=== PATIENT | female | born 1970 | race Caucasian/White ===

== ENCOUNTER → 2016-10-16 | Outpatient (CLI) | payer BC ==
[~2016-10-16] MED LIST: ALPR-385 PO; CYTM25 PO; DESV50TA PO; DICY20TA10 PO; DIPH-437 PO; DIPH25CA65 PO; IBUP-1050 PO; KFL500 PO; LAMO200T38 PO; LITH1TAB10 PO; OLAN1TAB15 PO; OLAN1TAB64 PO; POTA10CA28 PO; SPHSL5 PO; TEMA15CA4 PO; XNX5 PO
--- NOTE | 2016-10-17 12:32 | MAMMOGRAPHY REPORT ---
THIS REPORT HAS BEEN AMENDED. BILATERAL DIGITAL SCREENING MAMMOGRAM TOMOSYNTHESIS WITH CAD: 10/16/2016 CLINICAL HISTORY: Routine screening. Patient has no complaints. TECHNIQUE: Breast tomosynthesis in addition to standard 2D mammography was performed. Current study was also evaluated with a Computer Aided Detection (CAD) system. COMPARISON: No prior exams were available for comparison. BREAST COMPOSITION: The tissue of both breasts is almost entirely fatty. FINDINGS: No suspicious mass, architectural distortion or cluster of microcalcifications is seen. IMPRESSION: ACR BI-RADS CATEGORY 1: NEGATIVE There is no mammographic evidence of malignancy. Prior outside mammograms are currently being reque sted and if obtained they will be reviewed, compared to the current exam to assess for any more subt le changes, and an addendum will be made to this report. Otherwise, a 1 year screening mammogram is recommended. The patient will receive written notification of the results. Approximately 10% of breast cancers are not detected with mammography. A negative mammographic repor t should not delay biopsy if a clinically suggestive mass is present. Shae Andrews M.D. ay/:10/17/2016 07:34:38 [employer]: Denis Stoddard RT(R)(M), [facility] letter sent: Normal 09/10 BI-RADS Code: ACR BI-RADS Category 1: Negative AMENDMENT: 12/12/2016 Shae Andrews M.D. A prior outside mammogram from [facility] dated 10/09/2012 became available for review. Th ere has been no significant interval change comparing to that outside mammogram. No new suspicious mass, developing asymmetry, architectural distortion or suspicious calcifications are identified. R ecommend follow-up in 1 year for next annual screening mammogram. Amended BI-RADS: ACR BI-RADS Category 1: Negative letter sent: Normal 2
== END | disposition home or self-care (01) ==
LOC: C.MAMM 14:25
PROVIDERS: ATTEND Family Medicine
DX: Z12.31 Encounter for screening mammogram for malignant neoplasm of breast (principal)

== ENCOUNTER 2016-11-06 07:32 | Emergency (ER) | payer BC ==
[~2016-11-06] VITALS: Ht 170.2 cm; Wt 109.0 kg
[~2016-11-06 07:32] MED LIST changes: -ALPR-385 PO; -CYTM25 PO; -DICY20TA10 PO; -DIPH-437 PO; -KFL500 PO; -LITH1TAB10 PO; -OLAN1TAB15 PO; -POTA10CA28 PO; -SPHSL5 PO; -XNX5 PO
[2016-11-06 07:48] VITALS: TEMP 37; Ht 170.2 cm; Wt 109.0 kg
--- NOTE | 2016-11-06 07:51 | EMERGENCY ROOM VISIT NOTE ---
History Report prepared by Donald: Jacqueline Elizabeth Under the Supervision of: Dr. Merissa Eddy M.D. First contact with patient: 07:38 Stated Complaint: ANXIETY History of Present Illness The patient is a 46 year old female who presents to the Emergency Room via EMS for a mental health evaluation. The patient has a history of bipolar and per patient's has been acting manic for the past several days. The patient admits that she is feeling manic. She has not been sleeping and has excessive energy and a one-track mind. Her states that she has had similar episodes of manic and anxiety in the past but her symptoms over the past few days have been worse than previous episodes. The patient states that she wants to see her daughter who lives in [place]. Yesterday, she seemed very paranoid to her . This morning, the patient got up after a minimal amount of sleep and was verbalizing that she was afraid that she would go to [facility] and that she would . Her states that she attends prayer groups and goes to buddhism and he feels that this may be a trigger to the thought about going to [place]. At buddhism the other day, she felt very anxious as if everyone was talking about her. The patient follows with Dr. Malik of psychiatry and most recently saw her last month. She spoke with Dr. Malik over the phone 2 days ago regarding her worsening symptoms and had her Saphris and Restoril doses increased. Denies suicidal ideation. She denies alcohol or drug use. She has not taken any extra of her medications today. She does have a history of one suicide attempt. Denies visual hallucinations, chest pain or shortness of breath. She is not a smoker. She does not have any medical problems other than recent abnormal EKGs for which she is following with cardiology. Source of History: patient, spouse/significant other Onset: this morning Position: other (psych) Quality: other (anxiety, manic) Timing: other (persistent) Associated Symptoms: No SOB, No chest pain Note: Other symptoms: paranoia Review of Systems See HPI for pertinent positives & negatives. A total of 10 systems reviewed and were otherwise negative. Past Medical & Surgical Medical Problems: (1) Anxiety and depression Surgical Problems: (1) History of cholecystectomy Family History Diabetes mellitus FH: heart disease Hypertension Seizures Social History Smoking Status: Never Smoker Alcohol Use: none Marital Status: Housing Status: lives with significant other Occupation Status: unemployed Current/Historical Medications Scheduled Acetaminophen/Diphenhydramine (Tylenol Pm), 2 TAB PO HS Asenapine Maleate (Saphris), 1 TAB PO UD Desvenlafaxine Succinate Er (Pristiq), 50 MG PO DAILY Dicyclomine Hcl (Dicyclomine Hcl), 20 MG PO DAILY Diphenhydramine Hcl (Benadryl Allergy), 1 CAP PO HS Lamotrigine (Lamictal), 200 MG PO BID Liothyronine Sodium (Liothyronine Sodium), 25 MCG PO UD Temazepam (Restoril), 30 MG PO HS Scheduled PRN Alprazolam (Xanax), 1 TAB PO BID PRN for Anxiety Ibuprofen (Advil), 200-600 MG PO Q4H PRN for Pain or Fever Allergies Coded Allergies: Lorazepam (Unverified Allergy, Severe, TOOK FOR PP DEPRESSION-ENDED UP IN ICU, 11/06/16) Bupropion (Unverified Allergy, Unknown, ANAPHYLAXIS, 11/06/16) SHE HAD A SEIZURE Physical Exam Vital Signs Date Time Temp Pulse Resp B/P Pulse Ox O2 Delivery O2 Flow Rate FiO2 11/06/16 12:57 86 18 133/81 94 Room Air 11/06/16 09:52 116 154/98 97 11/06/16 07:48 37.0 124 28 160/88 97 Room Air Physical Exam Vital signs reviewed. General: Well-appearing 46 year old female, in no significant distress, obese. HEENT: No scleral icterus, PERRLA, neck supple. Atraumatic. Cardiovascular: Regular rate and rhythm, no extra sounds. Pulmonary: Clear to auscultation bilaterally, normal work of breathing. Abdomen: Soft, nontender, nondistended, positive bowel sounds. Musculoskeletal: Atraumatic, no peripheral edema. Neurologic: Patient awake alert and oriented x 3, full strength in all 4 extremities. Cranial nerves 2 through 12 grossly intact. Skin: Warm, dry, no rash Psych: Anxious, negative suicidal ideation, negative homicidal ideation. Medical Decision & Procedures Laboratory Results 11/06/16 08:30 Red Blood Count 4.17, Mean Corpuscular Volume 92.1, Mean Corpuscular Hemoglobin 31.2, Mean Corpuscular Hemoglobin Concent 33.9, Mean Platelet Volume 11.2, Neutrophils (%) (Auto) 81.3, Lymphocytes (%) (Auto) 11.3, Monocytes (%) (Auto) 6.6, Eosinophils (%) (Auto) 0.2, Basophils (%) (Auto) 0.2, Neutrophils # (Auto) 10.15, Lymphocytes # (Auto) 1.41, Monocytes # (Auto) 0.82, Eosinophils # (Auto) 0.03, Basophils # (Auto) 0.03 11/06/16 08:30 Test 11/06/16 08:30 11/06/16 08:37 White Blood Count 12.49 K/uL (4.8-10.8) Red Blood Count 4.17 M/uL (4.2-5.4) Hemoglobin 13.0 g/dL (12.0-16.0) Hematocrit 38.4 % (37-47) Mean Corpuscular Volume 92.1 fL (80-100) Mean Corpuscular Hemoglobin 31.2 pg (25-34) Mean Corpuscular Hemoglobin Concent 33.9 g/dl (32-36) Platelet Count 295 K/uL (130-400) Mean Platelet Volume 11.2 fL (7.4-10.4) Neutrophils (%) (Auto) 81.3 % Lymphocytes (%) (Auto) 11.3 % Monocytes (%) (Auto) 6.6 % Eosinophils (%) (Auto) 0.2 % Basophils (%) (Auto) 0.2 % Neutrophils # (Auto) 10.15 K/uL (1.4-6.5) Lymphocytes # (Auto) 1.41 K/uL (1.2-3.4) Monocytes # (Auto) 0.82 K/uL (0.11-0.59) Eosinophils # (Auto) 0.03 K/uL (0-0.5) Basophils # (Auto) 0.03 K/uL (0-0.2) RDW Standard Deviation 47.4 fL (36.4-46.3) RDW Coefficient of Variation 14.1 % (11.5-14.5) Immature Granulocyte % (Auto) 0.4 % Immature Granulocyte # (Auto) 0.05 K/uL (0.00-0.02) Anion Gap 14.0 mmol/L (3-11) Est Creatinine Clear Calc Drug Dose 124.6 ml/min Estimated GFR () 117.6 Estimated GFR (Non- 101.4 BUN/Creatinine Ratio 13.4 (10-20) Calcium Level 9.2 mg/dl (8.5-10.1) Total Bilirubin 0.3 mg/dl (0.2-1) Aspartate Amino Transf (AST/SGOT) 12 U/L (15-37) Alanine Aminotransferase (ALT/SGPT) 22 U/L (12-78) Alkaline Phosphatase 121 U/L (45-117) Total Protein 7.8 gm/dl (6.4-8.2) Albumin 3.7 gm/dl (3.4-5.0) Globulin 4.1 gm/dl (2.5-4.0) Albumin/Globulin Ratio 0.9 (0.9-2) Thyroid Stimulating Hormone (TSH) 0.926 uIu/ml (0.300-4.500) Salicylates Level < 1.7 mg/dl (2.8-20) Acetaminophen Level < 2 ug/ml (10-30) Ethyl Alcohol mg/dL < 3.0 mg/dl (0-3) Urine Color YELLOW Urine Appearance CLOUDY (CLEAR) Urine pH 5.0 (4.5-7.5) Urine Specific [place] 1.021 (1.000-1.030) Urine Protein NEG (NEG) Urine Glucose (UA) NEG (NEG) Urine Ketones TRACE (NEG) Urine Occult Blood TRACE (NEG) Urine Nitrite POS (NEG) Urine Bilirubin NEG (NEG) Urine Urobilinogen NEG (NEG) Urine Leukocyte Esterase SMALL (NEG) Urine WBC (Auto) 10-30 /hpf (0-5) Urine RBC (Auto) 0-4 /hpf (0-4) Urine Hyaline Casts (Auto) 5-10 /lpf (0-5) Urine Epithelial Cells (Auto) >30 /lpf (0-5) Urine Bacteria (Auto) 4+ (NEG) Urine Opiates Screen NEG (NEG) Urine Methadone, Qualitative NEG (NEG) Urine Barbiturates NEG (NEG) Urine Phencyclidine (PCP) Level NEG (NEG) Ur Amphetamine/Methamphetamine NEG (NEG) MDMA (Ecstasy) Screen NEG (NEG) Urine Benzodiazepines Screen POS (NEG) Urine Cocaine Metabolite NEG (NEG) Urine Marijuana (THC) NEG (NEG) Laboratory results per my review. Medications Administered Medications (Trade) Dose Ordered Sig/Uriah Route Start Time Stop Time Status Last Admin Dose Admin Alprazolam (Xanax Tab) 1 mg NOW STAT PO 11/06/16 09:28 11/06/16 09:29 DC 11/06/16 09:41 0.75 MG ECG Indication: other (hx abnormal EKG) Rate (beats per minute): 111 Rhythm: sinus tachycardia Findings: other (nonspecific ST and T wave abnormalities, QTc 437) Comparison ECG Date: 07/31/16 Change: Nonspecific ST changes replaced T wave inversions. ED Course 926: Past medical records reviewed. The patient was evaluated in room B9. A complete history and physical examination was performed. 927: Ordered Xanax Tab 1 mg PO. 1313: Upon reevaluation, the patient appeared to have improvement of her symptoms. I discussed findings with the patient and her . They verbalized agreement of the treatment plan. The patient was discharged home. Medical Decision Differential diagnosis: Etiologies such as mood disorder, infection, hypoglycemia, electrolyte abnormalities, cardiac sources, intracerebral event, toxicologic, neurologic, as well as others were entertained. This patient was evaluated and appeared to be in some discomfort. Patient does seem to be significantly anxious. She states she has an allergy to lorazepam about 20 years ago although cannot remember what the reaction was. She was given Xanax 1 mg with good result and no reaction. Patient was medically cleared and evaluated by [facility]. She is felt to be stable for discharge. Outpatient follow-up with [facility] has been arranged for tomorrow. Patient was discharged in care of her . Patient will return to the ER immediately for worsening of symptoms or any medical concerns. Impression Primary Impression: Mood disorder Scribe Attestation The scribe's documentation has been prepared under my direction and personally reviewed by me in its entirety. I confirm that the note above accurately reflects all work, treatment, procedures, and medical decision making performed by me. Departure Information Dispostion Home / Self-Care Prescriptions Alprazolam (XANAX) 1 Mg Tab 1 TAB PO BID Y for Anxiety for 30 Days, #14 TAB Prov: Merissa Eddy M.D. 11/06/16 Referrals Fernanda Chino PA-C (PCP) Rhiannon Malik MD Forms HOME CARE DOCUMENTATION FORM, IMPORTANT VISIT INFORMATION Patient Instructions My [facility] Additional Instructions Diagnosis: Mood disorder Xanax 1 mg twice daily as needed for anxiety. Continue other medications as prescribed. Follow up with your psychiatrist tomorrow as directed. Return to emergency for worsening of symptoms or any medical concerns.
[2016-11-06] MEDS ORDERED: DIPH-437 PO (08:33)
[2016-11-06] MEDS ORDERED: DICY20TA10 PO (08:42)
[2016-11-06] MEDS ORDERED: SPHSL5 PO (08:44)
[2016-11-06] MEDS ORDERED: CYTM25 PO (08:46)
[2016-11-06 09:01] LABS: URINE APPEARANCE CLOUDY (CLEAR); URINE BILIRUBIN NEG (NEG); URINE COLOR YELLOW; URINE EPITHELIAL CELL AUTO >30 /lpf (0-5); URINE NITRITE POS (NEG); URINE SPECIFIC GRAVITY 1.021 (1.000-1.030); UROBILINOGEN NEG (NEG); ZZUR CULT IF INDIC CLEAN CATCH YES
[2016-11-06 09:04] LABS: MANUAL MICROSCOPIC REQUIRED? NO; REVIEW REQ? NO
[2016-11-06 09:05] LABS: BASO % 0.2 %; BASO ABS # 0.03 K/uL (0-0.2); COMPLETE YES; EOS % 0.2 %; HEMATOCRIT 38.4 % (37-47); IG% 0.4 %; LYMPH % 11.3 %; LYMPH ABS # 1.41 K/uL (1.2-3.4); MEAN CELL VOLUME 92.1 fL (80-100); MEAN CORPUSCULAR HEMOGLOBIN 31.2 pg (25-34); MEAN CORPUSCULAR HGB CONC 33.9 g/dl (32-36); MEAN PLATELET VOLUME 11.2 fL (7.4-10.4); MONO % 6.6 %; NEUT % 81.3 %; PLATELET COUNT 295 K/uL (130-400); RED BLOOD COUNT 4.17 M/uL (4.2-5.4); WHITE BLOOD COUNT 12.49 K/uL (4.8-10.8)
[2016-11-06 09:26] LABS: BUN/CREATININE RATIO 13.4 (10-20); CALCIUM 9.2 mg/dl (8.5-10.1); CREATININE 0.71 mg/dl (0.60-1.20); POTASSIUM 3.1 mmol/L (3.5-5.1)
[2016-11-06] MEDS ORDERED: ALPRAZOLAM 0.5 MG TAB PO STA (09:28)
[2016-11-06 09:37] LABS: ALB/GLOB RATIO 0.9 (0.9-2); THYROID STIMULATING HORMONE 0.926 uIu/ml (0.300-4.500)
[2016-11-06 09:38] LABS: BENZODIAZEPINE, URINE POS (NEG); COCAINE,URINE NEG (NEG); PHENCYCLIDINE, URINE NEG (NEG)
[2016-11-06 09:42] LABS: ACETAMINOPHEN < 2 ug/ml (10-30)
[2016-11-06] MEDS ORDERED: LAMO200T38 PO (10:06)
[2016-11-06 12:57] VITALS: BP 133/81; PULSE 86; O2SAT 94
[2016-11-06] MEDS ORDERED: ALPR-385 PO (12:59)
--- NOTE | 2016-11-08 14:22 | Pharmacy Progress Note ---
ED Pharmacist Culture FollowUp Date of Service: Nov 08, 2016. Called patient regarding urine culture. Prescription for Bactrim DS 1 tab po BID x3 days called to [facility] at the patient's request. Case discussed with Dr. Eddy, who is the prescribing provider.
--- NOTE | 2016-11-08 15:59 | Pharmacy Progress Note ---
ED Pharmacist Culture FollowUp Date of Service: Nov 08, 2016. Received call from Leisa ([facility] pharmacist) noting that Becky had a listed allergy to Bactrim. When I had previously spoken with Becky I confirmed her listed allergies and asked whether she had taken Bactrim before. Becky said she had. I called Becky back to re-confirm allergies - Becky noted that our previous conversation had caused her to remember that she did not tolerate Bactrim when she had taken it previously. I asked if she had taken cephalosporins before (Keflex/cephalexin etc), and Becky said she has not had problems with any antibiotics except Bactrim. Spoke w Leisa ([facility] pharmacist). Instructed to cancel prescription for Bactrim. Provided verbal prescription for Keflex 500 mg po BID x5 days. Case discussed with Dr. Eddy, who is the prescribing provider.
[2016-11-09 15:37] LABS: HYDROXYETHYLFLURAZEPAM CONF NEGATIVE NG/ML (CUTOFF=50); HYDROXYMIDAZOLAM NEGATIVE NG/ML (CUTOFF=50); HYDROXYTRIAZOLAM CONF NEGATIVE NG/ML (CUTOFF=50); SYNTHETIC CANNABINOIDS QL URIN NEGATIVE (Negative); TEMAZEPAM CONF >2000 NG/ML (CUTOFF=50)
== END 2016-11-06 13:06 | disposition home or self-care (01) ==
LOC: EDBD 07:32 → C.EDA 07:36
DX: F39 Unspecified mood [affective] disorder (principal); F41.9 Anxiety disorder, unspecified; Z79.899 Other long term (current) drug therapy

== ENCOUNTER 2016-11-11 14:21 | Inpatient (IN) | payer BC, OTHER ==
[~2016-11-11] VITALS: Ht 170.2 cm; Wt 100.6 kg
[~2016-11-11 14:21] MED LIST changes: +ALPR-385 PO; +CYTM25 PO; +DICY20TA10 PO; +DIPH-437 PO; -OLAN1TAB64 PO; +SPHSL5 PO
[2016-11-11] MEDS ORDERED: SPHSL5 PO (14:35)
[2016-11-11] MEDS ORDERED: LITH1TAB10 PO ×2 (14:38)
--- NOTE | 2016-11-11 15:02 | EMERGENCY ROOM VISIT NOTE ---
History Report prepared by Donald: Sangeeta Mondragon Under the Supervision of: Dr. Sourav Perez M.D. First contact with patient: 14:41 Chief Complaint: MENTAL HEALTH EVALUATION Stated Complaint: BI-POLAR W/SEVERE SWING History of Present Illness The patient is a 46 year old female who presents to the Emergency Room with complaints of persistent, worsening auditory hallucinations that began two weeks ago. Per the patient's , the patient was brought to the emergency department on November 06 for her hallucinations. He states that since then the patient's hallucinations have been worsening. The patient's states that the patient had an appointment with her doctor on November 07. He states that the patient was recently started on Coburn and states that she is being weaned off of Pristiq. The patient states that she has been evaluated in the past for her psychiatric problems, and states that she would like to stay today for further treatment. She states that she has been under psychiatric care for the past 25 years, noting a diagnosis of bipolar. The patient denies any other medical problems. The patient notes decreased sleep, but denies any decrease in fluid intake or decrease in appetite. She states that she has had previous suicidal ideation, but denies any current suicidal ideation. The patient notes that she recently tried changing religions and became obsessed with it. Per the patient's , he believes that this did help to trigger her symptoms. Source of History: patient, spouse/significant other () Onset: two weeks ago Position: other (global) Quality: other (auditory hallucinations) Timing: other (persistent) Note: Associated Symptoms: decrease in sleep, medication change, change in buddhist Review of Systems See HPI for pertinent positives & negatives. A total of 10 systems reviewed and were otherwise negative. Past Medical & Surgical Medical Problems: (1) Anxiety and depression (2) Bipolar 1 disorder Surgical Problems: (1) History of cholecystectomy Family History Diabetes mellitus FH: heart disease Hypertension Seizures Social History Smoking Status: Never Smoker Alcohol Use: none Marital Status: Housing Status: lives with significant other Occupation Status: unemployed Current/Historical Medications Scheduled Acetaminophen/Diphenhydramine (Tylenol Pm), 2 TAB PO HS Asenapine Maleate (Saphris), 5 MG PO QAM Asenapine Maleate (Saphris), 15 MG PO HS Desvenlafaxine Succinate Er (Pristiq), 50 MG PO Q2D Dicyclomine Hcl (Dicyclomine Hcl), 20 MG PO DAILY Lamotrigine (Lamictal), 400 MG PO QAM Liothyronine Sodium (Liothyronine Sodium), 12.5 MCG PO UD [place]urn Carbonate Ext Rel (Lithobid Ext Rel), 300 MG PO QAM [place]urn Carbonate Ext Rel (Lithobid Ext Rel), 600 MG PO HS Temazepam (Restoril), 15 MG PO HS Scheduled PRN Ibuprofen (Advil), 200-600 MG PO Q4H PRN for Pain or Fever Allergies Coded Allergies: Lorazepam (Unverified Allergy, Severe, TOOK FOR PP DEPRESSION-ENDED UP IN ICU, 11/11/16) Bupropion (Unverified Allergy, Unknown, ANAPHYLAXIS, 11/11/16) SHE HAD A SEIZURE Lurasidone (Unverified Allergy, Unknown, HALLUCINATIONS, 11/11/16) Sulfamethoxazole w/Trimethoprim (Verified Allergy, Unknown, UNKNOWN, ) Physical Exam Vital Signs Date Time Temp Pulse Resp B/P Pulse Ox O2 Delivery O2 Flow Rate FiO2 11/11/16 16:00 76 20 153/91 97 Room Air 11/11/16 14:24 36.6 81 18 134/83 96 Room Air Physical Exam GENERAL: Patient is in no acute distress. HEENT: No acute trauma, normocephalic atraumatic, mucous membranes moist, no nasal congestion, no scleral icterus. NECK: No stridor, no adenopathy, no meningismus, trachea is midline. LUNGS: Clear to auscultation bilaterally, no wheeze, no rhonchi, breath sounds equal. HEART: Without murmurs gallops or rubs, regular rate and rhythm. ABDOMEN: Soft, nontender, bowel sounds positive, no hernias, no peritonitis. EXTREMITIES: No cyanosis or edema, full range of motion of all the joints without pain or difficulty, no signs for acute trauma. NEUROLOGIC: Oriented x 3, no acute motor or sensory deficits, no focal weakness. SKIN: No rash, no jaundice, no diaphoresis. PSYCH: Cooperative, voluntary, admits to hearing voices, denies being suicidal. Medical Decision & Procedures Laboratory Results 11/11/16 15:30 11/11/16 15:30 Test 11/11/16 15:30 11/11/16 16:53 Red Blood Count 4.75 M/uL (4.2-5.4) Mean Corpuscular Volume 92.0 fL (80-100) Mean Corpuscular Hemoglobin 30.9 pg (25-34) Mean Corpuscular Hemoglobin Concent 33.6 g/dl (32-36) RDW Standard Deviation 46.6 fL (36.4-46.3) RDW Coefficient of Variation 13.8 % (11.5-14.5) Mean Platelet Volume 10.8 fL (7.4-10.4) Anion Gap 11.0 mmol/L (3-11) Est Creatinine Clear Calc Drug Dose 99.8 ml/min Estimated GFR () 90.7 Estimated GFR (Non- 78.2 BUN/Creatinine Ratio 11.0 (10-20) Calcium Level 9.5 mg/dl (8.5-10.1) Total Bilirubin 0.3 mg/dl (0.2-1) Aspartate Amino Transf (AST/SGOT) 14 U/L (15-37) Alanine Aminotransferase (ALT/SGPT) 31 U/L (12-78) Alkaline Phosphatase 133 U/L (45-117) Total Protein 8.7 gm/dl (6.4-8.2) Albumin 4.1 gm/dl (3.4-5.0) Globulin 4.6 gm/dl (2.5-4.0) Albumin/Globulin Ratio 0.9 (0.9-2) Thyroid Stimulating Hormone (TSH) 0.981 uIu/ml (0.300-4.500) Human Chorionic Gonadotropin, Qual NEG (NEG) Coburn Level 0.3 mMOL/L (0.6-1.2) Ethyl Alcohol mg/dL < 3.0 mg/dl (0-3) Urine Color YELLOW Urine Appearance CLEAR (CLEAR) Urine pH 6.0 (4.5-7.5) Urine Specific [place] 1.017 (1.000-1.030) Urine Protein NEG (NEG) Urine Glucose (UA) NEG (NEG) Urine Ketones NEG (NEG) Urine Occult Blood 1+ (NEG) Urine Nitrite NEG (NEG) Urine Bilirubin NEG (NEG) Urine Urobilinogen NEG (NEG) Urine Leukocyte Esterase NEG (NEG) Urine WBC (Auto) 1-5 /hpf (0-5) Urine RBC (Auto) 10-30 /hpf (0-4) Urine Hyaline Casts (Auto) 1-5 /lpf (0-5) Urine Epithelial Cells (Auto) >30 /lpf (0-5) Urine Bacteria (Auto) NEG (NEG) Urine Opiates Screen NEG (NEG) Urine Methadone, Qualitative NEG (NEG) Urine Barbiturates NEG (NEG) Urine Phencyclidine (PCP) Level NEG (NEG) Ur Amphetamine/Methamphetamine NEG (NEG) MDMA (Ecstasy) Screen NEG (NEG) Urine Benzodiazepines Screen NEG (NEG) Urine Cocaine Metabolite NEG (NEG) Urine Marijuana (THC) NEG (NEG) Laboratory results reviewed by me. ECG Indication: toxicologic Rate (beats per minute): 79 Rhythm: normal sinus Findings: no acute ischemic change, no ectopy ED Course 1443: The patient was evaluated in room A6. A complete history and physical exam was performed. 1730: The patient is medically clear to be evaluated further by psych. 1805: Per the psych behavioral health case manager, the patient has been accepted to [facility] for further care and treatment. The patient is in agreement with the plan. Medical Decision The patient is a 46 year old female who presents to the ED with complaints of auditory hallucinations. Differential diagnoses considered include medication noncompliance, drug or alcohol abuse, manic episode, psychiatric break. There is no leukocytosis or concerning anemia. No significant electrolyte abnormality, kidney failure or hepatitis. The patient appears to be in a euthyroid state. Urinalysis does not show infection. testing is negative. Urine tox is negative. Alcohol level is undetectable. Coburn level is not toxic. EKG shows a normal sinus rhythm, no ischemia. The patient presents with worsening of her situation. She was here recently in the ER with similar complaints and was discharged to follow with her psychiatrist. Her medications were changed but things are not getting any better. She is hearing voices and is quite overwhelmed. She is paranoid. She would like to stay in the hospital for further care. The patient was felt medically clear for psychiatric evaluation. She was seen by our psychiatric services at this hospital. The patient will be brought into the psychiatric unit at [facility] as a voluntary patient. Impression Primary Impression: Hallucinations Additional Impressions: Paranoia Psychosis Scribe Attestation The scribe's documentation has been prepared under my direction and personally reviewed by me in its entirety. I confirm that the note above accurately reflects all work, treatment, procedures, and medical decision making performed by me. Departure Information Dispostion Mental Health Acute Care Referrals No Doctor, Assigned (PCP) Problem Qualifiers
[2016-11-11 16:10] LABS: HEMATOCRIT 43.7 % (37-47); MEAN CORPUSCULAR HEMOGLOBIN 30.9 pg (25-34); MEAN CORPUSCULAR HGB CONC 33.6 g/dl (32-36); MEAN PLATELET VOLUME 10.8 fL (7.4-10.4); PLATELET COUNT 320 K/uL (130-400); RED BLOOD COUNT 4.75 M/uL (4.2-5.4); WHITE BLOOD COUNT 10.12 K/uL (4.8-10.8)
[2016-11-11 16:34] LABS: PREG INTERNAL NEGATIVE QC NEG CLEAR BACKGROUND; PREG INTERNAL POSITIVE QC POS CONTROL LINE
[2016-11-11 16:35] LABS: CALCIUM 9.5 mg/dl (8.5-10.1); CREATININE 0.88 mg/dl (0.60-1.20); POTASSIUM 3.5 mmol/L (3.5-5.1)
[2016-11-11 16:45] LABS: ALB/GLOB RATIO 0.9 (0.9-2); THYROID STIMULATING HORMONE 0.981 uIu/ml (0.300-4.500)
[2016-11-11 17:07] LABS: MANUAL MICROSCOPIC REQUIRED? NO; REVIEW REQ? NO; URINE APPEARANCE CLEAR (CLEAR); URINE BILIRUBIN NEG (NEG); URINE COLOR YELLOW; URINE EPITHELIAL CELL AUTO >30 /lpf (0-5); URINE NITRITE NEG (NEG); URINE SPECIFIC GRAVITY 1.017 (1.000-1.030); UROBILINOGEN NEG (NEG); ZZUR CULT IF INDIC CLEAN CATCH NO
[2016-11-11 17:28] LABS: BENZODIAZEPINE, URINE NEG (NEG); COCAINE,URINE NEG (NEG); PHENCYCLIDINE, URINE NEG (NEG)
[2016-11-11] MEDS ORDERED: SODIUM CHLORIDE 0.65% NA SOLN 45 ML (OCEAN) PRN (18:15)
[2016-11-11] MEDS ORDERED: ALUMINUM/MAGNESIUM SUSP 30 ML UDC PO PRN (18:15)
[2016-11-11] MEDS ORDERED: MAGNESIUM HYDROXIDE SUSP 30 ML UDC PO PRN (18:15)
[2016-11-11] MEDS ORDERED: ACETAMINOPHEN 325 MG TAB PO PRN (18:15)
[2016-11-11 20:37] VITALS: BP 134/70; PULSE 88; TEMP 36.7; BMI 37.2
[2016-11-11] MEDS ORDERED: NURSING VERBAL MED ORDER ONE (21:30)
[2016-11-11] MEDS: TEMAZEPAM 15 MG CAP PO SCH (22:09)
[2016-11-11] MEDS: LITHIUM CARBONATE 450 MG TABCR PO SCH (22:09)
[2016-11-12 06:48] VITALS: BP_SYST 136; BP_SYST 148; BP_DIAS 87; BP_DIAS 91; PULSE 82; TEMP 36.5
[2016-11-12] MEDS: DICYCLOMINE HCL 20 MG TAB PO SCH (08:40)
[2016-11-12] MEDS: LIOTHYRONINE SODIUM 25 MCG TAB PO SCH (08:41)
[2016-11-12] MEDS: LITHIUM CARBONATE SR 300 MG TAB (LITHOBID) PO SCH (08:41)
[2016-11-12] MEDS ORDERED: ASENAPINE MALEATE 5 MG SL SCH ×2 (09:00→22:00)
[2016-11-12] MEDS ORDERED: PRISTIQ 25 MG PO ONE (09:00)
[2016-11-12] MEDS: CLONAZEPAM 0.5 MG TAB PO PRN (09:40)
[2016-11-12] MEDS ORDERED: KFL500 PO (10:49)
[2016-11-12] MEDS ORDERED: CEPHALEXIN MONOHYDRATE 500 MG CAP PO ONE (10:49)
--- NOTE | 2016-11-12 11:56 | Psychiatric History & Physical ---
History Identifying Data Becky Levy is a 46-year-old female who currently lives in [place] with her , has a history of bipolar type I, rule out schizoaffective disorder, and was admitted on a 201 voluntary commitment after she presented from home with worsening psychosis. Chief Complaint "I was hearing voices, I always feel when I'm sick I cause everything". History of Present Illness This is the patient's first hospitalization on our behavioral health unit. She has a long history of mental illness, states she was first diagnosed with mood disorder 20 years ago after the of her second child when she was hospitalized for several months with depression. At some point her diagnosis was changed to bipolar disorder, but she's had frequent episodes of psychosis, and per outpatient records there is a also a concern for schizoaffective disorder bipolar type. She has been seeing Dr. Malik at [facility], but has canceled multiple appointments with both her psychiatrist and therapist. She called the clinic on 11/04/2016, stating she was not sleeping and was manic and paranoid, and her Saphris was increased to 10 mg every morning and 15 mg daily at bedtime, and temazepam to 30 mg daily at bedtime. She was then seen in the emergency room 2 days later for manic symptoms, but was discharged home. She then called the clinic again and was seen 11/07/2016 for an urgent appointment, and reported the week prior she'd returned from a visit with her daughter, slept excessively all week, and then over the weekend was unable to sleep and felt paranoid that others were talking about her. She endorsed racing thoughts, high anxiety, thinking other people are talking about her, and hyper religiosity. She was given instructions to taper off of Pristiq, and to start lithium. She called the clinic the following day, stating that she continued to be paranoid, and was given instructions on tapering up on the lithium. She then presented to the emergency room 3 days later with her , reporting worsening auditory hallucinations for the past 2 weeks, paranoia, and hyper religiosity. She endorsed feeling overwhelmed and wanted to be admitted. Today, the patient is seen with Tom Edmond, MS3. She is a somewhat limited historian due to psychosis, anxiety, and disorganization. She states that she's had worsening symptoms for the past 2 months, describing unstable mood, with frequent switches between freida and depression. Over the past week, she's developed auditory hallucinations which she describes as a male voice "degrading me." She also endorses paranoia, thinking that others are talking badly about her and don't like her, or are out to get her. Due to this she has been unable to leave the house or even go to the store. At one point she would did go out with her , but hid in the car she was fearful. Her sleep has decreased since the voices started, she's been isolating more, and has been more irritable. Her daughter told her she needed to go to the hospital after she told her about an incident that occurred 2 days ago where the patient was in the basement and saw her 's beer, which he keeps their, and had urges to "throw it against the wall." She states that her is an alcoholic, and this has caused frequent fights between them. She also describes stress due to difficulties finding a confucianist she wants to attend, but has difficulty describing this, saying "it's not for me, I think I scared myself being so close to the Lord, but that's not which are supposed to do." She describes her mood as "fluctuating." During her manic periods, she describes high mood, decreased need for sleep about 3 hours a night, excessive cleaning, saying she "tries to make everything perfect." She has racing thoughts and becomes "obsessed" with gnosticist and which confucianist she wants to attend. During a low periods, mood is sad, she cries frequently, feels guilty for being ill, does not do the food shopping or take care of herself. Energy levels are erratic, interest is decreased, and irritability is increased. She worries a lot about "I don't know, I have nothing to worry about, I don't have any problems." Despite this, she endorses worry about everything in her life, including which confucianist she should attend, her children, and her grandchildren. She denies symptoms consistent with panic, OCD, PTSD, and eating disorder. She admits "I don't take care of myself," makes poor food choices and drinks excessive amounts of soda, and does not follow up with outpatient appointments or recommendations, stating that her psychiatrist had referred her to cardiology due to an abnormal EKG, but she has canceled and rescheduled the stress test, and has not attended her scheduled psychiatric or therapy appointments. She reports problems with short-term memory, which are long-standing per records. She states that when she is ill "I just live in the past," saying she becomes obsessed with her ex- and "blames him." She endorses steady weight gain. She has had suicidal thoughts in the past, last was a couple of months ago. She denies homicidal thoughts or thoughts of harming others. Past Psychiatric History Current OP Treatment: psychiatrist (Dr. Malik ), therapist (Patria Espinal) Prior OP Treatment: psychiatrist (in [facility] prior to moving here) Prior Psych Hospitalizations: other (multiple hospitalizations in [facility] in the past, last in 2012.) (1) Bipolar 1 disorder Patient reports she was first diagnosed with mental illness when she was hospitalized with depression 20 years ago after the of her second child. She is been diagnosed with bipolar disorder type I, but has had frequent episodes of psychosis, so there is also a rule out for schizoaffective disorder bipolar type. She was hospitalized for 3 months per her report, and has had multiple hospitalizations since, the last in 2012 at [facility]. She was seen in their emergency room in February 2015 for manic symptoms , but was discharged. She has been seen in our emergency room for manic symptoms, most recently on 11/06/2016, but was discharged home. She initiated care with Dr. Malik at [facility] in December 2015, and was also referred for therapy to Patria Espinal, whom she saw only once in August, canceling appointments after that. She has a history of 1 suicide attempt approximately 15 years ago, at which point she had climbed up on a bridge with intent to jump , but eventually climbed back down. She denies a history of self-injurious behavior or violence towards others. Her owns guns, which are kept in the home, but she says they are locked and she does not even know where they are. Previous medication trials (per past records): Olanzapine-the patient was on this when she started treatment with Dr. Malik, but was taken off of it due to ongoing symptoms and weight gain Quetiapine-patient doesn't recall effect Aripiprazole-patient had a brief trial of samples, but was not covered by insurance so was stopped Topamax-prescribed briefly for weight gain Lurasidone-was discharged from 2011 hospitalization on 80 mg daily, but stated she had hallucinations while on the medication Doxepin-25 mg in 2012 Pristiq-was helpful at 50 mg in the past, but in the fall 2014 became manic on 100 mg while on Lamictal for mood stabilization. Recently tapered off this medication by Dr. Malik due to unstable mood. Risperidone-on 2 mg twice a day in January 2012 hospitalization, and 8 mg during 2012 hospitalization. Depakote Celexa Venlafaxine XR Bupropion-the patient says her daughter recalls that she had several seizures on this medication, she thinks she was on other medications at this time as well. Past Medical/Surgical History Problem List: (1) Obesity (2) History of cholecystectomy PCP is [facility] in [place], but is hoping to switch to someone else. Commodity Industry Analyst is Dr. Krishnamurthy, and she has a stress test scheduled later this month. Allergies Allergies: Coded Allergies: Lorazepam (Unverified Allergy, Severe, TOOK FOR PP DEPRESSION-ENDED UP IN ICU, 11/11/16) Bupropion (Unverified Allergy, Unknown, ANAPHYLAXIS, 11/11/16) SHE HAD A SEIZURE Lurasidone (Unverified Allergy, Unknown, HALLUCINATIONS, 11/11/16) Sulfamethoxazole w/Trimethoprim (Verified Allergy, Unknown, UNKNOWN, ) Home Medications Scheduled Acetaminophen/Diphenhydramine (Tylenol Pm), 2 TAB PO HS Asenapine Maleate (Saphris), 5 MG PO QAM Asenapine Maleate (Saphris), 15 MG PO HS Cephalexin Monohydrate (Cephalexin), 500 MG PO BID Desvenlafaxine Succinate Er (Pristiq), 25 MG PO Q2D Dicyclomine Hcl (Dicyclomine Hcl), 20 MG PO DAILY Lamotrigine (Lamictal), 400 MG PO QAM Liothyronine Sodium (Liothyronine Sodium), 12.5 MCG PO UD Verdon Carbonate Ext Rel (Lithobid Ext Rel), 300 MG PO QAM Verdon Carbonate Ext Rel (Lithobid Ext Rel), 600 MG PO HS Temazepam (Restoril), 15 MG PO HS Scheduled PRN Ibuprofen (Advil), 200-600 MG PO Q4H PRN for Pain or Fever Family History Diabetes mellitus FH: heart disease Hypertension Seizures Mother had mental retardation and possibly bipolar disorder. Grandparents were alcoholics, but her grandmother quit drinking when the patient was young. Grandmother has anxiety and panic. No family history of suicide. Alcohol Use Alcohol Use In Past 12 Months: No Patient reports a remote history of alcohol abuse, admitting to drinking a 6 pack a day on the weekends over 15 years ago after her first marriage ended. She denies that she has drank alcohol at all since she started taking medications. Substance History Substance Use Past 12 Months: Hx of Inhalent Use: No Hx of Organic Substance Use: No Hx of Illegal/Street Drug Use: No Hx of Over the Counter Med Use: No Hx of Prescription Med Use: No The patient denies ever abusing recreational drugs, tobacco, or prescription medications. She does drink excessive amounts of soda, in the past up to 2 L of Pepsi daily, and most recently a 1 L daily. Personal History Education: other (completed a two-year community college accounting degree) Relationship History: (second marriage, first ended in divorce) Children: 2 daughters Spiritual Affiliation: Temple, has tried various denominations Legal History: none Abuse History: none Additional Comments: Patient states she was raised by her grandparents, because her mother had mental retardation. She previously lived in [facility] in the [facility], where her daughters and granddaughter still live. Her was transferred to [facility], so moved to this area, and the patient stayed in [place] for a while to be close to her children, but moved to [place] about 2 years ago. Her [id number] lives in [place]. 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 She has 2 daughters, her 29-year-old daughter was born when the patient was 16, and the patient has no relationship with her daughter's father. Her 20-year-old daughter was a product of her first marriage. She has 3 granddaughters. He is currently unemployed, and has tried to get disability, but was denied. Review of Systems 10 systems were reviewed; positive for chronic diarrhea and URI symptoms. Others are negative except as stated above. Examination Physical Examination Physical exam performed in the emergency room was reviewed and accepted for the purposes of this admission. Vital Signs Vital Signs Past 12 Hours Date Time Temp Pulse Resp B/P Pulse Ox O2 Delivery O2 Flow Rate FiO2 11/12/16 06:48 36.5 82 18 136/87 148/91 Laboratory Results Last 24 Hours Test 11/11/16 15:30 11/11/16 16:53 White Blood Count 10.12 K/uL Red Blood Count 4.75 M/uL Hemoglobin 14.7 g/dL Hematocrit 43.7 % Mean Corpuscular Volume 92.0 fL Mean Corpuscular Hemoglobin 30.9 pg Mean Corpuscular Hemoglobin Concent 33.6 g/dl RDW Standard Deviation 46.6 fL RDW Coefficient of Variation 13.8 % Platelet Count 320 K/uL Mean Platelet Volume 10.8 fL Sodium Level 141 mmol/L Potassium Level 3.5 mmol/L Chloride Level 104 mmol/L Carbon Dioxide Level 26 mmol/L Anion Gap 11.0 mmol/L Blood Urea Nitrogen 10 mg/dl Creatinine 0.88 mg/dl Est Creatinine Clear Calc Drug Dose 99.8 ml/min Estimated GFR () 90.7 Estimated GFR (Non- 78.2 BUN/Creatinine Ratio 11.0 Random Glucose 74 mg/dl Calcium Level 9.5 mg/dl Total Bilirubin 0.3 mg/dl Aspartate Amino Transf (AST/SGOT) 14 U/L Alanine Aminotransferase (ALT/SGPT) 31 U/L Alkaline Phosphatase 133 U/L Total Protein 8.7 gm/dl Albumin 4.1 gm/dl Globulin 4.6 gm/dl Albumin/Globulin Ratio 0.9 Thyroid Stimulating Hormone (TSH) 0.981 uIu/ml Human Chorionic Gonadotropin, Qual NEG Verdon Level 0.3 mMOL/L Ethyl Alcohol mg/dL < 3.0 mg/dl Urine Color YELLOW Urine Appearance CLEAR Urine pH 6.0 Urine Specific [place] 1.017 Urine Protein NEG Urine Glucose (UA) NEG Urine Ketones NEG Urine Occult Blood 1+ Urine Nitrite NEG Urine Bilirubin NEG Urine Urobilinogen NEG Urine Leukocyte Esterase NEG Urine WBC (Auto) 1-5 /hpf Urine RBC (Auto) 10-30 /hpf Urine Hyaline Casts (Auto) 1-5 /lpf Urine Epithelial Cells (Auto) >30 /lpf Urine Bacteria (Auto) NEG Urine Opiates Screen NEG Urine Methadone, Qualitative NEG Urine Barbiturates NEG Urine Phencyclidine (PCP) Level NEG Ur Amphetamine/Methamphetamine NEG MDMA (Ecstasy) Screen NEG Urine Benzodiazepines Screen NEG Urine Cocaine Metabolite NEG Urine Marijuana (THC) NEG Mental Examination During interview pt is: alert and oriented, cooperative Appearance: appropriately dressed, appropriately groomed, other (obese) Eye contact is: good Motor behavior is: steady gait & station, no abnormal motor movements Speech: normal in rate, rhythm & volume (halting at times) Affect: anxious, constricted Mood is: depressed, anxious Thought process: other (mildly disorganized, often answering with unrelated information, and a rambling quality) Thought content: paranoid, delusions (of persecution) Suicidal thought are: denied Homicidal thoughts are: denied Hallucinations: auditory (hears a male voice saying derogatory things about her ) Cognition: attention grossly intact, language grossly intact Intelligence estimated to be: average Insight: fair Judgement: fair Impression / Recommendations Impression 46-year-old white female from [place] has a history of bipolar disorder versus schizoaffective disorder bipolar type and presented to the emergency room with worsening psychosis, requesting voluntary admission. We've continued the medication adjustments started last week by her outpatient psychiatrist, including tapering her off of Pristiq, and increasing lithium. She will benefit from intensive therapy, working on coping skills, and a family meeting with her . She would also benefit from increased outpatient supports, to include regular therapy and possibly case management services. Inpatient treatment is the least restrictive and most appropriate venue due to the risk of harm if discharged. Inventory Assets Strengths: "I'm a good mom, grandma, and ," "love to give to people." Risk Factors Assessment : Yes /single/: No Higher / Fall in social status: No Access to guns: Yes Health problems: Yes Mental Health Diagnoses: Yes Substance use disorders: No Previous attempt: Yes Previous attempt;highly lethal: Yes Family history of suicide: No Previous psychiatric stay: Yes Hopelessness: No Smoker: No Protective Factors Assessment Episcopalian beliefs: Yes : Yes Responsible for young children: No Employed: No Stable relationships: Yes Supportive family: Yes Good rapport with provider: Yes Recommendations (1) Bipolar 1 disorder -Every 15 minute checks for safety -Encourage participation in unit groups and programming -Work on healthy coping skills and her discharge safety plan, to include securing of medications in the home, and ensuring that guns are locked and she will not have access. -Family meeting with . -Coordinate care with outpatient providers, Dr. reece Bob and Patria Espinal at [facility]. -Continue home doses of lamotrigine, temazepam, Saphris, and Cytomel. -Continue taper off of Pristiq, and continued titration up on lithium, which was increased to 300 mg in the morning and 900 mg at bedtime last night. She will need a trough level after 5 days (11/16/2016). -Offer hydroxyzine as needed for sleep and anxiety, and have also ordered clonazepam 0.5 mg as needed for anxiety, as she reports alprazolam was helpful in the ER, and says she is allergic to lorazepam. -Check fasting labs for monitoring on an atypical, as last labs in her records were done in December 2015. At that time, glucose was elevated at 109, and lipids were normal. (2) Obesity Offer dietary consultation. Encouraged continued work on decreasing soda intake , and educated on healthy food choices and the importance of exercise. (3) UTI (urinary tract infection) Denies UTI symptoms. Complete course of cephalexin. CPT Code Initial Hospital Care: 37805
[2016-11-12] MEDS ORDERED: NON-FORMULARY MEDICATION SCH (12:15)
[2016-11-12] MEDS ORDERED: ASENAPINE MALEATE 5 MG SL ONE (13:00)
--- NOTE | 2016-11-12 13:47 | Medical Student: BHU Only ---
Psychiatric Evaluation Date of Service: Nov 12, 2016. IDENTIFYING DATA: Becky Levy is a 46-year-old female who currently lives in [place], [place] with her . Becky Levy was admitted to the [facility] on a 201 voluntary commitment for worsening psychosis. Becky Levy was brought to the hospital by her Information provided by the patient is considered to be reliable. Information was collected from the patient, her [facility] ER intake from Dr. Perez on 11/11/16, and her psychiatric evaluation from Dr. Malik on 12/25/15. CHIEF COMPLAINT: "I'm hearing voices" HISTORY OF PRESENT ILLNESS: Becky Levy is a 46-year-old remarried white female with a longstanding history of mental health concerns who presents with hearing voices for two weeks, fluctuating mood for several months, decreased sleep for several weeks, and longstanding paranoia that people are talking about her. She reports that she was first treated for mood disorder 20 years ago when she suffered from post- depression following the of her second daughter. She reports that she was hospitalized at that time for 3 months. She has undergone both inpatient and outpatient psychiatric treatment at [facility]. She began seeing Dr. Rhiannon Malik on 12/22/15 when she and her moved from [facility]. Dr. Malik has been following her for bipolar disorder with psychotic features, and was ruling out generalized anxiety disorder and schizoaffective disorder, bipolar type. On 11/04/16, she called Dr. Malik's office describing lack of sleep, freida, and paranoia. At that time, medication changes were made including Saphris increased to 10mg qAM and 15 mg qHS and temazepam 30 mg qHS. On 11/06/16, she went to the [facility] ER visit for symptoms of freida and was discharged home. On 11/07/16, she scheduled an urgent appointment with Dr. Malik for excessive sleep and paranoia. Medications changes at that time included to taper off Prestiq and taper up on lithium. At this admission, Becky presented to the [facility] ER with her with reports of racing thoughts, worries about everything, paranoia, anxiety, hyper- religiosity. She reports worsening auditory hallucinations for the past 1 week. She hears male voices that tell her derogatory things about herself, for example, that she is worthless. She most recently heard the voices 2 day ago, , while standing in her basement. The voices were telling her that is was okay to be angry and to throw her husbands beer across the room. After she told her daughter about this episode, her daughter told her to go to the ER. She also reports frequent changes in mood with fluctuating between freida and depression. During her manic episodes, which she reports last approximately 3 days duration, she describes racing thoughts, irritability, excessive activity including cleaning "to perfection," decreased sleep and increased speech. During her episodes of depression, she reports sadness, frequent crying, anhedonia, guilt, low self-esteem, decreased energy, increased isolation, hypersomnia for several days in a row, and inability to care care of herself or perform her activities of daily living. She reports nearly constant worrying about people talking about her, for example in the grocery store or at [employer], so she has stopped doing those activities. She states that "When I'm sick, I cause all of this" and she stops caring for herself and stops attending psychiatry appointments. In the past few weeks, she reports increased irritability and self isolation. She reports anxiety but denies any history of panic attacks. She also reports difficulty with short term memory, explaining that she "lives in the past" and often blames her mental health issues on her ex-. She reports weight gain and which she attributes to increased food intake and increased soda consumption ( 2L bottle/day). She denies current or a history of binging, purging, or restricted intake. She denies suicidal ideations or homicidal ideations at this time, but has a history of 1 suicide attempt. She denies current or a history of self-injurious behavior by cutting or burning. She denies any violence towards others. Her owns guns, which are kept in the home, but she says they are locked and she does not know where they are kept. She denies any rituals or habits that she does over and over. Other stressors in her life include frequent fights with about his alcohol consumption. She believes he is an alcoholic and he agreed to start AA, but has not followed through with that promise. She also has difficulty with choosing a baptism. She has been attending a new [facility], and the philosophy of god has been scaring her. She worries that she has "become too close to God, and you're not supposed to do that." She also worries about her 2 daughters, ages 29 and 20, and her three granddaughters, one of whom has a heart condition requiring several surgeries. Risk of violence to self within the last 6 months: Yes, during a recent episode of unstable mood, Dr. Malik asked her , Agueda, to handle her medications for her. Risk of violence to others within the last 6 months: No Reported Home Medications: Medications Dose Route/Sig Max Daily Dose Days Date Category Lithobid Ext Rel ([place] Carbonate) 300 Mg Tabcr 600 Mg PO HS 11/11/16 Reported Lithobid Ext Rel ([place] Carbonate) 300 Mg Tabcr 300 Mg PO QAM 11/11/16 Reported Saphris (Asenapine Maleate) 5 Mg Subl 15 Mg PO HS 11/11/16 Reported Lamictal (Lamotrigine) 200 Mg Tab 400 Mg PO QAM 11/06/16 Reported Liothyronine Sodium 25 Mcg Tab 12.5 Mcg PO UD 11/06/16 Reported Saphris (Asenapine Maleate) 5 Mg Subl 5 Mg PO QAM 11/06/16 Reported Dicyclomine Hcl 20 Mg Tab 20 Mg PO DAILY 11/06/16 Reported Tylenol Pm (Acetaminophen/Diphenhydramine HCl) 500 Mg/25 Mg Tab 2 Tab PO HS 11/06/16 Reported Advil (Ibuprofen) 200 Mg Tab 200-600 Mg PO Q4H PRN 12/06/15 Reported Restoril (Temazepam) 15 Mg Cap 15 Mg PO HS 12/06/15 Reported Pristiq (Desvenlafaxine Succinate) 50 Mg Tab 25 Mg PO Q2D 12/06/15 Reported PAST PSYCHIATRIC HISTORY: Current outpatient mental health treatment: * Dr. Rhiannon Malik, Psychiatrist - last appointment was last week, she reports that they did not discuss the voices at that time * Pat[facility] Espinal- [facility], had initial appointment and has since missed or canceled several appointments for self-esteem issues Prior outpatient mental health treatment: * Outpatient psychiatrist in [facility], last seen in 2012 Prior psychiatric hospitalizations: * 11/06/16- [facility] ER visit for symptoms of freida * 12/06/15- [facility] ER visit for symptoms of freida * 02/16/15 - [facility] ER visit for symptoms of freida * 05/03/13 - 05/06/15 - [facility], * 01/14/12 - 01/29/12- [facility], Prior medication trials: * Topiramate (Topamax) - weight gain * Olanzapine (Zyprexa) - weight gain * Seroquel (Quetiapine) * Aripiprazole (Ambilify) * Doxepin (Synaquan) 25mg - discontinued in 2012, * Desvenlafaxine (Pristiq)- 50 mg was helpful in the past, but recently became manic at [address] mg and discontinued by Dr. Malik * Lamictal- mood stabilization * Lurasidone (Latuda) 80 mg, discontinued for hallucinations * Risperidone (Risperdol) * Valproic aid (Depakote) * Wellbutrin (Bupropion)- 3 seizures * Citalopram (Celexa) * Venlafaxine (Effexor) Prior suicide attempts: * One prior attempt - climbed a bridge, she climbed down as was taken to the hospital by police. Access to weapons: Guns in the house, has the mendez PAST MEDICAL HISTORY: Current primary care practitioner: None. Would like to establish care with [facility]. Last seen with [facility] in [facility] medical history: * obesity * heart disease- history of an irregular EKG. Currently seening Dr. Becerril, Cardiology, for f/u on irregular EKGs. Stress test ordered for 11/27/16. 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 Regular menstrual cycles history of head injury: none reported history of seizure: seizures x3, reported to be medication induced history of iv drug use: none reported ALLERGIES: Coded Allergies: Lorazepam (Unverified Allergy, Severe, TOOK FOR PP DEPRESSION-ENDED UP IN ICU, 11/11/16) Bupropion (Unverified Allergy, Unknown, ANAPHYLAXIS, 11/11/16) SHE HAD A SEIZURE Lurasidone (Unverified Allergy, Unknown, HALLUCINATIONS, 11/11/16) Sulfamethoxazole w/Trimethoprim (Verified Allergy, Unknown, UNKNOWN, ) FAMILY HISTORY: Mental Health: * Mother- mental retardation, bipolar * Grandmother- anxiety Substance Abuse: grandmother and grandfather were alcoholics. Her grandmother stopped drinking when she was a young child to help raise her. Suicide: denies a family history Medical history: * Mother with obesity, and of [place] at age 50 SUBSTANCE USE HISTORY: Tobacco use hx: none Caffeine use hx: currently drinks one 2-liter of Pepsi per day, She has a history of alcohol abuse in 200 after her left her, but she denies any recent alcohol consumption She denies any history of recreational or prescription drug abuse. PERSONAL HISTORY: Born: [place], [place]. Her mother had mental retardation, consequently she was raised by her grandparents. Her mother at age 50 from [place]. Her grandmother in 2012. Early development: She reports that she was a good student with no academic concerns. Siblings: She grew up in the household with her older sister who still lives in [facility]. They have a good relationship. Education: She has an associates degree in accounting, graduated in 1990 from [employer]. 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 She reports becoming agitated and paranoid at work, so she quit. She is currently unemployed. She was denied SSDI for mental health disease in 2012. Relationship History: Currently in her second marriage. Her first marriage was with a man she met at 20years old, they had a good relationship until their separation in 2010 and divorce in 2002. She started seeing her current , Agueda, in 2010, they started living together in 2014. Children: She has two daughters, ages 29 and 20. Her first daughter was born in 1986, currently lives in [facility] with three grand-daughters. One of the granddaughters has needed several heart surgeries. Becky does not have a relationship with her eldest daughter's father. Her second daughter was born in 1995 and is in college in [place]. She was a product of her first marriage, and she claims that she worked with her ex- to be a part of her daughters big life events. Spiritual Affiliation: Bahai. She started attending a [employer] baptism and bible study, but is concerned that this baptism may not be appropriate for her. Legal History: None Physical abuse history: None Emotional/psychological abuse history: None Sexual abuse history: None ROS: CONSTITUTIONAL: Denies headaches HEENT: Denies changes in vision, hearing, or dysphagia. SKIN: Denies rashes or lesions. CARDIOVASCULAR: Denies chest pain or palpitations RESPIRATORY: positive for upper respiratory symptoms of cough and congestion. GASTROINTESTINAL: positive for chronic diarrhea, negative for nausea, vomiting , or constipation GENITOURINARY: Denies urinary frequency or urgency NEUROLOGICAL: Denies numbness or tingling in extremities MUSCULOSKELETAL: Denies muscle pain or joint stiffness HEMATOLOGIC: Denies unexplained bleeding or bruising LYMPHATICS: Denies pedal edema PSYCHIATRIC: positive for auditory hallucinations and paranoia MEDICATIONS ADMINISTERED (24hs): Medications (Trade) Dose Ordered Sig/Uriah Route Start Time Stop Time Status Last Admin Dose Admin Dicyclomine HCl (Bentyl Tab) 20 mg DAILY PO 11/12/16 09:00 12/12/16 08:59 11/12/16 08:40 20 MG Lamotrigine (Lamictal Tab) 400 mg QAM PO 11/12/16 09:00 12/12/16 08:59 11/12/16 08:41 400 MG [place] Carbonate (Lithobid Tab) 300 mg QAM PO 11/12/16 09:00 12/12/16 08:59 11/12/16 08:41 300 MG Temazepam (Restoril Cap) 15 mg HS PO 11/11/16 21:00 12/11/16 20:59 11/11/16 22:09 15 MG [place] Carbonate (Eskalith Cr Tab) 900 mg HS PO 11/11/16 21:00 12/11/16 20:59 11/11/16 22:09 900 MG Liothyronine Sodium (Cytomel Tab) 12.5 mcg DAILY PO 11/12/16 09:00 12/12/16 08:59 11/12/16 08:41 12.5 MCG Asenapine (Saphris SL) 5 mg QAM SL 11/12/16 09:00 12/12/16 08:59 11/12/16 08:40 5 MG Non-Formulary Medication (Non-Formulary Patient'S Own Med) 1 ea TODAY@0900 ONCE PO 11/12/16 09:00 11/12/16 09:01 DC 11/12/16 08:41 1 [facility]: 11/11/16 15:30 11/11/16 15:30 Test 11/11/16 15:30 11/11/16 16:53 Red Blood Count 4.75 M/uL (4.2-5.4) Mean Corpuscular Volume 92.0 fL (80-100) Mean Corpuscular Hemoglobin 30.9 pg (25-34) Mean Corpuscular Hemoglobin Concent 33.6 g/dl (32-36) RDW Standard Deviation 46.6 fL (36.4-46.3) RDW Coefficient of Variation 13.8 % (11.5-14.5) Mean Platelet Volume 10.8 fL (7.4-10.4) Anion Gap 11.0 mmol/L (3-11) Est Creatinine Clear Calc Drug Dose 99.8 ml/min Estimated GFR () 90.7 Estimated GFR (Non- 78.2 BUN/Creatinine Ratio 11.0 (10-20) Calcium Level 9.5 mg/dl (8.5-10.1) Total Bilirubin 0.3 mg/dl (0.2-1) Aspartate Amino Transf (AST/SGOT) 14 U/L (15-37) Alanine Aminotransferase (ALT/SGPT) 31 U/L (12-78) Alkaline Phosphatase 133 U/L (45-117) Total Protein 8.7 gm/dl (6.4-8.2) Albumin 4.1 gm/dl (3.4-5.0) Globulin 4.6 gm/dl (2.5-4.0) Albumin/Globulin Ratio 0.9 (0.9-2) Thyroid Stimulating Hormone (TSH) 0.981 uIu/ml (0.300-4.500) Human Chorionic Gonadotropin, Qual NEG (NEG) [place] Level 0.3 mMOL/L (0.6-1.2) Ethyl Alcohol mg/dL < 3.0 mg/dl (0-3) Urine Color YELLOW Urine Appearance CLEAR (CLEAR) Urine pH 6.0 (4.5-7.5) Urine Specific [place] 1.017 (1.000-1.030) Urine Protein NEG (NEG) Urine Glucose (UA) NEG (NEG) Urine Ketones NEG (NEG) Urine Occult Blood 1+ (NEG) Urine Nitrite NEG (NEG) Urine Bilirubin NEG (NEG) Urine Urobilinogen NEG (NEG) Urine Leukocyte Esterase NEG (NEG) Urine WBC (Auto) 1-5 /hpf (0-5) Urine RBC (Auto) 10-30 /hpf (0-4) Urine Hyaline Casts (Auto) 1-5 /lpf (0-5) Urine Epithelial Cells (Auto) >30 /lpf (0-5) Urine Bacteria (Auto) NEG (NEG) Urine Opiates Screen NEG (NEG) Urine Methadone, Qualitative NEG (NEG) Urine Barbiturates NEG (NEG) Urine Phencyclidine (PCP) Level NEG (NEG) Ur Amphetamine/Methamphetamine NEG (NEG) MDMA (Ecstasy) Screen NEG (NEG) Urine Benzodiazepines Screen NEG (NEG) Urine Cocaine Metabolite NEG (NEG) Urine Marijuana (THC) NEG (NEG) PHYSICAL EXAM: Physical exam performed in the emergency room by Dr. Perez was reviewed and accepted for the purposes of this admission. MENTAL STATUS EXAM: Appearance: Awake, alert, and oriented x3. Appropriately groomed, casually dressed, obese white female who appears her stated age. The patient is generally cooperative with the interview, although somewhat anxious throughout Eye contact: good Motor behavior: steady gait and station. No psychomotor retardation, no akathisia, no automatisms, no catatonia, or dystonias, no tremors. Speech: Normal volume, rate, and tone. Occasional halts during conversation. Affect: Anxious, somewhat constricted, appropriate to content Mood: "good because I talked to my this morning" Thought process: Mildly disorganized with a rambling quality. No tangentiality, loosening of associations, flight of ideas, neologisms, or word salad. Thought content: delusions of persecution, no SI, no HI Perception: auditory hallucinations of male voices saying derogatory things about her. denies visual hallucinations. Cognition: The patient is oriented to person, place, and time. Attention and language are grossly intact. Intelligence: average Insight: impaired Judgment: impaired INVENTORY OF ASSETS: * strengths: "I am a good mom, I am a good grandma, and I am a good " and "I love to give to people" and "I am good with my medicines" * resources: Patient has a supportive family, daughters who check in regularly. She lives with a supportive . * needs: Contract to regularly attend medical and mental health appointments. RISK ASSESSMENT: * Risk factors : , Access to guns, Health Problems, Mental Health Diagnoses, Previous attempts (highly lethal), Previous psychiatric hospitalization, * Protective factors: Shinto beliefs, , involved with grandchildren, Stable relationships, Supportive family, Good rapport with provider, DIAGNOSTIC IMPRESSION: Becky Levy is a 46-year-old white female from [place] with a history of bipolar disorder with psychosis who was voluntarily admitted to the [facility] with worsening psychosis, fluctuating episodes of freida and depression, and worsening delusions, persecutory type. Differential diagnosis should include bipolar disorder versus schizoaffective disorder, bipolar type. Given that Becky is not able to describe her symptoms clearly in terms of duration, it is difficult to determine whether she meets the criteria for schizoaffective disorder. Specifically, it is hard to delineate whether or not her delusions of persecution and auditory hallucinations occur in the absence of a major depressive episode. Major depressive disorder with psychotic features is a less likely diagnosis because it would not explain the fluctuating manic episodes. Her symptoms do not align with initiating any new medications or substances, which makes substance/medication induced mood disorders a less likely diagnosis. Bipolar 1 disorder is mostly likely diagnosis at this time given that she meets criteria for fluctuating manic episodes and major depressive episodes. The patients mother had a bipolar diagnosis, and first degree relatives of patients with bipolar disorder are 10 times more likely to develop bipolar disorder. Furthermore, the patient appears anxious in our conversation today. It is difficult to differentiate if she is anxious at baseline or is anxious because of her current delusions of persecution. Further monitoring and assessment will be needed to differentiate the etiology of her anxiety. PLAN: 1. Bipolar 1 Disorder, severe, with psychotic features, with anxious distress, with mixed features -Taper off Desvenlafaxine (Pristiq) as recommended by outpatient provider, Dr. Malik -Increase lithium to 300mg qAM and 900 mg qHS. Measure trough level after 5 days. -Continue home lamotrigine (lamictal) 400 mg po qAM -Continue home temazepam (restoril) 15 mg po qHS -Continue home Asenapine (saphris) 15mg po qHS, 5 mg po qAM -Continue home Liothyronine (cytomel) 12.5 mcg po daily -Start hydroxyzine PRN for sleep -Safety checks q 15 min -Encourage participation in group and individual therapy sessions -Continue working on coping skills -Develop discharge safety plan with attention on medications at home and keeping guns locked away without access 2. Rule out generalized anxiety disorder -Obtain baseline EARNESTINE score -Start clonazepam 0.5 mg PRN for anxiety -Continue to monitor for anxiety level and whether or not her anxiety stems from her delusions 3. Urinary tract infection -Denies any dysuria, frequency, or urgency today -She had 2 days remaining to compete a course of cephalexin 4. Obesity -Patients BMI is 37.1 kg/m2 -Consider dietary consult to educate the patient as to steps she can take to reduce further weight gain -Educate patients knowledge around appropriate food choices and soda consumption 5. Aftercare Planning: -Arrange follow up with Dr. Malik, [facility] -Arrange and encourage regular outpatient therapy ([facility]) and case management services -Arrange family meeting with , Agueda 6. Medication Monitoring: -Monitor lithium trough level after 5 days, which will be 11/16/16 -Last lithium trough was 0.3 on 11/11/16 -Check fasting labs for monitoring on an atypical antipsychotic -Last check 12/23, glucose was elevated at 109, lipids were within normal limits
[2016-11-12] MEDS: TEMAZEPAM 15 MG CAP PO SCH (21:35)
[2016-11-12] MEDS: GUAIFENESIN 600 MG TABCR PO SCH (21:35)
[2016-11-12] MEDS: LITHIUM CARBONATE 450 MG TABCR PO SCH (21:35)
[2016-11-12] MEDS: CEPHALEXIN MONOHYDRATE 500 MG CAP PO SCH (21:36)
[2016-11-13 07:11] VITALS: BP_SYST 135; BP_SYST 136; BP_DIAS 71; BP_DIAS 86; PULSE 88; PULSE 91; TEMP 36.5; Ht 170.2 cm; Wt 100.6 kg
[2016-11-13 08:34] LABS: CHOLESTEROL/HDL RATIO 3.2
[2016-11-13] MEDS: DICYCLOMINE HCL 20 MG TAB PO SCH (08:47)
[2016-11-13] MEDS: CEPHALEXIN MONOHYDRATE 500 MG CAP PO SCH ×2 (08:48→21:33)
[2016-11-13] MEDS: LIOTHYRONINE SODIUM 25 MCG TAB PO SCH (08:48)
[2016-11-13] MEDS: GUAIFENESIN 600 MG TABCR PO SCH ×2 (08:48→21:06)
[2016-11-13] MEDS: LITHIUM CARBONATE SR 300 MG TAB (LITHOBID) PO SCH (08:48)
[2016-11-13] MEDS ORDERED: ASENAPINE MALEATE 5 MG SL SCH (09:00)
[2016-11-13] MEDS ORDERED: SAPHRIS 10 MG SL SCH (09:00)
--- NOTE | 2016-11-13 11:05 | Psychiatric Progress Notes ---
Progress Note Date of Service Nov 13, 2016. Interval History 46 yo woman, outpatient of Dr. Wells, admitted with severe anxiety, depression and auditory hallucinations. Chief Complaint "OK". Subjective Patient was seen & assessed interval progress reviewed with Treatment Team. The patient says that she is feeling better, but remains highly anxious. She says that she feels "sad" and has "no reason" to be sad as she has so much that is good in her life. She talked about her 's drinking, saying that she has no time with him because he works and when home is either drinking or sleeping. She talked with him about this again several days before admission and he said that he would work on it so that it isn't a problem between them. She's not sure if he understands how she really feels about it. On one hand, she says that he works hard and should be allowed to relax but on the other, she sees that alcohol is a priority for him, and she is not. Nursing reports that visited last night, and said that he would take an FMLA when she is discharged in order to be with her. She denies aud or vis hallucinations today, although continues with paranoia, finding it hard to be around other people because she worries they are thinking negative things about her. Review of Systems Constitutional: No chills, No fatigue, No fever, No problem reported, No sweats , No weakness, No weight loss ENT: No dental problems, No hearing loss, No nasal symptoms, No problem reported, No sore throat, No tinnitus, No trouble swallowing, No unusual epistaxis Respiratory: No cough, No dyspnea at rest, No dyspnea on exertion, No hemoptysis, No problem reported, No shortness of breath, No sputum, No wheezing Cardiovascular: No PND, No chest pain, No claudication, No edema, No orthopnea , No palpitations, No problem reported Abdomen: No GI bleeding, No constipation, No diarrhea, No nausea, No pain, No problem reported, No vomiting Musculoskeletal: No calf pain, No joint pain, No muscle pain, No problem reported, No swelling Neurologic: No balance problems, No memory loss, No numbness/tingling, No paralysis, No problem reported, No vertigo, No weakness Psychiatric: + anxiety, + depression symptoms Integumentary: No bleeding, No color change, No itch, No new/changing skin lesions, No problem reported, No rash Sleep Information Total Hours of Sleep: 7.50 Meal Information Percent of Breakfast Consumed: 100 Percent of Lunch Consumed: 0 Percent of Dinner Consumed: 80 Mental Status Exam During interview pt is: alert and oriented, cooperative Appearance: appropriately dressed, appropriately groomed, other (obese) Eye contact is: good (at times staring) Motor behavior is: steady gait & station, no abnormal motor movements Speech: normal in rate, rhythm & volume (halting at times) Affect: flat Mood is: depressed, anxious Thought process: goal directed Thought content: paranoid, delusions (of persecution) Suicidal thought are: denied Homicidal thoughts are: denied Hallucinations: denies auditory, denies visual Cognition: attention grossly intact, language grossly intact Intelligence estimated to be: average Insight: fair Judgement: impaired Impression Is adjusting to the unit, although still struggling in groups with paranoia. 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 Pristiq is now done, and lithium increased yesterday, with level in 5 days. Saphris is at max dose at 25 mg daily and we could consider a trial of a different agent, but will continue with current meds to another day or more to see if condition improves. Plan (1) Bipolar 1 disorder -Every 15 minute checks for safety -Encourage participation in unit groups and programming -Work on healthy coping skills and her discharge safety plan, to include securing of medications in the home, and ensuring that guns are locked and she will not have access. -Family meeting with . -Coordinate care with outpatient providers, Dr. reece Bob and Patria Espinal at [facility]. -Continue home doses of lamotrigine, temazepam, Saphris, and Cytomel. -Continue taper off of Pristiq, and continued titration up on lithium, which was increased to 300 mg in the morning and 900 mg at bedtime last night. She will need a trough level after 5 days (11/16/2016). -Offer hydroxyzine as needed for sleep and anxiety, and have also ordered clonazepam 0.5 mg as needed for anxiety, as she reports alprazolam was helpful in the ER, and says she is allergic to lorazepam. -Check fasting labs for monitoring on an atypical, as last labs in her records were done in December 2015. At that time, glucose was elevated at 109, and lipids were normal. 11/13 - FLP and FBS WNL today - Reality orientation - Continue current meds - Family meeting with scheduled for tomorrow. (2) Obesity Offer dietary consultation. Encouraged continued work on decreasing soda intake , and educated on healthy food choices and the importance of exercise. (3) UTI (urinary tract infection) Denies UTI symptoms. Complete course of cephalexin. Discharge / Aftercare Planning Primary Care Physician: Name: [facility] Psychiatrist: Name: Dr. Malik at [facility] Therapist: Name: Patria at [facility] Visit Code E&M Code: 63043 Inventory Assets Strengths: "I'm a good mom, grandma, and ," "love to give to people. Risk Factors Assessment : Yes /single/: No Higher / Fall in social status: No Health problems: Yes Mental Health Diagnoses: Yes Substance use disorders: No Previous attempt: Yes Previous attempt;highly lethal: Yes Family history of suicide: No Previous psychiatric stay: Yes Hopelessness: No Smoker: No Protective Factors Assessment Restoration beliefs: Yes : Yes Responsible for young children: No Employed: No Stable relationships: Yes Supportive family: Yes Good rapport with provider: Yes Data Vital Signs Last 24 Hrs: Date Time Temp Pulse Resp B/P Pulse Ox O2 Delivery O2 Flow Rate FiO2 11/13/16 07:11 36.5 88 18 135/71 91 136/86 Meds Administered Last 24 Hrs: Meds Administered (Past 24Hrs) Medications (Trade) Dose Ordered Sig/Uriah Route Start Time Stop Time Status Last Admin Dose Admin Dicyclomine HCl (Bentyl Tab) 20 mg DAILY PO 11/12/16 09:00 12/12/16 08:59 11/13/16 08:47 20 MG Lamotrigine (Lamictal Tab) 400 mg QAM PO 11/12/16 09:00 12/12/16 08:59 11/13/16 08:[address] [place] Carbonate (Lithobid Tab) 300 mg QAM PO 11/12/16 09:00 12/12/16 08:59 11/13/16 08:48 300 MG Temazepam (Restoril Cap) 15 mg HS PO 11/11/16 21:00 12/11/16 20:59 11/12/16 21:[address] [place] [address] Carbonate (Eskalith Cr Tab) 900 mg HS PO 11/11/16 21:00 12/11/16 20:59 11/12/16 21:35 900 MG Liothyronine Sodium (Cytomel Tab) 12.5 mcg DAILY PO 11/12/16 09:00 12/12/16 08:59 11/13/16 08:48 12.5 MCG Asenapine (Saphris SL) 5 mg QAM SL 11/12/16 09:00 11/12/16 12:16 DC 11/12/16 08:40 5 MG Asenapine (Saphris SL) 15 mg HS SL 11/12/16 22:00 11/12/16 22:02 DC 11/12/16 21:36 15 MG Non-Formulary Medication (Non-Formulary Patient'S Own Med) 1 ea TODAY@0900 ONCE PO 11/12/16 09:00 11/12/16 09:01 DC 11/12/16 08:41 1 EA Clonazepam (Klonopin Tab) 0.5 mg Q6 PRN PO 11/12/16 09:00 12/12/16 08:59 11/12/16 09:40 0.5 MG Cephalexin Monohydrate (Keflex Cap) 500 mg BID PO 11/12/16 22:00 11/14/16 21:59 11/13/16 08:48 500 MG Cephalexin Monohydrate (Keflex Cap) 500 mg 1049 ONCE PO 11/12/16 10:49 11/12/16 10:55 DC 11/12/16 12:19 500 MG Asenapine (Saphris SL) 5 mg TODAY@1300 ONCE SL 11/12/16 13:00 11/12/16 13:01 DC 11/12/16 13:03 5 MG Guaifenesin (Mucinex Contr Rel Tab) 600 mg Q12 PO 11/12/16 21:00 12/12/16 20:59 11/13/16 08:48 600 MG Non-Formulary Medication (Non-Formulary Patient'S Own Med) 1 ea QAM SL 11/13/16 09:00 12/13/16 08:59 11/13/16 08:50 1 EA Lab Results Last 24 Hrs: Last 24 Hours Test 11/13/16 07:20 Fasting Glucose 91 mg/dl Triglycerides Level 97 mg/dl Cholesterol Level 123 mg/dl HDL Cholesterol 39 mg/dl LDL Cholesterol, Calculated 65 mg/dl VLDL Cholesterol, Calculated 19 mg/dl Cholesterol/HDL Ratio 3.2
[2016-11-13] MEDS: BISMUTH SUBSALICYLATE PER ML OMNICELL CHARGE PO PRN (19:55)
[2016-11-13] MEDS: TEMAZEPAM 15 MG CAP PO SCH (21:34)
[2016-11-13] MEDS: LITHIUM CARBONATE 450 MG TABCR PO SCH (21:34)
[2016-11-13] MEDS: SAPHRIS 10 MG PO SCH (21:38)
[2016-11-14] MEDS: BISMUTH SUBSALICYLATE PER ML OMNICELL CHARGE PO PRN ×4 (04:05→16:53)
[2016-11-14 06:48] VITALS: BP_SYST 135; BP_DIAS 79; BP_DIAS 84; PULSE 89; PULSE 98; TEMP 36.8
[2016-11-14] MEDS: DICYCLOMINE HCL 20 MG TAB PO SCH (08:25)
[2016-11-14] MEDS: LIOTHYRONINE SODIUM 25 MCG TAB PO SCH (08:26)
[2016-11-14] MEDS: GUAIFENESIN 600 MG TABCR PO SCH ×2 (08:27→20:46)
[2016-11-14] MEDS: CEPHALEXIN MONOHYDRATE 500 MG CAP PO SCH (08:27)
[2016-11-14] MEDS: LITHIUM CARBONATE SR 300 MG TAB (LITHOBID) PO SCH (08:27)
[2016-11-14] MEDS: CLONAZEPAM 0.5 MG TAB PO PRN (08:40)
[2016-11-14] MEDS: SAPHRIS 10 MG SL SCH (08:40)
--- NOTE | 2016-11-14 09:53 | Psychiatric Progress Notes ---
Progress Note Date of Service Nov 14, 2016. Interval History 46 yo woman, outpatient of Dr. Wells, admitted with severe anxiety, depression and auditory hallucinations. Chief Complaint "I need to see my PA about my IBS". Subjective Patient was seen & assessed interval progress reviewed with Treatment Team. Staff report she is going to groups and participating, and had a meeting with her yesterday. He was supportive and is taking FMLA to be more available for her. Today she says she had "a pretty good day yesterday, but this morning I feel spaced out," saying she was confused about "what was reality ," saying she was feeling uncomfortable around others. She says when this happens she acts "really rude, which isn't me, made this hand gesture when they asked me if I wanted my meds, that's not me." She is confused about what she wants, saying "I keep thinking I am going home, but I'm not sure if that's true. " She says her plan moving forward, including "my made a commitment not to make me compete with the beer car, he's just going to drink on holidays and special occasions and things." She wants to work on "keeping all my appointments , and maybe volunteering." She is not sure what she'll do differently to improve her compliance with appointments, saying "I was just being lazy." She denies hearing voices in the past day. She also reports improved SI, saying she has "too much to live for." Sleep remains disrupted, about 5 hours last night. She reports frequent BMs, 3 times a day, which she attributes to IBS. She takes Bentyl and Imodium at home. Sleep Information Total Hours of Sleep: 4.00 Meal Information Percent of Breakfast Consumed: 100 Percent of Lunch Consumed: 100 Percent of Dinner Consumed: 100 Mental Status Exam During interview pt is: alert and oriented, cooperative Appearance: appropriately dressed, appropriately groomed, other (obese) Eye contact is: good (at times staring) Motor behavior is: steady gait & station, no abnormal motor movements Speech: normal in rate, rhythm & volume Affect: blunted Mood is: other Thought process: goal directed Thought content: paranoid, cognitive distortions Suicidal thought are: denied Homicidal thoughts are: denied Hallucinations: denies auditory, denies visual Cognition: attention grossly intact, language grossly intact Intelligence estimated to be: average Insight: fair Judgement: impaired Impression Is adjusting to the unit, although still struggling with paranoia and confusion at times, dissociating. Overall improving with good night's sleep, and good meeting with . Pristiq is now tapered off, and lithium increased on admission, with level in 5 days. Saphris is at max dose at 25 mg daily and we could consider a trial of a different agent, but will continue with current meds to another day or more to see if condition improves. Plan (1) Bipolar 1 disorder -Every 15 minute checks for safety -Encourage participation in unit groups and programming -Work on healthy coping skills and her discharge safety plan, to include securing of medications in the home, and ensuring that guns are locked and she will not have access. -Family meeting with . -Coordinate care with outpatient providers, Dr. reece Bob and Patria Espinal at [facility]. -Continue home doses of lamotrigine, temazepam, Saphris, and Cytomel. -Continue taper off of Pristiq, and continued titration up on lithium, which was increased to 300 mg in the morning and 900 mg at bedtime last night. She will need a trough level after 5 days (11/16/2016). -Offer hydroxyzine as needed for sleep and anxiety, and have also ordered clonazepam 0.5 mg as needed for anxiety, as she reports alprazolam was helpful in the ER, and says she is allergic to lorazepam. -Check fasting labs for monitoring on an atypical, as last labs in her records were done in December 2015. At that time, glucose was elevated at 109, and lipids were normal. 11/13 - FLP and FBS WNL today - Reality orientation - Continue current meds - Family meeting with . 11/14 - Continue with reality orientation and groups, as periodic derealization/ dissociation - Continue lithium, Saphris, lamotrigine, temazepam and Cytomel (2) UTI (urinary tract infection) Denies UTI symptoms. Complete course of cephalexin. (3) Diarrhea -Patient thinks she has IBS, needs to f/u with PCP. -Order Imodium prn (4) Obesity Offer dietary consultation. Encouraged continued work on decreasing soda intake , and educated on healthy food choices and the importance of exercise. Discharge / Aftercare Planning Primary Care Physician: Name: [facility] Psychiatrist: Name: Dr. Malik at [facility] Therapist: Name: Patria at [facility] Visit Code E&M Code: 21328 Inventory Assets Strengths: "I'm a good mom, grandma, and ," "love to give to people. Risk Factors Assessment : Yes /single/: No Higher / Fall in social status: No Health problems: Yes Mental Health Diagnoses: Yes Substance use disorders: No Previous attempt: Yes Previous attempt;highly lethal: Yes Family history of suicide: No Previous psychiatric stay: Yes Hopelessness: No Smoker: No Protective Factors Assessment Episcopal beliefs: Yes : Yes Responsible for young children: No Employed: No Stable relationships: Yes Supportive family: Yes Good rapport with provider: Yes Data Vital Signs Last 24 Hrs: Date Time Temp Pulse Resp B/P Pulse Ox O2 Delivery O2 Flow Rate FiO2 11/14/16 06:48 36.8 89 18 135/79 98 135/84 Meds Administered Last 24 Hrs: Meds Administered (Past 24Hrs) Medications (Trade) Dose Ordered Sig/Uriah Route Start Time Stop Time Status Last Admin Dose Admin Asenapine (Saphris SL) 15 mg HS SL 11/12/16 22:00 11/12/16 22:02 DC 11/12/16 21:36 15 MG Cephalexin Monohydrate (Keflex Cap) 500 mg BID PO 11/12/16 22:00 11/14/16 21:59 11/14/16 08:27 500 MG Cephalexin Monohydrate (Keflex Cap) 500 mg 1049 ONCE PO 11/12/16 10:49 11/12/16 10:55 DC 11/12/16 12:19 500 MG Asenapine (Saphris SL) 5 mg TODAY@1300 ONCE SL 11/12/16 13:00 11/12/16 13:01 DC 11/12/16 13:03 5 MG Guaifenesin (Mucinex Contr Rel Tab) 600 mg Q12 PO 11/12/16 21:00 12/12/16 20:59 11/14/16 08:27 600 MG Non-Formulary Medication (Non-Formulary Patient'S Own Med) 1 ea QAM SL 11/13/16 09:00 11/13/16 12:03 DC 11/13/16 08:50 1 EA Non-Formulary Medication (Non-Formulary Patient'S Own Med) 1.5 ea HS PO 11/13/16 22:00 12/13/16 21:59 11/13/16 21:38 1.5 EA Non-Formulary Medication (Non-Formulary Patient'S Own Med) 1 ea QAM SL 11/14/16 09:00 12/14/16 08:59 11/14/16 08:40 1 EA
[2016-11-14] MEDS: hydrOXYzine HCL 25 MG TAB PO PRN ×2 (13:24→21:58)
[2016-11-14] MEDS: LOPERAMIDE HCL 2 MG CAP PO PRN ×2 (14:32→21:24)
[2016-11-14] MEDS: LITHIUM CARBONATE 450 MG TABCR PO SCH (20:41)
[2016-11-14] MEDS: SAPHRIS 10 MG PO SCH (20:42)
[2016-11-14] MEDS: TEMAZEPAM 15 MG CAP PO SCH (20:46)
--- NOTE | 2016-11-14 20:46 | Psych Management Progress Note ---
Psychiatry Miscellaneous Date of Service: Nov 14, 2016. case reviewed as [employer] consultant contacted re: increase in thought blocking, harder time interacting with family but able to be present in group. patient with diarrhea several times today, ?increase lithium. Staff unsure how many BMs and fluid intake today. Will hold lithium this hs and order lytes/BUN/Cr in am. Primary team to determine if related to baseline GI issues or indication for stool culture/cdif. They stated that daughter contacted unit and told staff Zyprexa was only agent previously effective. Directed to give hs meds (except lithium) early and recontact me if unable to sleep. Saphris has drug drug interaction warnings for QTc issues and combined sedation with typicals as well as risks of latter with Zyprexa so trying not to layer with benzo if unnecessary.
[2016-11-14 20:52] VITALS: BP 125/84; PULSE 81
[2016-11-15] MEDS: CLONAZEPAM 0.5 MG TAB PO PRN ×2 (00:27→08:07)
[2016-11-15 06:55] VITALS: BP_SYST 133; BP_SYST 137; BP_DIAS 82; BP_DIAS 85; PULSE 94; PULSE 99; TEMP 36.9
[2016-11-15 07:26] LABS: BUN/CREATININE RATIO 11.5 (10-20); CREATININE 0.87 mg/dl (0.60-1.20); POTASSIUM 3.7 mmol/L (3.5-5.1)
[2016-11-15] MEDS: DICYCLOMINE HCL 20 MG TAB PO SCH (08:05)
[2016-11-15] MEDS: LIOTHYRONINE SODIUM 25 MCG TAB PO SCH (08:06)
[2016-11-15] MEDS: GUAIFENESIN 600 MG TABCR PO SCH ×2 (08:07→20:43)
[2016-11-15] MEDS: SAPHRIS 10 MG SL SCH (08:09)
[2016-11-15] MEDS ORDERED: HALOPERIDOL 5 MG TAB PO ONE ×2 (09:27→17:15)
--- NOTE | 2016-11-15 09:43 | Psychiatric Progress Notes ---
Progress Note Date of Service Nov 15, 2016. Interval History 46 yo woman, outpatient of Dr. Wells, admitted with severe anxiety, depression and auditory hallucinations. Chief Complaint "I take something little and make it big to the point I'm paranoid". Subjective Patient was seen & assessed interval progress reviewed with [Treatment Team] [ Benzene Washer Operator] Review of Systems Constitutional: No chills, No fatigue, No fever, No problem reported, No sweats , No weakness, No weight loss ENT: No dental problems, No hearing loss, No nasal symptoms, No problem reported, No sore throat, No tinnitus, No trouble swallowing, No unusual epistaxis Cardiovascular: No PND, No chest pain, No claudication, No edema, No orthopnea , No palpitations, No problem reported Abdomen: No GI bleeding, No constipation, No diarrhea, No nausea, No pain, No problem reported, No vomiting Musculoskeletal: No calf pain, No joint pain, No muscle pain, No problem reported, No swelling Neurologic: No balance problems, No memory loss, No numbness/tingling, No paralysis, No problem reported, No vertigo, No weakness Psychiatric: + anxiety, + depression symptoms, + problem reported (paranoid) Integumentary: No bleeding, No color change, No itch, No new/changing skin lesions, No problem reported, No rash Sleep Information Total Hours of Sleep: 3.00 Meal Information Percent of Breakfast Consumed: 95 Percent of Lunch Consumed: 100 Percent of Dinner Consumed: 100 Mental Status Exam During interview pt is: alert and oriented, cooperative Appearance: appropriately dressed, appropriately groomed, other (obese) Eye contact is: good (at times staring) Motor behavior is: steady gait & station, other (bradykinetic with little arm swing) Speech: normal in rate, rhythm & volume Affect: blunted, anxious Mood is: depressed, anxious Thought process: goal directed, perseveration, other (contradictory) Thought content: paranoid, cognitive distortions Suicidal thought are: denied Homicidal thoughts are: denied Hallucinations: denies auditory, denies visual Cognition: attention grossly intact, language grossly intact Intelligence estimated to be: average Insight: impaired Judgement: impaired Impression The patient is acutely worse today, paranoid about everything, with many thought distortions. She is afraid to eat in front of others, fears water/ drowning and goes on at length about thinking that she doesn't need meds. She contradicts herself multiple times, saying she is fearful then saying she is not. She thinks she should just be able to take control and stop being anxious leading to paranoia without the use of meds. "I'm not explaining myself". Multiple attempts were made to end the interview, but she would sit back down and start again trying to explain her thoughts, with little success. This AM as providers were arriving on the unit she stopped each of us with an urgent need to talk, even knocking on the treatment room door to ask to be seen. We discuss treatment options, and she rejects each saying she doesn't need more medication. Nursing reports that her visited and asked staff to call her daughter to Becky could talk with her. When daughter was on the line, Becky couldn't communicate with her. Daughter told staff that she has never seen her mother this bad. Becky denies SI/HI, denies aud/vis halucinations. Continued Inpatient Care The patient requires inpatient care due to the severity of her condition and inability to manipulate information in a reality based manner. Plan (1) Bipolar 1 disorder -Every 15 minute checks for safety -Encourage participation in unit groups and programming -Work on healthy coping skills and her discharge safety plan, to include securing of medications in the home, and ensuring that guns are locked and she will not have access. -Family meeting with . -Coordinate care with outpatient providers, Dr. reece Bob and Patria Espinal at [facility]. -Continue home doses of lamotrigine, temazepam, Saphris, and Cytomel. -Continue taper off of Pristiq, and continued titration up on lithium, which was increased to 300 mg in the morning and 900 mg at bedtime last night. She will need a trough level after 5 days (11/16/2016). -Offer hydroxyzine as needed for sleep and anxiety, and have also ordered clonazepam 0.5 mg as needed for anxiety, as she reports alprazolam was helpful in the ER, and says she is allergic to lorazepam. -Check fasting labs for monitoring on an atypical, as last labs in her records were done in December 2015. At that time, glucose was elevated at 109, and lipids were normal. 11/13 - FLP and FBS WNL today - Reality orientation - Continue current meds - Family meeting with . 11/14 - Continue with reality orientation and groups, as periodic derealization/ dissociation - Continue lithium, Saphris, lamotrigine, temazepam and Cytomel 11/15 - Did not receive lithium last night so will DC level. Continue current lithium dosing - Will add Haldol 5 mg. BID with dose now. patient may refuse, but in looking at past med trials, she has never been tried on a typical. - Reality orientation (2) UTI (urinary tract infection) Denies UTI symptoms. Complete course of cephalexin. (3) Diarrhea -Patient thinks she has IBS, needs to f/u with PCP. -Order Imodium prn 11/15 - Will restart lithium as patient had diarrhea prior to start of lithium, associated with IBS (4) Obesity Offer dietary consultation. Encouraged continued work on decreasing soda intake , and educated on healthy food choices and the importance of exercise. Discharge / Aftercare Planning Primary Care Physician: Name: [facility] Psychiatrist: Name: Dr. Malik at [facility] Date of Appointment: Nov 19, 2016 Time of Appointment: 9:40 Therapist: Name: Patria weiss [facility] Date of Appointment: Nov 19, 2016 Time of Appointment: 11am Visit Code E&M Code: 97920 Inventory Assets Strengths: "I'm a good mom, grandma, and ," "love to give to people. Risk Factors Assessment : Yes /single/: No Higher / Fall in social status: No Health problems: Yes Mental Health Diagnoses: Yes Substance use disorders: No Previous attempt: Yes Previous attempt;highly lethal: Yes Family history of suicide: No Previous psychiatric stay: Yes Hopelessness: No Smoker: No Protective Factors Assessment Sikh beliefs: Yes : Yes Responsible for young children: No Employed: No Stable relationships: Yes Supportive family: Yes Good rapport with provider: Yes Data Vital Signs Last 24 Hrs: Date Time Temp Pulse Resp B/P Pulse Ox O2 Delivery O2 Flow Rate FiO2 11/15/16 06:55 36.9 94 18 133/85 99 137/82 11/14/16 20:52 81 18 125/84 Meds Administered Last 24 Hrs: Meds Administered (Past 24Hrs) Medications (Trade) Dose Ordered Sig/Uriah Route Start Time Stop Time Status Last Admin Dose Admin Non-Formulary Medication (Non-Formulary Patient'S Own Med) 1.5 ea HS PO 11/13/16 22:00 12/13/16 21:59 11/14/16 20:42 1.5 EA Non-Formulary Medication (Non-Formulary Patient'S Own Med) 1 ea QAM SL 11/14/16 09:00 12/14/16 08:59 11/15/16 08:09 1 EA Loperamide HCl (Imodium Cap) 2 mg Q4 PRN PO 11/14/16 10:00 12/14/16 09:59 11/14/16 21:24 2 MG Lab Results Last 24 Hrs: Last 24 Hours Test 11/15/16 06:40 Sodium Level 140 mmol/L Potassium Level 3.7 mmol/L Chloride Level 105 mmol/L Carbon Dioxide Level 24 mmol/L Anion Gap 11.0 mmol/L Blood Urea Nitrogen 10 mg/dl Creatinine 0.87 mg/dl Est Creatinine Clear Calc Drug Dose 101.0 ml/min Estimated GFR () 91.9 Estimated GFR (Non- 79.3 BUN/Creatinine Ratio 11.5
[2016-11-15] MEDS: LITHIUM CARBONATE SR 300 MG TAB (LITHOBID) PO SCH (10:21)
[2016-11-15] MEDS: ALBUTEROL HFA 8 GM INHALER INH PRN (13:44)
[2016-11-15] MEDS: CLONAZEPAM 1 MG TAB PO PRN (14:21)
--- NOTE | 2016-11-15 14:28 | Medical Student: BHU Only ---
Psychiatric Progress Note Date of Service: Nov 15, 2016. IDENTIFYING DATA: Becky Levy is a 46-year-old female who currently lives in [place], [place] with her . Becky Levy was admitted to the [facility] on a 201 voluntary commitment for worsening psychosis. Becky Levy was brought to the hospital by her Information provided by the patient is considered to be reliable. Information was collected from the patient, her [facility] ER intake from Dr. Perez on 11/11/16, and her psychiatric evaluation from Dr. Malik on 12/25/15. CHIEF COMPLAINT: "I'm anxious and I have racing thoughts" SUBJECTIVE: Becky Levy is a 46-year-old remarried white female with a longstanding history of mental health concerns who was admitted to the [facility] with auditory hallucinations, fluctuating mood for several months, decreased sleep for several weeks, and longstanding paranoia that people are talking about her. She was discussed today at treatment team with nursing and social work. Sleep was poor and noted to be for 3 hours by staff. She consumed 95% breakfast, 100% lunch, and 100% dinner yesterday. Per nursing, Becky's daughter spoke to the nursing team last night after she spoke to Becky on the phone. According to the daughter, she had never seen her mother this bad. Today, I spoke with Becky on several occasions in the morning and afternoon as she frequently approached me to talk. Becky reports feeling more anxious she says "I keep running to the nurses all day." She reports racing thoughts and she stops herself saying "I'm going too fast." She asks to walk around. She makes contradictory statements. For example, she states that she is concerned that she is "taking too many medications", then shortly later says that all she needs to do is "take the correct medicines like Dr. Olvera gives me on my sheet when I leave." She said all she needs to do is eat to feel better, then states that she is eating too much. She was encouraged to try journaling, relaxation techniques, breathing exercises without much improvement. She says she feels ready to leave today and wants to leave with her , [facility]ueda, [facility] ROS: CONSTITUTIONAL: Denies headaches, fevers, chills, HEENT: Denies changes in vision, hearing, or dysphagia. SKIN: Denies rashes or lesions. CARDIOVASCULAR: Denies chest pain or palpitations RESPIRATORY: positive for upper respiratory symptoms of cough and congestion. GASTROINTESTINAL: positive for chronic diarrhea, negative for nausea, vomiting , or constipation GENITOURINARY: Denies urinary frequency or urgency NEUROLOGICAL: Denies numbness or tingling in extremities MUSCULOSKELETAL: Denies muscle pain or joint stiffness HEMATOLOGIC: Denies unexplained bleeding or bruising LYMPHATICS: Denies pedal edema PSYCHIATRIC: positive for anxiety, depression symptoms, and paranoia MSE: Appearance: Awake, alert, and oriented x3. Appropriately groomed, casually dressed, obese white female who appears her stated age. The patient is generally cooperative with the interview, although very anxious. Her face is red. She asks to walk in the hallways rather than sit for the conversation. Eye contact: good, has moments when she stops speaking and stares Motor behavior: steady gait and station. No psychomotor retardation, no akathisia, no automatisms, no catatonia, or dystonias, no tremors. Speech: Normal volume, rate, and tone. Occasional halts during conversation. Affect: Anxious, blunted, Mood: "anxious" Thought process: Mildly disorganized with a rambling quality. Perseverates on going home tomorrow and on her medications. She often contradicts herself. Thought content: delusions of persecution, cognitive distortions. No SI. No HI. Perception: denies visual and auditory hallucinations. Cognition: The patient is oriented to person, place, and time. Attention and language are grossly intact. Intelligence: average Insight: impaired Judgment: impaired VITAL SIGNS: Date Time Temp Pulse Resp B/P Pulse Ox O2 Delivery O2 Flow Rate FiO2 11/15/16 06:55 36.9 94 18 133/85 99 137/82 11/14/16 20:52 81 18 125/84 MEDICATIONS ADMINISTERED :(Past 24Hrs) Medications (Trade) Dose Ordered Sig/Uriah Route Start Time Stop Time Status Last Admin Dose Admin Non-Formulary Medication (Non-Formulary Patient'S Own Med) 1.5 ea HS PO 11/13/16 22:00 12/13/16 21:59 11/14/16 20:42 1.5 EA Non-Formulary Medication (Non-Formulary Patient'S Own Med) 1 ea QAM SL 11/14/16 09:00 12/14/16 08:59 11/15/16 08:09 1 EA Albuterol (Ventolin Hfa Inhaler) 2 puffs Q4H PRN INH 11/13/16 14:30 12/13/16 14:29 11/15/16 13:44 2 PUFFS Loperamide HCl (Imodium Cap) 2 mg Q4 PRN PO 11/14/16 10:00 12/14/16 09:59 11/14/16 21:24 2 MG Haloperidol (Haldol Tab) 5 mg 0927 ONCE PO 11/15/16 09:27 11/15/16 09:51 DC 11/15/16 10:20 5 MG LABORATORIES (last 24hours) Test 11/15/16 06:40 Sodium Level 140 mmol/L Potassium Level 3.7 mmol/L Chloride Level 105 mmol/L Carbon Dioxide Level 24 mmol/L Anion Gap 11.0 mmol/L Blood Urea Nitrogen 10 mg/dl Creatinine 0.87 mg/dl Est Creatinine Clear Calc Drug Dose 101.0 ml/min Estimated GFR () 91.9 Estimated GFR (Non- 79.3 BUN/Creatinine Ratio 11.5 DIAGNOSTIC IMPRESSION: Becky Levy is a 46-year-old remarried white female with a longstanding history of mental health concerns who [facility] with [facility] hallucinations, fluctuating mood, and paranoia and she appears acutely worse today. She is anxious and paranoid about everything and has many thought distortions. She is contradicting herself and is poorly managing her anxiety. She is concerned about taking too many medications, and then says that she needs to follow Dr. Olvera's medications to feel better. She does not have SI/ HI or visual / auditory hallucinations today. PLAN: 1. Bipolar 1 Disorder, severe, with psychotic features, with anxious distress, with mixed features -Stopped Desvenlafaxine (Pristiq) as recommended by outpatient provider, Dr. Malik -Restart lithium to 300mg qAM and 900 mg qHS. It was held last night due to concern of diarrhea. -Measure trough level after 5 days. -Continue home lamotrigine (lamictal) 400 mg po qAM -Continue home temazepam (restoril) 15 mg po qHS -Continue home Asenapine (saphris) 15mg po qHS, 5 mg po qAM -Continue home Liothyronine (cytomel) 12.5 mcg po daily -Continue hydroxyzine PRN for sleep -Safety checks q 15 min -Encourage participation in group and individual therapy sessions -Continue working on coping skills -Develop discharge safety plan with attention on medications at home and keeping guns locked away without access 2. Rule out generalized anxiety disorder -Start clonazepam 0.5 mg PRN for anxiety -Continue to monitor for anxiety level and whether or not her anxiety stems from her delusions 3. Urinary tract infection -Completed a course of cephalexin -Denies urinary frequency, urgency, or dysuria 4. Chronic diarrhea -Patient thinks she has IBS -Schedule f/u with PCP or GI doctor -Start Imodium PRN -It is unlikely that diarrhea is due to Oliver because this was a chronic issue of several months duration prior to starting Oliver 5. Obesity -Patients BMI is 37.1 kg/m2 -Consider dietary consult to educate the patient as to steps she can take to reduce further weight gain -Educate patients knowledge around appropriate food choices and soda consumption 6. Aftercare Planning: -Psychiatrist: Name: Dr. Malik at [facility] Date of Appointment: Nov 19, 2016 Time of Appointment: 9:40 -Therapist: Name: Patria at [facility] Date of Appointment: Nov 19, 2016 Time of Appointment: 11am -Completed family meeting with , Agueda and social work 6. Medication Monitoring: -Monitor lithium trough level after 5 days -Last lithium trough was 0.3 on 11/11/16 -Check fasting labs for monitoring on an atypical antipsychotic
[2016-11-15] MEDS ORDERED: BENZTROPINE MESYLATE 0.5 MG TAB PO PRN (17:15)
[2016-11-15] MEDS ORDERED: NURSING VERBAL MED ORDER ONE (19:15)
[2016-11-15] MEDS: TEMAZEPAM 15 MG CAP PO SCH (20:43)
[2016-11-15] MEDS: LITHIUM CARBONATE 450 MG TABCR PO SCH (20:43)
[2016-11-15] MEDS: SAPHRIS 10 MG PO SCH (20:43)
[2016-11-15] MEDS: hydrOXYzine HCL 25 MG TAB PO PRN (20:44)
[2016-11-15] MEDS ORDERED: HALOPERIDOL 5 MG TAB PO SCH (22:00)
[2016-11-16] MEDS: CLONAZEPAM 1 MG TAB PO PRN ×3 (00:46→13:23)
[2016-11-16] MEDS ORDERED: TEMAZEPAM 15 MG CAP PO STA (02:28)
[2016-11-16] MEDS ORDERED: NURSING VERBAL MED ORDER ONE (02:30)
[2016-11-16 06:03] VITALS: BP_SYST 139; BP_SYST 144; BP_DIAS 94; PULSE 101; PULSE 112; TEMP 36.7
[2016-11-16] MEDS: GUAIFENESIN 600 MG TABCR PO SCH ×2 (07:28→19:58)
[2016-11-16] MEDS: DICYCLOMINE HCL 20 MG TAB PO SCH (07:28)
[2016-11-16] MEDS: LIOTHYRONINE SODIUM 25 MCG TAB PO SCH (07:28)
[2016-11-16] MEDS: PROBIOTIC GUMMIES PO SCH (07:29)
[2016-11-16] MEDS: SAPHRIS 10 MG SL SCH (09:25)
[2016-11-16] MEDS: LITHIUM CARBONATE SR 300 MG TAB (LITHOBID) PO SCH (09:25)
[2016-11-16] MEDS ORDERED: TEMAZEPAM 7.5 MG CAP PO PRN (09:30)
--- NOTE | 2016-11-16 09:32 | Psychiatric Progress Notes ---
Progress Note Date of Service Nov 16, 2016. Interval History 46 yo woman, outpatient of Dr. Wells, admitted with severe anxiety, depression and auditory hallucinations. Chief Complaint "I don't know what to do, I'm sorry". Subjective Patient was seen & assessed interval progress reviewed with Treatment Team. Difficult night, sleep poor despite multiple prns. Ruminating about leaving and showing evidence of thought blocking. expressed concerns about psychomotor retardation with is actually thought disorganization. He and daughter continue to feel that Zyprexa was most effective atypical so far. Patient is hesitant to restart given hx of sedation and weight gain but was high dose. All agree that Saphris isn't effective and ongoing sleep issues related to mixed freida complicating recovery. and patient participated in treatment team, patient was somewhat paranoid/not understanding treatment plan document. She expressed understanding of treatment plan but declined to sign. Discussed that very disorganized and not able to care for self at home at this time so would pursue 302 if she would sign another 72 hour notice and refuse to rescind. Review of Systems patient is unable to complete due to psychosis Sleep Information Total Hours of Sleep: 3.00 Meal Information Percent of Breakfast Consumed: 95 Percent of Lunch Consumed: 95 Percent of Dinner Consumed: 80 Mental Status Exam During interview pt is: alert and oriented, guarded Appearance: appropriately dressed, appropriately groomed Eye contact is: poor Motor behavior is: steady gait & station, other (bradykinetic with little arm swing) Speech: normal in rate, rhythm & volume Affect: blunted, anxious Mood is: depressed, anxious Thought process: blocking, perseveration Thought content: paranoid, cognitive distortions Suicidal thought are: denied Homicidal thoughts are: denied Hallucinations: denies auditory, denies visual Cognition: attention grossly intact, language grossly intact Intelligence estimated to be: average Insight: impaired Judgement: impaired Impression 11/15/16--The patient is acutely worse today, paranoid about everything, with many thought distortions. She is afraid to eat in front of others, fears water/ drowning and goes on at length about thinking that she doesn't need meds. She contradicts herself multiple times, saying she is fearful then saying she is not. She thinks she should just be able to take control and stop being anxious leading to paranoia without the use of meds. "I'm not explaining myself". Multiple attempts were made to end the interview, but she would sit back down and start again trying to explain her thoughts, with little success. This AM as providers were arriving on the unit she stopped each of us with an urgent need to talk, even knocking on the treatment room door to ask to be seen. We discuss treatment options, and she rejects each saying she doesn't need more medication. Nursing reports that her visited and asked staff to call her daughter to Becky could talk with her. When daughter was on the line, Becky couldn't communicate with her. Daughter told staff that she has never seen her mother this bad. Becky denies SI/HI, denies aud/vis halucinations. Continued Inpatient Care The patient requires inpatient care due to the severity of her condition and inability to manipulate information in a reality based manner. Plan (1) Bipolar 1 disorder -Every 15 minute checks for safety -Encourage participation in unit groups and programming -Work on healthy coping skills and her discharge safety plan, to include securing of medications in the home, and ensuring that guns are locked and she will not have access. -Family meeting with . -Coordinate care with outpatient providers, Dr. reece Bob and Patria Espinal at [facility]. -Continue home doses of lamotrigine, temazepam, Saphris, and Cytomel. -Continue taper off of Pristiq, and continued titration up on lithium, which was increased to 300 mg in the morning and 900 mg at bedtime last night. She will need a trough level after 5 days (11/16/2016). -Offer hydroxyzine as needed for sleep and anxiety, and have also ordered clonazepam 0.5 mg as needed for anxiety, as she reports alprazolam was helpful in the ER, and says she is allergic to lorazepam. -Check fasting labs for monitoring on an atypical, as last labs in her records were done in December 2015. At that time, glucose was elevated at 109, and lipids were normal. 11/13 - FLP and FBS WNL today - Reality orientation - Continue current meds - Family meeting with . 11/14 - Continue with reality orientation and groups, as periodic derealization/ dissociation - Continue lithium, Saphris, lamotrigine, temazepam and Cytomel 11/15 - Did not receive lithium last night so will DC level. Continue current lithium dosing - Will add Haldol 5 mg. BID with dose now. patient may refuse, but in looking at past med trials, she has never been tried on a typical. - Reality orientation 11/16 --mild lengthening of QTc after 3 doses of Haldol 5 mg yesterday. Initially refused am medications but ultimately accepted with plan to taper Saphris in favor of a retrial of Zyprexa. Reviewed that Haldol will be used as a bridge and hopefully coadmin with lamictal and lithium will allow lower dosing of Zyprexa than previously. Patient and well aware of metabolic risks. (2) UTI (urinary tract infection) Denies UTI symptoms. Complete course of cephalexin. (3) Diarrhea -Patient thinks she has IBS, needs to f/u with PCP. -Order Imodium prn 11/15 - Will restart lithium as patient had diarrhea prior to start of lithium, associated with IBS (4) Obesity Offer dietary consultation. Encouraged continued work on decreasing soda intake , and educated on healthy food choices and the importance of exercise. Discharge / Aftercare Planning Primary Care Physician: Name: [facility] Psychiatrist: Name: Dr. Malik at [facility] Date of Appointment: Nov 19, 2016 Time of Appointment: 9:40 Therapist: Name: Patria weiss [facility] Date of Appointment: Nov 19, 2016 Time of Appointment: 11am Visit Code E&M Code: 99847 Inventory Assets Strengths: "I'm a good mom, grandma, and ," "love to give to people. Risk Factors Assessment : Yes /single/: No Higher / Fall in social status: No Health problems: Yes Mental Health Diagnoses: Yes Substance use disorders: No Previous attempt: Yes Previous attempt;highly lethal: Yes Family history of suicide: No Previous psychiatric stay: Yes Hopelessness: No Smoker: No Protective Factors Assessment Druze beliefs: Yes : Yes Responsible for young children: No Employed: No Stable relationships: Yes Supportive family: Yes Good rapport with provider: Yes Data Vital Signs Last 24 Hrs: Date Time Temp Pulse Resp B/P Pulse Ox O2 Delivery O2 Flow Rate FiO2 11/16/16 06:03 36.7 101 16 144/94 112 139/94 Meds Administered Last 24 Hrs: Meds Administered (Past 24Hrs) Medications (Trade) Dose Ordered Sig/Uriah Route Start Time Stop Time Status Last Admin Dose Admin Loperamide HCl (Imodium Cap) 2 mg Q4 PRN PO 11/14/16 10:00 12/14/16 09:59 11/14/16 21:24 2 MG Haloperidol (Haldol Tab) 5 mg BID PO 11/15/16 22:00 12/15/16 21:59 11/15/16 20:43 5 MG Haloperidol (Haldol Tab) 5 mg 0927 ONCE PO 11/15/16 09:27 11/15/16 09:51 DC 11/15/16 10:20 5 MG Clonazepam (Klonopin Tab) 1 mg BID PRN PO 11/15/16 09:30 12/15/16 09:29 11/16/16 07:27 1 MG Haloperidol (Haldol Tab) 5 mg NOW ONCE PO 11/15/16 17:15 11/15/16 17:16 DC 11/15/16 17:20 5 MG Non-Formulary Medication (Non-Formulary Patient'S Own Med) 2 ea QAM PO 11/16/16 09:00 12/16/16 08:59 11/16/16 07:29 2 EA Temazepam (Restoril Cap) 15 mg ONE STAT PO 11/16/16 02:28 11/16/16 02:29 DC 11/16/16 02:42 15 MG
[2016-11-16] MEDS: HALOPERIDOL 5 MG TAB PO SCH (17:27)
[2016-11-16] MEDS: LITHIUM CARBONATE 450 MG TABCR PO SCH (19:58)
[2016-11-16] MEDS: TEMAZEPAM 15 MG CAP PO SCH (20:00)
[2016-11-16] MEDS ORDERED: OLANZAPINE ZYDIS 5 MG ORALLY DIS. TAB PO SCH (22:00)
[2016-11-17] MEDS: CLONAZEPAM 1 MG TAB PO PRN ×3 (04:19→13:46)
[2016-11-17 06:57] VITALS: BP_SYST 128; BP_SYST 139; BP_DIAS 84; BP_DIAS 85; PULSE 100; PULSE 110; TEMP 36.7
[2016-11-17] MEDS: LIOTHYRONINE SODIUM 25 MCG TAB PO SCH (09:00)
[2016-11-17] MEDS: PROBIOTIC GUMMIES PO SCH (09:00)
[2016-11-17] MEDS: DICYCLOMINE HCL 20 MG TAB PO SCH (09:00)
[2016-11-17] MEDS: LITHIUM CARBONATE SR 300 MG TAB (LITHOBID) PO SCH (09:00)
[2016-11-17] MEDS: HALOPERIDOL 5 MG TAB PO SCH (09:00)
[2016-11-17] MEDS: GUAIFENESIN 600 MG TABCR PO SCH ×2 (09:00→20:03)
[2016-11-17] MEDS ORDERED: NON-FORMULARY MEDICATION PO SCH (09:00)
[2016-11-17] MEDS ORDERED: OLANZAPINE 2.5 MG TAB PO ONE (12:36)
--- NOTE | 2016-11-17 12:47 | Psychiatric Progress Notes ---
Progress Note Date of Service Nov 17, 2016. Interval History 46 yo woman, outpatient of Dr. Wells, admitted with severe anxiety, depression and auditory hallucinations. Chief Complaint "I think if I would've talked to Dr. Malik she would've just increased the Saphris". Subjective Patient was seen & assessed interval progress reviewed with Treatment Team. Per staff, patient remains quite psychotic with thought blocking. She appears paranoid. Refusing medications at times. They voiced concern that she appears worse and more anxious since starting the Haldol on . Nursing staff note Ativan is a medication allergy historically and Lamictal was started for seizure activity possibly associated with Wellbutrin in the past. Patient is highly anxious and is observed seeking assistance at the nursing station repeatedly throughout the morning. She becomes easily overwhelmed and disorganized and perseverative in discussing her treatment history and medications. She believes she is ready to go home. She denies continued hallucinations. She denies suicidal ideation this morning. She expresses extreme frustration about her medications and seems to quickly change her mind about what she believes she should be taking. Describes mind as "ahead of me, which makes it hard for me to communicate." Review of Systems Constitutional: No fever Psychiatric: + anxiety, + insomnia Sleep Information Total Hours of Sleep: 3.00 Meal Information Percent of Breakfast Consumed: 100 Percent of Lunch Consumed: 100 Percent of Dinner Consumed: 50 Mental Status Exam During interview pt is: alert and oriented, guarded Appearance: appropriately dressed, appropriately groomed Eye contact is: other (staring) Motor behavior is: steady gait & station, other (bradykinetic with little arm swing) Speech: other (halting) Affect: blunted, anxious Mood is: anxious Thought process: blocking, perseveration Thought content: paranoid, cognitive distortions Suicidal thought are: denied Homicidal thoughts are: denied Hallucinations: denies auditory, denies visual Cognition: attention grossly intact, language grossly intact Intelligence estimated to be: average Insight: impaired Judgement: impaired Impression Remains paranoid, psychotic, and disorganized Continued Inpatient Care The patient requires inpatient care due to the severity of her condition and inability to manipulate information in a reality based manner. Plan (1) Bipolar 1 disorder -Every 15 minute checks for safety -Encourage participation in unit groups and programming -Work on healthy coping skills and her discharge safety plan, to include securing of medications in the home, and ensuring that guns are locked and she will not have access. -Family meeting with . -Coordinate care with outpatient providers, Dr. reece Bob and Patria Espinal at [facility]. -Continue home doses of lamotrigine, temazepam, Saphris, and Cytomel. -Continue taper off of Pristiq, and continued titration up on lithium, which was increased to 300 mg in the morning and 900 mg at bedtime last night. She will need a trough level after 5 days (11/16/2016). -Offer hydroxyzine as needed for sleep and anxiety, and have also ordered clonazepam 0.5 mg as needed for anxiety, as she reports alprazolam was helpful in the ER, and says she is allergic to lorazepam. -Check fasting labs for monitoring on an atypical, as last labs in her records were done in December 2015. At that time, glucose was elevated at 109, and lipids were normal. 11/13 - FLP and FBS WNL today - Reality orientation - Continue current meds - Family meeting with . 11/14 - Continue with reality orientation and groups, as periodic derealization/ dissociation - Continue lithium, Saphris, lamotrigine, temazepam and Cytomel 11/15 - Did not receive lithium last night so will DC level. Continue current lithium dosing - Will add Haldol 5 mg. BID with dose now. patient may refuse, but in looking at past med trials, she has never been tried on a typical. - Reality orientation 11/16 --mild lengthening of QTc after 3 doses of Haldol 5 mg yesterday. Initially refused am medications but ultimately accepted with plan to taper Saphris in favor of a retrial of Zyprexa. Reviewed that Haldol will be used as a bridge and hopefully coadmin with lamictal and lithium will allow lower dosing of Zyprexa than previously. Patient and well aware of metabolic risks. 11/17 - will d/c haldol as no improvement and h/o poor tx effect on this agent per family - will increase Zyprexa to 2.5mg qam w/ now dose and 10mg qhs - liberalize klonopin prn utilization - she is now off the saphris (2) UTI (urinary tract infection) Denies UTI symptoms. Complete course of cephalexin. (3) Diarrhea -Patient thinks she has IBS, needs to f/u with PCP. -Order Imodium prn 11/15 - Will restart lithium as patient had diarrhea prior to start of lithium, associated with IBS (4) Obesity Offer dietary consultation. Encouraged continued work on decreasing soda intake , and educated on healthy food choices and the importance of exercise. Discharge / Aftercare Planning Primary Care Physician: Name: [facility] Psychiatrist: Name: Dr. Malik at [facility] Date of Appointment: Nov 22, 2016 Time of Appointment: 8:20am Therapist: Name: Patria at [facility] Date of Appointment: Nov 26, 2016 Time of Appointment: 1:30pm Visit Code E&M Code: 41219 Inventory Assets Strengths: "I'm a good mom, grandma, and ," "love to give to people. Risk Factors Assessment : Yes /single/: No Higher / Fall in social status: No Health problems: Yes Mental Health Diagnoses: Yes Substance use disorders: No Previous attempt: Yes Previous attempt;highly lethal: Yes Family history of suicide: No Previous psychiatric stay: Yes Hopelessness: No Smoker: No Protective Factors Assessment Yazdanism beliefs: Yes : Yes Responsible for young children: No Employed: No Stable relationships: Yes Supportive family: Yes Good rapport with provider: Yes Data Vital Signs Last 24 Hrs: Date Time Temp Pulse Resp B/P Pulse Ox O2 Delivery O2 Flow Rate FiO2 11/17/16 06:57 36.7 100 19 128/85 110 139/84 Meds Administered Last 24 Hrs: Meds Administered (Past 24Hrs) Medications (Trade) Dose Ordered Sig/Uriah Route Start Time Stop Time Status Last Admin Dose Admin Haloperidol (Haldol Tab) 5 mg BID PO 11/15/16 22:00 11/16/16 09:31 DC 11/15/16 20:43 5 MG Haloperidol (Haldol Tab) 5 mg NOW ONCE PO 11/15/16 17:15 11/15/16 17:16 DC 11/15/16 17:20 5 MG Non-Formulary Medication (Non-Formulary Patient'S Own Med) 2 ea QAM PO 11/16/16 09:00 12/16/16 08:59 11/17/16 09:00 2 EA Temazepam (Restoril Cap) 15 mg ONE STAT PO 11/16/16 02:28 11/16/16 02:29 DC 11/16/16 02:42 15 MG Clonazepam (Klonopin Tab) 1 mg Q8 PRN PO 11/16/16 14:00 12/16/16 13:59 11/16/16 13:23 1 MG Haloperidol (Haldol Tab) 5 mg BID17 PO 11/16/16 17:00 12/16/16 16:59 11/17/16 09:00 5 MG Temazepam (Restoril Cap) 7.5 mg 0000 PRN PO 11/16/16 09:30 12/16/16 09:29 11/17/16 03:45 7.5 MG Olanzapine (Zyprexa Zydis Od Tab) 5 mg HS PO 11/16/16 22:00 12/16/16 21:59 11/16/16 19:58 5 MG
[2016-11-17] MEDS ORDERED: NURSING VERBAL MED ORDER ONE ×2 (16:30→22:00)
[2016-11-17] MEDS ORDERED: CLONAZEPAM 1 MG TAB PO STA (16:39)
[2016-11-17] MEDS: LOPERAMIDE HCL 2 MG CAP PO PRN (18:26)
[2016-11-17] MEDS: TEMAZEPAM 15 MG CAP PO SCH (20:03)
[2016-11-17] MEDS: LITHIUM CARBONATE 450 MG TABCR PO SCH (20:04)
[2016-11-17] MEDS ORDERED: CLONAZEPAM 1 MG TAB PO ONE (22:00)
[2016-11-17] MEDS ORDERED: OLANZAPINE ZYDIS 5 MG ORALLY DIS. TAB PO SCH (22:00)
[2016-11-18] MEDS: LOPERAMIDE HCL 2 MG CAP PO PRN (01:20)
[2016-11-18] MEDS: CLONAZEPAM 1 MG TAB PO PRN ×2 (04:50→19:24)
[2016-11-18 07:14] VITALS: BP_SYST 120; BP_SYST 127; BP_DIAS 79; BP_DIAS 85; PULSE 118; PULSE 121; TEMP 36.6
[2016-11-18] MEDS: LITHIUM CARBONATE SR 300 MG TAB (LITHOBID) PO SCH ×2 (09:00→11:38)
[2016-11-18] MEDS: LIOTHYRONINE SODIUM 25 MCG TAB PO SCH ×2 (09:00→11:38)
[2016-11-18] MEDS: DICYCLOMINE HCL 20 MG TAB PO SCH ×2 (09:00→11:38)
[2016-11-18] MEDS ORDERED: OLANZAPINE 2.5 MG TAB PO SCH (09:00)
[2016-11-18] MEDS: PROBIOTIC GUMMIES PO SCH (09:14)
[2016-11-18] MEDS: GUAIFENESIN 600 MG TABCR PO SCH ×2 (09:14→20:48)
[2016-11-18] MEDS ORDERED: NURSING VERBAL MED ORDER ONE ×2 (11:15→21:30)
[2016-11-18] MEDS ORDERED: OLANZAPINE ZYDIS 10 MG ORALLY DIS. TAB PO ONE (11:30)
--- NOTE | 2016-11-18 13:43 | Psychiatric Progress Notes ---
Progress Note Date of Service Nov 18, 2016. Interval History 46 yo woman, outpatient of Dr. Wells, admitted with severe anxiety, depression and auditory hallucinations. Chief Complaint Patient unable to provide complaints or concerns. Subjective Patient was seen & assessed interval progress reviewed with Treatment Team. Per staff, patient has had a difficult 24 hours. Sleep is excruciatingly minimal. Remains restless. Was checking exterior door and placed on elopement precautions. She has received 3 Klonopin prn's overnight with only very modest to no effect. Appearing thought blocked, confused, refusing medications more frequently, persistently intrusive into the nursing station, perseverating on medications and believed she was to be discharged today. She is able to provide very little on interview this morning and largely stares at me appearing anxious. She answers a few basic yes and no questions and states that she does understand what I am saying to her. confirms that she did require very high-dose olanzapine treatment, perhaps 50 mg daily in the past. Review of Systems Patient is unable to participate in review of systems today secondary to her psychosis Sleep Information Total Hours of Sleep: 1.50 Meal Information Percent of Breakfast Consumed: 100 Percent of Lunch Consumed: 100 Percent of Dinner Consumed: 50 Mental Status Exam During interview pt is: uncooperative, guarded Appearance: appropriately dressed, appropriately groomed Eye contact is: other (staring) Motor behavior is: steady gait & station, other (she is restless) Speech: other ( minimal) Affect: flat Mood is: other (unable or unwilling to characterize mood today) Thought process: blocking Thought content: obsessions Hallucinations: other (not overtly responding to internal stimuli however this cannot be ruled out) Cognition: other (attention is presently significantly impaired) Intelligence estimated to be: average Insight: severely impaired Judgement: severely impaired Impression Remains paranoid, psychotic, and disorganized Continued Inpatient Care The patient requires inpatient care due to the severity of her condition and inability to manipulate information in a reality based manner. Plan (1) Bipolar 1 disorder -Every 15 minute checks for safety -Encourage participation in unit groups and programming -Work on healthy coping skills and her discharge safety plan, to include securing of medications in the home, and ensuring that guns are locked and she will not have access. -Family meeting with . -Coordinate care with outpatient providers, Dr. reece Bob and Patria Espinal at [facility]. -Continue home doses of lamotrigine, temazepam, Saphris, and Cytomel. -Continue taper off of Pristiq, and continued titration up on lithium, which was increased to 300 mg in the morning and 900 mg at bedtime last night. She will need a trough level after 5 days (11/16/2016). -Offer hydroxyzine as needed for sleep and anxiety, and have also ordered clonazepam 0.5 mg as needed for anxiety, as she reports alprazolam was helpful in the ER, and says she is allergic to lorazepam. -Check fasting labs for monitoring on an atypical, as last labs in her records were done in December 2015. At that time, glucose was elevated at 109, and lipids were normal. 11/13 - FLP and FBS WNL today - Reality orientation - Continue current meds - Family meeting with . 11/14 - Continue with reality orientation and groups, as periodic derealization/ dissociation - Continue lithium, Saphris, lamotrigine, temazepam and Cytomel 11/15 - Did not receive lithium last night so will DC level. Continue current lithium dosing - Will add Haldol 5 mg. BID with dose now. patient may refuse, but in looking at past med trials, she has never been tried on a typical. - Reality orientation 11/16 --mild lengthening of QTc after 3 doses of Haldol 5 mg yesterday. Initially refused am medications but ultimately accepted with plan to taper Saphris in favor of a retrial of Zyprexa. Reviewed that Haldol will be used as a bridge and hopefully coadmin with lamictal and lithium will allow lower dosing of Zyprexa than previously. Patient and well aware of metabolic risks. 11/17 - will d/c haldol as no improvement and h/o poor tx effect on this agent per family - will increase Zyprexa to 2.5mg qam w/ now dose and 10mg qhs - liberalize klonopin prn utilization - she is now off the saphris 11/18 - Continues to decline and appearing more psychotic and disorganized again today. She refused her scheduled 2.5 mg Zyprexa but ultimately was agreeable to take a 10 mg now dose. She will receive another 10 mg at bedtime tonight and will schedule for 10 mg twice a day starting tomorrow. Appears she has required very high dose antipsychotic treatment in the past. - As her psychosis worsens, her insight and judgment are increasingly impaired. At the present time she appears to lack the insight and inability to rationally manipulate information such that an involuntary commitment should be considered. Additionally, with her declining insight, she is becoming more resistant to medication compliance. In my clinical opinion, should she refuse oral medications, she should be treated over her objection for worsening psychosis. - She is appearing more tachycardic. Fluid intake ok. Vital signs otherwise okay. QTc was borderline on recent EKG. Considered ordering another EKG today but I did not feel that she would tolerate it today. - if psychosis does not improve with antipsychotic titration, consider EEG given h/o seizure disorder. this might also help r/o possibility of something like lithium induced encephalopathy. (2) UTI (urinary tract infection) Denies UTI symptoms. Complete course of cephalexin. (3) Diarrhea -Patient thinks she has IBS, needs to f/u with PCP. -Order Imodium prn 11/15 - Will restart lithium as patient had diarrhea prior to start of lithium, associated with IBS (4) Obesity Offer dietary consultation. Encouraged continued work on decreasing soda intake , and educated on healthy food choices and the importance of exercise. Discharge / Aftercare Planning Primary Care Physician: Name: [facility] Psychiatrist: Name: Dr. King weiss [facility] Date of Appointment: Nov 22, 2016 Time of Appointment: 8:20am Therapist: Name: Patria weiss [facility] Date of Appointment: Nov 26, 2016 Time of Appointment: 1:30pm Visit Code E&M Code: 09137 Inventory Assets Strengths: "I'm a good mom, grandma, and ," "love to give to people. Risk Factors Assessment : Yes /single/: No Higher / Fall in social status: No Health problems: Yes Mental Health Diagnoses: Yes Substance use disorders: No Previous attempt: Yes Previous attempt;highly lethal: Yes Family history of suicide: No Previous psychiatric stay: Yes Hopelessness: No Smoker: No Protective Factors Assessment Adventist beliefs: Yes : Yes Responsible for young children: No Employed: No Stable relationships: Yes Supportive family: Yes Good rapport with provider: Yes Data Vital Signs Last 24 Hrs: Date Time Temp Pulse Resp B/P Pulse Ox O2 Delivery O2 Flow Rate FiO2 11/18/16 07:14 36.6 118 20 120/79 121 127/85 Meds Administered Last 24 Hrs: Meds Administered (Past 24Hrs) Medications (Trade) Dose Ordered Sig/Uriah Route Start Time Stop Time Status Last Admin Dose Admin Clonazepam (Klonopin Tab) 1 mg Q8 PRN PO 11/16/16 14:00 12/16/16 13:59 11/18/16 04:50 1 MG Haloperidol (Haldol Tab) 5 mg BID17 PO 11/16/16 17:00 11/17/16 12:39 DC 11/17/16 09:00 5 MG Olanzapine (Zyprexa Zydis Od Tab) 5 mg HS PO 11/16/16 22:00 11/17/16 12:39 DC 11/16/16 19:58 5 MG Olanzapine (Zyprexa Zydis Od Tab) 10 mg HS PO 11/17/16 22:00 12/17/16 21:59 11/17/16 20:03 10 MG Olanzapine (Zyprexa Tab) 2.5 mg 1236 ONCE PO 11/17/16 12:36 11/17/16 12:43 DC 11/17/16 12:36 2.5 MG Clonazepam (Klonopin Tab) 1 mg NOW STAT PO 11/17/16 16:39 11/17/16 16:40 DC 11/17/16 17:25 1 MG Clonazepam (Klonopin Tab) 1 mg ONE ONCE PO 11/17/16 22:00 11/17/16 22:01 DC 11/17/16 22:19 1 MG Olanzapine (Zyprexa Zydis Od Tab) 10 mg 1130 ONCE PO 11/18/16 11:30 11/18/16 11:32 DC 11/18/16 11:45 10 MG
[2016-11-18] MEDS ORDERED: TEMAZEPAM 15 MG CAP PO SCH ×2 (20:00→22:00)
[2016-11-18] MEDS: LITHIUM CARBONATE 450 MG TABCR PO SCH (20:49)
[2016-11-18] MEDS: OLANZAPINE ZYDIS 5 MG ORALLY DIS. TAB PO SCH (20:50)
[2016-11-18] MEDS: hydrOXYzine HCL 25 MG TAB PO PRN (20:50)
[2016-11-18] MEDS ORDERED: BENZONATATE 100MG CAP PO STA (21:28)
[2016-11-19 03:48] VITALS: BP 125/82; PULSE 115; TEMP 36.5
[2016-11-19] MEDS: CLONAZEPAM 1 MG TAB PO PRN ×2 (04:10→20:47)
[2016-11-19 06:56] VITALS: BP_SYST 112; BP_SYST 132; BP_DIAS 79; BP_DIAS 81; PULSE 102; PULSE 97; TEMP 36.5
[2016-11-19] MEDS: LIOTHYRONINE SODIUM 25 MCG TAB PO SCH (07:22)
[2016-11-19] MEDS: DICYCLOMINE HCL 20 MG TAB PO SCH (07:22)
[2016-11-19] MEDS: GUAIFENESIN 600 MG TABCR PO SCH ×2 (07:23→20:47)
[2016-11-19] MEDS: PROBIOTIC GUMMIES PO SCH (07:24)
[2016-11-19] MEDS: OLANZAPINE ZYDIS 5 MG ORALLY DIS. TAB PO SCH (07:26)
[2016-11-19] MEDS: LITHIUM CARBONATE SR 300 MG TAB (LITHOBID) PO SCH (09:00)
[2016-11-19 10:28] LABS: POTASSIUM 3.7 mmol/L (3.5-5.1)
[2016-11-19] MEDS: hydrOXYzine HCL 25 MG TAB PO PRN (11:03)
--- NOTE | 2016-11-19 11:28 | Psychiatric Progress Notes ---
Progress Note Date of Service Nov 19, 2016. Interval History 46 yo woman, outpatient of Dr. Wells, admitted with severe anxiety, depression and auditory hallucinations. Chief Complaint "I'm anxious.". Subjective Patient was seen & assessed interval progress reviewed with Treatment Team. The patient remains anxious and distressed. She spends most of the interview staring, being unable to express herself. She denies feeling restless but moves her legs up and down repeatedly, saying that she's trying to relax. She denies aud/vis hallucinations, but appears thought blocked. Cannot answer questions appropriately, is disconnected from the current conversation, frequently answering questions that were asked long ago. She remains worried about the need to go home, about taking too many medications. She continues to report diarrhea, but no worse than baseline with her IBS. Mild tremor rt>lt to outstretched hands. She is oriented to person, place, month and year, but thought it was the not the and took a long time to discern that it was Saturday. Sleep remains impaired getting only 3 hours last night, having been awake, ruminating about taking a shower. nursing reports that patient reports hearing voices talking about medications. Also received feedback from patient' s sister that she hasn't been this bad since initial break in 1996. Review of Systems Constitutional: + problem reported (insomnia) ENT: + unusual epistaxis (this AM) Respiratory: + cough ( at night when she lays down) Cardiovascular: No PND, No chest pain, No claudication, No edema, No orthopnea , No palpitations, No problem reported Abdomen: No GI bleeding, No constipation, No diarrhea, No nausea, No pain, No problem reported, No vomiting Musculoskeletal: No calf pain, No joint pain, No muscle pain, No problem reported, No swelling Neurologic: No balance problems, No memory loss, No numbness/tingling, No paralysis, No problem reported, No vertigo, No weakness Psychiatric: + anxiety, + depression symptoms, + insomnia Integumentary: No bleeding, No color change, No itch, No new/changing skin lesions, No problem reported, No rash Sleep Information Total Hours of Sleep: 3.00 Meal Information Percent of Breakfast Consumed: 100 Percent of Lunch Consumed: 100 Percent of Dinner Consumed: 50 Mental Status Exam During interview pt is: guarded Appearance: appropriately dressed, appropriately groomed, other (cheeks reddened) Eye contact is: other (staring) Motor behavior is: steady gait & station, other (she is restless, bradykinetic when ambulating) Speech: other ( minimal, disconnected from conversation) Affect: flat, anxious Mood is: depressed, anxious Thought process: blocking Thought content: obsessions Suicidal thought are: denied Homicidal thoughts are: denied Hallucinations: denies auditory, denies visual, other (not overtly responding to internal stimuli however this cannot be ruled out) Cognition: other (attention is presently significantly impaired) Intelligence estimated to be: average Insight: severely impaired Judgement: severely impaired Impression Remains paranoid, psychotic, and disorganized again today. [place] level 1.1. In view of observations that cognition has been in decline since admission and increase in lithium, will reduce to 900 mg. HS only with level in 5 day. Will adjust Zyprexa to all 20 mg. at HS and order 2.5 mg. BID prn. Will also stop HS temazepam in the event this is contributing to a layer of delirium. Continued Inpatient Care The patient requires inpatient care due to the severity of her condition and inability to manipulate information in a reality based manner. Plan (1) Bipolar 1 disorder -Every 15 minute checks for safety -Encourage participation in unit groups and programming -Work on healthy coping skills and her discharge safety plan, to include securing of medications in the home, and ensuring that guns are locked and she will not have access. -Family meeting with . -Coordinate care with outpatient providers, Dr. reece Bob and Patria Espinal at [facility]. -Continue home doses of lamotrigine, temazepam, Saphris, and Cytomel. -Continue taper off of Pristiq, and continued titration up on lithium, which was increased to 300 mg in the morning and 900 mg at bedtime last night. She will need a trough level after 5 days (11/16/2016). -Offer hydroxyzine as needed for sleep and anxiety, and have also ordered clonazepam 0.5 mg as needed for anxiety, as she reports alprazolam was helpful in the ER, and says she is allergic to lorazepam. -Check fasting labs for monitoring on an atypical, as last labs in her records were done in December 2015. At that time, glucose was elevated at 109, and lipids were normal. 11/13 - FLP and FBS WNL today - Reality orientation - Continue current meds - Family meeting with . 11/14 - Continue with reality orientation and groups, as periodic derealization/ dissociation - Continue lithium, Saphris, lamotrigine, temazepam and Cytomel 11/15 - Did not receive lithium last night so will DC level. Continue current lithium dosing - Will add Haldol 5 mg. BID with dose now. patient may refuse, but in looking at past med trials, she has never been tried on a typical. - Reality orientation 11/16 --mild lengthening of QTc after 3 doses of Haldol 5 mg yesterday. Initially refused am medications but ultimately accepted with plan to taper Saphris in favor of a retrial of Zyprexa. Reviewed that Haldol will be used as a bridge and hopefully coadmin with lamictal and lithium will allow lower dosing of Zyprexa than previously. Patient and well aware of metabolic risks. 11/17 - will d/c haldol as no improvement and h/o poor tx effect on this agent per family - will increase Zyprexa to 2.5mg qam w/ now dose and 10mg qhs - liberalize klonopin prn utilization - she is now off the saphris 11/18 - Continues to decline and appearing more psychotic and disorganized again today. She refused her scheduled 2.5 mg Zyprexa but ultimately was agreeable to take a 10 mg now dose. She will receive another 10 mg at bedtime tonight and will schedule for 10 mg twice a day starting tomorrow. Appears she has required very high dose antipsychotic treatment in the past. - As her psychosis worsens, her insight and judgment are increasingly impaired. At the present time she appears to lack the insight and inability to rationally manipulate information such that an involuntary commitment should be considered. Additionally, with her declining insight, she is becoming more resistant to medication compliance. In my clinical opinion, should she refuse oral medications, she should be treated over her objection for worsening psychosis. - She is appearing more tachycardic. Fluid intake ok. Vital signs otherwise okay. QTc was borderline on recent EKG. Considered ordering another EKG today but I did not feel that she would tolerate it today. - if psychosis does not improve with antipsychotic titration, consider EEG given h/o seizure disorder. this might also help r/o possibility of something like lithium induced encephalopathy. 11/19 -Adjust Zyprexa to 20 mg. all HS and add 2.5 mg. BID prn psychosis - Reduce lithium to 900 mg. HS only with level in 5 days. - DC temazepam (2) UTI (urinary tract infection) Denies UTI symptoms. Complete course of cephalexin. (3) Diarrhea -Patient thinks she has IBS, needs to f/u with PCP. -Order Imodium prn 11/15 - Will restart lithium as patient had diarrhea prior to start of lithium, associated with IBS (4) Obesity Offer dietary consultation. Encouraged continued work on decreasing soda intake , and educated on healthy food choices and the importance of exercise. Discharge / Aftercare Planning Primary Care Physician: Name: [facility] Psychiatrist: Name: Dr. Malik at [facility] Date of Appointment: Nov 22, 2016 Time of Appointment: 8:20am Therapist: Name: Patria weiss [facility] Date of Appointment: Nov 26, 2016 Time of Appointment: 1:30pm Visit Code E&M Code: 70447 Inventory Assets Strengths: "I'm a good mom, grandma, and ," "love to give to people. Risk Factors Assessment : Yes /single/: No Higher / Fall in social status: No Health problems: Yes Mental Health Diagnoses: Yes Substance use disorders: No Previous attempt: Yes Previous attempt;highly lethal: Yes Family history of suicide: No Previous psychiatric stay: Yes Hopelessness: No Smoker: No Protective Factors Assessment Moravian beliefs: Yes : Yes Responsible for young children: No Employed: No Stable relationships: Yes Supportive family: Yes Good rapport with provider: Yes Data Vital Signs Last 24 Hrs: Date Time Temp Pulse Resp B/P Pulse Ox O2 Delivery O2 Flow Rate FiO2 11/19/16 06:56 36.5 97 18 132/81 102 112/79 11/19/16 03:48 36.5 115 20 125/82 Meds Administered Last 24 Hrs: Meds Administered (Past 24Hrs) Medications (Trade) Dose Ordered Sig/Uriah Route Start Time Stop Time Status Last Admin Dose Admin Olanzapine (Zyprexa Zydis Od Tab) 10 mg HS PO 11/17/16 22:00 11/18/16 13:46 DC 11/17/16 20:03 10 MG Olanzapine (Zyprexa Tab) 2.5 mg 1236 ONCE PO 11/17/16 12:36 11/17/16 12:43 DC 11/17/16 12:36 2.5 MG Clonazepam (Klonopin Tab) 1 mg NOW STAT PO 11/17/16 16:39 11/17/16 16:40 DC 11/17/16 17:25 1 MG Clonazepam (Klonopin Tab) 1 mg ONE ONCE PO 11/17/16 22:00 11/17/16 22:01 DC 11/17/16 22:19 1 MG Olanzapine (Zyprexa Zydis Od Tab) 10 mg 1130 ONCE PO 11/18/16 11:30 11/18/16 11:32 DC 11/18/16 11:45 10 MG Olanzapine (Zyprexa Zydis Od Tab) 10 mg BID PO 11/18/16 22:00 12/18/16 21:59 11/19/16 07:26 10 MG Temazepam (Restoril Cap) 30 mg QPM@2000 PO 11/18/16 20:00 12/18/16 19:59 11/18/16 20:48 30 MG Benzonatate (Tessalon Perles Cap) 100 mg NOW STAT PO 11/18/16 21:28 11/18/16 21:29 DC 11/18/16 21:40 100 MG Lab Results Last 24 Hrs: Last 24 Hours Test 11/19/16 09:15 Sodium Level 139 mmol/L Potassium Level 3.7 mmol/L Chloride Level 103 mmol/L Carbon Dioxide Level 31 mmol/L Anion Gap 5.0 mmol/L [place] Level 1.1 mMOL/L
[2016-11-19] MEDS: OLANZAPINE ZYDIS 5 MG ORALLY DIS. TAB PO PRN ×2 (16:31→22:44)
[2016-11-19] MEDS: LITHIUM CARBONATE 450 MG TABCR PO SCH (20:47)
[2016-11-19] MEDS ORDERED: OLANZAPINE ZYDIS 10 MG ORALLY DIS. TAB PO SCH (22:00)
[2016-11-19] MEDS ORDERED: NURSING VERBAL MED ORDER ONE (23:00)
[2016-11-19] MEDS ORDERED: ALPRAZOLAM 0.5 MG TAB PO SCH (23:15)
[2016-11-20] MEDS: ALBUTEROL HFA 8 GM INHALER INH PRN ×2 (05:23→14:36)
[2016-11-20] MEDS: BENZONATATE 100MG CAP PO PRN ×2 (05:35→14:59)
[2016-11-20 06:58] VITALS: BP_SYST 121; BP_SYST 125; BP_DIAS 76; BP_DIAS 79; PULSE 111; PULSE 97
[2016-11-20] MEDS: LIOTHYRONINE SODIUM 25 MCG TAB PO SCH (08:11)
[2016-11-20] MEDS: DICYCLOMINE HCL 20 MG TAB PO SCH (08:11)
[2016-11-20] MEDS: GUAIFENESIN 600 MG TABCR PO SCH ×2 (08:12→19:58)
[2016-11-20] MEDS: PROBIOTIC GUMMIES PO SCH (08:13)
[2016-11-20] MEDS: OLANZAPINE ZYDIS 5 MG ORALLY DIS. TAB PO PRN (08:17)
--- NOTE | 2016-11-20 09:17 | Psychiatric Progress Notes ---
Progress Note Date of Service Nov 20, 2016. Interval History 46 yo woman, outpatient of Dr. Wells, admitted with severe anxiety, depression and auditory hallucinations. Chief Complaint "Anxious.". Subjective Patient was seen & assessed interval progress reviewed with Treatment Team. Becky remains "anxious" and unable to clearly explain what she is thinking. Today she stares, but is really unable to answer questions appropriately. At one point she say "I need a referral", to a doctor, but cannot further explain. During several periods of silence, she says "I trust you.", but without context. When talking about her sleep she says "I won't let myself sleep." as if she is intentionally staying awake, but cannot say more. She says no when asked about SI/HI, but does not answer questions about aud/vis hallucinations. Nursing reports that she has taken multiple showers last evening and night, and is unable to stay in groups for more than a few seconds, to the point that it is disruptive to group as she comes in and out. When asked about the speed of her thoughts, she first says that they are "slow", and then immediately afterward says that her thoughts are "racing". Review of Systems Constitutional: + fatigue, + problem reported (pacing) ENT: No dental problems, No hearing loss, No nasal symptoms, No problem reported, No sore throat, No tinnitus, No trouble swallowing, No unusual epistaxis Respiratory: + cough Cardiovascular: No PND, No chest pain, No claudication, No edema, No orthopnea , No palpitations, No problem reported Abdomen: No GI bleeding, No constipation, No diarrhea, No nausea, No pain, No problem reported, No vomiting Musculoskeletal: No calf pain, No joint pain, No muscle pain, No problem reported, No swelling Neurologic: No balance problems, No memory loss, No numbness/tingling, No paralysis, No problem reported, No vertigo, No weakness Psychiatric: + anxiety, + problem reported (thought blocking) Integumentary: No bleeding, No color change, No itch, No new/changing skin lesions, No problem reported, No rash Sleep Information Total Hours of Sleep: 2.50 Meal Information Percent of Breakfast Consumed: 100 Percent of Lunch Consumed: 0 Percent of Dinner Consumed: 50 Mental Status Exam During interview pt is: guarded Appearance: appropriately dressed, appropriately groomed, other (cheeks reddened) Eye contact is: other (staring) Motor behavior is: steady gait & station, other (she is restless, bradykinetic when ambulating) Speech: other ( minimal, disconnected from conversation) Affect: flat, anxious Mood is: depressed, anxious Thought process: blocking Thought content: obsessions Suicidal thought are: denied Homicidal thoughts are: denied Hallucinations: denies auditory, denies visual, other (not overtly responding to internal stimuli however this cannot be ruled out) Cognition: other (attention is presently significantly impaired) Intelligence estimated to be: average Insight: severely impaired Judgement: severely impaired Impression Remains paranoid, psychotic, and disorganized again today. Poor sleep again last night, perhaps driven by psychotic thoughts ("I won't let myself sleep."). Meds adjusted so that she will get all of her zyprexa at HS starting tonight, lithium decreased. Will order artane prn today in the event she is experiencing akathisia contributing to her anxiety. She continues to request discharge, but is far too disabled from her mental illness to be able to succeed outside of a structured environment. Continued Inpatient Care The patient requires inpatient care due to the severity of her condition and inability to manipulate information in a reality based manner. Plan (1) Bipolar 1 disorder -Every 15 minute checks for safety -Encourage participation in unit groups and programming -Work on healthy coping skills and her discharge safety plan, to include securing of medications in the home, and ensuring that guns are locked and she will not have access. -Family meeting with . -Coordinate care with outpatient providers, Dr. reece Bob and Patria Espinal at [facility]. -Continue home doses of lamotrigine, temazepam, Saphris, and Cytomel. -Continue taper off of Pristiq, and continued titration up on lithium, which was increased to 300 mg in the morning and 900 mg at bedtime last night. She will need a trough level after 5 days (11/16/2016). -Offer hydroxyzine as needed for sleep and anxiety, and have also ordered clonazepam 0.5 mg as needed for anxiety, as she reports alprazolam was helpful in the ER, and says she is allergic to lorazepam. -Check fasting labs for monitoring on an atypical, as last labs in her records were done in December 2015. At that time, glucose was elevated at 109, and lipids were normal. 11/13 - FLP and FBS WNL today - Reality orientation - Continue current meds - Family meeting with . 11/14 - Continue with reality orientation and groups, as periodic derealization/ dissociation - Continue lithium, Saphris, lamotrigine, temazepam and Cytomel 11/15 - Did not receive lithium last night so will DC level. Continue current lithium dosing - Will add Haldol 5 mg. BID with dose now. patient may refuse, but in looking at past med trials, she has never been tried on a typical. - Reality orientation 11/16 --mild lengthening of QTc after 3 doses of Haldol 5 mg yesterday. Initially refused am medications but ultimately accepted with plan to taper Saphris in favor of a retrial of Zyprexa. Reviewed that Haldol will be used as a bridge and hopefully coadmin with lamictal and lithium will allow lower dosing of Zyprexa than previously. Patient and well aware of metabolic risks. 11/17 - will d/c haldol as no improvement and h/o poor tx effect on this agent per family - will increase Zyprexa to 2.5mg qam w/ now dose and 10mg qhs - liberalize klonopin prn utilization - she is now off the saphris 11/18 - Continues to decline and appearing more psychotic and disorganized again today. She refused her scheduled 2.5 mg Zyprexa but ultimately was agreeable to take a 10 mg now dose. She will receive another 10 mg at bedtime tonight and will schedule for 10 mg twice a day starting tomorrow. Appears she has required very high dose antipsychotic treatment in the past. - As her psychosis worsens, her insight and judgment are increasingly impaired. At the present time she appears to lack the insight and inability to rationally manipulate information such that an involuntary commitment should be considered. Additionally, with her declining insight, she is becoming more resistant to medication compliance. In my clinical opinion, should she refuse oral medications, she should be treated over her objection for worsening psychosis. - She is appearing more tachycardic. Fluid intake ok. Vital signs otherwise okay. QTc was borderline on recent EKG. Considered ordering another EKG today but I did not feel that she would tolerate it today. - if psychosis does not improve with antipsychotic titration, consider EEG given h/o seizure disorder. this might also help r/o possibility of something like lithium induced encephalopathy. 11/19 -Adjust Zyprexa to 20 mg. all HS and add 2.5 mg. BID prn psychosis - Reduce lithium to 900 mg. HS only with level in 5 days. - DC temazepam 11/20 - Continue current meds (2) UTI (urinary tract infection) Denies UTI symptoms. Complete course of cephalexin. (3) Diarrhea -Patient thinks she has IBS, needs to f/u with PCP. -Order Imodium prn 11/15 - Will restart lithium as patient had diarrhea prior to start of lithium, associated with IBS (4) Obesity Offer dietary consultation. Encouraged continued work on decreasing soda intake , and educated on healthy food choices and the importance of exercise. Discharge / Aftercare Planning Primary Care Physician: Name: [facility] Psychiatrist: Name: Dr. Malik at [facility] Date of Appointment: Nov 22, 2016 Time of Appointment: 8:20am Therapist: Name: Patria weiss [facility] Date of Appointment: Nov 26, 2016 Time of Appointment: 1:30pm Visit Code E&M Code: 78266 Inventory Assets Strengths: "I'm a good mom, grandma, and ," "love to give to people. Risk Factors Assessment : Yes /single/: No Higher / Fall in social status: No Health problems: Yes Mental Health Diagnoses: Yes Substance use disorders: No Previous attempt: Yes Previous attempt;highly lethal: Yes Family history of suicide: No Previous psychiatric stay: Yes Hopelessness: No Smoker: No Protective Factors Assessment Anglican beliefs: Yes : Yes Responsible for young children: No Employed: No Stable relationships: Yes Supportive family: Yes Good rapport with provider: Yes Data Vital Signs Last 24 Hrs: Date Time Temp Pulse Resp B/P Pulse Ox O2 Delivery O2 Flow Rate FiO2 11/20/16 06:58 97 18 121/79 111 125/76 Meds Administered Last 24 Hrs: Meds Administered (Past 24Hrs) Medications (Trade) Dose Ordered Sig/Uriah Route Start Time Stop Time Status Last Admin Dose Admin Olanzapine (Zyprexa Zydis Od Tab) 10 mg 1130 ONCE PO 11/18/16 11:30 11/18/16 11:32 DC 11/18/16 11:45 10 MG Olanzapine (Zyprexa Zydis Od Tab) 10 mg BID PO 11/18/16 22:00 11/19/16 11:10 DC 11/19/16 07:26 10 MG Temazepam (Restoril Cap) 30 mg QPM@2000 PO 11/18/16 20:00 11/19/16 11:10 DC 11/18/16 20:48 30 MG Benzonatate (Tessalon Perles Cap) 100 mg NOW STAT PO 11/18/16 21:28 11/18/16 21:29 DC 11/18/16 21:40 100 MG Benzonatate (Tessalon Perles Cap) 100 mg TID PRN PO 11/18/16 21:30 12/18/16 21:29 11/20/16 05:35 100 MG Olanzapine (Zyprexa Zydis Od Tab) 10 mg 2200 PO 11/19/16 22:00 11/19/16 22:01 DC 11/19/16 19:24 10 MG Olanzapine (Zyprexa Zydis Od Tab) 2.5 mg BID PRN PO 11/19/16 11:30 12/19/16 11:29 11/20/16 08:17 2.5 MG Alprazolam (Xanax Tab) 1 mg TODAY@2315 PO 11/19/16 23:15 11/19/16 23:59 DC 11/19/16 23:20 1 MG Lab Results Last 24 Hrs: Last 24 Hours Test 11/19/16 09:15 11/20/16 09:00 Sodium Level 139 mmol/L Potassium Level 3.7 mmol/L Chloride Level 103 mmol/L Carbon Dioxide Level 31 mmol/L Anion Gap 5.0 mmol/L [place] Level 1.1 mMOL/L
[2016-11-20] MEDS ORDERED: TRIHEXYPHENIDYL HCL 2 MG TAB PO PRN (09:45)
[2016-11-20] MEDS ORDERED: NURSING VERBAL MED ORDER ONE ×2 (19:00→20:15)
[2016-11-20] MEDS ORDERED: ALPRAZOLAM 0.5 MG TAB PO ONE (19:30)
[2016-11-20] MEDS: TRIHEXYPHENIDYL HCL 5 MG TAB PO SCH (19:57)
[2016-11-20] MEDS: OLANZAPINE ZYDIS 10 MG ORALLY DIS. TAB PO SCH (19:58)
[2016-11-20] MEDS: LITHIUM CARBONATE 450 MG TABCR PO SCH (19:58)
--- NOTE | 2016-11-20 20:05 | Psychiatric Progress Notes ---
Psychiatric Progress Note Date of Service Nov 20, 2016. Notes case reviewed with Dr. Moulton (environmental specialist provider) due to complexity. Difficulty during visiting hours--ongoing confusion and restlessness with repeatedly needing to be redirected from door. Remains on 201, given prn Xanax 2 mg. RN states patient is minimally improved, having to be verbally redirected for attempts to enter nursing station but not aggressive and security hasn't needed to be called. Family reported expressed concerns about worsening psychosis/ cognitive functioning following lithium trial. Dose of Zyprexa increased this hs and remains lower than previously effective dose. Directed to give hs meds early, Dr. Moulton updated.
[2016-11-21] MEDS: ALBUTEROL HFA 8 GM INHALER INH PRN ×3 (04:02→19:50)
[2016-11-21] MEDS ORDERED: ALPRAZOLAM 0.5 MG TAB PO SCH (04:30)
[2016-11-21] MEDS ORDERED: NURSING VERBAL MED ORDER ONE (04:30)
[2016-11-21 06:48] VITALS: BP 115/76; PULSE 109
--- NOTE | 2016-11-21 08:41 | Psychiatric Progress Notes ---
Progress Note Date of Service Nov 21, 2016. Interval History 46 yo woman, outpatient of Dr. Wells, admitted with severe anxiety, depression and auditory hallucinations. Diagnosis is bipolar disorder type I vs schizoaffective disorder, bipolar type. Chief Complaint "Anxious". Subjective Patient was seen & assessed interval progress reviewed with Treatment Team. Staff report she had a difficult evening, was very confused, needing frequent redirection from staff. She had prn olanzapine which did not appear effective, and Artane was started which appeared helpful. She got alprazolam 2mg last evening and this morning which was not largely effective. Clonazepam has not been helpful, and family says she can't have lorazepam. She is not able to tolerate or participate in groups, will come in and out frequently, and is disruptive and unable to follow directions. She is not eating very much and staff have to encourage her to eat. She is irritable and inappropriate with staff, writing notes on the white boards around the unit, and trying to push her way into people's offices on the unit. She did sleep better last night, 5 hours, more than the past 7 nights. Her requested a meeting and this physician, social sciences research scientist, and nurse practitioner met with him today. Discussed her treatment plan and medication changes that have been made, including review of past med trials and responses. He said her daughter wants the lithium stopped as it doesn't seem to have helped. He shared that one of her past hospitalizations was prolonged for a couple months, and she required feeding tubes. Discussed lithium, he thinks she may have been on it in the past, but doesn't know details. She has been on it just under 2 weeks. Her daughter Fe had requested to be involved and was called and placed on speakerphone. She reports that Zyprexa and Lamictal have been helpful in the past, and is concerned that lithium is "causing some symptoms" (sexually inappropriate, thought blocking, swearing). Discussed plan to try tapering off lithium, and consideration for ECT if medications are ineffective. The patient then joined, after being outside knocking on the door for an extended period. Attempted to continue the meeting, but the patient picked up the phone and started talking to her daughter. She says she is "okay," then later says "anxious." She talks in complete sentences, but at times repeats what others are saying. She was encouraged to eat, as she has not been eating and staff have had to encourage her to even take a few bites. Also discussed her poor sleep and encouraged her to work on these two things. She says "obsession, I always talk about food." When encouraged that food is needed to heal, she says "I should call Sari, tell her that." Sleep Information Total Hours of Sleep: 5.00 Meal Information Percent of Breakfast Consumed: 5 Percent of Lunch Consumed: 5 Percent of Dinner Consumed: 10 Mental Status Exam During interview pt is: other (restless, intrusive) Appearance: appropriately dressed, appropriately groomed Eye contact is: other (staring) Motor behavior is: steady gait & station, other (restless, bradykinetic when ambulating) Speech: other ( minimal, disconnected from conversation) Affect: anxious, constricted Mood is: anxious Thought process: blocking, incoherent (at times makes nonsensical statements), other (echolalia; is able to talk in complete sentences) Thought content: obsessions Suicidal thought are: denied Homicidal thoughts are: denied Hallucinations: denies auditory, denies visual, other (not overtly responding to internal stimuli however this cannot be ruled out) Cognition: other (attention is presently significantly impaired) Intelligence estimated to be: average Insight: severely impaired Judgement: severely impaired Impression Remains paranoid, psychotic, and disorganized. Sleep has been poor for the past week, perhaps driven by psychotic thoughts ("I won't let myself sleep."). Meds adjusted to consolidate Zyprexa to bedtime, and tapering off lithium. Started Artane in the event she is experiencing akathisia contributing to her anxiety, and she has received multiple doses of alprazolam. She is too disabled from her mental illness to be able to care for herself outside of a structured environment. Continued Inpatient Care The patient requires inpatient care due to the severity of her condition and inability to manipulate information in a reality based manner. Plan (1) Bipolar 1 disorder -Every 15 minute checks for safety -Encourage participation in unit groups and programming -Work on healthy coping skills and her discharge safety plan, to include securing of medications in the home, and ensuring that guns are locked and she will not have access. -Family meeting with . -Coordinate care with outpatient providers, Dr. reece Bob and Patria Espinal at [facility]. -Continue home doses of lamotrigine, temazepam, Saphris, and Cytomel. -Continue taper off of Pristiq, and continued titration up on lithium, which was increased to 300 mg in the morning and 900 mg at bedtime last night. She will need a trough level after 5 days (11/16/2016). -Offer hydroxyzine as needed for sleep and anxiety, and have also ordered clonazepam 0.5 mg as needed for anxiety, as she reports alprazolam was helpful in the ER, and says she is allergic to lorazepam. -Check fasting labs for monitoring on an atypical, as last labs in her records were done in December 2015. At that time, glucose was elevated at 109, and lipids were normal. 11/13 - FLP and FBS WNL today - Reality orientation - Continue current meds - Family meeting with . 11/14 - Continue with reality orientation and groups, as periodic derealization/ dissociation - Continue lithium, Saphris, lamotrigine, temazepam and Cytomel 11/15 - Did not receive lithium last night so will DC level. Continue current lithium dosing - Will add Haldol 5 mg. BID with dose now. patient may refuse, but in looking at past med trials, she has never been tried on a typical. - Reality orientation 11/16 --mild lengthening of QTc after 3 doses of Haldol 5 mg yesterday. Initially refused am medications but ultimately accepted with plan to taper Saphris in favor of a retrial of Zyprexa. Reviewed that Haldol will be used as a bridge and hopefully coadmin with lamictal and lithium will allow lower dosing of Zyprexa than previously. Patient and well aware of metabolic risks. 11/17 - will d/c haldol as no improvement and h/o poor tx effect on this agent per family - will increase Zyprexa to 2.5mg qam w/ now dose and 10mg qhs - liberalize klonopin prn utilization - she is now off the saphris 11/18 - Continues to decline and appearing more psychotic and disorganized again today. She refused her scheduled 2.5 mg Zyprexa but ultimately was agreeable to take a 10 mg now dose. She will receive another 10 mg at bedtime tonight and will schedule for 10 mg twice a day starting tomorrow. Appears she has required very high dose antipsychotic treatment in the past. - As her psychosis worsens, her insight and judgment are increasingly impaired. At the present time she appears to lack the insight and inability to rationally manipulate information such that an involuntary commitment should be considered. Additionally, with her declining insight, she is becoming more resistant to medication compliance. In my clinical opinion, should she refuse oral medications, she should be treated over her objection for worsening psychosis. - She is appearing more tachycardic. Fluid intake ok. Vital signs otherwise okay. QTc was borderline on recent EKG. Considered ordering another EKG today but I did not feel that she would tolerate it today. - if psychosis does not improve with antipsychotic titration, consider EEG given h/o seizure disorder. this might also help r/o possibility of something like lithium induced encephalopathy. 11/19 -Adjust Zyprexa to 20 mg. all HS and add 2.5 mg. BID prn psychosis - Reduce lithium to 900 mg. HS only with level in 5 days. - DC temazepam 11/20 - Continue current meds 11/21 - Meeting held with patient and family. Will taper off lithium at family's request, and due to poor response after almost 2 weeks on it. - Continue olanzapine 20mg qhs and 2/5mg prn. Continue Artane 5mg bid. - Reviewed case with [facility] Dr. Solis, who was also involved last evening re: staff's concerns about patient's symptoms and behavior. Reviewed med adjustments as above, and will add stelazine 1mg prn for psychosis, as olanzapine prns not always effective. (2) UTI (urinary tract infection) Denies UTI symptoms. Completed course of cephalexin. (3) Diarrhea -Patient thinks she has IBS, needs to f/u with PCP. -Order Imodium prn 11/15 - Will restart lithium as patient had diarrhea prior to start of lithium, associated with IBS (4) Obesity Offer dietary consultation. Encouraged continued work on decreasing soda intake , and educated on healthy food choices and the importance of exercise. Discharge / Aftercare Planning Primary Care Physician: Name: [facility] Psychiatrist: Name: Dr. Malik at [facility] Date of Appointment: Nov 22, 2016 Time of Appointment: 8:20am Therapist: Name: Patria Fraire Date of Appointment: Nov 26, 2016 Time of Appointment: 1:30pm Visit Code E&M Code: 19265 Inventory Assets Strengths: "I'm a good mom, grandma, and ," "love to give to people. Risk Factors Assessment : Yes /single/: No Higher / Fall in social status: No Health problems: Yes Mental Health Diagnoses: Yes Substance use disorders: No Previous attempt: Yes Previous attempt;highly lethal: Yes Family history of suicide: No Previous psychiatric stay: Yes Hopelessness: No Smoker: No Protective Factors Assessment Worship beliefs: Yes : Yes Responsible for young children: No Employed: No Stable relationships: Yes Supportive family: Yes Good rapport with provider: Yes Data Vital Signs Last 24 Hrs: Date Time Temp Pulse Resp B/P Pulse Ox O2 Delivery O2 Flow Rate FiO2 11/21/16 06:48 109 18 115/76 Meds Administered Last 24 Hrs: Meds Administered (Past 24Hrs) Medications (Trade) Dose Ordered Sig/Uriah Route Start Time Stop Time Status Last Admin Dose Admin Olanzapine (Zyprexa Zydis Od Tab) 20 mg HS PO 11/20/16 22:00 12/20/16 21:59 11/20/16 19:58 20 MG Olanzapine (Zyprexa Zydis Od Tab) 10 mg 2200 PO 11/19/16 22:00 11/19/16 22:01 DC 11/19/16 19:24 10 MG Olanzapine (Zyprexa Zydis Od Tab) 2.5 mg BID PRN PO 11/19/16 11:30 12/19/16 11:29 11/20/16 08:17 2.5 MG Alprazolam (Xanax Tab) 1 mg TODAY@2315 PO 11/19/16 23:15 11/19/16 23:59 DC 11/19/16 23:20 1 MG Trihexyphenidyl HCl (Artane Tab) 2 mg BID PRN PO 11/20/16 09:45 11/20/16 13:12 DC 11/20/16 10:12 2 MG Trihexyphenidyl HCl (Trihexyphenidyl HCl TAB) 5 mg BID PO 11/20/16 22:00 12/20/16 21:59 11/20/16 19:57 5 MG Alprazolam (Xanax Tab) 2 mg 1930 ONCE PO 11/20/16 19:30 11/20/16 19:31 DC 11/20/16 19:09 2 MG Alprazolam (Xanax Tab) 2 mg TODAY@0430 PO 11/21/16 04:30 11/21/16 05:30 DC 11/21/16 04:32 2 MG Lab Results Last 24 Hrs: Last 24 Hours Test 11/20/16 09:54 Rosalia Level 1.0 mMOL/L
[2016-11-21] MEDS: TRIHEXYPHENIDYL HCL 5 MG TAB PO SCH ×2 (09:00→20:38)
[2016-11-21] MEDS: GUAIFENESIN 600 MG TABCR PO SCH ×2 (09:00→20:47)
[2016-11-21] MEDS: LIOTHYRONINE SODIUM 25 MCG TAB PO SCH (09:00)
[2016-11-21] MEDS: PROBIOTIC GUMMIES PO SCH (09:00)
[2016-11-21] MEDS: DICYCLOMINE HCL 20 MG TAB PO SCH (09:00)
[2016-11-21] MEDS: OLANZAPINE ZYDIS 5 MG ORALLY DIS. TAB PO PRN (09:57)
[2016-11-21] MEDS: CLONAZEPAM 1 MG TAB PO PRN (10:01)
[2016-11-21 15:20] VITALS: PULSE 114; TEMP 36.9
[2016-11-21 15:21] VITALS: O2SAT 97
--- NOTE | 2016-11-21 15:49 | Medical Consult ---
Consultation Date of Consultation: Nov 21, 2016. Attending Physician: Bernadette Benson MD Reason for Consultation: SOB/URI sxs History of Present Illness This is a 46 y/o female with PMHx of mental health problems, obesity and other problems as outlined below who was [facility]11 [facility] for [facility] hallucinations. Pt is a very poor historian due to acute mental health problems. She reports that 1 week ago she developed a dry cough and SOB. Her SOB is present even at rest. Pt is holding her chest at times but denies any chest pain. Full ROS difficult to obtain due to mental status however pt denies fever/chills, diaphoresis, chest pain, wheezing, LE edema, calf pain, lightheadedness/dizziness. Past Medical/Surgical History Medical Problems: (1) Hallucinations Status: Acute (2) Mood disorder Status: Acute (3) Paranoia Status: Acute (4) Psychosis Status: Acute Family History Diabetes mellitus FH: heart disease Hypertension Seizures Social History Smoking Status: Never Smoker Marital Status: Housing Status: lives with significant other Occupation Status: unemployed Allergies Coded Allergies: Lorazepam (Verified Allergy, Severe, TOOK FOR PP DEPRESSION-ENDED UP IN ICU, 11/16/16) Sulfamethoxazole w/Trimethoprim (Verified Allergy, Unknown, UNKNOWN, ) Bupropion (Verified Adverse Reaction, Unknown, SEIZURE, 11/16/16) SHE HAD A SEIZURE Lurasidone (Verified Adverse Reaction, Unknown, HALLUCINATIONS, 11/16/16) Home Medications Active Reported Cephalexin (Cephalexin Monohydrate) 500 Mg Cap 500 Mg PO BID Lithobid Ext Rel (Colwell Carbonate) 300 Mg Tabcr 600 Mg PO HS Lithobid Ext Rel (Colwell Carbonate) 300 Mg Tabcr 300 Mg PO QAM Saphris (Asenapine Maleate) 5 Mg Subl 15 Mg PO HS Lamictal (Lamotrigine) 200 Mg Tab 400 Mg PO QAM Liothyronine Sodium 25 Mcg Tab 12.5 Mcg PO UD Saphris (Asenapine Maleate) 5 Mg Subl 10 Mg PO QAM Dicyclomine Hcl 20 Mg Tab 20 Mg PO DAILY Tylenol Pm (Acetaminophen/Diphenhydramine HCl) 500 Mg/25 Mg Tab 2 Tab PO HS Advil (Ibuprofen) 200 Mg Tab 200-600 Mg PO Q4H PRN Restoril (Temazepam) 15 Mg Cap 15 Mg PO HS Pristiq (Desvenlafaxine Succinate) 50 Mg Tab 25 Mg PO Q2D Current Inpatient Medications Current Inpatient Medications Medications (Trade) Dose Ordered Sig/Uriah Route Start Time Stop Time Status Last Admin Dose Admin Acetaminophen (Tylenol Tab) 650 mg Q4H PRN PO 11/11/16 18:15 12/11/16 18:14 Bismuth Subsalicylate (Kaopectate Liqd) 15 ml PRN PRN PO 11/11/16 18:15 12/11/16 18:14 11/14/16 16:53 15 ML Al Hydroxide/Mg Hydroxide (Maalox Susp) 30 ml Q4H PRN PO 11/11/16 18:15 12/11/16 18:14 Magnesium Hydroxide (Milk Of Magnesia Susp) 30 ml DAILY PRN PO 11/11/16 18:15 12/11/16 18:14 Sodium Chloride ([place] Nasal [place]) PRN PRN NA 11/11/16 18:15 12/11/16 18:14 Hydroxyzine HCl (Vistaril Tab) 50 mg HSZ PRN PO 11/11/16 18:15 12/11/16 18:14 11/18/16 20:50 50 MG Hydroxyzine HCl (Vistaril Tab) 25 mg Q4H PRN PO 11/11/16 18:15 12/11/16 18:14 11/19/16 11:03 25 MG Dicyclomine HCl (Bentyl Tab) 20 mg DAILY PO 11/12/16 09:00 12/12/16 08:59 11/21/16 09:00 20 MG Lamotrigine (Lamictal Tab) 400 mg QAM PO 11/12/16 09:00 12/12/16 08:59 11/21/16 09:00 400 MG Liothyronine Sodium (Cytomel Tab) 12.5 mcg DAILY PO 11/12/16 09:00 12/12/16 08:59 11/21/16 09:00 12.5 MCG Guaifenesin (Mucinex Contr Rel Tab) 600 mg Q12 PO 11/12/16 21:00 12/12/16 20:59 11/21/16 09:00 600 MG Albuterol (Ventolin Hfa Inhaler) 2 puffs Q4H PRN INH 11/13/16 14:30 4/6/17 14:29 11/21/16 09:31 2 PUFFS Loperamide HCl (Imodium Cap) 2 mg Q4 PRN PO 11/14/16 10:00 12/14/16 09:59 11/18/16 01:20 2 MG Benztropine Mesylate (Cogentin Tab) 0.5 mg Q6 PRN PO 11/15/16 17:15 12/15/16 17:14 Non-Formulary Medication (Non-Formulary Patient'S Own Med) 2 ea QAM PO 11/16/16 09:00 12/16/16 08:59 11/21/16 09:00 2 EA Clonazepam (Klonopin Tab) 1 mg Q8 PRN PO 11/16/16 14:00 12/16/16 13:59 11/21/16 10:01 1 MG Benzonatate (Tessalon Perles Cap) 100 mg TID PRN PO 11/18/16 21:30 12/18/16 21:29 11/20/16 14:59 100 MG Olanzapine (Zyprexa Zydis Od Tab) 20 mg HS PO 11/20/16 22:00 12/20/16 21:59 11/20/16 19:58 20 MG Olanzapine (Zyprexa Zydis Od Tab) 2.5 mg BID PRN PO 11/19/16 11:30 12/19/16 11:29 11/21/16 09:57 2.5 MG Trihexyphenidyl HCl (Trihexyphenidyl HCl TAB) 5 mg BID PO 11/20/16 22:00 12/20/16 21:59 11/21/16 09:00 5 MG Colwell Carbonate (Lithobid Tab) 600 mg Taper HS PO 11/21/16 22:00 11/23/16 21:59 Review of Systems Constitutional: No fever ENT: No hearing loss, No nasal symptoms, No sore throat Respiratory: + cough (dry), + dyspnea at rest, + dyspnea on exertion, + shortness of breath Cardiovascular: No chest pain, No claudication, No edema Musculoskeletal: No calf pain, No swelling Physical Exam Date Time Temp Pulse Resp B/P Pulse Ox O2 Delivery O2 Flow Rate FiO2 11/21/16 06:48 109 18 115/76 General Appearance: WD/WN, no apparent distress, + obese, + pertinent finding ( Pt is wandering halls on my arrival; answers some questions ) Head: normocephalic, atraumatic Eyes: normal inspection ENT: hearing grossly normal, pharynx normal Neck: supple Respiratory/Chest: chest non-tender, lungs clear, normal breath sounds, no respiratory distress, + pertinent finding (no crackles or wheezing noted) Cardiovascular: + tachycardia Abdomen/GI: normal bowel sounds, non tender, soft Back: normal inspection Extremities/Musculoskelatal: normal inspection, no calf tenderness, + swelling (trace bilat) Neurologic/Psych: alert, + pertinent finding (pt is disoriented to time and place; unable to answer most questions) Skin: normal color, warm/dry Assessment & Plan SOB/TACHYCARDIA; R/O PE pt c/o SOB and dry cough for 1 week may be viral URI but with SOB/tachycardia and pt being poor historian we will r/ o PE and ACS -pt is afebrile and tachycardic; saturating well on room air -obtain CBC/prp, ddimer, trop and coags -check EKG -if ddimer elevated, will obtain CT chest to r/o PE -if ddimer negative, will check CXR -monitor RECENT UTI -urine cx 11/06 grew Klebsiella -completed course of Keflex -UA 11/11 negative ACUTE PSYCHOSIS -defer to behavioral health team DVT PROPHYLAXIS -ambulation DISPO -Per behavioral health team. Pt seen in collaboration with Dr. Aggarwal. Please see her addendum for further details. Thanks! -Of note: patient will be followed by Dr. Ramirez starting tomorrow AM. I have seen, examined and discussed this patient with Sophie Mart and I agree with the above note. Medicine was consulted for upper respiratory symptoms and SOB. Patient is a poor historian due to underlying mental issues. History was obtained primarily from nursing staff. They note that patient has been drinking a lot of water since Saturday. They note two nose bleeds in the past couple of days. Patient appears to be SOB, but is actively ambulating the hallways. She does have a dry cough and has been receiving Albuterol inhaler PRN, Mucinex PRN (this was stopped) and Tessalon PRN. Vitals notable for tachycardia within the past 4 days. PE: General- awake; alert Eyes- EOMI; poor eye contact; no scleral icterus ENT- unable to visualize OP Neck- no stridor; trachea midline Lungs- appears tachypneic; no wheezes/crackles; slightly diminished breath sounds at the bases Heart- tachycardic; regular rhythm; no m/r/g Abdomen- soft; NTND; nBS Back- no gross abnormalities Extremities- 1+ edema RLE and trace edema LLE Neuro- unable to examine given underlying mental status Skin- no appreciable rash or bruising Labs notable for mild leukocytosis, but otherwise unremarkable. CXR negative. EKG with sinus tachycardia and otherwise unchanged from previous EKGs. SOB: Patient may likely have a viral URI. Labs notable only for mile leukocytosis. D-dimer negative, so lower suspicion for VTE. CXR negative for pneumonia. Oxygen saturation on room air normal. No indication for antibiotics at this time. Troponin, BNP and EKG unremarkable for cardiac etiology of symptoms. Thank you for this consultation. We will follow the patient with you during their hospital stay. You can reach a [facility]/04 via pager @ [phone].
[2016-11-21 16:03] LABS: BASO % 0.6 %; BASO ABS # 0.08 K/uL (0-0.2); COMPLETE YES; EOS % 2.2 %; HEMATOCRIT 35.4 % (37-47); IG% 0.2 %; LYMPH % 17.1 %; LYMPH ABS # 2.31 K/uL (1.2-3.4); MEAN CELL VOLUME 88.5 fL (80-100); MEAN CORPUSCULAR HEMOGLOBIN 30.3 pg (25-34); MEAN CORPUSCULAR HGB CONC 34.2 g/dl (32-36); MEAN PLATELET VOLUME 10.6 fL (7.4-10.4); MONO % 7.4 %; NEUT % 72.5 %; PLATELET COUNT 272 K/uL (130-400); WHITE BLOOD COUNT 13.48 K/uL (4.8-10.8)
[2016-11-21 16:15] LABS: INR 1.1 (0.9-1.1); PROTHROMBIN TIME (PATIENT) 11.4 SECONDS (9.0-12.0)
[2016-11-21 16:24] LABS: BLOOD UREA NITROGEN 6 mg/dl (7-18); BUN/CREATININE RATIO 8.3 (10-20); CALCIUM 8.5 mg/dl (8.5-10.1); CARBON DIOXIDE 26 mmol/L (21-32); CHLORIDE 104 mmol/L (98-107); CREATININE 0.71 mg/dl (0.60-1.20); GLUCOSE 103 mg/dl (70-99); POTASSIUM 3.2 mmol/L (3.5-5.1); SODIUM 139 mmol/L (136-145)
[2016-11-21] MEDS: TRIFLUOPERAZINE HCL 1 MG TAB PO PRN ×2 (16:38→23:22)
--- NOTE | 2016-11-21 16:56 | DIAGNOSTIC IMAGING REPORT ---
CHEST 2 VIEWS ROUTINE CLINICAL HISTORY: Shortness of breath COMPARISON STUDY: Chest radiograph February 28, 2015 and FINDINGS: Lung volumes are normal. There is no pneumothorax or pleural effusion. The patient is rotated. There are cholecystectomy clips. Cardiac size is normal. Mediastinal contours are normal. There is no evidence of pulmonary edema. IMPRESSION: No acute cardiopulmonary findings. Electronically signed by: Miles Rajput M.D. 11/21/2016 4:54 PM Dictated Date/Time: 11/21/2016 4:54 PM
[2016-11-21] MEDS: POTASSIUM CHLORIDE 20 MEQ TABCR PO ONE ×2 (17:15→17:18)
[2016-11-21 17:41] VITALS: O2SAT 97
[2016-11-21] MEDS: OLANZAPINE ZYDIS 10 MG ORALLY DIS. TAB PO SCH (20:39)
[2016-11-21 20:51] VITALS: O2SAT 96
[2016-11-21] MEDS ORDERED: LITHIUM CARBONATE SR 300 MG TAB (LITHOBID) PO SCH ×2 (22:00)
[2016-11-21 22:29] VITALS: BP 126/83; PULSE 112; TEMP 37
[2016-11-21] MEDS: BENZONATATE 100MG CAP PO PRN (23:22)
[2016-11-22] VITALS (8 sets, daily range): BP systolic 115–138; BP diastolic 69–85; PULSE 106–123; TEMP 36.2–37.7; O2SAT 93–97
[2016-11-22] MEDS ORDERED: NURSING VERBAL MED ORDER ONE ×3 (02:00→23:15)
[2016-11-22] MEDS ORDERED: ALPRAZOLAM 0.5 MG TAB PO SCH (02:15)
[2016-11-22] MEDS ORDERED: ALPRAZOLAM 0.5 MG TAB PO PRN (02:15)
[2016-11-22] MEDS ORDERED: ZOLPIDEM TARTRATE 10 MG TAB PO SCH (04:15)
[2016-11-22] MEDS: PROBIOTIC GUMMIES PO SCH (09:00)
[2016-11-22] MEDS: GUAIFENESIN 600 MG TABCR PO SCH ×2 (09:00→21:00)
[2016-11-22] MEDS: TRIHEXYPHENIDYL HCL 5 MG TAB PO SCH (09:00)
[2016-11-22] MEDS: LIOTHYRONINE SODIUM 25 MCG TAB PO SCH (09:00)
[2016-11-22] MEDS: DICYCLOMINE HCL 20 MG TAB PO SCH (09:00)
[2016-11-22 09:06] LABS: MEAN CELL VOLUME 89.2 fL (80-100); MEAN CORPUSCULAR HEMOGLOBIN 29.6 pg (25-34); MEAN CORPUSCULAR HGB CONC 33.2 g/dl (32-36); MEAN PLATELET VOLUME 10.7 fL (7.4-10.4); PLATELET COUNT 285 K/uL (130-400); RED BLOOD COUNT 4.26 M/uL (4.2-5.4); WHITE BLOOD COUNT 12.44 K/uL (4.8-10.8)
[2016-11-22 09:35] LABS: BUN/CREATININE RATIO 9.5 (10-20); CALCIUM 8.6 mg/dl (8.5-10.1); CREATININE 0.74 mg/dl (0.60-1.20); POTASSIUM 3.2 mmol/L (3.5-5.1)
[2016-11-22] MEDS ORDERED: TRIFLUOPERAZINE HCL 1 MG TAB PO ONE ×2 (10:17→14:00)
--- NOTE | 2016-11-22 10:56 | Psychiatric Progress Notes ---
Progress Note Date of Service Nov 22, 2016. Interval History 46 yo woman, outpatient of Dr. Wells, admitted with severe anxiety, depression and auditory hallucinations. Diagnosis is bipolar disorder type I vs schizoaffective disorder, bipolar type. Chief Complaint None stated Subjective Patient was seen & assessed interval progress reviewed with Treatment Team. The patient is extremely disorganized today and unable to participate in conversation appropriately. She is wandering, hard to redirect and requiring 1: 1 assistance. She is observed to be disrobing, incontinent. She has shallow respirations, with occasional cough. She is unable to swallow pills today, spitting them out, and at one point vomitted this AM. Medicine has been consulted, CXR neg, CBC still with elevated WBC's but no left shift, CMP notable only for low K 3.2 (patient unable/unwilling to take supplement yet), glucose 102. Her appetite is poor eating little, but still drinking large volumes of fluids. Is bradykinetic, little arm swing. Neg romberg, pupils equal in size, difficult to assess reactivity due to poor patient cooperation. No weakness noted, moving all four extremities equally. Review of Systems Constitutional: + problem reported (disorganized) ENT: No dental problems, No hearing loss, No nasal symptoms, No problem reported, No sore throat, No tinnitus, No trouble swallowing, No unusual epistaxis Respiratory: + cough Cardiovascular: + problem reported (tachcardia) Abdomen: + problem reported (incontinence at times, bowel and bladder) Musculoskeletal: No calf pain, No joint pain, No muscle pain, No problem reported, No swelling Neurologic: No balance problems, No memory loss, No numbness/tingling, No paralysis, No problem reported, No vertigo, No weakness Psychiatric: + problem reported (unable to participate in conversation, unable to follow simple commands) Integumentary: + problem reported (cheeks reddened) Sleep Information Total Hours of Sleep: 1.50 Meal Information Percent of Breakfast Consumed: 0 Percent of Lunch Consumed: 10 Percent of Dinner Consumed: 5 Mental Status Exam During interview pt is: uncooperative, other (disorganized, unable to follow simple commands) Appearance: disheveled (smells of urine) Eye contact is: other (staring) Motor behavior is: other (restless, bradykinetic when ambulating) Speech: other ( disconnected, minimal) Affect: flat, anxious, constricted Mood is: anxious Thought process: blocking, incoherent, other (echolalia; is unable to talk in complete sentences) Thought content: obsessions Suicidal thought are: denied (unable to assess) Homicidal thoughts are: denied (unable to assess) Hallucinations: auditory (difficult to assess, not clearly responding to internal stimuli, but with bizarre behaviors), other (not overtly responding to internal stimuli however this cannot be ruled out) Cognition: other (attention is presently significantly impaired) Intelligence estimated to be: average Insight: severely impaired Judgement: severely impaired Impression Remains paranoid, psychotic, and disorganized. Her condition in many ways is deteriorating daily, now unable to communicate clearly, and with bizarre behaviors. Not able/willing to take meds today. We have consulted medicine and appreciate their assistance. CXR neg, leukocytosis improving, and no left shift. QTc improved. No evidence of NMS as afebrile, no stiffness. She is disorganized and there is concern for delirium, in which case we should avoid deliriogenic meds such as BZD's and anticholinergic meds, but in the same breath , we are informed by her family that her first break resulted in a 3 month hospitalization and she required a feeding tube, and so this could also be a severe exacerbation of her bipolar disorder. EEG would be helpful in diagnosing delirium, but she is not able to be still enough for this today. CT of the head could be considered, but no focal neurological symptoms identified. Zyprexa is now at 20 mg. and 2.5 to 5 mg. prn. No consistent response to BZD. Stelazine added at 1 mg. BID last evening with short lasting effect. At this point will order: -1:1 for safety given disorganization and inappropriate behaviors - Will DC artane and bentyl in the event its worsening a delirium. - Will start scheduled stelazine 1 mg. BID and continue 1 mg. BID prn - Will prioritize the use of prn stelazine over the use of prn BZD in the evebnt this is delirium - If patient able to be still, will order EEG to assist us in rule out delirium - Bussey is being tapered off, with last dose tomorrow since she has shown only deterioration since starting 1513 Patient continues to be poorly redirectable, requiring much staff redirection. Is diaphoretic, feels warm with elevated axillary temp. Patient remains inappropriate, disrobing, unable to communicate in meaningful ways. Dr. Ramirez saw the patient with me due to concerns that she was medically compromised and we will order labs including CMP, CK and cardiac markers. Low suspicious for NMS as lacks rigidity, but will continue to evaluate. Patient is here voluntarily, but we have had to enforce strict safety measures with her to maintain her safety, and this includes giving her physical redirection when her disorganized behaviors put her at risk. 1800 Have reviewed labs (CK >800) with Dr. Ramirez. He suspects that her URI and poor po intake contributed to her condition. Renal function WNL. Will push fluids this evening, monitor VS q 2 h while awake, and repeat CK in the AM. Patient now calmer, able to talk in complete sentences, admitting that she has felt unwell, nauseated, unable to get pills down. Willing to push po fluids. has been informed and is here to visit. Continued Inpatient Care The patient requires inpatient care due to the severity of her condition and inability to manipulate information in a reality based manner. Plan (1) Bipolar 1 disorder -Every 15 minute checks for safety -Encourage participation in unit groups and programming -Work on healthy coping skills and her discharge safety plan, to include securing of medications in the home, and ensuring that guns are locked and she will not have access. -Family meeting with . -Coordinate care with outpatient providers, Dr. reece Bob and Patria Espinal at [facility]. -Continue home doses of lamotrigine, temazepam, Saphris, and Cytomel. -Continue taper off of Pristiq, and continued titration up on lithium, which was increased to 300 mg in the morning and 900 mg at bedtime last night. She will need a trough level after 5 days (11/16/2016). -Offer hydroxyzine as needed for sleep and anxiety, and have also ordered clonazepam 0.5 mg as needed for anxiety, as she reports alprazolam was helpful in the ER, and says she is allergic to lorazepam. -Check fasting labs for monitoring on an atypical, as last labs in her records were done in December 2015. At that time, glucose was elevated at 109, and lipids were normal. 11/13 - FLP and FBS WNL today - Reality orientation - Continue current meds - Family meeting with . 11/14 - Continue with reality orientation and groups, as periodic derealization/ dissociation - Continue lithium, Saphris, lamotrigine, temazepam and Cytomel 11/15 - Did not receive lithium last night so will DC level. Continue current lithium dosing - Will add Haldol 5 mg. BID with dose now. patient may refuse, but in looking at past med trials, she has never been tried on a typical. - Reality orientation 11/16 --mild lengthening of QTc after 3 doses of Haldol 5 mg yesterday. Initially refused am medications but ultimately accepted with plan to taper Saphris in favor of a retrial of Zyprexa. Reviewed that Haldol will be used as a bridge and hopefully coadmin with lamictal and lithium will allow lower dosing of Zyprexa than previously. Patient and well aware of metabolic risks. 11/17 - will d/c haldol as no improvement and h/o poor tx effect on this agent per family - will increase Zyprexa to 2.5mg qam w/ now dose and 10mg qhs - liberalize klonopin prn utilization - she is now off the saphris 11/18 - Continues to decline and appearing more psychotic and disorganized again today. She refused her scheduled 2.5 mg Zyprexa but ultimately was agreeable to take a 10 mg now dose. She will receive another 10 mg at bedtime tonight and will schedule for 10 mg twice a day starting tomorrow. Appears she has required very high dose antipsychotic treatment in the past. - As her psychosis worsens, her insight and judgment are increasingly impaired. At the present time she appears to lack the insight and inability to rationally manipulate information such that an involuntary commitment should be considered. Additionally, with her declining insight, she is becoming more resistant to medication compliance. In my clinical opinion, should she refuse oral medications, she should be treated over her objection for worsening psychosis. - She is appearing more tachycardic. Fluid intake ok. Vital signs otherwise okay. QTc was borderline on recent EKG. Considered ordering another EKG today but I did not feel that she would tolerate it today. - if psychosis does not improve with antipsychotic titration, consider EEG given h/o seizure disorder. this might also help r/o possibility of something like lithium induced encephalopathy. 11/19 -Adjust Zyprexa to 20 mg. all HS and add 2.5 mg. BID prn psychosis - Reduce lithium to 900 mg. HS only with level in 5 days. - DC temazepam 11/20 - Continue current meds 11/21 - Meeting held with patient and family. Will taper off lithium at family's request, and due to poor response after almost 2 weeks on it. - Continue olanzapine 20mg qhs and 2/5mg prn. Continue Artane 5mg bid. - Reviewed case with Checkering Machine Adjuster Dr. Solis, who was also involved last evening re: staff's concerns about patient's symptoms and behavior. Reviewed med adjustments as above, and will add stelazine 1mg prn for psychosis, as olanzapine prns not always effective. 11/22 -1:1 for safety given disorganization and inappropriate behaviors - Will DC artane and bentyl in the event its worsening a delirium. - Will start scheduled stelazine 1 mg. BID and continue 1 mg. BID prn - Will prioritize the use of prn BZD's tonight in view of elevated CK - If patient able to be still, will order EEG to assist us in rule out delirium - Bussey DC'd - Case has been reviewed with both Dr. Benson and Dr. Solis (2) Obesity Offer dietary consultation. Encouraged continued work on decreasing soda intake , and educated on healthy food choices and the importance of exercise. Discharge / Aftercare Planning Primary Care Physician: Name: [facility] Psychiatrist: Name: Dr. King weiss [facility] Date of Appointment: Dec 13, 2016 Time of Appointment: 3:20 Therapist: Name: Patria weiss [facility] Date of Appointment: Nov 26, 2016 Time of Appointment: 1:30pm Visit Code E&M Code: 57355 Inventory Assets Strengths: "I'm a good mom, grandma, and ," "love to give to people. Risk Factors Assessment : Yes /single/: No Higher / Fall in social status: No Health problems: Yes Mental Health Diagnoses: Yes Substance use disorders: No Previous attempt: Yes Previous attempt;highly lethal: Yes Family history of suicide: No Previous psychiatric stay: Yes Hopelessness: No Smoker: No Protective Factors Assessment Taoism beliefs: Yes : Yes Responsible for young children: No Employed: No Stable relationships: Yes Supportive family: Yes Good rapport with provider: Yes Data Vital Signs Last 24 Hrs: Date Time Temp Pulse Resp B/P Pulse Ox O2 Delivery O2 Flow Rate FiO2 11/22/16 04:12 96 Room Air 11/21/16 22:29 37.0 112 22 126/83 11/21/16 20:51 96 Room Air 11/21/16 17:41 97 Room Air 11/21/16 15:21 97 Room Air 11/21/16 15:20 36.9 114 24 Meds Administered Last 24 Hrs: Meds Administered (Past 24Hrs) Medications (Trade) Dose Ordered Sig/Uriah Route Start Time Stop Time Status Last Admin Dose Admin Olanzapine (Zyprexa Zydis Od Tab) 20 mg HS PO 11/20/16 22:00 12/20/16 21:59 11/21/16 20:39 20 MG Trihexyphenidyl HCl (Trihexyphenidyl HCl TAB) 5 mg BID PO 11/20/16 22:00 12/20/16 21:59 11/21/16 20:38 5 MG Alprazolam (Xanax Tab) 2 mg 1930 ONCE PO 11/20/16 19:30 11/20/16 19:31 DC 11/20/16 19:09 2 MG Alprazolam (Xanax Tab) 2 mg TODAY@0430 PO 11/21/16 04:30 11/21/16 05:30 DC 11/21/16 04:32 2 MG Bussey Carbonate (Lithobid Tab) 600 mg Taper HS PO 11/21/16 22:00 11/23/16 21:59 11/21/16 20:39 600 MG Trifluoperazine HCl (Stelazine Tab) 1 mg Q6 PRN PO 11/21/16 15:00 12/21/16 14:59 11/21/16 23:22 1 MG Alprazolam (Xanax Tab) 1 mg TODAY@0215 PO 11/22/16 02:15 11/22/16 02:20 DC 11/22/16 02:13 1 MG Alprazolam (Xanax Tab) 1 mg UD PRN PO 11/22/16 02:15 11/22/16 03:00 DC 11/22/16 02:49 1 MG Zolpidem Tartrate (Ambien Tab) 10 mg TODAY@0415 PO 11/22/16 04:15 11/22/16 05:15 DC 11/22/16 04:13 10 MG Lab Results Last 24 Hrs: Last 24 Hours Test 11/21/16 15:50 11/22/16 08:51 White Blood Count 13.48 K/uL 12.44 K/uL Red Blood Count 4.00 M/uL 4.26 M/uL Hemoglobin 12.1 g/dL 12.6 g/dL Hematocrit 35.4 % 38.0 % Mean Corpuscular Volume 88.5 fL 89.2 fL Mean Corpuscular Hemoglobin 30.3 pg 29.6 pg Mean Corpuscular Hemoglobin Concent 34.2 g/dl 33.2 g/dl Platelet Count 272 K/uL 285 K/uL Mean Platelet Volume 10.6 fL 10.7 fL Neutrophils (%) (Auto) 72.5 % Lymphocytes (%) (Auto) 17.1 % Monocytes (%) (Auto) 7.4 % Eosinophils (%) (Auto) 2.2 % Basophils (%) (Auto) 0.6 % Neutrophils # (Auto) 9.76 K/uL Lymphocytes # (Auto) 2.31 K/uL Monocytes # (Auto) 1.00 K/uL Eosinophils # (Auto) 0.30 K/uL Basophils # (Auto) 0.08 K/uL RDW Standard Deviation 44.4 fL 45.6 fL RDW Coefficient of Variation 13.7 % 13.9 % Immature Granulocyte % (Auto) 0.2 % Immature Granulocyte # (Auto) 0.03 K/uL Prothrombin Time 11.4 SECONDS Prothromb Time International Ratio 1.1 Activated Partial Thromboplast Time 26.8 SECONDS Partial Thromboplastin Ratio 1.0 D-Dimer 440 ug/L FEU Sodium Level 139 mmol/L 139 mmol/L Potassium Level 3.2 mmol/L 3.2 mmol/L Chloride Level 104 mmol/L 104 mmol/L Carbon Dioxide Level 26 mmol/L 28 mmol/L Anion Gap 9.0 mmol/L 7.0 mmol/L Blood Urea Nitrogen 6 mg/dl 7 mg/dl Creatinine 0.71 mg/dl 0.74 mg/dl Est Creatinine Clear Calc Drug Dose 123.7 ml/min 118.7 ml/min Estimated GFR () 117.6 111.8 Estimated GFR (Non- 101.4 96.5 BUN/Creatinine Ratio 8.3 9.5 Random Glucose 103 mg/dl 102 mg/dl Calcium Level 8.5 mg/dl 8.6 mg/dl Troponin I < 0.015 ng/ml Pro-B-Type Natriuretic Peptide 40 pg/ml
[2016-11-22] MEDS: TRIFLUOPERAZINE HCL 1 MG TAB PO PRN (12:14)
[2016-11-22] MEDS ORDERED: HALOPERIDOL LACTATE 5 MG/ML 1 ML VIAL IM STA (14:15)
[2016-11-22 15:59] LABS: ALT/SGPT 42 U/L (12-78); AST/SGOT 44 U/L (15-37); BLOOD UREA NITROGEN 8 mg/dl (7-18); BUN/CREATININE RATIO 9.3 (10-20); CALCIUM 8.9 mg/dl (8.5-10.1); CARBON DIOXIDE 26 mmol/L (21-32); CHLORIDE 105 mmol/L (98-107); CREATININE 0.83 mg/dl (0.60-1.20); GLUCOSE 108 mg/dl (70-99); POTASSIUM 3.2 mmol/L (3.5-5.1); SODIUM 141 mmol/L (136-145)
[2016-11-22] MEDS ORDERED: POTASSIUM CHLORIDE 10 MEQ TABCR PO ONE (16:15)
[2016-11-22 16:26] LABS: ALB/GLOB RATIO 1.1 (0.9-2); ALKALINE PHOSPHATASE 92 U/L (45-117); CKMB/CK RATIO 1.7 (0-3.0)
--- NOTE | 2016-11-22 16:55 | Progress Note ---
Subjective Date of Service: Nov 22, 2016. Subjective Pt evaluation today including: conversation w/ patient, physical exam, lab review, review of studies, review of inpatient medication list Saw/examined the patient in MHU with Deandra Bryan Patient is wandering around with no ability to converse, she is requiring to be observed at all times; disorganization of statements No rigidity of muscles, smooth motion, no cogwheeling Unable to perform proper exam; patient with some diaphoresis This mental status is an acute change +low grade fevers and white count elevation Problem List Medical Problems: (1) Hallucinations Status: Acute (2) Mood disorder Status: Acute (3) Paranoia Status: Acute (4) Psychosis Status: Acute Medications Current Inpatient Medications Medications (Trade) Dose Ordered Sig/Uriah Route Start Time Stop Time Status Last Admin Dose Admin Acetaminophen (Tylenol Tab) 650 mg Q4H PRN PO 11/11/16 18:15 12/11/16 18:14 Bismuth Subsalicylate (Kaopectate Liqd) 15 ml PRN PRN PO 11/11/16 18:15 12/11/16 18:14 11/14/16 16:53 15 ML Al Hydroxide/Mg Hydroxide (Maalox Susp) 30 ml Q4H PRN PO 11/11/16 18:15 12/11/16 18:14 Magnesium Hydroxide (Milk Of Magnesia Susp) 30 ml DAILY PRN PO 11/11/16 18:15 12/11/16 18:14 Sodium Chloride ([place]son Nasal [place]) PRN PRN NA 11/11/16 18:15 12/11/16 18:14 Hydroxyzine HCl (Vistaril Tab) 50 mg HSZ PRN PO 11/11/16 18:15 12/11/16 18:14 11/18/16 20:50 50 MG Hydroxyzine HCl (Vistaril Tab) 25 mg Q4H PRN PO 11/11/16 18:15 12/11/16 18:14 11/19/16 11:03 25 MG Lamotrigine (Lamictal Tab) 400 mg QAM PO 11/12/16 09:00 12/12/16 08:59 11/21/16 09:00 400 MG Liothyronine Sodium (Cytomel Tab) 12.5 mcg DAILY PO 11/12/16 09:00 12/12/16 08:59 11/21/16 09:00 12.5 MCG Guaifenesin (Mucinex Contr Rel Tab) 600 mg Q12 PO 11/12/16 21:00 12/12/16 20:59 11/21/16 09:00 600 MG Albuterol (Ventolin Hfa Inhaler) 2 puffs Q4H PRN INH 11/13/16 14:30 12/13/16 14:29 11/21/16 19:50 2 PUFFS Loperamide HCl (Imodium Cap) 2 mg Q4 PRN PO 11/14/16 10:00 12/14/16 09:59 11/18/16 01:20 2 MG Benztropine Mesylate (Cogentin Tab) 0.5 mg Q6 PRN PO 11/15/16 17:15 12/15/16 17:14 Non-Formulary Medication (Non-Formulary Patient'S Own Med) 2 ea QAM PO 11/16/16 09:00 12/16/16 08:59 11/22/16 09:00 2 EA Clonazepam (Klonopin Tab) 1 mg Q8 PRN PO 11/16/16 14:00 12/16/16 13:59 11/21/16 10:01 1 MG Benzonatate (Tessalon Perles Cap) 100 mg TID PRN PO 11/18/16 21:30 12/18/16 21:29 11/21/16 23:22 100 MG Olanzapine (Zyprexa Zydis Od Tab) 20 mg HS PO 11/20/16 22:00 12/20/16 21:59 11/21/16 20:39 20 MG [place] Off Carbonate (Lithobid Tab) 600 mg Taper HS PO 11/21/16 22:00 11/23/16 21:59 11/21/16 20:39 600 MG Trifluoperazine HCl (Stelazine Tab) 1 mg Q6 PRN PO 11/21/16 15:00 12/21/16 14:59 11/22/16 12:14 1 MG Trifluoperazine HCl (Stelazine Tab) 1 mg BID PO 11/22/16 22:00 12/22/16 21:59 Potassium Chloride (Klor-Con M10) 40 meq NOW STAT PO 11/22/16 16:02 11/22/16 16:03 UNV Objective Vital Signs Date Time Temp Pulse Resp B/P Pulse Ox O2 Delivery O2 Flow Rate FiO2 11/22/16 15:08 37.7 121 24 137/71 11/22/16 13:39 93 Room Air 11/22/16 04:12 96 Room Air 11/21/16 22:29 37.0 112 22 126/83 11/21/16 20:51 96 Room Air 11/21/16 17:41 97 Room Air Physical Exam General Appearance: + moderate distress, + pertinent finding (obese woman, slightly diaphoretic, no full inspiration on breathing; unable to communicate due to mental status) Respiratory/Chest: + pertinent finding (not fully inspiring) Neurologic/Psychiatric: + disoriented, + pertinent finding (no motor dysfunction noted from observing, there is no muscle rigidity) Laboratory Results Last 24 Hours Test 11/22/16 08:51 11/22/16 15:05 11/22/16 15:30 White Blood Count 12.44 K/uL Red Blood Count 4.26 M/uL Hemoglobin 12.6 g/dL Hematocrit 38.0 % Mean Corpuscular Volume 89.2 fL Mean Corpuscular Hemoglobin 29.6 pg Mean Corpuscular Hemoglobin Concent 33.2 g/dl RDW Standard Deviation 45.6 fL RDW Coefficient of Variation 13.9 % Platelet Count 285 K/uL Mean Platelet Volume 10.7 fL Sodium Level 139 mmol/L 141 mmol/L Potassium Level 3.2 mmol/L 3.2 mmol/L Chloride Level 104 mmol/L 105 mmol/L Carbon Dioxide Level 28 mmol/L 26 mmol/L Anion Gap 7.0 mmol/L 10.0 mmol/L Blood Urea Nitrogen 7 mg/dl 8 mg/dl Creatinine 0.74 mg/dl 0.83 mg/dl Est Creatinine Clear Calc Drug Dose 118.7 ml/min 105.8 ml/min Estimated GFR () 111.8 97.3 Estimated GFR (Non- 96.5 84.0 BUN/Creatinine Ratio 9.5 9.3 Random Glucose 102 mg/dl 108 mg/dl Calcium Level 8.6 mg/dl 8.9 mg/dl Creatine Kinase MB Ratio Aspartate Amino Transf (AST/SGOT) 44 U/L Alanine Aminotransferase (ALT/SGPT) 42 U/L Albumin 4.2 gm/dl Assessment and Plan This is a 46 year old female with multiple mental health/behavior issues in the past; developing white count and low grade fever Likely Viral URI low grade temp as per nursing at [facility] no significant increase in temp WBC improving likely related to a viral type upper respiratory tract infection CXR done - no acute findings UA pending will recheck CMP and cardiac enzymes; check CPK level EKG with improving QTc - no ST-T wave changes There is a question of neuroleptic malignant syndrome - CPK elevated, with some diaphoresis, but overall low suspicion for NMS Monitor vitals and labs and will re-evaluate in the morning Shortness of Breath and Tachycardia D-dimer is negative, suspicion for PE is low tachycardia likely related to anxiety/freida, psych related issues she is pacing, which is likely the cause of diaphoresis CXR is negative monitor vitals and labs Recent UTI check UA Acute Psychosis defer to psychiatry
--- NOTE | 2016-11-22 19:38 | Psych Management Progress Note ---
Psychiatry Miscellaneous Date of Service: Nov 22, 2016. patient reviewed with [employer] TECHNICIAN and nurse liaison earlier this pm. patient exhibited delirium this am. Reviewed as collaborating MD and as clinical medical transcriptionist given complexity and refractoy symptoms. Seen by Dr. Ramirez earlier today as medical consultation and felt not to be in acute need of IVF or transfer to medicine and truthfully I feel she would be difficult to maintain off of an inpatient locked unit. Patient known to me from multiple overnight calls from unit for insomnia and restlessness due to psychosis. Recommend d/c [place] (no further taper) due to delirium and nausea with poor PO fluid intake. Encourage fluids and monitor temp. Will repeat CPK and Bun/Cr this pm prior to administration of hs antipsychotics. Consider beta cherrie if remains tachy.
[2016-11-22] MEDS ORDERED: TRIFLUOPERAZINE HCL 1 MG TAB PO SCH (22:00)
[2016-11-22] MEDS: OLANZAPINE ZYDIS 10 MG ORALLY DIS. TAB PO SCH (22:09)
[2016-11-22] MEDS: CLONAZEPAM 1 MG TAB PO PRN (22:09)
[2016-11-22 22:56] LABS: BUN/CREATININE RATIO 9.6 (10-20); CREATININE 0.96 mg/dl (0.60-1.20)
[2016-11-22] MEDS ORDERED: ZOLPIDEM TARTRATE 10 MG TAB PO PRN (23:45)
[2016-11-23] VITALS (9 sets, daily range): BP systolic 125–129; BP diastolic 89–96; PULSE 102–126; TEMP 36.3–37.6; O2SAT 91–97
[2016-11-23] MEDS ORDERED: NURSING VERBAL MED ORDER ONE ×2 (00:30→06:00)
[2016-11-23] MEDS ORDERED: ZOLPIDEM TARTRATE 5 MG TAB PO SCH (00:45)
[2016-11-23] MEDS: TRIFLUOPERAZINE HCL 1 MG TAB PO PRN (05:08)
[2016-11-23] MEDS ORDERED: ALPRAZOLAM 0.5 MG TAB PO SCH (06:00)
--- NOTE | 2016-11-23 07:20 | Psychiatric Progress Notes ---
Progress Note Date of Service Nov 23, 2016. Interval History 46 yo woman, outpatient of Dr. Wells, admitted with severe anxiety, depression and auditory hallucinations. Diagnosis is bipolar disorder type I vs schizoaffective disorder, bipolar type. Chief Complaint patient cannot verbalize, ongoing thought blocking and insomnia Subjective Patient was seen & assessed interval progress reviewed with nursing. As community affairs manager I was involved in her care overnight as remained restless, increase in CPK but no temp >38 and CBC was improved with normal renal functions. Received Ambien 15 mg total overnight again as somewhat helpful night before. Remained restless this am. No physical restraint or seclusion but redirected almost constantly by staff, at one point was trying to kick at wall and hit head. She is moving all extremities without rigidity but is unsteady due to delirium and attempts at PO sedation. Review of Systems patient is unable to complete Sleep Information Total Hours of Sleep: 1.75 Meal Information Percent of Breakfast Consumed: 0 Percent of Lunch Consumed: 10 Percent of Dinner Consumed: 50 Mental Status Exam During interview pt is: uncooperative, other (disorganized, unable to follow simple commands) Appearance: disheveled Eye contact is: other (staring) Motor behavior is: other (restless, bradykinetic when ambulating) Speech: other ( disconnected, minimal) Affect: flat, anxious, constricted Mood is: anxious Thought process: blocking, incoherent Thought content: other (unable to assess) Suicidal thought are: denied (unable to assess) Homicidal thoughts are: denied (unable to assess) Hallucinations: other (not overtly responding to internal stimuli however this cannot be ruled out) Cognition: other (attention is presently significantly impaired) Insight: severely impaired Judgement: severely impaired Impression Remains paranoid, psychotic, and disorganized. Her condition in many ways is deteriorating daily, now unable to communicate clearly, and with bizarre behaviors. Spitting out meds but ultimately complied with staff assistance. CXR neg, leukocytosis improving, and no left shift. QTc improved. No evidence of NMS as afebrile, no stiffness. She is disorganized and there is concern for delirium, in which case we should avoid deliriogenic meds such as BZD's and anticholinergic meds, but in the same breath, we are informed by her family that her first break resulted in a 3 month hospitalization and she required a feeding tube. No consistent response to BZD. Stelazine added at 1 mg. BID 11/21 with short lasting effect. At this point will order: -1:1 for safety given disorganization and inappropriate behaviors Continued Inpatient Care The patient requires inpatient care due to the severity of her condition and inability to manipulate information in a reality based manner. Plan (1) Bipolar 1 disorder -Every 15 minute checks for safety -Encourage participation in unit groups and programming -Work on healthy coping skills and her discharge safety plan, to include securing of medications in the home, and ensuring that guns are locked and she will not have access. -Family meeting with . -Coordinate care with outpatient providers, Dr. reece Bob and Patria Espinal at [facility]. -Continue home doses of lamotrigine, temazepam, Saphris, and Cytomel. -Continue taper off of Pristiq, and continued titration up on lithium, which was increased to 300 mg in the morning and 900 mg at bedtime last night. She will need a trough level after 5 days (11/16/2016). -Offer hydroxyzine as needed for sleep and anxiety, and have also ordered clonazepam 0.5 mg as needed for anxiety, as she reports alprazolam was helpful in the ER, and says she is allergic to lorazepam. -Check fasting labs for monitoring on an atypical, as last labs in her records were done in December 2015. At that time, glucose was elevated at 109, and lipids were normal. 11/13 - FLP and FBS WNL today - Reality orientation - Continue current meds - Family meeting with . 11/14 - Continue with reality orientation and groups, as periodic derealization/ dissociation - Continue lithium, Saphris, lamotrigine, temazepam and Cytomel 11/15 - Did not receive lithium last night so will DC level. Continue current lithium dosing - Will add Haldol 5 mg. BID with dose now. patient may refuse, but in looking at past med trials, she has never been tried on a typical. - Reality orientation 11/16 --mild lengthening of QTc after 3 doses of Haldol 5 mg yesterday. Initially refused am medications but ultimately accepted with plan to taper Saphris in favor of a retrial of Zyprexa. Reviewed that Haldol will be used as a bridge and hopefully coadmin with lamictal and lithium will allow lower dosing of Zyprexa than previously. Patient and well aware of metabolic risks. 11/17 - will d/c haldol as no improvement and h/o poor tx effect on this agent per family - will increase Zyprexa to 2.5mg qam w/ now dose and 10mg qhs - liberalize klonopin prn utilization - she is now off the saphris 11/18 - Continues to decline and appearing more psychotic and disorganized again today. She refused her scheduled 2.5 mg Zyprexa but ultimately was agreeable to take a 10 mg now dose. She will receive another 10 mg at bedtime tonight and will schedule for 10 mg twice a day starting tomorrow. Appears she has required very high dose antipsychotic treatment in the past. - As her psychosis worsens, her insight and judgment are increasingly impaired. At the present time she appears to lack the insight and inability to rationally manipulate information such that an involuntary commitment should be considered. Additionally, with her declining insight, she is becoming more resistant to medication compliance. In my clinical opinion, should she refuse oral medications, she should be treated over her objection for worsening psychosis. - She is appearing more tachycardic. Fluid intake ok. Vital signs otherwise okay. QTc was borderline on recent EKG. Considered ordering another EKG today but I did not feel that she would tolerate it today. - if psychosis does not improve with antipsychotic titration, consider EEG given h/o seizure disorder. this might also help r/o possibility of something like lithium induced encephalopathy. 11/19 -Adjust Zyprexa to 20 mg. all HS and add 2.5 mg. BID prn psychosis - Reduce lithium to 900 mg. HS only with level in 5 days. - DC temazepam 11/20 - Continue current meds 11/21 - Meeting held with patient and family. Will taper off lithium at family's request, and due to poor response after almost 2 weeks on it. - Continue olanzapine 20mg qhs and 2/5mg prn. Continue Artane 5mg bid. - Reviewed case with Shank Rander Dr. Solis, who was also involved last evening re: staff's concerns about patient's symptoms and behavior. Reviewed med adjustments as above, and will add stelazine 1mg prn for psychosis, as olanzapine prns not always effective. 11/22 -1:1 for safety given disorganization and inappropriate behaviors - Will DC artane and bentyl in the event its worsening a delirium. - Will start scheduled stelazine 1 mg. BID and continue 1 mg. BID prn - Will prioritize the use of prn BZD's tonight in view of elevated CK - If patient able to be still, will order EEG to assist us in rule out delirium - [place] DC'd - Case has been reviewed with both Dr. Benson and Dr. Solis 11/23 --continue 1-1, confirming necessary am labs with [facility] before blood draw. Extensive discussion with and daughter Fe about her current condition and medical necessity for blood draw, will convert to 302 if necessary to restrain for labs, family support this if needed. Will advocate for IV sedation at this point, will consult with critical care team to determine if candidate for Ketamine. Schizoaffective more likely diagnosis at this point. Clearly periods of catatonia with agitated catatonia +/- delirium. CPK may indicate risk for early NMS, family is aware of risk given her escalating need for antipsychotics. Daughter did confirm that prior reaction to Ativan was anaphylaxis and ICU stay so Ativan IM or drip is not an option. Will discuss needs with Dr. Ramirez. (2) Obesity Offer dietary consultation. Encouraged continued work on decreasing soda intake , and educated on healthy food choices and the importance of exercise. Discharge / Aftercare Planning Primary Care Physician: Name: [facility] Psychiatrist: Name: Dr. Malik at [facility] Date of Appointment: Dec 13, 2016 Time of Appointment: 3:20 Therapist: [facility]: [facility] Date of Appointment: Nov 26, 2016 Time of Appointment: 1:30pm Visit Code E&M Code: 30620 Inventory Assets Strengths: "I'm a good mom, grandma, and ," "love to give to people. Per patient on admission. Risk Factors Assessment : Yes /single/: No Higher / Fall in social status: No Health problems: Yes Mental Health Diagnoses: Yes Substance use disorders: No Previous attempt: Yes Previous attempt;highly lethal: Yes Family history of suicide: No Previous psychiatric stay: Yes Hopelessness: No Smoker: No Protective Factors Assessment Sabianist beliefs: Yes : Yes Responsible for young children: No Employed: No Stable relationships: Yes Supportive family: Yes Good rapport with provider: Yes Data Vital Signs Last 24 Hrs: Date Time Temp Pulse Resp B/P Pulse Ox O2 Delivery O2 Flow Rate FiO2 11/23/16 05:07 36.3 11/23/16 00:32 95 Room Air 11/22/16 23:14 37.4 123 24 115/69 11/22/16 19:21 36.2 114 20 131/85 11/22/16 17:25 36.8 106 128/83 11/22/16 17:24 97 Room Air 11/22/16 15:08 37.7 121 24 137/71 11/22/16 13:39 93 Room Air Meds Administered Last 24 Hrs: Meds Administered (Past 24Hrs) Medications (Trade) Dose Ordered Sig/Uriah Route Start Time Stop Time Status Last Admin Dose Admin [place] Carbonate (Lithobid Tab) 600 mg Taper HS PO 11/21/16 22:00 11/22/16 17:26 DC 11/21/16 20:39 600 MG Trifluoperazine HCl (Stelazine Tab) 1 mg Q6 PRN PO 11/21/16 15:00 12/21/16 14:59 11/23/16 05:08 1 MG Alprazolam (Xanax Tab) 1 mg TODAY@0215 PO 11/22/16 02:15 11/22/16 02:20 DC 11/22/16 02:13 1 MG Alprazolam (Xanax Tab) 1 mg UD PRN PO 11/22/16 02:15 11/22/16 03:00 DC 11/22/16 02:49 1 MG Zolpidem Tartrate (Ambien Tab) 10 mg TODAY@0415 PO 11/22/16 04:15 11/22/16 05:15 DC 11/22/16 04:13 10 MG Trifluoperazine HCl (Stelazine Tab) 1 mg BID PO 11/22/16 22:00 12/22/16 21:59 11/22/16 22:09 1 MG Trifluoperazine HCl (Stelazine Tab) 1 mg 1017 ONCE PO 11/22/16 10:17 11/22/16 10:24 DC 11/22/16 10:40 1 MG Trifluoperazine HCl (Stelazine Tab) 1 mg ONE ONCE PO 11/22/16 14:00 11/22/16 14:01 DC 11/22/16 13:59 1 MG Zolpidem Tartrate (Ambien Tab) 10 mg HSZ PRN PO 11/22/16 23:45 11/23/16 02:00 DC 11/22/16 23:40 10 MG Zolpidem Tartrate (Ambien Tab) 5 mg TODAY@0045 PO 11/23/16 00:45 11/23/16 01:45 DC 11/23/16 00:36 5 MG Alprazolam (Xanax Tab) 1 mg TODAY@0600 PO 11/23/16 06:00 11/23/16 07:00 11/23/16 06:29 1 MG Lab Results Last 24 Hrs: Last 24 Hours Test 11/22/16 08:51 11/22/16 15:30 11/22/16 22:05 11/23/16 07:00 White Blood Count 12.44 K/uL Red Blood Count 4.26 M/uL Hemoglobin 12.6 g/dL Hematocrit 38.0 % Mean Corpuscular Volume 89.2 fL Mean Corpuscular Hemoglobin 29.6 pg Mean Corpuscular Hemoglobin Concent 33.2 g/dl RDW Standard Deviation 45.6 fL RDW Coefficient of Variation 13.9 % Platelet Count 285 K/uL Mean Platelet Volume 10.7 fL Sodium Level 139 mmol/L 141 mmol/L Potassium Level 3.2 mmol/L 3.2 mmol/L Chloride Level 104 mmol/L 105 mmol/L Carbon Dioxide Level 28 mmol/L 26 mmol/L Anion Gap 7.0 mmol/L 10.0 mmol/L Blood Urea Nitrogen 7 mg/dl 8 mg/dl 9 mg/dl Creatinine 0.74 mg/dl 0.83 mg/dl 0.96 mg/dl Est Creatinine Clear Calc Drug Dose 118.7 ml/min 105.8 ml/min 91.5 ml/min Estimated GFR () 111.8 97.3 81.6 Estimated GFR (Non- 96.5 84.0 70.4 BUN/Creatinine Ratio 9.5 9.3 9.6 Random Glucose 102 mg/dl 108 mg/dl Calcium Level 8.6 mg/dl 8.9 mg/dl Total Bilirubin 0.6 mg/dl Aspartate Amino Transf (AST/SGOT) 44 U/L Alanine Aminotransferase (ALT/SGPT) 42 U/L Alkaline Phosphatase 92 U/L Total Creatine Kinase 892 U/L 1110 U/L Creatine Kinase MB 14.9 ng/ml Creatine Kinase MB Ratio 1.7 Troponin I < 0.015 ng/ml Total Protein 8.1 gm/dl Albumin 4.2 gm/dl Globulin 3.9 gm/dl Albumin/Globulin Ratio 1.1
[2016-11-23] MEDS: GUAIFENESIN 600 MG TABCR PO SCH ×5 (09:00→20:44)
--- NOTE | 2016-11-23 09:43 | Psychiatric Progress Notes ---
Psychiatric Progress Note Date of Service Nov 23, 2016. Notes reevaluated patient as a bit more lucid by 9 am. Patient stating she will accept labs. Case reviewed with Drs. Ramirez and Dr. Traore, liner assembler storage consultant. Will review labs, will attempt increase in benzos with standing order Xanax as appears more effective than Klonopin. QTc has normalized on last EKG, Dr. Traore would support thorazine for sedating properties and feels she is not yet a candidate for IV sedation given associated risks/ intubation/etc. Reviewed possible rx for tachy which appears related to psych condition/agitation at this point, discussed beta cherrie vs clonidine. Clonidine may have some sedating effect and can be administered via patch. will hold Stelazine for now in favor of ongoing Zyprexa titration this hs. If patient is not cooperative with medically necessary blood draw will initiate 302 process.
[2016-11-23] MEDS: PROBIOTIC GUMMIES PO SCH (09:50)
[2016-11-23] MEDS: ALBUTEROL HFA 8 GM INHALER INH PRN (10:07)
[2016-11-23 10:09] LABS: HEMATOCRIT 37.5 % (37-47); MEAN CELL VOLUME 91.7 fL (80-100); MEAN CORPUSCULAR HEMOGLOBIN 31.1 pg (25-34); MEAN CORPUSCULAR HGB CONC 33.9 g/dl (32-36); MEAN PLATELET VOLUME 11.5 fL (7.4-10.4); PLATELET COUNT 271 K/uL (130-400); RED BLOOD COUNT 4.09 M/uL (4.2-5.4); WHITE BLOOD COUNT 15.67 K/uL (4.8-10.8)
[2016-11-23] MEDS: CLONIDINE HCL 0.1 MG/24 HR TRANSDERM SYS TD SCH (10:10)
[2016-11-23] MEDS: ALPRAZOLAM 0.5 MG TAB PO SCH ×4 (10:15→20:36)
[2016-11-23] MEDS: LIOTHYRONINE SODIUM 25 MCG TAB PO SCH (10:16)
[2016-11-23 10:43] LABS: ALKALINE PHOSPHATASE 91 U/L (45-117); ALT/SGPT 40 U/L (12-78); AMYLASE 33 U/L (25-115); AST/SGOT 46 U/L (15-37); BLOOD UREA NITROGEN 9 mg/dl (7-18); BUN/CREATININE RATIO 12.5 (10-20); CALCIUM 8.9 mg/dl (8.5-10.1); CARBON DIOXIDE 23 mmol/L (21-32); CHLORIDE 104 mmol/L (98-107); CREATININE 0.72 mg/dl (0.60-1.20); GLUCOSE 93 mg/dl (70-99); MAGNESIUM 2.4 mg/dl (1.8-2.4); POTASSIUM 2.8 mmol/L (3.5-5.1); SODIUM 140 mmol/L (136-145)
[2016-11-23] MEDS: POTASSIUM CHLORIDE 10 MEQ TABCR PO SCH ×2 (13:15→20:37)
[2016-11-23] MEDS ORDERED: POTASSIUM CHLORIDE 20 MEQ/15 ML UDC PO ONE (15:45)
[2016-11-23] MEDS: CHECK CLONIDINE PATCH PLACEMENT SCH (16:09)
--- NOTE | 2016-11-23 16:59 | Progress Note ---
Subjective Date of Service: Nov 23, 2016. Subjective Pt evaluation today including: conversation w/ patient, physical exam, lab review, review of studies, review of inpatient medication list Saw/examined the patient in the mental health unit she is doing a little bit better today she is answering questions has not slept in 2 weeks, seems slightly diaphoretic denies any chest pain or shortness of breath Problem List Medical Problems: (1) Hallucinations Status: Acute (2) Mood disorder Status: Acute (3) Paranoia Status: Acute (4) Psychosis Status: Acute Medications Current Inpatient Medications Medications (Trade) Dose Ordered Sig/Uriah Route Start Time Stop Time Status Last Admin Dose Admin Acetaminophen (Tylenol Tab) 650 mg Q4H PRN PO 11/11/16 18:15 12/11/16 18:14 Bismuth Subsalicylate (Kaopectate Liqd) 15 ml PRN PRN PO 11/11/16 18:15 12/11/16 18:14 11/14/16 16:53 15 ML Al Hydroxide/Mg Hydroxide (Maalox Susp) 30 ml Q4H PRN PO 11/11/16 18:15 12/11/16 18:14 Magnesium Hydroxide (Milk Of Magnesia Susp) 30 ml DAILY PRN PO 11/11/16 18:15 12/11/16 18:14 Sodium Chloride ([place] Nasal [place]) PRN PRN NA 11/11/16 18:15 12/11/16 18:14 Lamotrigine (Lamictal Tab) 400 mg QAM PO 11/12/16 09:00 12/12/16 08:59 11/23/16 10:17 400 MG Liothyronine Sodium (Cytomel Tab) 12.5 mcg DAILY PO 11/12/16 09:00 12/12/16 08:59 11/23/16 10:16 12.5 MCG Guaifenesin (Mucinex Contr Rel Tab) 600 mg Q12 PO 11/12/16 21:00 12/12/16 20:59 11/21/16 09:00 600 MG Albuterol (Ventolin Hfa Inhaler) 2 puffs Q4H PRN INH 11/13/16 14:30 12/13/16 14:29 11/23/16 10:07 2 PUFFS Loperamide HCl (Imodium Cap) 2 mg Q4 PRN PO 11/14/16 10:00 12/14/16 09:59 11/18/16 01:20 2 MG Benztropine Mesylate (Cogentin Tab) 0.5 mg Q6 PRN PO 11/15/16 17:15 12/15/16 17:14 Non-Formulary Medication (Non-Formulary Patient'S Own Med) 2 ea QAM PO 11/16/16 09:00 12/16/16 08:59 11/22/16 09:00 2 EA Benzonatate (Tessalon Perles Cap) 100 mg TID PRN PO 11/18/16 21:30 12/18/16 21:29 11/21/16 23:22 100 MG Olanzapine (Zyprexa Zydis Od Tab) 30 mg HS PO 11/23/16 22:00 12/23/16 21:59 Alprazolam (Xanax Tab) 1 mg QID PO 11/23/16 09:30 12/23/16 09:29 11/23/16 12:00 1 MG Miscellaneous Information (Check Clonidine Patch Placement) 1 ea QS N/A 11/23/16 16:00 12/23/16 15:59 11/23/16 16:09 1 EA Clonidine HCl (Rfemfllw-Ijo-4 0.1mg/24hr Patch) 1 patch Fr@0900 TD 11/23/16 10:00 12/23/16 09:59 11/23/16 10:10 1 PATCH Miscellaneous (Remove Clonidine Patch) 1 ea Q7D@0859 N/A 11/30/16 08:59 12/30/16 08:58 Potassium Chloride (Klor-Con M10) 20 meq BID PO 11/23/16 13:15 12/23/16 13:14 Objective Vital Signs Date Time Temp Pulse Resp B/P Pulse Ox O2 Delivery O2 Flow Rate FiO2 11/23/16 16:09 97 Room Air 11/23/16 13:41 97 Room Air 11/23/16 13:35 36.9 102 20 129/89 11/23/16 11:28 36.6 107 22 126/96 11/23/16 08:56 91 Room Air 11/23/16 08:55 37.6 126 20 125/91 11/23/16 05:07 36.3 11/23/16 00:32 95 Room Air 11/22/16 23:14 37.4 123 24 115/69 11/22/16 19:21 36.2 114 20 131/85 11/22/16 17:25 36.8 106 128/83 11/22/16 17:24 97 Room Air Physical Exam General Appearance: no apparent distress, + obese Respiratory/Chest: chest non-tender, lungs clear, normal breath sounds, no respiratory distress, no accessory muscle use Cardiovascular: regular rate, rhythm, no edema, no murmur Neurologic/Psychiatric: alert, + pertinent finding (disorganized, but does answer questions) Laboratory Results Last 24 Hours Test 11/22/16 22:05 11/23/16 09:35 Blood Urea Nitrogen 9 mg/dl 9 mg/dl Creatinine 0.96 mg/dl 0.72 mg/dl Est Creatinine Clear Calc Drug Dose 91.5 ml/min 122.0 ml/min Estimated GFR () 81.6 115.6 Estimated GFR (Non- 70.4 99.7 BUN/Creatinine Ratio 9.6 12.5 Total Creatine Kinase 1110 U/L 1088 U/L White Blood Count 15.67 K/uL Red Blood Count 4.09 M/uL Hemoglobin 12.7 g/dL Hematocrit 37.5 % Mean Corpuscular Volume 91.7 fL Mean Corpuscular Hemoglobin 31.1 pg Mean Corpuscular Hemoglobin Concent 33.9 g/dl RDW Standard Deviation 46.9 fL RDW Coefficient of Variation 14.1 % Platelet Count 271 K/uL Mean Platelet Volume 11.5 fL Sodium Level 140 mmol/L Potassium Level 2.8 mmol/L Chloride Level 104 mmol/L Carbon Dioxide Level 23 mmol/L Anion Gap 13.0 mmol/L Random Glucose 93 mg/dl Calcium Level 8.9 mg/dl Magnesium Level 2.4 mg/dl Total Bilirubin 0.8 mg/dl Direct Bilirubin mg/dl Aspartate Amino Transf (AST/SGOT) 46 U/L Alanine Aminotransferase (ALT/SGPT) 40 U/L Alkaline Phosphatase 91 U/L Total Protein 7.8 gm/dl Albumin 3.8 gm/dl Amylase Level 33 U/L Lipase 101 U/L Chemistry Specimen Hemolysis Assessment and Plan This is a 46 year old female with multiple mental health/behavior issues in the past; developing white count and low grade fever Likely Viral URI 11/23 WBC still increasing will replace potassium recheck CBC in AM; make sure no spiking of fevers I believe the leukocytosis is more stress related for now, hold off an antibiotics 11/22 low grade temp as per nursing at [facility] no significant increase in temp WBC improving likely related to a viral type upper respiratory tract infection CXR done - no acute findings UA pending will recheck CMP and cardiac enzymes; check CPK level EKG with improving QTc - no ST-T wave changes There is a question of neuroleptic malignant syndrome - CPK elevated, with some diaphoresis, but overall low suspicion for NMS Monitor vitals and labs and will re-evaluate in the morning Shortness of Breath and Tachycardia D-dimer is negative, suspicion for PE is low tachycardia likely related to anxiety/freida, psych related issues she is pacing, which is likely the cause of diaphoresis CXR is negative monitor vitals and labs Recent UTI check UA Acute Psychosis started on clonidine patch
[2016-11-23] MEDS: OLANZAPINE ZYDIS 10 MG ORALLY DIS. TAB PO SCH (20:36)
[2016-11-23] MEDS ORDERED: POTASSIUM CHLORIDE 10 MEQ TABCR PO SCH (22:00)
[2016-11-23] MEDS ORDERED: POTASSIUM CHLORIDE PWD 20 MEQ PACK PO SCH (22:00)
[2016-11-24] VITALS (9 sets, daily range): BP systolic 109–134; BP diastolic 76–87; PULSE 101–120; TEMP 36.3; O2SAT 95–99
[2016-11-24] MEDS: CHECK CLONIDINE PATCH PLACEMENT SCH ×4 (01:45→23:50)
[2016-11-24 07:56] LABS: HEMATOCRIT 36.7 % (37-47); MEAN CELL VOLUME 89.7 fL (80-100); MEAN CORPUSCULAR HEMOGLOBIN 29.8 pg (25-34); MEAN CORPUSCULAR HGB CONC 33.2 g/dl (32-36); PLATELET COUNT 263 K/uL (130-400); RED BLOOD COUNT 4.09 M/uL (4.2-5.4); WHITE BLOOD COUNT 11.24 K/uL (4.8-10.8)
[2016-11-24 08:36] LABS: BUN/CREATININE RATIO 8.2 (10-20); CALCIUM 8.9 mg/dl (8.5-10.1); CREATININE 0.61 mg/dl (0.60-1.20); MAGNESIUM 2.4 mg/dl (1.8-2.4); POTASSIUM 3.3 mmol/L (3.5-5.1)
[2016-11-24] MEDS: PROBIOTIC GUMMIES PO SCH (09:00)
[2016-11-24] MEDS: GUAIFENESIN 600 MG TABCR PO SCH ×2 (09:00→21:00)
[2016-11-24] MEDS: POTASSIUM CHLORIDE 10 MEQ TABCR PO SCH ×2 (09:00→21:26)
[2016-11-24] MEDS: LIOTHYRONINE SODIUM 25 MCG TAB PO SCH (10:33)
[2016-11-24] MEDS: ALPRAZOLAM 0.5 MG TAB PO SCH ×4 (10:37→21:27)
[2016-11-24] MEDS ORDERED: NURSING VERBAL MED ORDER ONE ×2 (11:00→18:45)
[2016-11-24] MEDS: POTASSIUM CHLORIDE 20 MEQ/15 ML UDC PO SCH ×2 (12:40→21:41)
--- NOTE | 2016-11-24 15:50 | Psychiatric Progress Notes ---
Progress Note Date of Service Nov 24, 2016. Interval History 46 yo woman, outpatient of Dr. Wells, admitted with severe anxiety, depression and auditory hallucinations. Diagnosis is bipolar disorder type I vs schizoaffective disorder, bipolar type. Chief Complaint "Patient unable to verbalize due to thought blocking". Subjective Patient was seen & assessed interval progress reviewed with Treatment Team. Patient seen together with her , daughter and sister present. Patient continues to be very agitated and restless. Needs much encouragement to take food or liquids. Was able to take in oral solution of potassium. Family report that patient had a similar episode about 20 years ago and that patient required NG tube feeding during that time. Somewhat less agitated overall. Review of Systems Patient not able to verbalize concerns due to thought blocking. She has had loose stools for the past 24 hours. Loud snoring and awakens from sleep with a loud coughing fit. Sleep Information Total Hours of Sleep: 5.50 Meal Information Percent of Breakfast Consumed: 0 Percent of Lunch Consumed: 25 Percent of Dinner Consumed: 5 Mental Status Exam During interview pt is: uncooperative, other (disorganized, unable to follow simple commands) Appearance: disheveled Eye contact is: other (staring) Motor behavior is: other (restless, bradykinetic when ambulating) Speech: other ( disconnected, minimal) Affect: flat, anxious, constricted Mood is: anxious Thought process: blocking, incoherent Thought content: other (unable to assess) Suicidal thought are: denied (unable to assess) Homicidal thoughts are: denied (unable to assess) Hallucinations: other (not overtly responding to internal stimuli however this cannot be ruled out) Cognition: other (attention is presently significantly impaired) Insight: severely impaired Judgement: severely impaired Impression Remains paranoid, psychotic, and disorganized. Her condition in many ways is deteriorating daily, now unable to communicate clearly, and with bizarre behaviors. Spitting out meds but ultimately complied with staff assistance. CXR neg, leukocytosis improving, and no left shift. QTc improved. No evidence of NMS as afebrile, no stiffness. She is disorganized and there is concern for delirium, in which case we should avoid deliriogenic meds such as BZD's and anticholinergic meds, but in the same breath, we are informed by her family that her first break resulted in a 3 month hospitalization and she required a feeding tube. No consistent response to BZD. Stelazine added at 1 mg. BID 11/21 with short lasting effect. At this point will order: -1:1 for safety given disorganization and inappropriate behaviors Continued Inpatient Care The patient requires inpatient care due to the severity of her condition and inability to manipulate information in a reality based manner. Plan (1) Bipolar 1 disorder -Every 15 minute checks for safety -Encourage participation in unit groups and programming -Work on healthy coping skills and her discharge safety plan, to include securing of medications in the home, and ensuring that guns are locked and she will not have access. -Family meeting with . -Coordinate care with outpatient providers, Dr. reece Bob and Patria Espinal at [facility]. -Continue home doses of lamotrigine, temazepam, Saphris, and Cytomel. -Continue taper off of Pristiq, and continued titration up on lithium, which was increased to 300 mg in the morning and 900 mg at bedtime last night. She will need a trough level after 5 days (11/16/2016). -Offer hydroxyzine as needed for sleep and anxiety, and have also ordered clonazepam 0.5 mg as needed for anxiety, as she reports alprazolam was helpful in the ER, and says she is allergic to lorazepam. -Check fasting labs for monitoring on an atypical, as last labs in her records were done in December 2015. At that time, glucose was elevated at 109, and lipids were normal. 11/13 - FLP and FBS WNL today - Reality orientation - Continue current meds - Family meeting with . 11/14 - Continue with reality orientation and groups, as periodic derealization/ dissociation - Continue lithium, Saphris, lamotrigine, temazepam and Cytomel 11/15 - Did not receive lithium last night so will DC level. Continue current lithium dosing - Will add Haldol 5 mg. BID with dose now. patient may refuse, but in looking at past med trials, she has never been tried on a typical. - Reality orientation 11/16 --mild lengthening of QTc after 3 doses of Haldol 5 mg yesterday. Initially refused am medications but ultimately accepted with plan to taper Saphris in favor of a retrial of Zyprexa. Reviewed that Haldol will be used as a bridge and hopefully coadmin with lamictal and lithium will allow lower dosing of Zyprexa than previously. Patient and well aware of metabolic risks. 11/17 - will d/c haldol as no improvement and h/o poor tx effect on this agent per family - will increase Zyprexa to 2.5mg qam w/ now dose and 10mg qhs - liberalize klonopin prn utilization - she is now off the saphris 11/18 - Continues to decline and appearing more psychotic and disorganized again today. She refused her scheduled 2.5 mg Zyprexa but ultimately was agreeable to take a 10 mg now dose. She will receive another 10 mg at bedtime tonight and will schedule for 10 mg twice a day starting tomorrow. Appears she has required very high dose antipsychotic treatment in the past. - As her psychosis worsens, her insight and judgment are increasingly impaired. At the present time she appears to lack the insight and inability to rationally manipulate information such that an involuntary commitment should be considered. Additionally, with her declining insight, she is becoming more resistant to medication compliance. In my clinical opinion, should she refuse oral medications, she should be treated over her objection for worsening psychosis. - She is appearing more tachycardic. Fluid intake ok. Vital signs otherwise okay. QTc was borderline on recent EKG. Considered ordering another EKG today but I did not feel that she would tolerate it today. - if psychosis does not improve with antipsychotic titration, consider EEG given h/o seizure disorder. this might also help r/o possibility of something like lithium induced encephalopathy. 11/19 -Adjust Zyprexa to 20 mg. all HS and add 2.5 mg. BID prn psychosis - Reduce lithium to 900 mg. HS only with level in 5 days. - DC temazepam 11/20 - Continue current meds 11/21 - Meeting held with patient and family. Will taper off lithium at family's request, and due to poor response after almost 2 weeks on it. - Continue olanzapine 20mg qhs and 2/5mg prn. Continue Artane 5mg bid. - Reviewed case with Computer Information Systems Instructor Dr. Solis, who was also involved last evening re: staff's concerns about patient's symptoms and behavior. Reviewed med adjustments as above, and will add stelazine 1mg prn for psychosis, as olanzapine prns not always effective. 11/22 -1:1 for safety given disorganization and inappropriate behaviors - Will DC artane and bentyl in the event its worsening a delirium. - Will start scheduled stelazine 1 mg. BID and continue 1 mg. BID prn - Will prioritize the use of prn BZD's tonight in view of elevated CK - If patient able to be still, will order EEG to assist us in rule out delirium - [place] DC'd - Case has been reviewed with both Dr. Benson and Dr. Solis 11/23 --continue 1-1, confirming necessary am labs with [facility] before blood draw. Extensive discussion with and daughter Fe about her current condition and medical necessity for blood draw, will convert to 302 if necessary to restrain for labs, family support this if needed. Will advocate for IV sedation at this point, will consult with critical care team to determine if candidate for Ketamine. Schizoaffective more likely diagnosis at this point. Clearly periods of catatonia with agitated catatonia +/- delirium. CPK may indicate risk for early NMS, family is aware of risk given her escalating need for antipsychotics. Daughter did confirm that prior reaction to Ativan was anaphylaxis and ICU stay so Ativan IM or drip is not an option. Will discuss needs with Dr. Ramirez. 11/24 - Continue on 1:1. Agitation continues. Slight improvement in CPK level and Potassium level. Clonidine appears to have helped decreased tachycardia. (2) Obesity Offer dietary consultation. Encouraged continued work on decreasing soda intake , and educated on healthy food choices and the importance of exercise. Discharge / Aftercare Planning Primary Care Physician: Name: [facility] Psychiatrist: Name: Dr. Malik at [facility] Date of Appointment: Dec 13, 2016 Time of Appointment: 3:20 Therapist: Name: Patria weiss [facility] Date of Appointment: Nov 26, 2016 Time of Appointment: 1:30pm Visit Code E&M Code: 14974 Inventory Assets Strengths: "I'm a good mom, grandma, and ," "love to give to people. Per patient on admission. Risk Factors Assessment : Yes /single/: No Higher / Fall in social status: No Health problems: Yes Mental Health Diagnoses: Yes Substance use disorders: No Previous attempt: Yes Previous attempt;highly lethal: Yes Family history of suicide: No Previous psychiatric stay: Yes Hopelessness: No Smoker: No Protective Factors Assessment Tenriism beliefs: Yes : Yes Responsible for young children: No Employed: No Stable relationships: Yes Supportive family: Yes Good rapport with provider: Yes Data Vital Signs Last 24 Hrs: Date Time Temp Pulse Resp B/P Pulse Ox O2 Delivery O2 Flow Rate FiO2 11/24/16 12:20 108 20 117/87 11/24/16 12:19 97 Room Air 11/24/16 11:57 97 Room Air 11/24/16 07:00 11/24/16 04:25 97 Room Air 11/24/16 01:55 97 Room Air 11/23/16 20:55 97 Room Air 11/23/16 16:09 97 Room Air Meds Administered Last 24 Hrs: Meds Administered (Past 24Hrs) Medications (Trade) Dose Ordered Sig/Uriah Route Start Time Stop Time Status Last Admin Dose Admin Trifluoperazine HCl (Stelazine Tab) 1 mg BID PO 11/22/16 22:00 11/23/16 09:18 DC 11/22/16 22:09 1 MG Zolpidem Tartrate (Ambien Tab) 10 mg HSZ PRN PO 11/22/16 23:45 11/23/16 02:00 DC 11/22/16 23:40 10 MG Zolpidem Tartrate (Ambien Tab) 5 mg TODAY@0045 PO 11/23/16 00:45 11/23/16 01:45 DC 11/23/16 00:36 5 MG Alprazolam (Xanax Tab) 1 mg TODAY@0600 PO 11/23/16 06:00 11/23/16 07:00 DC 11/23/16 06:29 1 MG Olanzapine (Zyprexa Zydis Od Tab) 30 mg HS PO 11/23/16 22:00 12/23/16 21:59 11/23/16 20:36 30 MG Alprazolam (Xanax Tab) 1 mg QID PO 11/23/16 09:30 12/23/16 09:29 11/24/16 12:40 1 MG Miscellaneous Information (Check Clonidine Patch Placement) 1 ea QS N/A 11/23/16 16:00 4/16/17 15:59 11/24/16 08:00 1 EA Clonidine HCl (Tqgqlkpa-Rzg-5 0.1mg/24hr Patch) 1 patch Fr@0900 TD 11/23/16 10:00 12/23/16 09:59 11/23/16 10:10 1 PATCH Potassium Chloride (Viry Ciel Elix) 40 meq 1545 ONCE PO 11/23/16 15:45 11/23/16 15:46 DC 11/23/16 15:49 40 MEQ Potassium Chloride (Viry Ciel Elix) 20 meq BID PO 11/24/16 11:30 12/24/16 11:29 11/24/16 12:40 20 MEQ Lab Results Last 24 Hrs: Last 24 Hours Test 11/24/16 07:45 White Blood Count 11.24 K/uL Red Blood Count 4.09 M/uL Hemoglobin 12.2 g/dL Hematocrit 36.7 % Mean Corpuscular Volume 89.7 fL Mean Corpuscular Hemoglobin 29.8 pg Mean Corpuscular Hemoglobin Concent 33.2 g/dl RDW Standard Deviation 46.2 fL RDW Coefficient of Variation 14.1 % Platelet Count 263 K/uL Mean Platelet Volume 11.0 fL Sodium Level 142 mmol/L Potassium Level 3.3 mmol/L Chloride Level 106 mmol/L Carbon Dioxide Level 26 mmol/L Anion Gap 10.0 mmol/L Blood Urea Nitrogen 5 mg/dl Creatinine 0.61 mg/dl Est Creatinine Clear Calc Drug Dose 144.0 ml/min Estimated GFR () 125.1 Estimated GFR (Non- 108.0 BUN/Creatinine Ratio 8.2 Random Glucose 97 mg/dl Calcium Level 8.9 mg/dl Magnesium Level 2.4 mg/dl Total Creatine Kinase 617 U/L Pro-B-Type Natriuretic Peptide 37 pg/ml
--- NOTE | 2016-11-24 18:17 | Progress Note ---
Subjective Date of Service: Nov 24, 2016. Subjective Pt evaluation today including: conversation w/ family, physical exam, lab review, review of studies, conversation w/ business risk consultant, review of inpatient medication list Saw/examined the patient in the mental health unit she is more agitated and almost in a manic state today She is agitated and does not want to take her medications Constantly moving around and difficult to manage I spoke with the patient's daughter and she states that she would like the patient to be moved to the medical floor to be on IV sedatives as she has not slept much in the past 11 days - overnight had 5.5 hours of sleep, which was the most since being admitted here. Problem List Medical Problems: (1) Hallucinations Status: Acute (2) Mood disorder Status: Acute (3) Paranoia Status: Acute (4) Psychosis Status: Acute Medications Current Inpatient Medications Medications (Trade) Dose Ordered Sig/Uriah Route Start Time Stop Time Status Last Admin Dose Admin Acetaminophen (Tylenol Tab) 650 mg Q4H PRN PO 11/11/16 18:15 12/11/16 18:14 Bismuth Subsalicylate (Kaopectate Liqd) 15 ml PRN PRN PO 11/11/16 18:15 12/11/16 18:14 11/14/16 16:53 15 ML Al Hydroxide/Mg Hydroxide (Maalox Susp) 30 ml Q4H PRN PO 11/11/16 18:15 12/11/16 18:14 Magnesium Hydroxide (Milk Of Magnesia Susp) 30 ml DAILY PRN PO 11/11/16 18:15 12/11/16 18:14 Sodium Chloride ([place] Nasal [place]) PRN PRN NA 11/11/16 18:15 12/11/16 18:14 Lamotrigine (Lamictal Tab) 400 mg QAM PO 11/12/16 09:00 12/12/16 08:59 11/24/16 10:35 400 MG Liothyronine Sodium (Cytomel Tab) 12.5 mcg DAILY PO 11/12/16 09:00 12/12/16 08:59 11/24/16 10:33 12.5 MCG Guaifenesin (Mucinex Contr Rel Tab) 600 mg Q12 PO 11/12/16 21:00 12/12/16 20:59 11/21/16 09:00 600 MG Albuterol (Ventolin Hfa Inhaler) 2 puffs Q4H PRN INH 11/13/16 14:30 12/13/16 14:29 11/23/16 10:07 2 PUFFS Loperamide HCl (Imodium Cap) 2 mg Q4 PRN PO 11/14/16 10:00 12/14/16 09:59 11/18/16 01:20 2 MG Benztropine Mesylate (Cogentin Tab) 0.5 mg Q6 PRN PO 11/15/16 17:15 12/15/16 17:14 Non-Formulary Medication (Non-Formulary Patient'S Own Med) 2 ea QAM PO 11/16/16 09:00 12/16/16 08:59 11/22/16 09:00 2 EA Benzonatate (Tessalon Perles Cap) 100 mg TID PRN PO 11/18/16 21:30 12/18/16 21:29 11/21/16 23:22 100 MG Olanzapine (Zyprexa Zydis Od Tab) 30 mg HS PO 11/23/16 22:00 12/23/16 21:59 11/23/16 20:36 30 MG Alprazolam (Xanax Tab) 1 mg QID PO 11/23/16 09:30 12/23/16 09:29 11/24/16 16:19 1 MG Miscellaneous Information (Check Clonidine Patch Placement) 1 ea QS N/A 11/23/16 16:00 12/23/16 15:59 11/24/16 16:17 1 EA Clonidine HCl (Omoprhhh-Ofa-2 0.1mg/24hr Patch) 1 patch Fr@0900 TD 11/23/16 10:00 12/23/16 09:59 11/23/16 10:10 1 PATCH Miscellaneous (Remove Clonidine Patch) 1 ea Q7D@0859 N/A 11/30/16 08:59 12/30/16 08:58 Potassium Chloride (Klor-Con M10) 20 meq BID PO 11/23/16 13:15 12/23/16 13:14 Potassium Chloride (Viry Ciel Elix) 20 meq BID PO 11/24/16 11:30 12/24/16 11:29 11/24/16 12:40 20 MEQ Objective Vital Signs Date Time Temp Pulse Resp B/P Pulse Ox O2 Delivery O2 Flow Rate FiO2 11/24/16 16:02 36.3 101 18 134/76 11/24/16 16:01 99 Room Air 11/24/16 12:20 108 20 117/87 11/24/16 12:19 97 Room Air 11/24/16 11:57 97 Room Air 11/24/16 07:00 11/24/16 04:25 97 Room Air 11/24/16 01:55 97 Room Air 11/23/16 20:55 97 Room Air Physical Exam General Appearance: + moderate distress, + obese Neurologic/Psychiatric: + abnormal gait, + depressed affect, + disoriented, + pertinent finding (combination of manic; episodes of catatonic) Laboratory Results Last 24 Hours Test 11/24/16 07:45 White Blood Count 11.24 K/uL Red Blood Count 4.09 M/uL Hemoglobin 12.2 g/dL Hematocrit 36.7 % Mean Corpuscular Volume 89.7 fL Mean Corpuscular Hemoglobin 29.8 pg Mean Corpuscular Hemoglobin Concent 33.2 g/dl RDW Standard Deviation 46.2 fL RDW Coefficient of Variation 14.1 % Platelet Count 263 K/uL Mean Platelet Volume 11.0 fL Sodium Level 142 mmol/L Potassium Level 3.3 mmol/L Chloride Level 106 mmol/L Carbon Dioxide Level 26 mmol/L Anion Gap 10.0 mmol/L Blood Urea Nitrogen 5 mg/dl Creatinine 0.61 mg/dl Est Creatinine Clear Calc Drug Dose 144.0 ml/min Estimated GFR () 125.1 Estimated GFR (Non- 108.0 BUN/Creatinine Ratio 8.2 Random Glucose 97 mg/dl Calcium Level 8.9 mg/dl Magnesium Level 2.4 mg/dl Total Creatine Kinase 617 U/L Pro-B-Type Natriuretic Peptide 37 pg/ml Assessment and Plan This is a 46 year old female with multiple mental health/behavior issues in the past; developing white count and low grade fever Likely Viral URI 11/24 WBC improving again, this is most likely a viral URI no antibiotics necessary 11/23 WBC still increasing will replace potassium recheck CBC in AM; make sure no spiking of fevers I believe the leukocytosis is more stress related for now, hold off an antibiotics 11/22 low grade temp as per nursing at [facility] no significant increase in temp WBC improving likely related to a viral type upper respiratory tract infection CXR done - no acute findings UA pending will recheck CMP and cardiac enzymes; check CPK level EKG with improving QTc - no ST-T wave changes There is a question of neuroleptic malignant syndrome - CPK elevated, with some diaphoresis, but overall low suspicion for NMS Monitor vitals and labs and will re-evaluate in the morning Hypokalemia potassium improved to 3.3 likely secondary to diarrhea and IBS continue Lomotil if patient can tolerate it liquid potassium to replace this Shortness of Breath and Tachycardia D-dimer is negative, suspicion for PE is low tachycardia likely related to anxiety/freida, psych related issues she is pacing, which is likely the cause of diaphoresis CXR is negative monitor vitals and labs Recent UTI check UA Acute Psychosis started on clonidine patch
[2016-11-24] MEDS ORDERED: ALPRAZOLAM 0.5 MG TAB PO ONE (19:15)
[2016-11-24] MEDS: BENZONATATE 100MG CAP PO PRN (21:28)
[2016-11-24] MEDS: OLANZAPINE ZYDIS 10 MG ORALLY DIS. TAB PO SCH (21:29)
[2016-11-25] VITALS (7 sets, daily range): BP systolic 106–116; BP diastolic 72–82; PULSE 89–96; TEMP 36.4; O2SAT 97–100
[2016-11-25] MEDS: CHECK CLONIDINE PATCH PLACEMENT SCH ×2 (07:33→16:00)
[2016-11-25] MEDS: GUAIFENESIN 600 MG TABCR PO SCH ×2 (09:00→21:00)
[2016-11-25] MEDS: POTASSIUM CHLORIDE 20 MEQ/15 ML UDC PO SCH ×3 (09:00→21:20)
[2016-11-25] MEDS: LIOTHYRONINE SODIUM 25 MCG TAB PO SCH (09:22)
[2016-11-25] MEDS: ALPRAZOLAM 0.5 MG TAB PO SCH ×4 (09:22→21:08)
[2016-11-25] MEDS: PROBIOTIC GUMMIES PO SCH (09:26)
[2016-11-25 10:03] LABS: HEMATOCRIT 37.4 % (37-47); MEAN CELL VOLUME 90.6 fL (80-100); MEAN CORPUSCULAR HEMOGLOBIN 30.3 pg (25-34); MEAN CORPUSCULAR HGB CONC 33.4 g/dl (32-36); MEAN PLATELET VOLUME 10.7 fL (7.4-10.4); PLATELET COUNT 302 K/uL (130-400); RED BLOOD COUNT 4.13 M/uL (4.2-5.4); WHITE BLOOD COUNT 9.89 K/uL (4.8-10.8)
[2016-11-25 10:27] LABS: BUN/CREATININE RATIO 5.9 (10-20); CALCIUM 8.8 mg/dl (8.5-10.1); CREATININE 0.76 mg/dl (0.60-1.20); MAGNESIUM 2.6 mg/dl (1.8-2.4); POTASSIUM 3.2 mmol/L (3.5-5.1)
--- NOTE | 2016-11-25 13:06 | Psychiatric Progress Notes ---
Progress Note Date of Service Nov 25, 2016. Interval History 46 yo woman, outpatient of Dr. Wells, admitted with severe anxiety, depression and auditory hallucinations. Diagnosis is bipolar disorder type I vs schizoaffective disorder, bipolar type. Chief Complaint "I'm thirsty". Subjective Patient was seen & assessed interval progress reviewed with Treatment Team. Patient remains agitated. She reports feeling thirsty but has been resistant to taking PO food or liquids other than in sparing amounts. She remains agitated. Staff reports that her level of agitation goes up and down. She appeared to calm for a few hours after receiving Xanax dose but was agitated throughout the night during a long stretch of not receiving Xanax. She had received a one time additional dose of Xanax in the evening after becoming agitated and quickly calmed from this. Review of Systems Constitutional: + chills ENT: + trouble swallowing Respiratory: + cough Abdomen: + diarrhea Neurologic: + balance problems, + memory loss Psychiatric: + anxiety Sleep Information Total Hours of Sleep: 8.25 Meal Information Percent of Breakfast Consumed: 0 Percent of Lunch Consumed: 25 Percent of Dinner Consumed: 10 Mental Status Exam During interview pt is: uncooperative, other (disorganized, unable to follow simple commands) Appearance: disheveled Eye contact is: other (staring) Motor behavior is: psychomotor agitation, other (restless, bradykinetic when ambulating) Speech: other ( disconnected, minimal) Affect: flat, anxious, constricted Mood is: anxious Thought process: blocking, incoherent Thought content: other (unable to assess) Suicidal thought are: denied (unable to assess) Homicidal thoughts are: denied (unable to assess) Hallucinations: other (not overtly responding to internal stimuli however this cannot be ruled out) Cognition: other (attention is presently significantly impaired) Insight: severely impaired Judgement: severely impaired Impression Remains paranoid, psychotic, and disorganized. Her condition in many ways is deteriorating daily, now unable to communicate clearly, and with bizarre behaviors. Spitting out meds but ultimately complied with staff assistance. CXR neg, leukocytosis improving, and no left shift. QTc improved. No evidence of NMS as afebrile, no stiffness. She is disorganized and there is concern for delirium, in which case we should avoid deliriogenic meds such as BZD's and anticholinergic meds, but in the same breath, we are informed by her family that her first break resulted in a 3 month hospitalization and she required a feeding tube. No consistent response to BZD. Stelazine added at 1 mg. BID 11/21 with short lasting effect. At this point will order: -1:1 for safety given disorganization and inappropriate behaviors Continued Inpatient Care The patient requires inpatient care due to the severity of her condition and inability to manipulate information in a reality based manner. Plan (1) Bipolar 1 disorder -Every 15 minute checks for safety -Encourage participation in unit groups and programming -Work on healthy coping skills and her discharge safety plan, to include securing of medications in the home, and ensuring that guns are locked and she will not have access. -Family meeting with . -Coordinate care with outpatient providers, Dr. reece Bob and Patria Espinal at [facility]. -Continue home doses of lamotrigine, temazepam, Saphris, and Cytomel. -Continue taper off of Pristiq, and continued titration up on lithium, which was increased to 300 mg in the morning and 900 mg at bedtime last night. She will need a trough level after 5 days (11/16/2016). -Offer hydroxyzine as needed for sleep and anxiety, and have also ordered clonazepam 0.5 mg as needed for anxiety, as she reports alprazolam was helpful in the ER, and says she is allergic to lorazepam. -Check fasting labs for monitoring on an atypical, as last labs in her records were done in December 2015. At that time, glucose was elevated at 109, and lipids were normal. 11/13 - FLP and FBS WNL today - Reality orientation - Continue current meds - Family meeting with . 11/14 - Continue with reality orientation and groups, as periodic derealization/ dissociation - Continue lithium, Saphris, lamotrigine, temazepam and Cytomel 11/15 - Did not receive lithium last night so will DC level. Continue current lithium dosing - Will add Haldol 5 mg. BID with dose now. patient may refuse, but in looking at past med trials, she has never been tried on a typical. - Reality orientation 11/16 --mild lengthening of QTc after 3 doses of Haldol 5 mg yesterday. Initially refused am medications but ultimately accepted with plan to taper Saphris in favor of a retrial of Zyprexa. Reviewed that Haldol will be used as a bridge and hopefully coadmin with lamictal and lithium will allow lower dosing of Zyprexa than previously. Patient and well aware of metabolic risks. 11/17 - will d/c haldol as no improvement and h/o poor tx effect on this agent per family - will increase Zyprexa to 2.5mg qam w/ now dose and 10mg qhs - liberalize klonopin prn utilization - she is now off the saphris 11/18 - Continues to decline and appearing more psychotic and disorganized again today. She refused her scheduled 2.5 mg Zyprexa but ultimately was agreeable to take a 10 mg now dose. She will receive another 10 mg at bedtime tonight and will schedule for 10 mg twice a day starting tomorrow. Appears she has required very high dose antipsychotic treatment in the past. - As her psychosis worsens, her insight and judgment are increasingly impaired. At the present time she appears to lack the insight and inability to rationally manipulate information such that an involuntary commitment should be considered. Additionally, with her declining insight, she is becoming more resistant to medication compliance. In my clinical opinion, should she refuse oral medications, she should be treated over her objection for worsening psychosis. - She is appearing more tachycardic. Fluid intake ok. Vital signs otherwise okay. QTc was borderline on recent EKG. Considered ordering another EKG today but I did not feel that she would tolerate it today. - if psychosis does not improve with antipsychotic titration, consider EEG given h/o seizure disorder. this might also help r/o possibility of something like lithium induced encephalopathy. 11/19 -Adjust Zyprexa to 20 mg. all HS and add 2.5 mg. BID prn psychosis - Reduce lithium to 900 mg. HS only with level in 5 days. - DC temazepam 11/20 - Continue current meds 11/21 - Meeting held with patient and family. Will taper off lithium at family's request, and due to poor response after almost 2 weeks on it. - Continue olanzapine 20mg qhs and 2/5mg prn. Continue Artane 5mg bid. - Reviewed case with [employer] Dr. Solis, who was also involved last evening re: staff's concerns about patient's symptoms and behavior. Reviewed med adjustments as above, and will add stelazine 1mg prn for psychosis, as olanzapine prns not always effective. 11/22 -1:1 for safety given disorganization and inappropriate behaviors - Will DC abbie and elizabethyl in the event its worsening a delirium. - Will start scheduled stelazine 1 mg. BID and continue 1 mg. BID prn - Will prioritize the use of prn BZD's tonight in view of elevated CK - If patient able to be still, will order EEG to assist us in rule out delirium - [place] DC'd - Case has been reviewed with both Dr. Benson and Dr. Solis 11/23 --continue 1-1, confirming necessary am labs with [place] [facility] before blood draw. Extensive discussion with and daughter Fe about her current condition and medical necessity for blood draw, will convert to 302 if necessary to restrain for labs, family support this if needed. Will advocate for IV sedation at this point, will consult with critical care team to determine if candidate for Ketamine. Schizoaffective more likely diagnosis at this point. Clearly periods of catatonia with agitated catatonia +/- delirium. CPK may indicate risk for early NMS, family is aware of risk given her escalating need for antipsychotics. Daughter did confirm that prior reaction to Ativan was anaphylaxis and ICU stay so Ativan IM or drip is not an option. Will discuss needs with Dr. Ramirez. 11/24 - Continue on 1:1. Agitation continues. Slight improvement in CPK level and Potassium level. Clonidine appears to have helped decreased tachycardia. 11/25 -Agitation briefly improves following dosing of Xanax. Will add PRN dose of Xanax to allow for more frequent dosing for breakthrough agitation. -staff will continue to encourage fluid and electrolyte intake (2) Obesity Offer dietary consultation. Encouraged continued work on decreasing soda intake , and educated on healthy food choices and the importance of exercise. Discharge / Aftercare Planning Primary Care Physician: Name: [facility] Psychiatrist: Name: Dr. Malik at [facility] Date of Appointment: Dec 13, 2016 Time of Appointment: 3:20 Therapist: Name: Patria weiss [facility] Date of Appointment: Nov 26, 2016 Time of Appointment: 1:30pm Visit Code E&M Code: 54772 Inventory Assets Strengths: "I'm a good mom, grandma, and ," "love to give to people. Per patient on admission. Risk Factors Assessment : Yes /single/: No Higher / Fall in social status: No Health problems: Yes Mental Health Diagnoses: Yes Substance use disorders: No Previous attempt: Yes Previous attempt;highly lethal: Yes Family history of suicide: No Previous psychiatric stay: Yes Hopelessness: No Smoker: No Protective Factors Assessment [employer] beliefs: Yes : Yes Responsible for young children: No Employed: No Stable relationships: Yes Supportive family: Yes Good rapport with provider: Yes Data Vital Signs Last 24 Hrs: Date Time Temp Pulse Resp B/P Pulse Ox O2 Delivery O2 Flow Rate FiO2 11/25/16 12:27 99 Room Air 11/25/16 12:09 36.4 92 20 106/72 11/25/16 06:51 11/25/16 05:46 99 11/25/16 00:01 97 Room Air 11/24/16 20:00 95 Room Air 11/24/16 19:07 109 18 109/76 120 11/24/16 16:02 36.3 101 18 134/76 11/24/16 16:01 99 Room Air Meds Administered Last 24 Hrs: Meds Administered (Past 24Hrs) Medications (Trade) Dose Ordered Sig/Uriah Route Start Time Stop Time Status Last Admin Dose Admin Olanzapine (Zyprexa Zydis Od Tab) 30 mg HS PO 11/23/16 22:00 12/23/16 21:59 11/24/16 21:29 30 MG Miscellaneous Information (Check Clonidine Patch Placement) 1 ea QS N/A 11/23/16 16:00 12/23/16 15:59 11/25/16 07:33 1 EA Potassium Chloride (Viry Ciel Elix) 40 meq 1545 ONCE PO 11/23/16 15:45 11/23/16 15:46 DC 11/23/16 15:49 40 MEQ Potassium Chloride (Viry Ciel Elix) 20 meq BID PO 11/24/16 11:30 12/24/16 11:29 11/25/16 11:24 20 MEQ Alprazolam (Xanax Tab) 1 mg NOW ONCE PO 11/24/16 19:15 11/24/16 19:16 DC 11/24/16 19:01 1 MG Lab Results Last 24 Hrs: Last 24 Hours Test 11/25/16 09:50 White Blood Count 9.89 K/uL Red Blood Count 4.13 M/uL Hemoglobin 12.5 g/dL Hematocrit 37.4 % Mean Corpuscular Volume 90.6 fL Mean Corpuscular Hemoglobin 30.3 pg Mean Corpuscular Hemoglobin Concent 33.4 g/dl RDW Standard Deviation 46.2 fL RDW Coefficient of Variation 14.0 % Platelet Count 302 K/uL Mean Platelet Volume 10.7 fL Sodium Level 144 mmol/L Potassium Level 3.2 mmol/L Chloride Level 105 mmol/L Carbon Dioxide Level 29 mmol/L Anion Gap 10.0 mmol/L Blood Urea Nitrogen 4 mg/dl Creatinine 0.76 mg/dl Est Creatinine Clear Calc Drug Dose 115.6 ml/min Estimated GFR () 108.3 Estimated GFR (Non- 93.4 BUN/Creatinine Ratio 5.9 Random Glucose 124 mg/dl Calcium Level 8.8 mg/dl Magnesium Level 2.6 mg/dl
[2016-11-25] MEDS: ALPRAZOLAM 0.5 MG TAB PO PRN ×2 (14:46→19:03)
--- NOTE | 2016-11-25 17:46 | Progress Note ---
Subjective Date of Service: Nov 25, 2016. Subjective Pt evaluation today including: conversation w/ patient, conversation w/ family , physical exam, lab review, review of studies, conversation w/ ux consultant, review of inpatient medication list Saw/examined the patient in room 329 She is in her room; waking up from being asleep No pain anywhere, she is answering some questions, denies shortness of breath +cough, but not much production; it is dry Problem List Medical Problems: (1) Hallucinations Status: Acute (2) Mood disorder Status: Acute (3) Paranoia Status: Acute (4) Psychosis Status: Acute Review of Systems Respiratory: + cough, No shortness of breath Cardiac: No chest pain Unable to obtain complete ROS due to patient's mental status Medications Current Inpatient Medications Medications (Trade) Dose Ordered Sig/Uriah Route Start Time Stop Time Status Last Admin Dose Admin Acetaminophen (Tylenol Tab) 650 mg Q4H PRN PO 11/11/16 18:15 12/11/16 18:14 Bismuth Subsalicylate (Kaopectate Liqd) 15 ml PRN PRN PO 11/11/16 18:15 12/11/16 18:14 11/14/16 16:53 15 ML Al Hydroxide/Mg Hydroxide (Maalox Susp) 30 ml Q4H PRN PO 11/11/16 18:15 12/11/16 18:14 Magnesium Hydroxide (Milk Of Magnesia Susp) 30 ml DAILY PRN PO 11/11/16 18:15 12/11/16 18:14 Sodium Chloride (Gosper Nasal [place]) PRN PRN NA 11/11/16 18:15 12/11/16 18:14 Lamotrigine (Lamictal Tab) 400 mg QAM PO 11/12/16 09:00 12/12/16 08:59 11/25/16 09:22 400 MG Liothyronine Sodium (Cytomel Tab) 12.5 mcg DAILY PO 11/12/16 09:00 12/12/16 08:59 11/25/16 09:22 12.5 MCG Guaifenesin (Mucinex Contr Rel Tab) 600 mg Q12 PO 11/12/16 21:00 12/12/16 20:59 11/21/16 09:00 600 MG Albuterol (Ventolin Hfa Inhaler) 2 puffs Q4H PRN INH 11/13/16 14:30 12/13/16 14:29 11/23/16 10:07 2 PUFFS Loperamide HCl (Imodium Cap) 2 mg Q4 PRN PO 11/14/16 10:00 12/14/16 09:59 11/18/16 01:20 2 MG Benztropine Mesylate (Cogentin Tab) 0.5 mg Q6 PRN PO 11/15/16 17:15 12/15/16 17:14 Non-Formulary Medication (Non-Formulary Patient'S Own Med) 2 ea QAM PO 11/16/16 09:00 12/16/16 08:59 11/25/16 09:26 2 EA Benzonatate (Tessalon Perles Cap) 100 mg TID PRN PO 11/18/16 21:30 12/18/16 21:29 11/24/16 21:28 100 MG Olanzapine (Zyprexa Zydis Od Tab) 30 mg HS PO 11/23/16 22:00 12/23/16 21:59 11/24/16 21:29 30 MG Alprazolam (Xanax Tab) 1 mg QID PO 11/23/16 09:30 12/23/16 09:29 11/25/16 16:40 1 MG Miscellaneous Information (Check Clonidine Patch Placement) 1 ea QS N/A 11/23/16 16:00 12/23/16 15:59 11/25/16 16:00 1 EA Clonidine HCl (Qxyvirdy-Nvc-1 0.1mg/24hr Patch) 1 patch Fr@0900 TD 11/23/16 10:00 12/23/16 09:59 11/23/16 10:10 1 PATCH Miscellaneous (Remove Clonidine Patch) 1 ea Q7D@0859 N/A 11/30/16 08:59 12/30/16 08:58 Potassium Chloride (Viry Ciel Elix) 20 meq BID PO 11/24/16 11:30 12/24/16 11:29 11/25/16 11:24 20 MEQ Alprazolam (Xanax Tab) 1 mg Q4 PRN PO 11/25/16 10:00 12/25/16 09:59 11/25/16 14:46 1 MG Objective Vital Signs Date Time Temp Pulse Resp B/P Pulse Ox O2 Delivery O2 Flow Rate FiO2 11/25/16 17:10 100 Room Air 11/25/16 17:10 36.4 89 16 116/82 11/25/16 12:27 99 Room Air 11/25/16 12:09 36.4 92 20 106/72 11/25/16 06:51 11/25/16 05:46 99 11/25/16 00:01 97 Room Air 11/24/16 20:00 95 Room Air 11/24/16 19:07 109 18 109/76 120 Physical Exam General Appearance: + pertinent finding (she is laying in bed, answers some questions, eager to get up, seems to be doing better today) Respiratory/Chest: no respiratory distress, no accessory muscle use Neurologic/Psychiatric: + depressed affect, + disoriented Laboratory Results Last 24 Hours Test 11/25/16 09:50 White Blood Count 9.89 K/uL Red Blood Count 4.13 M/uL Hemoglobin 12.5 g/dL Hematocrit 37.4 % Mean Corpuscular Volume 90.6 fL Mean Corpuscular Hemoglobin 30.3 pg Mean Corpuscular Hemoglobin Concent 33.4 g/dl RDW Standard Deviation 46.2 fL RDW Coefficient of Variation 14.0 % Platelet Count 302 K/uL Mean Platelet Volume 10.7 fL Sodium Level 144 mmol/L Potassium Level 3.2 mmol/L Chloride Level 105 mmol/L Carbon Dioxide Level 29 mmol/L Anion Gap 10.0 mmol/L Blood Urea Nitrogen 4 mg/dl Creatinine 0.76 mg/dl Est Creatinine Clear Calc Drug Dose 115.6 ml/min Estimated GFR () 108.3 Estimated GFR (Non- 93.4 BUN/Creatinine Ratio 5.9 Random Glucose 124 mg/dl Calcium Level 8.8 mg/dl Magnesium Level 2.6 mg/dl Assessment and Plan This is a 46 year old female with multiple mental health/behavior issues in the past; developing white count and low grade fever Likely Viral URI 11/25 WBC normalized skip labs in AM, check in a few days CPK level is also trending down currently receiving Xanax and is on a clonidine patch - there is some clinical improvement 11/24 WBC improving again, this is most likely a viral URI no antibiotics necessary 11/23 WBC still increasing will replace potassium recheck CBC in AM; make sure no spiking of fevers I believe the leukocytosis is more stress related for now, hold off an antibiotics 11/22 low grade temp as per nursing at [facility] no significant increase in temp WBC improving likely related to a viral type upper respiratory tract infection CXR done - no acute findings UA pending will recheck CMP and cardiac enzymes; check CPK level EKG with improving QTc - no ST-T wave changes There is a question of neuroleptic malignant syndrome - CPK elevated, with some diaphoresis, but overall low suspicion for NMS Monitor vitals and labs and will re-evaluate in the morning Hypokalemia potassium improved to 3.3 likely secondary to diarrhea and IBS continue Lomotil if patient can tolerate it liquid potassium to replace this Shortness of Breath and Tachycardia D-dimer is negative, suspicion for PE is low tachycardia likely related to anxiety/freida, psych related issues she is pacing, which is likely the cause of diaphoresis CXR is negative monitor vitals and labs Recent UTI check UA Acute Psychosis started on clonidine patch
[2016-11-25] MEDS: OLANZAPINE ZYDIS 10 MG ORALLY DIS. TAB PO SCH (21:09)
[2016-11-26] VITALS (9 sets, daily range): BP systolic 97–127; BP diastolic 67–77; PULSE 88–100; TEMP 36.4–36.5; O2SAT 95–100
[2016-11-26] MEDS: ALBUTEROL HFA 8 GM INHALER INH PRN (03:14)
[2016-11-26] MEDS: ALPRAZOLAM 0.5 MG TAB PO PRN ×4 (03:24→20:28)
[2016-11-26] MEDS: LIOTHYRONINE SODIUM 25 MCG TAB PO SCH (07:54)
[2016-11-26] MEDS: POTASSIUM CHLORIDE 20 MEQ/15 ML UDC PO SCH ×2 (07:55→21:07)
[2016-11-26] MEDS: PROBIOTIC GUMMIES PO SCH (07:56)
[2016-11-26] MEDS: CHECK CLONIDINE PATCH PLACEMENT SCH ×3 (08:10→15:59)
[2016-11-26] MEDS: GUAIFENESIN 600 MG TABCR PO SCH ×3 (08:10→21:06)
[2016-11-26] MEDS: ALPRAZOLAM 0.5 MG TAB PO SCH ×4 (08:13→21:07)
--- NOTE | 2016-11-26 09:12 | Psychiatric Progress Notes ---
Progress Note Date of Service Nov 26, 2016. Interval History 46 yo woman, outpatient of Dr. Wells, admitted with severe anxiety, depression and auditory hallucinations. Diagnosis is bipolar disorder type I vs schizoaffective disorder, bipolar type. Chief Complaint "Terrible". Subjective Patient was seen & assessed interval progress reviewed with Treatment Team. Staff report she continues to be agitated and confused, got 6mg of alprazolam yesterday. She requires a lot of staff assistance, and was able to eat with staff encouragement, but refused breakfast yesterday, ate only 10% of lunch, and had to be fed applesauce to get her to eat something. She was anxious at times and needed frequent reassurance and redirection. She was agitated at times , spit on a staff member, and attempted to kick a CHIEF INTERNAL AUDITOR. She threw objects in her room. She needed prompting to take her oral medications and at times spit pills out onto the flood. She appeared tired at times but was fighting the urge to sleep. Met with her and the social media strategist this morning at 's request. Staff notes indicate her sister had asked that she be transferred to [place], but the patient's doesn't want her transferred farther away from him. He would like her to stay here and has talked to the rest of the family about it. He wonders if there is a hormonal component, as she is usually "emotional" around her menstrual cycle, and is currently menstruating, and was also menstruating on admission. Reviewed which medications we are using and the rational. He asked about what medication she could be given to sleep, and reviewed things we've tried for sleep. He was with her this morning and was able to get her to eat two bites of oatmeal and toast, but it was difficult. She was seen multiple times today. She was seated in the TIM with nursing staff present and trying to feed her applesauce. She says she is "terrible" and thinks "my eyes are bleeding." When reassured that her eyes look fine, she says "guess I woke up in the middle of a dream." She says she doesn't remember when she last slept, and is not sure what will help her to feel better right now. She is oriented to the year, month, season, and hospital, but not the day or date. Mood is "up and down." Sleep Information Total Hours of Sleep: 3.25 Meal Information Percent of Breakfast Consumed: 0 Percent of Lunch Consumed: 10 Percent of Dinner Consumed: 2 Mental Status Exam During interview pt is: other (seated in mild distress in chair in TIM, with staff feeding her applesauce) Appearance: disheveled Eye contact is: fair Motor behavior is: psychomotor agitation (restless) Speech: other (slowed, disjointed) Affect: anxious, constricted Mood is: other ("up and down") Thought process: goal directed (at times able to answer questions appropriately ), blocking Thought content: delusions ("my eyes are bleeding"), other Hallucinations: other (not overtly responding to internal stimuli however this cannot be ruled out) Cognition: other (all spheres impaired) Insight: severely impaired Judgement: severely impaired Impression Remains paranoid, psychotic, and disorganized. Her condition has deteriorated, at times unable to communicate clearly, and with bizarre behaviors and resistance to staff's attempts to help her with ADLs. Refusing food, poor sleep , and spitting out meds. CXR neg, leukocytosis improving, and no left shift. QTc improved. No evidence of NMS as afebrile, no stiffness. She is disorganized and there is concern for agitated catatonia, now getting Xanax (as family report bad reaction to Ativan), 6mg yesterday. Continued Inpatient Care The patient requires inpatient care due to the severity of her condition and inability to manipulate information in a reality based manner. Plan (1) Bipolar 1 disorder -Every 15 minute checks for safety -Encourage participation in unit groups and programming -Work on healthy coping skills and her discharge safety plan, to include securing of medications in the home, and ensuring that guns are locked and she will not have access. -Family meeting with . -Coordinate care with outpatient providers, Dr. reece Bob and Patria Espinal at [facility]. -Continue home doses of lamotrigine, temazepam, Saphris, and Cytomel. -Continue taper off of Pristiq, and continued titration up on lithium, which was increased to 300 mg in the morning and 900 mg at bedtime last night. She will need a trough level after 5 days (11/16/2016). -Offer hydroxyzine as needed for sleep and anxiety, and have also ordered clonazepam 0.5 mg as needed for anxiety, as she reports alprazolam was helpful in the ER, and says she is allergic to lorazepam. -Check fasting labs for monitoring on an atypical, as last labs in her records were done in December 2015. At that time, glucose was elevated at 109, and lipids were normal. 11/13 - FLP and FBS WNL today - Reality orientation - Continue current meds - Family meeting with . 11/14 - Continue with reality orientation and groups, as periodic derealization/ dissociation - Continue lithium, Saphris, lamotrigine, temazepam and Cytomel 11/15 - Did not receive lithium last night so will DC level. Continue current lithium dosing - Will add Haldol 5 mg. BID with dose now. patient may refuse, but in looking at past med trials, she has never been tried on a typical. - Reality orientation 11/16 --mild lengthening of QTc after 3 doses of Haldol 5 mg yesterday. Initially refused am medications but ultimately accepted with plan to taper Saphris in favor of a retrial of Zyprexa. Reviewed that Haldol will be used as a bridge and hopefully coadmin with lamictal and lithium will allow lower dosing of Zyprexa than previously. Patient and well aware of metabolic risks. 11/17 - will d/c haldol as no improvement and h/o poor tx effect on this agent per family - will increase Zyprexa to 2.5mg qam w/ now dose and 10mg qhs - liberalize klonopin prn utilization - she is now off the saphris 11/18 - Continues to decline and appearing more psychotic and disorganized again today. She refused her scheduled 2.5 mg Zyprexa but ultimately was agreeable to take a 10 mg now dose. She will receive another 10 mg at bedtime tonight and will schedule for 10 mg twice a day starting tomorrow. Appears she has required very high dose antipsychotic treatment in the past. - As her psychosis worsens, her insight and judgment are increasingly impaired. At the present time she appears to lack the insight and inability to rationally manipulate information such that an involuntary commitment should be considered. Additionally, with her declining insight, she is becoming more resistant to medication compliance. In my clinical opinion, should she refuse oral medications, she should be treated over her objection for worsening psychosis. - She is appearing more tachycardic. Fluid intake ok. Vital signs otherwise okay. QTc was borderline on recent EKG. Considered ordering another EKG today but I did not feel that she would tolerate it today. - if psychosis does not improve with antipsychotic titration, consider EEG given h/o seizure disorder. this might also help r/o possibility of something like lithium induced encephalopathy. 11/19 -Adjust Zyprexa to 20 mg. all HS and add 2.5 mg. BID prn psychosis - Reduce lithium to 900 mg. HS only with level in 5 days. - DC temazepam 11/20 - Continue current meds 11/21 - Meeting held with patient and family. Will taper off lithium at family's request, and due to poor response after almost 2 weeks on it. - Continue olanzapine 20mg qhs and 2/5mg prn. Continue Artane 5mg bid. - Reviewed case with Compositor Apprentice Dr. Solis, who was also involved last evening re: staff's concerns about patient's symptoms and behavior. Reviewed med adjustments as above, and will add stelazine 1mg prn for psychosis, as olanzapine prns not always effective. 11/22 -1:1 for safety given disorganization and inappropriate behaviors - Will DC artane and bentyl in the event its worsening a delirium. - Will start scheduled stelazine 1 mg. BID and continue 1 mg. BID prn - Will prioritize the use of prn BZD's tonight in view of elevated CK - If patient able to be still, will order EEG to assist us in rule out delirium - Marina DC'd - Case has been reviewed with both Dr. Benson and Dr. Solis 11/23 --continue 1-1, confirming necessary am labs with [facility] before blood draw. Extensive discussion with and daughter Fe about her current condition and medical necessity for blood draw, will convert to 302 if necessary to restrain for labs, family support this if needed. Will advocate for IV sedation at this point, will consult with critical care team to determine if candidate for Ketamine. Schizoaffective more likely diagnosis at this point. Clearly periods of catatonia with agitated catatonia +/- delirium. CPK may indicate risk for early NMS, family is aware of risk given her escalating need for antipsychotics. Daughter did confirm that prior reaction to Ativan was anaphylaxis and ICU stay so Ativan IM or drip is not an option. Will discuss needs with Dr. Ramirez. 11/24 - Continue on 1:1. Agitation continues. Slight improvement in CPK level and Potassium level. Clonidine appears to have helped decreased tachycardia. 11/25 -Agitation briefly improves following dosing of Xanax. Will add PRN dose of Xanax to allow for more frequent dosing for breakthrough agitation. -staff will continue to encourage fluid and electrolyte intake 11/26 -Continue 1:1, focus on hydration and use of Xanax for presumed agitated catatonia, and continue scheduled doses of olanzapine, lamotrigine, and Cytomel. (2) Obesity Offer dietary consultation. Encouraged continued work on decreasing soda intake , and educated on healthy food choices and the importance of exercise. Discharge / Aftercare Planning Primary Care Physician: Name: [facility] Psychiatrist: Name: Dr. Malik at [facility] Date of Appointment: Dec 13, 2016 Time of Appointment: 3:20 Therapist: Name: Patria weiss [facility] Date of Appointment: Nov 26, 2016 Time of Appointment: 1:30pm Visit Code E&M Code: 60497 Inventory Assets Strengths: "I'm a good mom, grandma, and ," "love to give to people. Per patient on admission. Risk Factors Assessment : Yes /single/: No Higher / Fall in social status: No Health problems: Yes Mental Health Diagnoses: Yes Substance use disorders: No Previous attempt: Yes Previous attempt;highly lethal: Yes Family history of suicide: No Previous psychiatric stay: Yes Hopelessness: No Smoker: No Protective Factors Assessment Christian beliefs: Yes : Yes Responsible for young children: No Employed: No Stable relationships: Yes Supportive family: Yes Good rapport with provider: Yes Data Vital Signs Last 24 Hrs: Date Time Temp Pulse Resp B/P Pulse Ox O2 Delivery O2 Flow Rate FiO2 11/26/16 07:30 95 Room Air 11/26/16 07:29 36.4 100 20 127/72 11/26/16 00:29 100 Room Air 11/25/16 22:10 96 16 108/79 11/25/16 22:09 97 Room Air 11/25/16 17:10 100 Room Air 11/25/16 17:10 36.4 89 16 116/82 11/25/16 12:27 99 Room Air 11/25/16 12:09 36.4 92 20 106/72 Meds Administered Last 24 Hrs: Meds Administered (Past 24Hrs) Medications (Trade) Dose Ordered Sig/Uriah Route Start Time Stop Time Status Last Admin Dose Admin Potassium Chloride (Viry Ciel Elix) 20 meq BID PO 11/24/16 11:30 12/24/16 11:29 11/26/16 07:55 20 MEQ Alprazolam (Xanax Tab) 1 mg NOW ONCE PO 11/24/16 19:15 11/24/16 19:16 DC 11/24/16 19:01 1 MG Alprazolam (Xanax Tab) 1 mg Q4 PRN PO 11/25/16 10:00 12/25/16 09:59 11/26/16 03:24 1 MG Lab Results Last 24 Hrs: Last 24 Hours Test 11/25/16 09:50 White Blood Count 9.89 K/uL Red Blood Count 4.13 M/uL Hemoglobin 12.5 g/dL Hematocrit 37.4 % Mean Corpuscular Volume 90.6 fL Mean Corpuscular Hemoglobin 30.3 pg Mean Corpuscular Hemoglobin Concent 33.4 g/dl RDW Standard Deviation 46.2 fL RDW Coefficient of Variation 14.0 % Platelet Count 302 K/uL Mean Platelet Volume 10.7 fL Sodium Level 144 mmol/L Potassium Level 3.2 mmol/L Chloride Level 105 mmol/L Carbon Dioxide Level 29 mmol/L Anion Gap 10.0 mmol/L Blood Urea Nitrogen 4 mg/dl Creatinine 0.76 mg/dl Est Creatinine Clear Calc Drug Dose 115.6 ml/min Estimated GFR () 108.3 Estimated GFR (Non- 93.4 BUN/Creatinine Ratio 5.9 Random Glucose 124 mg/dl Calcium Level 8.8 mg/dl Magnesium Level 2.6 mg/dl
[2016-11-26] MEDS: OLANZAPINE ZYDIS 10 MG ORALLY DIS. TAB PO SCH (21:07)
[2016-11-27] VITALS (7 sets, daily range): BP systolic 112; BP diastolic 76; PULSE 91; TEMP 36.6; O2SAT 95–99
[2016-11-27] MEDS: CHECK CLONIDINE PATCH PLACEMENT SCH ×4 (00:17→23:54)
[2016-11-27] MEDS: ALPRAZOLAM 0.5 MG TAB PO PRN (01:54)
[2016-11-27 07:43] LABS: HEMATOCRIT 37.7 % (37-47); MEAN CELL VOLUME 92.9 fL (80-100); MEAN CORPUSCULAR HGB CONC 32.4 g/dl (32-36); MEAN PLATELET VOLUME 11.1 fL (7.4-10.4); PLATELET COUNT 277 K/uL (130-400); RED BLOOD COUNT 4.06 M/uL (4.2-5.4); WHITE BLOOD COUNT 8.03 K/uL (4.8-10.8)
[2016-11-27 08:16] LABS: BUN/CREATININE RATIO 5.2 (10-20); CREATININE 0.58 mg/dl (0.60-1.20); MAGNESIUM 2.3 mg/dl (1.8-2.4); POTASSIUM 3.7 mmol/L (3.5-5.1)
[2016-11-27] MEDS: LIOTHYRONINE SODIUM 25 MCG TAB PO SCH (08:46)
[2016-11-27] MEDS: POTASSIUM CHLORIDE 20 MEQ/15 ML UDC PO SCH ×2 (08:47→20:35)
[2016-11-27] MEDS: PROBIOTIC GUMMIES PO SCH (08:47)
[2016-11-27] MEDS: ALPRAZOLAM 0.5 MG TAB PO SCH ×4 (08:48→20:35)
[2016-11-27] MEDS: GUAIFENESIN 600 MG TABCR PO SCH ×2 (08:54→20:35)
--- NOTE | 2016-11-27 11:55 | Psychiatric Progress Notes ---
Progress Note Date of Service Nov 27, 2016. Interval History 46 yo woman, outpatient of Dr. eWlls, admitted with severe anxiety, depression and auditory hallucinations. Diagnosis is bipolar disorder type I vs schizoaffective disorder, bipolar type. Chief Complaint "I'm dying". Subjective Patient was seen & assessed interval progress reviewed with Treatment Team. Staff report she continues to be very anxious, restless, and agitated. She got 8mg alprazolam yesterday, and requires constant supervision and reassurance. She repeatedly talks about her fears that she is dying and that her eyes are bleeding, despite attempts to reassure her that they are not. She refuses to eat and staff have to spoon feed her and encourage her to drink. A UA was ordered but not yet collected. She was seen in the hallway where she was seated in a chair with 1:1 staff at her side, helping her to drink. She says she is "terrible," and repeatedly stated she is dying. She denies pain, n/v, and cannot describe why she thinks she is dying, and when asked says "I saw a light last night." She continues to sleep poorly, 2 hours last night, and another couple of hours this morning. She says she is "a mess, like I'm dying, gonna choke up some blood." She says she felt anxious during her 's visit last night, because her daughter came too. Staff reminded her that her daughter did not visit yesterday, although she was here this past weekend. Sleep Information Total Hours of Sleep: 4.25 Meal Information Percent of Breakfast Consumed: 50 Percent of Lunch Consumed: 0 Percent of Dinner Consumed: 75 Mental Status Exam During interview pt is: cooperative, other (seated in mild distress in chair in TIM, with staff helping her to drink water) Appearance: disheveled Eye contact is: fair Motor behavior is: psychomotor agitation (restless) Speech: other (slowed, disjointed) Affect: anxious, constricted (heavy breathing at times, looks distraught) Mood is: other ("terrible") Thought process: goal directed (at times able to answer questions appropriately ), perseveration (that she is dying and her eyes are bleeding) Thought content: delusions ("my eyes are bleeding"), other Hallucinations: other (not overtly responding to internal stimuli however this cannot be ruled out) Cognition: other (all spheres impaired) Insight: severely impaired Judgement: severely impaired Impression Remains paranoid, psychotic, and disorganized. Her condition has deteriorated, at times unable to communicate clearly, and with bizarre behaviors and resistance to staff's attempts to help her with ADLs. Refusing food, poor sleep , and spitting out meds. CXR neg, leukocytosis improving, and no left shift. QTc improved. No evidence of NMS as afebrile, no stiffness. She is disorganized and there is concern for agitated catatonia, now getting Xanax (as family report bad reaction to Ativan), 8mg yesterday. Continued Inpatient Care The patient requires inpatient care due to the severity of her condition and inability to manipulate information in a reality based manner. Plan (1) Bipolar 1 disorder -Every 15 minute checks for safety -Encourage participation in unit groups and programming -Work on healthy coping skills and her discharge safety plan, to include securing of medications in the home, and ensuring that guns are locked and she will not have access. -Family meeting with . -Coordinate care with outpatient providers, Dr. reece Bob and Patria Espinal at [facility]. -Continue home doses of lamotrigine, temazepam, Saphris, and Cytomel. -Continue taper off of Pristiq, and continued titration up on lithium, which was increased to 300 mg in the morning and 900 mg at bedtime last night. She will need a trough level after 5 days (11/16/2016). -Offer hydroxyzine as needed for sleep and anxiety, and have also ordered clonazepam 0.5 mg as needed for anxiety, as she reports alprazolam was helpful in the ER, and says she is allergic to lorazepam. -Check fasting labs for monitoring on an atypical, as last labs in her records were done in December 2015. At that time, glucose was elevated at 109, and lipids were normal. 11/13 - FLP and FBS WNL today - Reality orientation - Continue current meds - Family meeting with . 11/14 - Continue with reality orientation and groups, as periodic derealization/ dissociation - Continue lithium, Saphris, lamotrigine, temazepam and Cytomel 11/15 - Did not receive lithium last night so will DC level. Continue current lithium dosing - Will add Haldol 5 mg. BID with dose now. patient may refuse, but in looking at past med trials, she has never been tried on a typical. - Reality orientation 11/16 --mild lengthening of QTc after 3 doses of Haldol 5 mg yesterday. Initially refused am medications but ultimately accepted with plan to taper Saphris in favor of a retrial of Zyprexa. Reviewed that Haldol will be used as a bridge and hopefully coadmin with lamictal and lithium will allow lower dosing of Zyprexa than previously. Patient and well aware of metabolic risks. 11/17 - will d/c haldol as no improvement and h/o poor tx effect on this agent per family - will increase Zyprexa to 2.5mg qam w/ now dose and 10mg qhs - liberalize klonopin prn utilization - she is now off the saphris 11/18 - Continues to decline and appearing more psychotic and disorganized again today. She refused her scheduled 2.5 mg Zyprexa but ultimately was agreeable to take a 10 mg now dose. She will receive another 10 mg at bedtime tonight and will schedule for 10 mg twice a day starting tomorrow. Appears she has required very high dose antipsychotic treatment in the past. - As her psychosis worsens, her insight and judgment are increasingly impaired. At the present time she appears to lack the insight and inability to rationally manipulate information such that an involuntary commitment should be considered. Additionally, with her declining insight, she is becoming more resistant to medication compliance. In my clinical opinion, should she refuse oral medications, she should be treated over her objection for worsening psychosis. - She is appearing more tachycardic. Fluid intake ok. Vital signs otherwise okay. QTc was borderline on recent EKG. Considered ordering another EKG today but I did not feel that she would tolerate it today. - if psychosis does not improve with antipsychotic titration, consider EEG given h/o seizure disorder. this might also help r/o possibility of something like lithium induced encephalopathy. 11/19 -Adjust Zyprexa to 20 mg. all HS and add 2.5 mg. BID prn psychosis - Reduce lithium to 900 mg. HS only with level in 5 days. - DC temazepam 11/20 - Continue current meds 11/21 - Meeting held with patient and family. Will taper off lithium at family's request, and due to poor response after almost 2 weeks on it. - Continue olanzapine 20mg qhs and 2/5mg prn. Continue Artane 5mg bid. - Reviewed case with Sales Representative Graphic Art Dr. Solis, who was also involved last evening re: staff's concerns about patient's symptoms and behavior. Reviewed med adjustments as above, and will add stelazine 1mg prn for psychosis, as olanzapine prns not always effective. 11/22 -1:1 for safety given disorganization and inappropriate behaviors - Will DC artane and bentyl in the event its worsening a delirium. - Will start scheduled stelazine 1 mg. BID and continue 1 mg. BID prn - Will prioritize the use of prn BZD's tonight in view of elevated CK - If patient able to be still, will order EEG to assist us in rule out delirium - Ekalaka DC'd - Case has been reviewed with both Dr. Benson and Dr. Solis 11/23 --continue 1-1, confirming necessary am labs with [facility] hospitalist before blood draw. Extensive discussion with and daughter Fe about her current condition and medical necessity for blood draw, will convert to 302 if necessary to restrain for labs, family support this if needed. Will advocate for IV sedation at this point, will consult with critical care team to determine if candidate for Ketamine. Schizoaffective more likely diagnosis at this point. Clearly periods of catatonia with agitated catatonia +/- delirium. CPK may indicate risk for early NMS, family is aware of risk given her escalating need for antipsychotics. Daughter did confirm that prior reaction to Ativan was anaphylaxis and ICU stay so Ativan IM or drip is not an option. Will discuss needs with Dr. Ramirez. 11/24 - Continue on 1:1. Agitation continues. Slight improvement in CPK level and Potassium level. Clonidine appears to have helped decreased tachycardia. 11/25 -Agitation briefly improves following dosing of Xanax. Will add PRN dose of Xanax to allow for more frequent dosing for breakthrough agitation. -staff will continue to encourage fluid and electrolyte intake 11/26 -Continue 1:1, focus on hydration and use of Xanax for presumed agitated catatonia, and continue scheduled doses of olanzapine, lamotrigine, and Cytomel. 11/27 -Continue current plan. Encourage po intake. UA has been ordered, again requested staff collect sample, to rule out UTI. (2) Obesity Offer dietary consultation. Encouraged continued work on decreasing soda intake , and educated on healthy food choices and the importance of exercise. Discharge / Aftercare Planning Primary Care Physician: Name: [facility] Psychiatrist: Name: Dr. Malik at [facility] Date of Appointment: Dec 13, 2016 Time of Appointment: 3:20 Therapist: Name: Patria at [facility] Date of Appointment: Nov 26, 2016 Time of Appointment: 1:30pm Visit Code E&M Code: 32689 Inventory Assets Strengths: "I'm a good mom, grandma, and ," "love to give to people. Per patient on admission. Risk Factors Assessment : Yes /single/: No Higher / Fall in social status: No Health problems: Yes Mental Health Diagnoses: Yes Substance use disorders: No Previous attempt: Yes Previous attempt;highly lethal: Yes Family history of suicide: No Previous psychiatric stay: Yes Hopelessness: No Smoker: No Protective Factors Assessment Orthodoxy beliefs: Yes : Yes Responsible for young children: No Employed: No Stable relationships: Yes Supportive family: Yes Good rapport with provider: Yes Data Vital Signs Last 24 Hrs: Date Time Temp Pulse Resp B/P Pulse Ox O2 Delivery O2 Flow Rate FiO2 11/27/16 09:13 95 Room Air 11/27/16 07:19 96 Room Air 11/27/16 07:07 36.6 91 18 112/76 11/27/16 01:07 97 Room Air 11/26/16 20:37 99 Room Air 11/26/16 20:37 36.5 93 20 111/77 11/26/16 16:47 36.5 88 16 97/67 11/26/16 16:46 99 Room Air 11/26/16 12:32 95 18 103/70 11/26/16 12:30 96 Room Air Lab Results Last 24 Hrs: Last 24 Hours Test 11/27/16 07:20 White Blood Count 8.03 K/uL Red Blood Count 4.06 M/uL Hemoglobin 12.2 g/dL Hematocrit 37.7 % Mean Corpuscular Volume 92.9 fL Mean Corpuscular Hemoglobin 30.0 pg Mean Corpuscular Hemoglobin Concent 32.4 g/dl RDW Standard Deviation 48.9 fL RDW Coefficient of Variation 14.5 % Platelet Count 277 K/uL Mean Platelet Volume 11.1 fL Sodium Level 142 mmol/L Potassium Level 3.7 mmol/L Chloride Level 107 mmol/L Carbon Dioxide Level 28 mmol/L Anion Gap 7.0 mmol/L Blood Urea Nitrogen 3 mg/dl Creatinine 0.58 mg/dl Est Creatinine Clear Calc Drug Dose 151.5 ml/min Estimated GFR () 127.2 Estimated GFR (Non- 109.8 BUN/Creatinine Ratio 5.2 Random Glucose 107 mg/dl Calcium Level 9.0 mg/dl Magnesium Level 2.3 mg/dl Total Creatine Kinase 139 U/L
[2016-11-27 12:56] LABS: URINE APPEARANCE CLEAR (CLEAR); URINE BILIRUBIN NEG (NEG); URINE COLOR YELLOW; URINE EPITHELIAL CELL AUTO >30 /lpf (0-5); URINE NITRITE NEG (NEG); URINE SPECIFIC GRAVITY 1.011 (1.000-1.030); UROBILINOGEN NEG (NEG); ZZUR CULT IF INDIC CLEAN CATCH NO
[2016-11-27 13:02] LABS: MANUAL MICROSCOPIC REQUIRED? NO; REVIEW REQ? NO
[2016-11-27] MEDS: BENZONATATE 100MG CAP PO PRN ×2 (17:02→20:36)
[2016-11-27] MEDS: OLANZAPINE ZYDIS 10 MG ORALLY DIS. TAB PO SCH (20:36)
[2016-11-28 06:58] VITALS: BP 101/70; PULSE 99; TEMP 36.8
[2016-11-28] MEDS: GUAIFENESIN 600 MG TABCR PO SCH (07:44)
[2016-11-28] MEDS: CHECK CLONIDINE PATCH PLACEMENT SCH ×3 (08:00→23:34)
--- NOTE | 2016-11-28 08:49 | Psychiatric Progress Notes ---
Progress Note Date of Service Nov 28, 2016. Interval History 46 yo woman, outpatient of Dr. Wells, admitted with severe anxiety, depression and auditory hallucinations. Diagnosis is bipolar disorder type I vs schizoaffective disorder, bipolar type. Chief Complaint "Anxious, 'cause I'm not taking care of myself". Subjective Patient was seen & assessed interval progress reviewed with Treatment Team. Staff report she had a good visit with last night, it went well, and she ate better, 50% of each meal. She slept 8 hours last night. Her UA was collected and appeared contaminated. Her gait was more steady this morning. She had a 303 hearing today and attended with her . She told her attorney general she did not want to stay in the hospital, after stating yesterday that she did. She was seen with her present. She states she feels very anxious, and repeats the same statements over and over, stating "I'm not taking care of myself." She reports feeling confused, and says she doesn't know what medications she is on, so we reviewed each of them in detail. She is very distraught, and is difficult to reassure. Her shares that she appears much improved today, as she is steadier on her feet, has been eating and drinking more, and slept better last night. She denies thoughts of harming herself or anyone else, and denies hallucinations. She continues to feel overwhelmed and distressed, and cannot identify a clear trigger. She was able to shower last night, and was able to dress herself and brush her teeth this morning, although it did take an extended period of time. Sleep Information Total Hours of Sleep: 8.00 Meal Information Percent of Breakfast Consumed: 50 Percent of Lunch Consumed: 50 Percent of Dinner Consumed: 50 Mental Status Exam During interview pt is: cooperative, other Appearance: other (dressed in street clothes, better grooming than the past week, hair combed) Eye contact is: fair Motor behavior is: psychomotor agitation (restless, but improved from yesterday ) Speech: other (slowed, disjointed) Affect: anxious, constricted (heavy breathing at times, looks distraught) Mood is: other ("anxious") Thought process: goal directed (at times able to answer questions appropriately ), perseveration (on her inability to care for herself) Thought content: other (no delusions expressed today) Suicidal thought are: denied Homicidal thoughts are: denied Hallucinations: denies auditory, denies visual Cognition: other (all spheres impaired) Intelligence estimated to be: average Insight: severely impaired Judgement: severely impaired Impression Remains paranoid, psychotic, and disorganized. Her condition has deteriorated, at times unable to communicate clearly, and with bizarre behaviors and resistance to staff's attempts to help her with ADLs. Medical workup done and electrolytes replaced. She is disorganized and there is concern for agitated catatonia, now getting Xanax (as family report bad reaction to Ativan). Some improvement over the past 24 hours, and on a 303 as of today. Continued Inpatient Care The patient requires inpatient care due to the severity of her condition and inability to manipulate information in a reality based manner. Plan (1) Bipolar 1 disorder -Every 15 minute checks for safety -Encourage participation in unit groups and programming -Work on healthy coping skills and her discharge safety plan, to include securing of medications in the home, and ensuring that guns are locked and she will not have access. -Family meeting with . -Coordinate care with outpatient providers, Dr. Malik and Patria Espinal at [facility]. -Continue home doses of lamotrigine, temazepam, Saphris, and Cytomel. -Continue taper off of Pristiq, and continued titration up on lithium, which was increased to 300 mg in the morning and 900 mg at bedtime last night. She will need a trough level after 5 days (11/16/2016). -Offer hydroxyzine as needed for sleep and anxiety, and have also ordered clonazepam 0.5 mg as needed for anxiety, as she reports alprazolam was helpful in the ER, and says she is allergic to lorazepam. -Check fasting labs for monitoring on an atypical, as last labs in her records were done in December 2015. At that time, glucose was elevated at 109, and lipids were normal. 11/13 - FLP and FBS WNL today - Reality orientation - Continue current meds - Family meeting with . 11/14 - Continue with reality orientation and groups, as periodic derealization/ dissociation - Continue lithium, Saphris, lamotrigine, temazepam and Cytomel 11/15 - Did not receive lithium last night so will DC level. Continue current lithium dosing - Will add Haldol 5 mg. BID with dose now. patient may refuse, but in looking at past med trials, she has never been tried on a typical. - Reality orientation 11/16 --mild lengthening of QTc after 3 doses of Haldol 5 mg yesterday. Initially refused am medications but ultimately accepted with plan to taper Saphris in favor of a retrial of Zyprexa. Reviewed that Haldol will be used as a bridge and hopefully coadmin with lamictal and lithium will allow lower dosing of Zyprexa than previously. Patient and well aware of metabolic risks. 11/17 - will d/c haldol as no improvement and h/o poor tx effect on this agent per family - will increase Zyprexa to 2.5mg qam w/ now dose and 10mg qhs - liberalize klonopin prn utilization - she is now off the saphris 11/18 - Continues to decline and appearing more psychotic and disorganized again today. She refused her scheduled 2.5 mg Zyprexa but ultimately was agreeable to take a 10 mg now dose. She will receive another 10 mg at bedtime tonight and will schedule for 10 mg twice a day starting tomorrow. Appears she has required very high dose antipsychotic treatment in the past. - As her psychosis worsens, her insight and judgment are increasingly impaired. At the present time she appears to lack the insight and inability to rationally manipulate information such that an involuntary commitment should be considered. Additionally, with her declining insight, she is becoming more resistant to medication compliance. In my clinical opinion, should she refuse oral medications, she should be treated over her objection for worsening psychosis. - She is appearing more tachycardic. Fluid intake ok. Vital signs otherwise okay. QTc was borderline on recent EKG. Considered ordering another EKG today but I did not feel that she would tolerate it today. - if psychosis does not improve with antipsychotic titration, consider EEG given h/o seizure disorder. this might also help r/o possibility of something like lithium induced encephalopathy. 11/19 - Adjust Zyprexa to 20 mg. all HS and add 2.5 mg. BID prn psychosis - Reduce lithium to 900 mg. HS only with level in 5 days. - DC temazepam 11/20 - Continue current meds 11/21 - Meeting held with patient and family. Will taper off lithium at family's request, and due to poor response after almost 2 weeks on it. - Continue olanzapine 20mg qhs and 2/5mg prn. Continue Artane 5mg bid. - Reviewed case with Bag Tester Dr. Solis, who was also involved last evening re: staff's concerns about patient's symptoms and behavior. Reviewed med adjustments as above, and will add stelazine 1mg prn for psychosis, as olanzapine prns not always effective. 11/22 -1:1 for safety given disorganization and inappropriate behaviors - Will DC artane and bentyl in the event its worsening a delirium. - Will start scheduled stelazine 1 mg. BID and continue 1 mg. BID prn - Will prioritize the use of prn BZD's tonight in view of elevated CK - If patient able to be still, will order EEG to assist us in rule out delirium - [place] DC'd - Case has been reviewed with both Dr. Benson and Dr. Solis 11/23 --continue 1-1, confirming necessary am labs with [facility] hospitalist before blood draw. Extensive discussion with and daughter Fe about her current condition and medical necessity for blood draw, will convert to 302 if necessary to restrain for labs, family support this if needed. Will advocate for IV sedation at this point, will consult with critical care team to determine if candidate for Ketamine. Schizoaffective more likely diagnosis at this point. Clearly periods of catatonia with agitated catatonia +/- delirium. CPK may indicate risk for early NMS, family is aware of risk given her escalating need for antipsychotics. Daughter did confirm that prior reaction to Ativan was anaphylaxis and ICU stay so Ativan IM or drip is not an option. Will discuss needs with Dr. Ramirez. 11/24 -Continue on 1:1. Agitation continues. Slight improvement in CPK level and Potassium level. Clonidine appears to have helped decreased tachycardia. 11/25 -Agitation briefly improves following dosing of Xanax. Will add PRN dose of Xanax to allow for more frequent dosing for breakthrough agitation. -staff will continue to encourage fluid and electrolyte intake 11/26 -Continue 1:1, focus on hydration and use of Xanax for presumed agitated catatonia, and continue scheduled doses of olanzapine, lamotrigine, and Cytomel. 11/27 -Continue current plan. Encourage po intake. UA has been ordered, again requested staff collect sample, to rule out UTI. 11/28 -UA collected, appears to be a contaminated sample (>30 epis, but no bacteria ). -303 granted. (2) Obesity Offer dietary consultation. Encouraged continued work on decreasing soda intake , and educated on healthy food choices and the importance of exercise. Discharge / Aftercare Planning Primary Care Physician: Name: [facility] Psychiatrist: Name: Dr. Malik at [facility] Date of Appointment: Dec 13, 2016 Time of Appointment: 3:20 Therapist: Name: Patria at [facility] Date of Appointment: Nov 26, 2016 Time of Appointment: 1:30pm Visit Code E&M Code: 01973 Inventory Assets Strengths: "I'm a good mom, grandma, and ," "love to give to people. Per patient on admission. Risk Factors Assessment : Yes /single/: No Higher / Fall in social status: No Health problems: Yes Mental Health Diagnoses: Yes Substance use disorders: No Previous attempt: Yes Previous attempt;highly lethal: Yes Family history of suicide: No Previous psychiatric stay: Yes Hopelessness: No Smoker: No Protective Factors Assessment Syn[employer] beliefs: Yes : Yes Responsible for young children: No Employed: No Stable relationships: Yes Supportive family: Yes Good rapport with provider: Yes Data Vital Signs Last 24 Hrs: Date Time Temp Pulse Resp B/P Pulse Ox O2 Delivery O2 Flow Rate FiO2 11/28/16 06:58 36.8 99 16 101/70 11/27/16 22:28 95 Room Air 11/27/16 17:32 99 Room Air 11/27/16 14:09 96 Room Air 11/27/16 09:13 95 Room Air Lab Results Last 24 Hrs: Last 24 Hours Test 11/27/16 12:30 Urine Color YELLOW Urine Appearance CLEAR Urine pH 6.0 Urine Specific [place] 1.011 Urine Protein NEG Urine Glucose (UA) NEG Urine Ketones NEG Urine Occult Blood 3+ Urine Nitrite NEG Urine Bilirubin NEG Urine Urobilinogen NEG Urine Leukocyte Esterase SMALL Urine WBC (Auto) 5-10 /hpf Urine RBC (Auto) >30 /hpf Urine Hyaline Casts (Auto) 1-5 /lpf Urine Epithelial Cells (Auto) >30 /lpf Urine Bacteria (Auto) NEG
[2016-11-28] MEDS: POTASSIUM CHLORIDE 20 MEQ/15 ML UDC PO SCH ×2 (09:23→21:18)
[2016-11-28] MEDS: LIOTHYRONINE SODIUM 25 MCG TAB PO SCH (09:23)
[2016-11-28] MEDS: PROBIOTIC GUMMIES PO SCH (09:26)
[2016-11-28] MEDS: ALPRAZOLAM 0.5 MG TAB PO SCH ×4 (09:27→21:18)
[2016-11-28 09:47] VITALS: O2SAT 96
[2016-11-28] MEDS: ALPRAZOLAM 0.5 MG TAB PO PRN (10:42)
[2016-11-28 17:23] VITALS: O2SAT 97
[2016-11-28] MEDS: BENZONATATE 100MG CAP PO PRN ×2 (19:12→22:45)
[2016-11-28 20:29] VITALS: O2SAT 97
[2016-11-28] MEDS: OLANZAPINE ZYDIS 10 MG ORALLY DIS. TAB PO SCH (21:18)
[2016-11-29 04:52] VITALS: O2SAT 97
[2016-11-29 06:40] VITALS: BP_SYST 111; BP_SYST 125; BP_DIAS 79; BP_DIAS 84; PULSE 90; PULSE 96; TEMP 36.6
[2016-11-29] MEDS: CHECK CLONIDINE PATCH PLACEMENT SCH ×2 (07:49→16:00)
[2016-11-29] MEDS: POTASSIUM CHLORIDE 20 MEQ/15 ML UDC PO SCH ×2 (07:50→21:09)
[2016-11-29] MEDS: LIOTHYRONINE SODIUM 25 MCG TAB PO SCH (07:50)
[2016-11-29] MEDS: PROBIOTIC GUMMIES PO SCH (07:51)
[2016-11-29] MEDS: ALPRAZOLAM 0.5 MG TAB PO SCH ×4 (07:53→21:10)
[2016-11-29 09:12] VITALS: O2SAT 96
--- NOTE | 2016-11-29 09:37 | Psychiatric Progress Notes ---
Progress Note Date of Service Nov 29, 2016. Interval History 46 yo woman, outpatient of Dr. Wells, admitted with severe anxiety, depression and auditory hallucinations. Diagnosis is bipolar disorder type I vs schizoaffective disorder, bipolar type. Chief Complaint "OK". Subjective Patient was seen & assessed interval progress reviewed with Treatment Team. The patient is less verbal today, not answering in full sentences. Is able to say that she is "OK", and denies aud/vis hallucinations, and denies SI/HI. She is trying to feed herself, but is stiff and having difficulty manipulating the spoon. There is mild stiffness in upper extremities, but no cogwheeling. She is ambulating with steady gait, but with little arm swing. Nursing reports that she has had multiple episodes of urinary incontinence, and has been showering frequently. She slept for 4 hours last night which Becky feels is "good". She has seemed disorganized at times, and continues with shallow breathing, but less frequent coughing. Review of Systems Constitutional: No chills, No fatigue, No fever, No problem reported, No sweats , No weakness, No weight loss ENT: No dental problems, No hearing loss, No nasal symptoms, No problem reported, No sore throat, No tinnitus, No trouble swallowing, No unusual epistaxis Respiratory: + cough (occasional), + problem reported (shallow respirations) Cardiovascular: No PND, No chest pain, No claudication, No edema, No orthopnea , No palpitations, No problem reported Abdomen: + problem reported (urinary incontinence) Musculoskeletal: + problem reported (muscle stiffness, bradykinesia) Neurologic: No balance problems, No memory loss, No numbness/tingling, No paralysis, No problem reported, No vertigo, No weakness Psychiatric: + anxiety Integumentary: No bleeding, No color change, No itch, No new/changing skin lesions, No problem reported, No rash Sleep Information Total Hours of Sleep: 4.00 Meal Information Percent of Breakfast Consumed: 50 Percent of Lunch Consumed: 75 Percent of Dinner Consumed: 50 Mental Status Exam During interview pt is: cooperative Appearance: appropriately dressed, appropriately groomed Eye contact is: fair (staring) Motor behavior is: psychomotor agitation (restless, cannot sit for long periods , with bradykinesia) Speech: other (slowed, minimal) Affect: anxious, constricted (heavy breathing at times, looks distraught) Mood is: anxious Thought process: goal directed (at times able to answer questions appropriately ) Thought content: reality based without delusions Suicidal thought are: denied Homicidal thoughts are: denied Hallucinations: denies auditory, denies visual Cognition: other (all spheres impaired) Intelligence estimated to be: average Insight: severely impaired Judgement: severely impaired Impression Some improvement to condition including her ability to communicate, eat, and behave appropriately. Has been on 1:1 since last week. Today we will loosen the supervision to see how she is able to manage her behaviors, but will not DC 1:1. If able to manage herself safety and appropriately will consider DC 1:1. 303 granted yesterday. Patient is stiff, and so will trial a one time dose of Cogentin 1 mg. to see if helpful, as it is impairing her ability to feed herself , but with caution to worsening any component of delirium. Will continue other meds. Will run some labs tomorrow including CMP and lamictal level. Continued Inpatient Care The patient requires inpatient care due to the severity of her condition and inability to manipulate information in a reality based manner. Plan (1) Bipolar 1 disorder -Every 15 minute checks for safety -Encourage participation in unit groups and programming -Work on healthy coping skills and her discharge safety plan, to include securing of medications in the home, and ensuring that guns are locked and she will not have access. -Family meeting with . -Coordinate care with outpatient providers, Dr. Malik and [facility]ria [facility]. -Continue home doses of lamotrigine, temazepam, Saphris, and Cytomel. -Continue taper off of Pristiq, and continued titration up on lithium, which was increased to 300 mg in the morning and 900 mg at bedtime last night. She will need a trough level after 5 days (11/16/2016). -Offer hydroxyzine as needed for sleep and anxiety, and have also ordered clonazepam 0.5 mg as needed for anxiety, as she reports alprazolam was helpful in the ER, and says she is allergic to lorazepam. -Check fasting labs for monitoring on an atypical, as last labs in her records were done in December 2015. At that time, glucose was elevated at 109, and lipids were normal. 11/13 - FLP and FBS WNL today - Reality orientation - Continue current meds - Family meeting with . 3/8 - Continue with reality orientation and groups, as periodic derealization/ dissociation - Continue lithium, Saphris, lamotrigine, temazepam and Cytomel 11/15 - Did not receive lithium last night so will DC level. Continue current lithium dosing - Will add Haldol 5 mg. BID with dose now. patient may refuse, but in looking at past med trials, she has never been tried on a typical. - Reality orientation 11/16 --mild lengthening of QTc after 3 doses of Haldol 5 mg yesterday. Initially refused am medications but ultimately accepted with plan to taper Saphris in favor of a retrial of Zyprexa. Reviewed that Haldol will be used as a bridge and hopefully coadmin with lamictal and lithium will allow lower dosing of Zyprexa than previously. Patient and well aware of metabolic risks. 11/17 - will d/c haldol as no improvement and h/o poor tx effect on this agent per family - will increase Zyprexa to 2.5mg qam w/ now dose and 10mg qhs - liberalize klonopin prn utilization - she is now off the saphris 11/18 - Continues to decline and appearing more psychotic and disorganized again today. She refused her scheduled 2.5 mg Zyprexa but ultimately was agreeable to take a 10 mg now dose. She will receive another 10 mg at bedtime tonight and will schedule for 10 mg twice a day starting tomorrow. Appears she has required very high dose antipsychotic treatment in the past. - As her psychosis worsens, her insight and judgment are increasingly impaired. At the present time she appears to lack the insight and inability to rationally manipulate information such that an involuntary commitment should be considered. Additionally, with her declining insight, she is becoming more resistant to medication compliance. In my clinical opinion, should she refuse oral medications, she should be treated over her objection for worsening psychosis. - She is appearing more tachycardic. Fluid intake ok. Vital signs otherwise okay. QTc was borderline on recent EKG. Considered ordering another EKG today but I did not feel that she would tolerate it today. - if psychosis does not improve with antipsychotic titration, consider EEG given h/o seizure disorder. this might also help r/o possibility of something like lithium induced encephalopathy. 3/13 - Adjust Zyprexa to 20 mg. all HS and add 2.5 mg. BID prn psychosis - Reduce lithium to 900 mg. HS only with level in 5 days. - DC temazepam 11/20 - Continue current meds 11/21 - Meeting held with patient and family. Will taper off lithium at family's request, and due to poor response after almost 2 weeks on it. - Continue olanzapine 20mg qhs and 2/5mg prn. Continue Artane 5mg bid. - Reviewed case with Neurology Hospitalist Dr. Solis, who was also involved last evening re: staff's concerns about patient's symptoms and behavior. Reviewed med adjustments as above, and will add stelazine 1mg prn for psychosis, as olanzapine prns not always effective. 11/22 -1:1 for safety given disorganization and inappropriate behaviors - Will DC artane and bentyl in the event its worsening a delirium. - Will start scheduled stelazine 1 mg. BID and continue 1 mg. BID prn - Will prioritize the use of prn BZD's tonight in view of elevated CK - If patient able to be still, will order EEG to assist us in rule out delirium - [place] DC'd - Case has been reviewed with both Dr. Benson and Dr. Solis 11/23 --continue 1-1, confirming necessary am labs with [facility] hospitalist before blood draw. Extensive discussion with and daughter Fe about her current condition and medical necessity for blood draw, will convert to 302 if necessary to restrain for labs, family support this if needed. Will advocate for IV sedation at this point, will consult with critical care team to determine if candidate for Ketamine. Schizoaffective more likely diagnosis at this point. Clearly periods of catatonia with agitated catatonia +/- delirium. CPK may indicate risk for early NMS, family is aware of risk given her escalating need for antipsychotics. Daughter did confirm that prior reaction to Ativan was anaphylaxis and ICU stay so Ativan IM or drip is not an option. Will discuss needs with Dr. Ramirez. 11/24 -Continue on 1:1. Agitation continues. Slight improvement in CPK level and Potassium level. Clonidine appears to have helped decreased tachycardia. 11/25 -Agitation briefly improves following dosing of Xanax. Will add PRN dose of Xanax to allow for more frequent dosing for breakthrough agitation. -staff will continue to encourage fluid and electrolyte intake 11/26 -Continue 1:1, focus on hydration and use of Xanax for presumed agitated catatonia, and continue scheduled doses of olanzapine, lamotrigine, and Cytomel. 11/27 -Continue current plan. Encourage po intake. UA has been ordered, again requested staff collect sample, to rule out UTI. 11/28 -UA collected, appears to be a contaminated sample (>30 epis, but no bacteria ). -303 granted. 11/29 - Will give Becky some space to see if she can manage herself without direct 1 :1 supervision. - Agitated Catatonia persists with some mile improvement. Continue high dose BZD's (2) Obesity Offer dietary consultation. Encouraged continued work on decreasing soda intake , and educated on healthy food choices and the importance of exercise. Discharge / Aftercare Planning Primary Care Physician: Name: [facility] Psychiatrist: Name: Dr. Malik at [facility] Date of Appointment: Dec 13, 2016 Time of Appointment: 3:20 Therapist: Name: Patria weiss [facility] Date of Appointment: Nov 26, 2016 Time of Appointment: 1:30pm Visit Code E&M Code: 43224 Inventory Assets Strengths: "I'm a good mom, grandma, and ," "love to give to people. Per patient on admission. Risk Factors Assessment : Yes /single/: No Higher / Fall in social status: No Health problems: Yes Mental Health Diagnoses: Yes Substance use disorders: No Previous attempt: Yes Previous attempt;highly lethal: Yes Family history of suicide: No Previous psychiatric stay: Yes Hopelessness: No Smoker: No Protective Factors Assessment Pent[employer]al beliefs: Yes : Yes Responsible for young children: No Employed: No Stable relationships: Yes Supportive family: Yes Good rapport with provider: Yes Data Vital Signs Last 24 Hrs: Date Time Temp Pulse Resp B/P Pulse Ox O2 Delivery O2 Flow Rate FiO2 11/29/16 06:40 36.6 90 16 111/79 96 125/84 11/29/16 04:52 97 Room Air 11/28/16 20:29 97 Room Air 11/28/16 17:23 97 Room Air 11/28/16 09:47 96 Room Air Meds Administered Last 24 Hrs: Current Inpatient Medications Medications (Trade) Dose Ordered Sig/Uriah Route Start Time Stop Time Status Last Admin Dose Admin Acetaminophen (Tylenol Tab) 650 mg Q4H PRN PO 11/11/16 18:15 12/11/16 18:14 Bismuth Subsalicylate (Kaopectate Liqd) 15 ml PRN PRN PO 11/11/16 18:15 12/11/16 18:14 11/14/16 16:53 15 ML Al Hydroxide/Mg Hydroxide (Maalox Susp) 30 ml Q4H PRN PO 11/11/16 18:15 12/11/16 18:14 Magnesium Hydroxide (Milk Of Magnesia Susp) 30 ml DAILY PRN PO 11/11/16 18:15 12/11/16 18:14 Sodium Chloride ([place] Nasal [place]) PRN PRN NA 11/11/16 18:15 12/11/16 18:14 Lamotrigine (Lamictal Tab) 400 mg QAM PO 11/12/16 09:00 12/12/16 08:59 11/29/16 07:51 400 MG Liothyronine Sodium (Cytomel Tab) 12.5 mcg DAILY PO 11/12/16 09:00 12/12/16 08:59 11/29/16 07:50 12.5 MCG Albuterol (Ventolin Hfa Inhaler) 2 puffs Q4H PRN INH 11/13/16 14:30 12/13/16 14:29 11/26/16 03:14 2 PUFFS Loperamide HCl (Imodium Cap) 2 mg Q4 PRN PO 11/14/16 10:00 12/14/16 09:59 11/18/16 01:20 2 MG Benztropine Mesylate (Cogentin Tab) 0.5 mg Q6 PRN PO 11/15/16 17:15 12/15/16 17:14 11/28/16 10:45 0.5 MG Non-Formulary Medication (Non-Formulary Patient'S Own Med) 2 ea QAM PO 11/16/16 09:00 12/16/16 08:59 11/29/16 07:51 2 EA Benzonatate (Tessalon Perles Cap) 100 mg TID PRN PO 11/18/16 21:30 12/18/16 21:29 11/28/16 22:45 100 MG Olanzapine (Zyprexa Zydis Od Tab) 30 mg HS PO 11/23/16 22:00 12/23/16 21:59 11/28/16 21:18 30 MG Alprazolam (Xanax Tab) 1 mg QID PO 11/23/16 09:30 12/23/16 09:29 11/29/16 07:53 1 MG Miscellaneous Information (Check Clonidine Patch Placement) 1 ea QS N/A 11/23/16 16:00 12/23/16 15:59 11/29/16 07:49 1 EA Clonidine HCl (Tncusvdv-Gol-8 0.1mg/24hr Patch) 1 patch Fr@0900 TD 11/23/16 10:00 12/23/16 09:59 11/23/16 10:10 1 PATCH Miscellaneous (Remove Clonidine Patch) 1 ea Q7D@0859 N/A 11/30/16 08:59 12/30/16 08:58 Potassium Chloride ([place] Elix) 20 meq BID PO 11/24/16 11:30 12/24/16 11:29 11/29/16 07:50 20 MEQ Alprazolam (Xanax Tab) 1 mg Q4 PRN PO 11/25/16 10:00 12/25/16 09:59 11/28/16 10:42 1 MG Benztropine Mesylate (Cogentin Tab) 1 mg ONE ONCE PO 11/29/16 09:15 11/29/16 09:16 UNV Lab Results Last 24 Hrs: 11/27/16 07:20 11/27/16 07:20 Test 11/11/16 15:30 11/11/16 16:53 11/13/16 07:20 11/20/16 09:54 Thyroid Stimulating Hormone (TSH) 0.981 uIu/ml (0.300-4.500) Human Chorionic Gonadotropin, Qual NEG (NEG) Ethyl Alcohol mg/dL < 3.0 mg/dl (0-3) Urine Opiates Screen NEG (NEG) Urine Methadone, Qualitative NEG (NEG) Urine Barbiturates NEG (NEG) Urine Phencyclidine (PCP) Level NEG (NEG) Ur Amphetamine/Methamphetamine NEG (NEG) MDMA (Ecstasy) Screen NEG (NEG) Urine Benzodiazepines Screen NEG (NEG) Urine Cocaine Metabolite NEG (NEG) Urine Marijuana (THC) NEG (NEG) Fasting Glucose 91 mg/dl (70-99) Triglycerides Level 97 mg/dl (0-150) Cholesterol Level 123 mg/dl (0-200) HDL Cholesterol 39 mg/dl LDL Cholesterol, Calculated 65 mg/dl VLDL Cholesterol, Calculated 19 mg/dl Cholesterol/HDL Ratio 3.2 [place] Level 1.0 mMOL/L (0.6-1.2) Test 11/21/16 15:50 11/22/16 15:30 11/23/16 09:35 11/24/16 07:45 Immature Granulocyte % (Auto) 0.2 % White Blood Count 13.48 K/uL (4.8-10.8) Red Blood Count 4.00 M/uL (4.2-5.4) Hemoglobin 12.1 g/dL (12.0-16.0) Hematocrit 35.4 % (37-47) Mean Corpuscular Volume 88.5 fL (80-100) Mean Corpuscular Hemoglobin 30.3 pg (25-34) Mean Corpuscular Hemoglobin Concent 34.2 g/dl (32-36) Platelet Count 272 K/uL (130-400) Mean Platelet Volume 10.6 fL (7.4-10.4) Neutrophils (%) (Auto) 72.5 % Lymphocytes (%) (Auto) 17.1 % Monocytes (%) (Auto) 7.4 % Eosinophils (%) (Auto) 2.2 % Basophils (%) (Auto) 0.6 % Neutrophils # (Auto) 9.76 K/uL (1.4-6.5) Lymphocytes # (Auto) 2.31 K/uL (1.2-3.4) Monocytes # (Auto) 1.00 K/uL (0.11-0.59) Eosinophils # (Auto) 0.30 K/uL (0-0.5) Basophils # (Auto) 0.08 K/uL (0-0.2) Immature Granulocyte # (Auto) 0.03 K/uL (0.00-0.02) Prothrombin Time 11.4 SECONDS (9.0-12.0) Prothromb Time International Ratio 1.1 (0.9-1.1) Activated Partial Thromboplast Time 26.8 SECONDS (21.0-31.0) Partial Thromboplastin Ratio 1.0 D-Dimer 440 ug/L FEU (0-500) Creatine Kinase MB 14.9 ng/ml (0.5-3.6) Creatine Kinase MB Ratio 1.7 (0-3.0) Troponin I < 0.015 ng/ml (0-0.045) Globulin 3.9 gm/dl (2.5-4.0) Albumin/Globulin Ratio 1.1 (0.9-2) Total Bilirubin 0.8 mg/dl (0.2-1) Direct Bilirubin mg/dl (0-0.2) Aspartate Amino Transf (AST/SGOT) 46 U/L (15-37) Alanine Aminotransferase (ALT/SGPT) 40 U/L (12-78) Alkaline Phosphatase 91 U/L (45-117) Total Protein 7.8 gm/dl (6.4-8.2) Albumin 3.8 gm/dl (3.4-5.0) Amylase Level 33 U/L (25-115) Lipase 101 U/L (73-393) Chemistry Specimen Hemolysis Pro-B-Type Natriuretic Peptide 37 pg/ml (0-450) Test 11/27/16 07:20 11/27/16 12:30 Red Blood Count 4.06 M/uL (4.2-5.4) Mean Corpuscular Volume 92.9 fL (80-100) Mean Corpuscular Hemoglobin 30.0 pg (25-34) Mean Corpuscular Hemoglobin Concent 32.4 g/dl (32-36) RDW Standard Deviation 48.9 fL (36.4-46.3) RDW Coefficient of Variation 14.5 % (11.5-14.5) Mean Platelet Volume 11.1 fL (7.4-10.4) Anion Gap 7.0 mmol/L (3-11) Est Creatinine Clear Calc Drug Dose 151.5 ml/min Estimated GFR () 127.2 Estimated GFR (Non- 109.8 BUN/Creatinine Ratio 5.2 (10-20) Calcium Level 9.0 mg/dl (8.5-10.1) Magnesium Level 2.3 mg/dl (1.8-2.4) Total Creatine Kinase 139 U/L (26-192) Urine Color YELLOW Urine Appearance CLEAR (CLEAR) Urine pH 6.0 (4.5-7.5) Urine Specific [place] 1.011 (1.000-1.030) Urine Protein NEG (NEG) Urine Glucose (UA) NEG (NEG) Urine Ketones NEG (NEG) Urine Occult Blood 3+ (NEG) Urine Nitrite NEG (NEG) Urine Bilirubin NEG (NEG) Urine Urobilinogen NEG (NEG) Urine Leukocyte Esterase SMALL (NEG) Urine WBC (Auto) 5-10 /hpf (0-5) Urine RBC (Auto) >30 /hpf (0-4) Urine Hyaline Casts (Auto) 1-5 /lpf (0-5) Urine Epithelial Cells (Auto) >30 /lpf (0-5) Urine Bacteria (Auto) NEG (NEG)
[2016-11-29] MEDS ORDERED: BENZTROPINE MESYLATE 1 MG TAB PO ONE (09:45)
[2016-11-29 13:37] VITALS: O2SAT 95
[2016-11-29] MEDS: BENZONATATE 100MG CAP PO PRN (15:09)
[2016-11-29 17:30] VITALS: O2SAT 100
[2016-11-29 21:05] VITALS: O2SAT 96
[2016-11-29] MEDS: OLANZAPINE ZYDIS 10 MG ORALLY DIS. TAB PO SCH (21:09)
[2016-11-30 05:51] VITALS: O2SAT 93
[2016-11-30 07:32] VITALS: BP_SYST 105; BP_SYST 117; BP_DIAS 73; BP_DIAS 74; PULSE 85; PULSE 86; TEMP 36.6
[2016-11-30] MEDS: CHECK CLONIDINE PATCH PLACEMENT SCH ×3 (08:06→16:12)
[2016-11-30] MEDS: LIOTHYRONINE SODIUM 25 MCG TAB PO SCH (08:06)
[2016-11-30] MEDS: PROBIOTIC GUMMIES PO SCH (08:07)
[2016-11-30] MEDS: ALPRAZOLAM 0.5 MG TAB PO SCH ×3 (08:07→21:27)
[2016-11-30] MEDS: CLONIDINE HCL 0.1 MG/24 HR TRANSDERM SYS TD SCH (08:08)
[2016-11-30] MEDS: BENZONATATE 100MG CAP PO PRN (08:16)
[2016-11-30 08:20] LABS: BUN/CREATININE RATIO 8.8 (10-20); CALCIUM 8.8 mg/dl (8.5-10.1); CREATININE 0.66 mg/dl (0.60-1.20); POTASSIUM 3.9 mmol/L (3.5-5.1)
[2016-11-30 08:23] LABS: ALB/GLOB RATIO 0.8 (0.9-2)
[2016-11-30] MEDS: POTASSIUM CHLORIDE 20 MEQ/15 ML UDC PO SCH ×2 (09:02→21:26)
--- NOTE | 2016-11-30 11:26 | Psychiatric Progress Notes ---
Progress Note Date of Service Nov 30, 2016. Interval History 46 yo woman, outpatient of Dr. Wells, admitted with severe anxiety, depression and auditory hallucinations. Diagnosis is bipolar disorder type I vs schizoaffective disorder, bipolar type. Chief Complaint "my will help with my meds when I get home". Subjective Patient was seen & assessed interval progress reviewed with Treatment Team. She was able to visit with daughter and granddaughters last pm. She showered independently and no incontinence on evening shift. More fixated on water and washing herself. Some increase in insight in that is actually aware of updated LOS and when she feels sedated from medications. Sleep remains restless but staff report total 8 hours. Review of Systems Psych: denies symptoms other than stated above Constitutional: denied Cardiovascular: denied GI: denied Neurologic: denied Remainder of 10 body systems also reviewed and denied other than noted above. Sleep Information Total Hours of Sleep: 8.00 Meal Information Percent of Breakfast Consumed: 25 Percent of Lunch Consumed: 50 Percent of Dinner Consumed: 40 Mental Status Exam During interview pt is: cooperative Appearance: appropriately dressed, appropriately groomed Eye contact is: fair (less staring) Motor behavior is: psychomotor agitation (?unsteadiness when sedated) Speech: other (slowed, minimal) Affect: anxious Mood is: anxious Thought process: concrete Thought content: reality based without delusions Suicidal thought are: denied Homicidal thoughts are: denied Hallucinations: denies auditory, denies visual Cognition: other (all spheres impaired) Intelligence estimated to be: average Insight: severely impaired Judgement: severely impaired Impression Some improvement to condition including her ability to communicate, eat, and behave appropriately. Has been on 1:1 since last week. 303 granted 11/28/16. Patient is less stiff today. Continued Inpatient Care The patient requires inpatient care due to the severity of her condition and inability to manipulate information in a reality based manner. Plan (1) Bipolar 1 disorder -Every 15 minute checks for safety -Encourage participation in unit groups and programming -Work on healthy coping skills and her discharge safety plan, to include securing of medications in the home, and ensuring that guns are locked and she will not have access. -Family meeting with . -Coordinate care with outpatient providers, Dr. Malik and Patria Espinal at [facility]. -Continue home doses of lamotrigine, temazepam, Saphris, and Cytomel. -Continue taper off of Pristiq, and continued titration up on lithium, which was increased to 300 mg in the morning and 900 mg at bedtime last night. She will need a trough level after 5 days (11/16/2016). -Offer hydroxyzine as needed for sleep and anxiety, and have also ordered clonazepam 0.5 mg as needed for anxiety, as she reports alprazolam was helpful in the ER, and says she is allergic to lorazepam. -Check fasting labs for monitoring on an atypical, as last labs in her records were done in December 2015. At that time, glucose was elevated at 109, and lipids were normal. 11/13 - FLP and FBS WNL today - Reality orientation - Continue current meds - Family meeting with . 11/14 - Continue with reality orientation and groups, as periodic derealization/ dissociation - Continue lithium, Saphris, lamotrigine, temazepam and Cytomel 11/15 - Did not receive lithium last night so will DC level. Continue current lithium dosing - Will add Haldol 5 mg. BID with dose now. patient may refuse, but in looking at past med trials, she has never been tried on a typical. - Reality orientation 11/16 --mild lengthening of QTc after 3 doses of Haldol 5 mg yesterday. Initially refused am medications but ultimately accepted with plan to taper Saphris in favor of a retrial of Zyprexa. Reviewed that Haldol will be used as a bridge and hopefully coadmin with lamictal and lithium will allow lower dosing of Zyprexa than previously. Patient and well aware of metabolic risks. 11/17 - will d/c haldol as no improvement and h/o poor tx effect on this agent per family - will increase Zyprexa to 2.5mg qam w/ now dose and 10mg qhs - liberalize klonopin prn utilization - she is now off the saphris 11/18 - Continues to decline and appearing more psychotic and disorganized again today. She refused her scheduled 2.5 mg Zyprexa but ultimately was agreeable to take a 10 mg now dose. She will receive another 10 mg at bedtime tonight and will schedule for 10 mg twice a day starting tomorrow. Appears she has required very high dose antipsychotic treatment in the past. - As her psychosis worsens, her insight and judgment are increasingly impaired. At the present time she appears to lack the insight and inability to rationally manipulate information such that an involuntary commitment should be considered. Additionally, with her declining insight, she is becoming more resistant to medication compliance. In my clinical opinion, should she refuse oral medications, she should be treated over her objection for worsening psychosis. - She is appearing more tachycardic. Fluid intake ok. Vital signs otherwise okay. QTc was borderline on recent EKG. Considered ordering another EKG today but I did not feel that she would tolerate it today. - if psychosis does not improve with antipsychotic titration, consider EEG given h/o seizure disorder. this might also help r/o possibility of something like lithium induced encephalopathy. 11/19 - Adjust Zyprexa to 20 mg. all HS and add 2.5 mg. BID prn psychosis - Reduce lithium to 900 mg. HS only with level in 5 days. - DC temazepam 11/20 - Continue current meds 11/21 - Meeting held with patient and family. Will taper off lithium at family's request, and due to poor response after almost 2 weeks on it. - Continue olanzapine 20mg qhs and 2/5mg prn. Continue Artane 5mg bid. - Reviewed case with [employer] Clerk Dr. Solis, who was also involved last evening re: staff's concerns about patient's symptoms and behavior. Reviewed med adjustments as above, and will add stelazine 1mg prn for psychosis, as olanzapine prns not always effective. 11/22 -1:1 for safety given disorganization and inappropriate behaviors - Will DC artane and bentyl in the event its worsening a delirium. - Will start scheduled stelazine 1 mg. BID and continue 1 mg. BID prn - Will prioritize the use of prn BZD's tonight in view of elevated CK - If patient able to be still, will order EEG to assist us in rule out delirium - [place] DC'd - Case has been reviewed with both Dr. Benson and Dr. Solis 11/23 --continue 1-1, confirming necessary am labs with [facility] hospitalist before blood draw. Extensive discussion with and daughter Fe about her current condition and medical necessity for blood draw, will convert to 302 if necessary to restrain for labs, family support this if needed. Will advocate for IV sedation at this point, will consult with critical care team to determine if candidate for Ketamine. Schizoaffective more likely diagnosis at this point. Clearly periods of catatonia with agitated catatonia +/- delirium. CPK may indicate risk for early NMS, family is aware of risk given her escalating need for antipsychotics. Daughter did confirm that prior reaction to Ativan was anaphylaxis and ICU stay so Ativan IM or drip is not an option. Will discuss needs with Dr. Ramirez. 11/24 -Continue on 1:1. Agitation continues. Slight improvement in CPK level and Potassium level. Clonidine appears to have helped decreased tachycardia. 11/25 -Agitation briefly improves following dosing of Xanax. Will add PRN dose of Xanax to allow for more frequent dosing for breakthrough agitation. -staff will continue to encourage fluid and electrolyte intake 11/26 -Continue 1:1, focus on hydration and use of Xanax for presumed agitated catatonia, and continue scheduled doses of olanzapine, lamotrigine, and Cytomel. 11/27 -Continue current plan. Encourage po intake. UA has been ordered, again requested staff collect sample, to rule out UTI. 11/28 -UA collected, appears to be a contaminated sample (>30 epis, but no bacteria ). -303 granted. 11/29 - Will give Becky some space to see if she can manage herself without direct 1 :1 supervision. - Agitated Catatonia persists with some mile improvement. Continue high dose BZD's 11/30 --will start slow benzo taper (2) Obesity Offer dietary consultation. Encouraged continued work on decreasing soda intake , and educated on healthy food choices and the importance of exercise. Discharge / Aftercare Planning Primary Care Physician: Name: [facility] Psychiatrist: Name: Dr. Malik at [facility] Date of Appointment: Dec 13, 2016 Time of Appointment: 3:20 Therapist: Name: Patria Fraire Date of Appointment: Nov 26, 2016 Time of Appointment: 1:30pm Visit Code E&M Code: 91953 Inventory Assets Strengths: "I'm a good mom, grandma, and ," "love to give to people. Per patient on admission. Risk Factors Assessment : Yes /single/: No Higher / Fall in social status: No Health problems: Yes Mental Health Diagnoses: Yes Substance use disorders: No Previous attempt: Yes Previous attempt;highly lethal: Yes Family history of suicide: No Previous psychiatric stay: Yes Hopelessness: No Smoker: No Protective Factors Assessment Shinto beliefs: Yes : Yes Responsible for young children: No Employed: No Stable relationships: Yes Supportive family: Yes Good rapport with provider: Yes Data Vital Signs Last 24 Hrs: Date Time Temp Pulse Resp B/P Pulse Ox O2 Delivery O2 Flow Rate FiO2 11/30/16 07:32 36.6 86 20 117/73 85 105/74 11/30/16 06:48 11/30/16 05:51 93 Room Air 11/29/16 21:05 96 Room Air 11/29/16 17:30 100 Room Air 11/29/16 13:37 95 Room Air Meds Administered Last 24 Hrs: Meds Administered (Past 24Hrs) Medications (Trade) Dose Ordered Sig/Uriah Route Start Time Stop Time Status Last Admin Dose Admin Miscellaneous (Remove Clonidine Patch) 1 ea [id number] N/A 11/30/16 08:59 12/30/16 08:58 11/30/16 08:06 1 EA Benztropine Mesylate (Cogentin Tab) 1 mg ONE ONCE PO 11/29/16 09:45 11/29/16 09:46 DC 11/29/16 10:37 1 MG Lab Results Last 24 Hrs: Last 24 Hours Test 11/30/16 07:29 Sodium Level 142 mmol/L Potassium Level 3.9 mmol/L Chloride Level 105 mmol/L Carbon Dioxide Level 29 mmol/L Anion Gap 8.0 mmol/L Blood Urea Nitrogen 6 mg/dl Creatinine 0.66 mg/dl Est Creatinine Clear Calc Drug Dose 133.1 ml/min Estimated GFR () 121.9 Estimated GFR (Non- 105.2 BUN/Creatinine Ratio 8.8 Random Glucose 87 mg/dl Calcium Level 8.8 mg/dl Total Bilirubin 0.5 mg/dl Aspartate Amino Transf (AST/SGOT) 16 U/L Alanine Aminotransferase (ALT/SGPT) 31 U/L Alkaline Phosphatase 84 U/L Total Protein 7.2 gm/dl Albumin 3.3 gm/dl Globulin 3.9 gm/dl Albumin/Globulin Ratio 0.8
[2016-11-30 14:40] VITALS: O2SAT 97
[2016-11-30] MEDS: OLANZAPINE ZYDIS 10 MG ORALLY DIS. TAB PO SCH (21:27)
[2016-11-30 22:10] VITALS: O2SAT 97
[2016-12-01] MEDS: CHECK CLONIDINE PATCH PLACEMENT SCH ×2 (00:09→08:27)
[2016-12-01] MEDS: LIOTHYRONINE SODIUM 25 MCG TAB PO SCH (08:20)
[2016-12-01] MEDS: PROBIOTIC GUMMIES PO SCH (08:20)
[2016-12-01] MEDS: POTASSIUM CHLORIDE 20 MEQ/15 ML UDC PO SCH ×2 (08:20→22:01)
[2016-12-01] MEDS: ALPRAZOLAM 0.5 MG TAB PO SCH ×3 (08:21→22:01)
[2016-12-01 09:31] VITALS: BP 101/66; PULSE 96; TEMP 36.4
[2016-12-01 09:32] VITALS: O2SAT 96
[2016-12-01] MEDS ORDERED: CLONIDINE HCL 0.1 MG TAB PO PRN (12:00)
[2016-12-01] MEDS ORDERED: ALPRAZOLAM 0.5 MG TAB PO PRN (12:00)
--- NOTE | 2016-12-01 12:05 | Psychiatric Progress Notes ---
Progress Note Date of Service Dec 01, 2016. Interval History 46 yo woman, outpatient of Dr. Wells, admitted with severe anxiety, depression and auditory hallucinations. Diagnosis is bipolar disorder type I vs schizoaffective disorder, bipolar type. Chief Complaint "I just want to go home". Subjective Patient was seen & assessed interval progress reviewed with nursing. Slept 5 hours overnight, was incontinent during sleep which also happens at home sometimes. She doesn't want to be awakened to use restroom. Review of Systems Psych: denies symptoms other than stated above Constitutional: denied Cardiovascular: denied GI: denied Neurologic: denied Remainder of 10 body systems also reviewed and denied other than noted above. Sleep Information Total Hours of Sleep: 5.00 Meal Information Percent of Breakfast Consumed: 75 Percent of Lunch Consumed: 25 Percent of Dinner Consumed: 25 Mental Status Exam During interview pt is: cooperative Appearance: appropriately dressed, appropriately groomed Eye contact is: fair (less staring) Motor behavior is: no abnormal motor movements Speech: other (more spontaneous) Affect: tearful Mood is: depressed, anxious Thought process: concrete Thought content: reality based without delusions Suicidal thought are: denied Homicidal thoughts are: denied Hallucinations: denies auditory, denies visual Cognition: other (all spheres impaired) Intelligence estimated to be: average Insight: impaired Judgement: impaired Impression Some improvement to condition including her ability to communicate, eat, and behave appropriately. Has been on 1:1 since last week. 303 granted 11/28/16. Patient is less stiff than previously and no longer requiring prns. Continued Inpatient Care The patient requires inpatient care due to the severity of her condition and inability to manipulate information in a reality based manner. Plan (1) Bipolar 1 disorder -Every 15 minute checks for safety -Encourage participation in unit groups and programming -Work on healthy coping skills and her discharge safety plan, to include securing of medications in the home, and ensuring that guns are locked and she will not have access. -Family meeting with . -Coordinate care with outpatient providers, Dr. Malik and Patria Espinal at [facility]. -Continue home doses of lamotrigine, temazepam, Saphris, and Cytomel. -Continue taper off of Pristiq, and continued titration up on lithium, which was increased to 300 mg in the morning and 900 mg at bedtime last night. She will need a trough level after 5 days (11/16/2016). -Offer hydroxyzine as needed for sleep and anxiety, and have also ordered clonazepam 0.5 mg as needed for anxiety, as she reports alprazolam was helpful in the ER, and says she is allergic to lorazepam. -Check fasting labs for monitoring on an atypical, as last labs in her records were done in December 2015. At that time, glucose was elevated at 109, and lipids were normal. 11/13 - FLP and FBS WNL today - Reality orientation - Continue current meds - Family meeting with . 11/14 - Continue with reality orientation and groups, as periodic derealization/ dissociation - Continue lithium, Saphris, lamotrigine, temazepam and Cytomel 11/15 - Did not receive lithium last night so will DC level. Continue current lithium dosing - Will add Haldol 5 mg. BID with dose now. patient may refuse, but in looking at past med trials, she has never been tried on a typical. - Reality orientation 11/16 --mild lengthening of QTc after 3 doses of Haldol 5 mg yesterday. Initially refused am medications but ultimately accepted with plan to taper Saphris in favor of a retrial of Zyprexa. Reviewed that Haldol will be used as a bridge and hopefully coadmin with lamictal and lithium will allow lower dosing of Zyprexa than previously. Patient and well aware of metabolic risks. 11/17 - will d/c haldol as no improvement and h/o poor tx effect on this agent per family - will increase Zyprexa to 2.5mg qam w/ now dose and 10mg qhs - liberalize klonopin prn utilization - she is now off the saphris 11/18 - Continues to decline and appearing more psychotic and disorganized again today. She refused her scheduled 2.5 mg Zyprexa but ultimately was agreeable to take a 10 mg now dose. She will receive another 10 mg at bedtime tonight and will schedule for 10 mg twice a day starting tomorrow. Appears she has required very high dose antipsychotic treatment in the past. - As her psychosis worsens, her insight and judgment are increasingly impaired. At the present time she appears to lack the insight and inability to rationally manipulate information such that an involuntary commitment should be considered. Additionally, with her declining insight, she is becoming more resistant to medication compliance. In my clinical opinion, should she refuse oral medications, she should be treated over her objection for worsening psychosis. - She is appearing more tachycardic. Fluid intake ok. Vital signs otherwise okay. QTc was borderline on recent EKG. Considered ordering another EKG today but I did not feel that she would tolerate it today. - if psychosis does not improve with antipsychotic titration, consider EEG given h/o seizure disorder. this might also help r/o possibility of something like lithium induced encephalopathy. 11/19 - Adjust Zyprexa to 20 mg. all HS and add 2.5 mg. BID prn psychosis - Reduce lithium to 900 mg. HS only with level in 5 days. - DC temazepam 11/20 - Continue current meds 11/21 - Meeting held with patient and family. Will taper off lithium at family's request, and due to poor response after almost 2 weeks on it. - Continue olanzapine 20mg qhs and 2/5mg prn. Continue Artane 5mg bid. - Reviewed case with Rubber M[employer] Dr. Solis, who was also involved last evening re: staff's concerns about patient's symptoms and behavior. Reviewed med adjustments as above, and will add stelazine 1mg prn for psychosis, as olanzapine prns not always effective. 11/22 -1:1 for safety given disorganization and inappropriate behaviors - Will DC artane and bentyl in the event its worsening a delirium. - Will start scheduled stelazine 1 mg. BID and continue 1 mg. BID prn - Will prioritize the use of prn BZD's tonight in view of elevated CK - If patient able to be still, will order EEG to assist us in rule out delirium - [place] DC'd - Case has been reviewed with both Dr. Benson and Dr. Solis 11/23 --continue 1-1, confirming necessary am labs with [facility] hospitalist before blood draw. Extensive discussion with and daughter Fe about her current condition and medical necessity for blood draw, will convert to 302 if necessary to restrain for labs, family support this if needed. Will advocate for IV sedation at this point, will consult with critical care team to determine if candidate for Ketamine. Schizoaffective more likely diagnosis at this point. Clearly periods of catatonia with agitated catatonia +/- delirium. CPK may indicate risk for early NMS, family is aware of risk given her escalating need for antipsychotics. Daughter did confirm that prior reaction to Ativan was anaphylaxis and ICU stay so Ativan IM or drip is not an option. Will discuss needs with Dr. Ramirez. 11/24 -Continue on 1:1. Agitation continues. Slight improvement in CPK level and Potassium level. Clonidine appears to have helped decreased tachycardia. 11/25 -Agitation briefly improves following dosing of Xanax. Will add PRN dose of Xanax to allow for more frequent dosing for breakthrough agitation. -staff will continue to encourage fluid and electrolyte intake 11/26 -Continue 1:1, focus on hydration and use of Xanax for presumed agitated catatonia, and continue scheduled doses of olanzapine, lamotrigine, and Cytomel. 11/27 -Continue current plan. Encourage po intake. UA has been ordered, again requested staff collect sample, to rule out UTI. 11/28 -UA collected, appears to be a contaminated sample (>30 epis, but no bacteria ). -303 granted. 11/29 - Will give Becky some space to see if she can manage herself without direct 1 :1 supervision. - Agitated Catatonia persists with some mile improvement. Continue high dose BZD's 11/30 --will start slow benzo taper 12/01 --benzo decreased by 1 mg yesterday, still c/o mild sedation, gait significantly improved. Directed staff to weigh patient today. As less restless also less tachycardia. Will discontinue clonidine patch and monitor. Hopefully these measures will decrease sedation. (2) Obesity Offer dietary consultation. Encouraged continued work on decreasing soda intake , and educated on healthy food choices and the importance of exercise. Discharge / Aftercare Planning Primary Care Physician: Name: [facility] Psychiatrist: Name: Dr. Malik at [facility] Date of Appointment: Dec 13, 2016 Time of Appointment: 3:20 Therapist: Name: Patria weiss [facility] Date of Appointment: Nov 26, 2016 Time of Appointment: 1:30pm Specialist: Name: FARAZ Justin, Cardiology Appointment Notes: (missed appt during hospitalization for stress echo) Other: Name of Appointment #1: FARAZ, OB-ASSOCIATE PROFESSOR OF PATHOLOGY Visit Code E&M Code: 02177 Inventory Assets Strengths: "I'm a good mom, grandma, and ," "love to give to people. Per patient on admission. Risk Factors Assessment : Yes /single/: No Higher / Fall in social status: No Health problems: Yes Mental Health Diagnoses: Yes Substance use disorders: No Previous attempt: Yes Previous attempt;highly lethal: Yes Family history of suicide: No Previous psychiatric stay: Yes Hopelessness: No Smoker: No Protective Factors Assessment Rastafarian beliefs: Yes : Yes Responsible for young children: No Employed: No Stable relationships: Yes Supportive family: Yes Good rapport with provider: Yes Data Vital Signs Last 24 Hrs: Date Time Temp Pulse Resp B/P Pulse Ox O2 Delivery O2 Flow Rate FiO2 12/01/16 09:32 96 Room Air 12/01/16 09:31 36.4 96 20 101/66 11/30/16 22:10 97 Room Air 11/30/16 14:40 97 Room Air Meds Administered Last 24 Hrs: Meds Administered (Past 24Hrs) Medications (Trade) Dose Ordered Sig/Uriah Route Start Time Stop Time Status Last Admin Dose Admin Miscellaneous (Remove Clonidine Patch) 1 ea [id number] N/A 11/30/16 08:59 12/01/16 11:57 DC 11/30/16 08:06 1 EA Alprazolam (Xanax Tab) 1 mg TID PO 11/30/16 14:00 12/01/16 11:57 DC 12/01/16 08:21 1 MG
[2016-12-01] MEDS: BENZONATATE 100MG CAP PO PRN (18:45)
[2016-12-01] MEDS: OLANZAPINE ZYDIS 10 MG ORALLY DIS. TAB PO SCH (22:02)
[2016-12-02] MEDS: BENZONATATE 100MG CAP PO PRN ×3 (03:02→21:46)
[2016-12-02 06:49] VITALS: BP_SYST 100; BP_SYST 108; BP_DIAS 68; BP_DIAS 74; PULSE 80; TEMP 36.8
[2016-12-02] MEDS: POTASSIUM CHLORIDE 20 MEQ/15 ML UDC PO SCH ×2 (08:47→21:41)
[2016-12-02] MEDS: LIOTHYRONINE SODIUM 25 MCG TAB PO SCH (08:47)
[2016-12-02] MEDS: PROBIOTIC GUMMIES PO SCH (08:49)
[2016-12-02] MEDS: ALPRAZOLAM 0.5 MG TAB PO SCH ×3 (08:49→21:41)
[2016-12-02 08:55] VITALS: O2SAT 95
--- NOTE | 2016-12-02 12:58 | Psychiatric Progress Notes ---
Progress Note Date of Service Dec 02, 2016. Interval History 46 yo woman, outpatient of Dr. Wells, admitted with severe anxiety, depression and auditory hallucinations. Diagnosis is bipolar disorder type I vs schizoaffective disorder, bipolar type. Chief Complaint "I'm homesick, I know I'm still not right sometimes". Subjective Patient was seen & assessed interval progress reviewed with nursing. Has been increasing interactions with others on the unit, visitation times with family going well but staff sense overstimulating on some level. Less pacing. Denies rigidity. Up twice last night for bathroom but otherwise slept well. Some delay in removal of clonidine patch, will monitor vitals today. Today Becky has spontaneous affect and talks with me about her grandchildren and a prayer quilt block that her mother in law gave her. Review of Systems Psych: denies symptoms other than stated above Constitutional: denied Cardiovascular: denied GI: denied Neurologic: denied Remainder of 10 body systems also reviewed and denied other than noted above. Sleep Information Total Hours of Sleep: 5.75 Meal Information Percent of Breakfast Consumed: 100 Percent of Lunch Consumed: 50 Percent of Dinner Consumed: 0 Mental Status Exam During interview pt is: cooperative Appearance: appropriately dressed, appropriately groomed Eye contact is: fair (less staring) Motor behavior is: no abnormal motor movements Speech: normal in rate, rhythm & volume Affect: anxious (but broading and brighter) Mood is: anxious Thought process: concrete Thought content: reality based without delusions Suicidal thought are: denied Homicidal thoughts are: denied Hallucinations: denies auditory, denies visual Cognition: other (all spheres impaired) Intelligence estimated to be: average Insight: impaired Judgement: impaired Impression Some improvement to condition including her ability to communicate, eat, and behave appropriately. Has been on 1:1 since last week. 303 granted 11/28/16. Patient is less stiff than previously and no longer requiring prns. Continued Inpatient Care The patient requires inpatient care due to the severity of her condition and ongoing thought disorganization. Plan (1) Bipolar 1 disorder -Every 15 minute checks for safety -Encourage participation in unit groups and programming -Work on healthy coping skills and her discharge safety plan, to include securing of medications in the home, and ensuring that guns are locked and she will not have access. -Family meeting with . -Coordinate care with outpatient providers, Dr. Malik and Patria Espinal at [facility] [place][NOTE 2]. -Continue home doses of lamotrigine, temazepam, Saphris, and Cytomel. -Continue taper off of Pristiq, and continued titration up on lithium, which was increased to 300 mg in the morning and 900 mg at bedtime last night. She will need a trough level after 5 days (11/16/2016). -Offer hydroxyzine as needed for sleep and anxiety, and have also ordered clonazepam 0.5 mg as needed for anxiety, as she reports alprazolam was helpful in the ER, and says she is allergic to lorazepam. -Check fasting labs for monitoring on an atypical, as last labs in her records were done in December 2015. At that time, glucose was elevated at 109, and lipids were normal. 11/13 - FLP and FBS WNL today - Reality orientation - Continue current meds - Family meeting with . 11/14 - Continue with reality orientation and groups, as periodic derealization/ dissociation - Continue lithium, Saphris, lamotrigine, temazepam and Cytomel 11/15 - Did not receive lithium last night so will DC level. Continue current lithium dosing - Will add Haldol 5 mg. BID with dose now. patient may refuse, but in looking at past med trials, she has never been tried on a typical. - Reality orientation 11/16 --mild lengthening of QTc after 3 doses of Haldol 5 mg yesterday. Initially refused am medications but ultimately accepted with plan to taper Saphris in favor of a retrial of Zyprexa. Reviewed that Haldol will be used as a bridge and hopefully coadmin with lamictal and lithium will allow lower dosing of Zyprexa than previously. Patient and well aware of metabolic risks. 11/17 - will d/c haldol as no improvement and h/o poor tx effect on this agent per family - will increase Zyprexa to 2.5mg qam w/ now dose and 10mg qhs - liberalize klonopin prn utilization - she is now off the saphris 11/18 - Continues to decline and appearing more psychotic and disorganized again today. She refused her scheduled 2.5 mg Zyprexa but ultimately was agreeable to take a 10 mg now dose. She will receive another 10 mg at bedtime tonight and will schedule for 10 mg twice a day starting tomorrow. Appears she has required very high dose antipsychotic treatment in the past. - As her psychosis worsens, her insight and judgment are increasingly impaired. At the present time she appears to lack the insight and inability to rationally manipulate information such that an involuntary commitment should be considered. Additionally, with her declining insight, she is becoming more resistant to medication compliance. In my clinical opinion, should she refuse oral medications, she should be treated over her objection for worsening psychosis. - She is appearing more tachycardic. Fluid intake ok. Vital signs otherwise okay. QTc was borderline on recent EKG. Considered ordering another EKG today but I did not feel that she would tolerate it today. - if psychosis does not improve with antipsychotic titration, consider EEG given h/o seizure disorder. this might also help r/o possibility of something like lithium induced encephalopathy. 11/19 - Adjust Zyprexa to 20 mg. all HS and add 2.5 mg. BID prn psychosis - Reduce lithium to 900 mg. HS only with level in 5 days. - DC temazepam 11/20 - Continue current meds 11/21 - Meeting held with patient and family. Will taper off lithium at family's request, and due to poor response after almost 2 weeks on it. - Continue olanzapine 20mg qhs and 2/5mg prn. Continue Artane 5mg bid. - Reviewed case with [facility] Hand Dr. Solis, who was also involved last evening re: staff's concerns about patient's symptoms and behavior. Reviewed med adjustments as above, and will add stelazine 1mg prn for psychosis, as olanzapine prns not always effective. 11/22 -1:1 for safety given disorganization and inappropriate behaviors - Will DC artane and bentyl in the event its worsening a delirium. - Will start scheduled stelazine 1 mg. BID and continue 1 mg. BID prn - Will prioritize the use of prn BZD's tonight in view of elevated CK - If patient able to be still, will order EEG to assist us in rule out delirium - Diamond DC'd - Case has been reviewed with both Dr. Benson and Dr. Solis 11/23 --continue 1-1, [facility]. Extensive discussion with and daughter Fe about her current condition and medical necessity for blood draw, will convert to 302 if necessary to restrain for labs, family support this if needed. Will advocate for IV sedation at this point, will consult with critical care team to determine if candidate for Ketamine. Schizoaffective more likely diagnosis at this point. Clearly periods of catatonia with agitated catatonia +/- delirium. CPK may indicate risk for early NMS, family is aware of risk given her escalating need for antipsychotics. Daughter did confirm that prior reaction to Ativan was anaphylaxis and ICU stay so Ativan IM or drip is not an option. Will discuss needs with Dr. Ramirez. 11/24 -Continue on 1:1. Agitation continues. Slight improvement in CPK level and Potassium level. Clonidine appears to have helped decreased tachycardia. 11/25 -Agitation briefly improves following dosing of Xanax. Will add PRN dose of Xanax to allow for more frequent dosing for breakthrough agitation. -staff will continue to encourage fluid and electrolyte intake 11/26 -Continue 1:1, focus on hydration and use of Xanax for presumed agitated catatonia, and continue scheduled doses of olanzapine, lamotrigine, and Cytomel. 11/27 -Continue current plan. Encourage po intake. UA has been ordered, again requested staff collect sample, to rule out UTI. 11/28 -UA collected, appears to be a contaminated sample (>30 epis, but no bacteria ). -303 granted. 11/29 - Will give Becky some space to see if she can manage herself without direct 1 :1 supervision. - Agitated Catatonia persists with some mile improvement. Continue high dose BZD's 11/30 --will start slow benzo taper 12/01 --benzo decreased by 1 mg yesterday, still c/o mild sedation, gait significantly improved. Directed staff to weigh patient today. As less restless also less tachycardia. Will discontinue clonidine patch and monitor. Hopefully these measures will decrease sedation. 12/02--improved today, will assess for further Xanax taper in am. She lost 10 lbs while hospitalized so do not plan to start metformin at this time. (2) Obesity Offer dietary consultation. Encouraged continued work on decreasing soda intake , and educated on healthy food choices and the importance of exercise. Discharge / Aftercare Planning Primary Care Physician: Name: [facility] Psychiatrist: Name: Dr. Malik at [facility] Date of Appointment: Dec 13, 2016 Time of Appointment: 3:20 Therapist: Name: Patria at [facility] Date of Appointment: Nov 26, 2016 Time of Appointment: 1:30pm Specialist: Name: Dr. Balbuena, FARAZ, Cardiology Appointment Notes: (missed appt during hospitalization for stress echo) Other: Name of Appointment #1: FARAZ, OB-INTERVENTIONAL SALE CONSULTANT Visit Code E&M Code: 06375 Inventory Assets Strengths: "I'm a good mom, grandma, and ," "love to give to people. Per patient on admission. Risk Factors Assessment : Yes /single/: No Higher / Fall in social status: No Health problems: Yes Mental Health Diagnoses: Yes Substance use disorders: No Previous attempt: Yes Previous attempt;highly lethal: Yes Family history of suicide: No Previous psychiatric stay: Yes Hopelessness: No Smoker: No Protective Factors Assessment Confucianism beliefs: Yes : Yes Responsible for young children: No Employed: No Stable relationships: Yes Supportive family: Yes Good rapport with provider: Yes Data Vital Signs Last 24 Hrs: Date Time Temp Pulse Resp B/P Pulse Ox O2 Delivery O2 Flow Rate FiO2 12/02/16 08:55 95 Room Air 12/02/16 06:49 36.8 80 20 108/74 80 100/68 Meds Administered Last 24 Hrs: Meds Administered (Past 24Hrs) Medications (Trade) Dose Ordered Sig/Uriah Route Start Time Stop Time Status Last Admin Dose Admin Alprazolam (Xanax Tab) 1 mg TID PO 11/30/16 14:00 12/01/16 11:57 DC 12/01/16 08:21 1 MG Alprazolam (Xanax Tab) 1 mg HS PO 12/01/16 22:00 12/31/16 21:59 12/01/16 22:01 1 MG Alprazolam (Xanax Tab) 0.5 mg BID17 PO 12/01/16 17:00 12/31/16 16:59 12/02/16 08:49 0.5 MG
[2016-12-02] MEDS: OLANZAPINE ZYDIS 10 MG ORALLY DIS. TAB PO SCH (21:42)
[2016-12-03 06:58] VITALS: BP_SYST 116; BP_DIAS 77; BP_DIAS 78; PULSE 80; PULSE 96; TEMP 36.4
[2016-12-03 08:20] VITALS: O2SAT 95
[2016-12-03] MEDS: ALPRAZOLAM 0.5 MG TAB PO SCH ×3 (08:56→21:26)
[2016-12-03] MEDS: LIOTHYRONINE SODIUM 25 MCG TAB PO SCH (08:58)
[2016-12-03] MEDS: POTASSIUM CHLORIDE 20 MEQ/15 ML UDC PO SCH ×2 (08:59→21:26)
[2016-12-03] MEDS: PROBIOTIC GUMMIES PO SCH (08:59)
--- NOTE | 2016-12-03 10:52 | Psychiatric Progress Notes ---
Progress Note Date of Service Dec 03, 2016. Interval History 46 yo woman, outpatient of Dr. Wells, admitted with severe anxiety, depression and auditory hallucinations. Diagnosis is bipolar disorder type I vs schizoaffective disorder, bipolar type. Chief Complaint "Not so good.". Subjective Patient was seen & assessed interval progress reviewed with Treatment Team. Becky says that she didn't have a very good weekend. She says that she refused her 1700 dose of xanax and was then anxious and isolative. She says that her thoughts have been clearer, and has very little memory of events over the last week or more. She says that she remains anxious, but her mood is otherwise good , not depressed. She is still focused on discharge and wants to know if a date has been set. Her has been visiting. Nursing says that she has been good during family visit, but more anxious when they leave. She denies aud/vis hallucinations or overt delusions. Review of Systems Constitutional: No chills, No fatigue, No fever, No problem reported, No sweats , No weakness, No weight loss ENT: No dental problems, No hearing loss, No nasal symptoms, No problem reported, No sore throat, No tinnitus, No trouble swallowing, No unusual epistaxis Respiratory: No cough, No dyspnea at rest, No dyspnea on exertion, No hemoptysis, No problem reported, No shortness of breath, No sputum, No wheezing Cardiovascular: No PND, No chest pain, No claudication, No edema, No orthopnea , No palpitations, No problem reported Abdomen: No GI bleeding, No constipation, No diarrhea, No nausea, No pain, No problem reported, No vomiting Musculoskeletal: No calf pain, No joint pain, No muscle pain, No problem reported, No swelling Neurologic: No balance problems, No memory loss, No numbness/tingling, No paralysis, No problem reported, No vertigo, No weakness Psychiatric: + anxiety Integumentary: No bleeding, No color change, No itch, No new/changing skin lesions, No problem reported, No rash Sleep Information Total Hours of Sleep: 6.75 Meal Information Percent of Breakfast Consumed: 100 Percent of Lunch Consumed: 50 Percent of Dinner Consumed: 100 Mental Status Exam During interview pt is: cooperative Appearance: appropriately dressed, appropriately groomed Eye contact is: good (staring) Motor behavior is: no abnormal motor movements Speech: normal in rate, rhythm & volume Affect: anxious Mood is: anxious Thought process: concrete Thought content: reality based without delusions Suicidal thought are: denied Homicidal thoughts are: denied Hallucinations: denies auditory, denies visual Cognition: other (all spheres impaired) Intelligence estimated to be: average Insight: impaired Judgement: impaired Impression Patient continues to progress. Agitated catatonia appears to be resolving and is tolerating reduced BZD. Remains anxious, unchanged from admission, and is focused on discharge. Sleep and appetite improving. Will DC MNPR today, but will keep meds the same today in view of anxiety. Would like to see that she can have at least several days in which she can tolerate a roommate and participate in programming before considering discharge. Continued Inpatient Care The patient requires inpatient care due to the severity of her condition and ongoing thought disorganization. Plan (1) Bipolar 1 disorder -Every 15 minute checks for safety -Encourage participation in unit groups and programming -Work on healthy coping skills and her discharge safety plan, to include securing of medications in the home, and ensuring that guns are locked and she will not have access. -Family meeting with . -Coordinate care with outpatient providers, Dr. Malik and Patria Espinal at [facility]. -Continue home doses of lamotrigine, temazepam, Saphris, and Cytomel. -Continue taper off of Pristiq, and continued titration up on lithium, which was increased to 300 mg in the morning and 900 mg at bedtime last night. She will need a trough level after 5 days (11/16/2016). -Offer hydroxyzine as needed for sleep and anxiety, and have also ordered clonazepam 0.5 mg as needed for anxiety, as she reports alprazolam was helpful in the ER, and says she is allergic to lorazepam. -Check fasting labs for monitoring on an atypical, as last labs in her records were done in December 2015. At that time, glucose was elevated at 109, and lipids were normal. 11/13 - FLP and FBS WNL today - Reality orientation - Continue current meds - Family meeting with . 11/14 - Continue with reality orientation and groups, as periodic derealization/ dissociation - Continue lithium, Saphris, lamotrigine, temazepam and Cytomel 11/15 - Did not receive lithium last night so will DC level. Continue current lithium dosing - Will add Haldol 5 mg. BID with dose now. patient may refuse, but in looking at past med trials, she has never been tried on a typical. - Reality orientation 11/16 --mild lengthening of QTc after 3 doses of Haldol 5 mg yesterday. Initially refused am medications but ultimately accepted with plan to taper Saphris in favor of a retrial of Zyprexa. Reviewed that Haldol will be used as a bridge and hopefully coadmin with lamictal and lithium will allow lower dosing of Zyprexa than previously. Patient and well aware of metabolic risks. 11/17 - will d/c haldol as no improvement and h/o poor tx effect on this agent per family - will increase Zyprexa to 2.5mg qam w/ now dose and 10mg qhs - liberalize klonopin prn utilization - she is now off the saphris 11/18 - Continues to decline and appearing more psychotic and disorganized again today. She refused her scheduled 2.5 mg Zyprexa but ultimately was agreeable to take a 10 mg now dose. She will receive another 10 mg at bedtime tonight and will schedule for 10 mg twice a day starting tomorrow. Appears she has required very high dose antipsychotic treatment in the past. - As her psychosis worsens, her insight and judgment are increasingly impaired. At the present time she appears to lack the insight and inability to rationally manipulate information such that an involuntary commitment should be considered. Additionally, with her declining insight, she is becoming more resistant to medication compliance. In my clinical opinion, should she refuse oral medications, she should be treated over her objection for worsening psychosis. - She is appearing more tachycardic. Fluid intake ok. Vital signs otherwise okay. QTc was borderline on recent EKG. Considered ordering another EKG today but I did not feel that she would tolerate it today. - if psychosis does not improve with antipsychotic titration, consider EEG given h/o seizure disorder. this might also help r/o possibility of something like lithium induced encephalopathy. 11/19 - Adjust Zyprexa to 20 mg. all HS and add 2.5 mg. BID prn psychosis - Reduce lithium to 900 mg. HS only with level in 5 days. - DC temazepam 11/20 - Continue current meds 11/21 - Meeting held with patient and family. Will taper off lithium at family's request, and due to poor response after almost 2 weeks on it. - Continue olanzapine 20mg qhs and 2/5mg prn. Continue Artane 5mg bid. - Reviewed case with [facility] Dr. Solis, who was also involved last evening re: staff's concerns about patient's symptoms and behavior. Reviewed med adjustments as above, and will add stelazine 1mg prn for psychosis, as olanzapine prns not always effective. 11/22 -1:1 for safety given disorganization and inappropriate behaviors - Will DC artane and bentyl in the event its worsening a delirium. - Will start scheduled stelazine 1 mg. BID and continue 1 mg. BID prn - Will prioritize the use of prn BZD's tonight in view of elevated CK - If patient able to be still, will order EEG to assist us in rule out delirium - [place] DC'd - Case has been reviewed with both Dr. Benson and Dr. Solis 11/23 --continue 1-1, confirming necessary am labs with [facility] hospitalist before blood draw. Extensive discussion with and daughter Fe about her current condition and medical necessity for blood draw, will convert to 302 if necessary to restrain for labs, family support this if needed. Will advocate for IV sedation at this point, will consult with critical care team to determine if candidate for Ketamine. Schizoaffective more likely diagnosis at this point. Clearly periods of catatonia with agitated catatonia +/- delirium. CPK may indicate risk for early NMS, family is aware of risk given her escalating need for antipsychotics. Daughter did confirm that prior reaction to Ativan was anaphylaxis and ICU stay so Ativan IM or drip is not an option. Will discuss needs with Dr. Ramirez. 11/24 -Continue on 1:1. Agitation continues. Slight improvement in CPK level and Potassium level. Clonidine appears to have helped decreased tachycardia. 11/25 -Agitation briefly improves following dosing of Xanax. Will add PRN dose of Xanax to allow for more frequent dosing for breakthrough agitation. -staff will continue to encourage fluid and electrolyte intake 11/26 -Continue 1:1, focus on hydration and use of Xanax for presumed agitated catatonia, and continue scheduled doses of olanzapine, lamotrigine, and Cytomel. 11/27 -Continue current plan. Encourage po intake. UA has been ordered, again requested staff collect sample, to rule out UTI. 11/28 -UA collected, appears to be a contaminated sample (>30 epis, but no bacteria ). -303 granted. 11/29 - Will give Becky some space to see if she can manage herself without direct 1 :1 supervision. - Agitated Catatonia persists with some mile improvement. Continue high dose BZD's 11/30 --will start slow benzo taper 12/01 --benzo decreased by 1 mg yesterday, still c/o mild sedation, gait significantly improved. Directed staff to weigh patient today. As less restless also less tachycardia. Will discontinue clonidine patch and monitor. Hopefully these measures will decrease sedation. 12/02--improved today, will assess for further Xanax taper in am. She lost 10 lbs while hospitalized so do not plan to start metformin at this time. 12/03 - DC MNPR (2) Obesity Offer dietary consultation. Encouraged continued work on decreasing soda intake , and educated on healthy food choices and the importance of exercise. Discharge / Aftercare Planning Primary Care Physician: Name: [facility] Psychiatrist: Name: Dr. Malik at [facility] Date of Appointment: Dec 13, 2016 Time of Appointment: 3:20 Therapist: Name: Patria weiss [facility] Date of Appointment: Dec 10, 2016 Time of Appointment: 1:30pm Specialist: Name: Dr. Balbuena, ROCÍO, Cardiology Appointment Notes: (missed appt during hospitalization for stress echo) Other: Name of Appointment #1: FARAZ, [employer]PER[employer]ENDENT Visit Code E&M Code: 22991 Inventory Assets Strengths: "I'm a good mom, grandma, and ," "love to give to people. Per patient on admission. Risk Factors Assessment : Yes /single/: No Higher / Fall in social status: No Health problems: Yes Mental Health Diagnoses: Yes Substance use disorders: No Previous attempt: Yes Previous attempt;highly lethal: Yes Family history of suicide: No Previous psychiatric stay: Yes Hopelessness: No Smoker: No Protective Factors Assessment Cheondoism beliefs: Yes : Yes Responsible for young children: No Employed: No Stable relationships: Yes Supportive family: Yes Good rapport with provider: Yes Data Vital Signs Last 24 Hrs: Date Time Temp Pulse Resp B/P Pulse Ox O2 Delivery O2 Flow Rate FiO2 12/03/16 08:20 95 Room Air 12/03/16 06:58 36.4 80 16 116/78 96 116/77 Meds Administered Last 24 Hrs: Meds Administered (Past 24Hrs) Medications (Trade) Dose Ordered Sig/Uriah Route Start Time Stop Time Status Last Admin Dose Admin Alprazolam (Xanax Tab) 1 mg HS PO 12/01/16 22:00 12/31/16 21:59 12/02/16 21:41 1 MG Alprazolam (Xanax Tab) 0.5 mg BID17 PO 12/01/16 17:00 12/31/16 16:59 12/03/16 08:56 0.5 MG Lab Results Last 24 Hrs: 11/27/16 07:20 11/30/16 07:29 Test 11/11/16 15:30 11/11/16 16:53 11/13/16 07:20 11/20/16 09:54 Thyroid Stimulating Hormone (TSH) 0.981 uIu/ml (0.300-4.500) Human Chorionic Gonadotropin, Qual NEG (NEG) Ethyl Alcohol mg/dL < 3.0 mg/dl (0-3) Urine Opiates Screen NEG (NEG) Urine Methadone, Qualitative NEG (NEG) Urine Barbiturates NEG (NEG) Urine Phencyclidine (PCP) Level NEG (NEG) Ur Amphetamine/Methamphetamine NEG (NEG) MDMA (Ecstasy) Screen NEG (NEG) Urine Benzodiazepines Screen NEG (NEG) Urine Cocaine Metabolite NEG (NEG) Urine Marijuana (THC) NEG (NEG) Fasting Glucose 91 mg/dl (70-99) Triglycerides Level 97 mg/dl (0-150) Cholesterol Level 123 mg/dl (0-200) HDL Cholesterol 39 mg/dl LDL Cholesterol, Calculated 65 mg/dl VLDL Cholesterol, Calculated 19 mg/dl Cholesterol/HDL Ratio 3.2 [place] Level 1.0 mMOL/L (0.6-1.2) Test 11/21/16 15:50 11/22/16 15:30 11/23/16 09:35 11/24/16 07:45 Immature Granulocyte % (Auto) 0.2 % White Blood Count 13.48 K/uL (4.8-10.8) Red Blood Count 4.00 M/uL (4.2-5.4) Hemoglobin 12.1 g/dL (12.0-16.0) Hematocrit 35.4 % (37-47) Mean Corpuscular Volume 88.5 fL (80-100) Mean Corpuscular Hemoglobin 30.3 pg (25-34) Mean Corpuscular Hemoglobin Concent 34.2 g/dl (32-36) Platelet Count 272 K/uL (130-400) Mean Platelet Volume 10.6 fL (7.4-10.4) Neutrophils (%) (Auto) 72.5 % Lymphocytes (%) (Auto) 17.1 % Monocytes (%) (Auto) 7.4 % Eosinophils (%) (Auto) 2.2 % Basophils (%) (Auto) 0.6 % Neutrophils # (Auto) 9.76 K/uL (1.4-6.5) Lymphocytes # (Auto) 2.31 K/uL (1.2-3.4) Monocytes # (Auto) 1.00 K/uL (0.11-0.59) Eosinophils # (Auto) 0.30 K/uL (0-0.5) Basophils # (Auto) 0.08 K/uL (0-0.2) Immature Granulocyte # (Auto) 0.03 K/uL (0.00-0.02) Prothrombin Time 11.4 SECONDS (9.0-12.0) Prothromb Time International Ratio 1.1 (0.9-1.1) Activated Partial Thromboplast Time 26.8 SECONDS (21.0-31.0) Partial Thromboplastin Ratio 1.0 D-Dimer 440 ug/L FEU (0-500) Creatine Kinase MB 14.9 ng/ml (0.5-3.6) Creatine Kinase MB Ratio 1.7 (0-3.0) Troponin I < 0.015 ng/ml (0-0.045) Direct Bilirubin mg/dl (0-0.2) Amylase Level 33 U/L (25-115) Lipase 101 U/L (73-393) Chemistry Specimen Hemolysis Pro-B-Type Natriuretic Peptide 37 pg/ml (0-450) Test 11/27/16 07:20 11/27/16 12:30 11/30/16 07:29 Red Blood Count 4.06 M/uL (4.2-5.4) Mean Corpuscular Volume 92.9 fL (80-100) Mean Corpuscular Hemoglobin 30.0 pg (25-34) Mean Corpuscular Hemoglobin Concent 32.4 g/dl (32-36) RDW Standard Deviation 48.9 fL (36.4-46.3) RDW Coefficient of Variation 14.5 % (11.5-14.5) Mean Platelet Volume 11.1 fL (7.4-10.4) Magnesium Level 2.3 mg/dl (1.8-2.4) Total Creatine Kinase 139 U/L (26-192) Urine Color YELLOW Urine Appearance CLEAR (CLEAR) Urine pH 6.0 (4.5-7.5) Urine Specific [place] 1.011 (1.000-1.030) Urine Protein NEG (NEG) Urine Glucose (UA) NEG (NEG) Urine Ketones NEG (NEG) Urine Occult Blood 3+ (NEG) Urine Nitrite NEG (NEG) Urine Bilirubin NEG (NEG) Urine Urobilinogen NEG (NEG) Urine Leukocyte Esterase SMALL (NEG) Urine WBC (Auto) 5-10 /hpf (0-5) Urine RBC (Auto) >30 /hpf (0-4) Urine Hyaline Casts (Auto) 1-5 /lpf (0-5) Urine Epithelial Cells (Auto) >30 /lpf (0-5) Urine Bacteria (Auto) NEG (NEG) Anion Gap 8.0 mmol/L (3-11) Est Creatinine Clear Calc Drug Dose 133.1 ml/min Estimated GFR () 121.9 Estimated GFR (Non- 105.2 BUN/Creatinine Ratio 8.8 (10-20) Calcium Level 8.8 mg/dl (8.5-10.1) Total Bilirubin 0.5 mg/dl (0.2-1) Aspartate Amino Transf (AST/SGOT) 16 U/L (15-37) Alanine Aminotransferase (ALT/SGPT) 31 U/L (12-78) Alkaline Phosphatase 84 U/L (45-117) Total Protein 7.2 gm/dl (6.4-8.2) Albumin 3.3 gm/dl (3.4-5.0) Globulin 3.9 gm/dl (2.5-4.0) Albumin/Globulin Ratio 0.8 (0.9-2) Lamotrigine (Lamictal) Level 8.5 mcg/mL (4.0-18.0)
[2016-12-03] MEDS: OLANZAPINE ZYDIS 10 MG ORALLY DIS. TAB PO SCH (21:26)
[2016-12-03] MEDS: BENZONATATE 100MG CAP PO PRN (21:29)
[2016-12-04 06:56] VITALS: BP_SYST 104; BP_SYST 112; BP_DIAS 69; BP_DIAS 78; PULSE 71; PULSE 82; TEMP 36.9
[2016-12-04 06:57] VITALS: O2SAT 97
[2016-12-04 08:18] VITALS: O2SAT 96
[2016-12-04] MEDS: POTASSIUM CHLORIDE 20 MEQ/15 ML UDC PO SCH (08:21)
[2016-12-04] MEDS: LIOTHYRONINE SODIUM 25 MCG TAB PO SCH (08:21)
[2016-12-04] MEDS: PROBIOTIC GUMMIES PO SCH (08:22)
[2016-12-04] MEDS: ALPRAZOLAM 0.5 MG TAB PO SCH ×2 (08:24→21:13)
[2016-12-04] MEDS: LOPERAMIDE HCL 2 MG CAP PO PRN (11:20)
--- NOTE | 2016-12-04 12:19 | Psychiatric Progress Notes ---
Progress Note Date of Service Dec 04, 2016. Interval History 46 yo woman, outpatient of Dr. Wells, admitted with severe anxiety, depression and auditory hallucinations. Diagnosis is bipolar disorder type I vs schizoaffective disorder, bipolar type. Chief Complaint "Anxiety". Subjective Patient was seen & assessed interval progress reviewed with nursing. Staff report she continues to improve, is more organized, is better able to do her ADLs, and has declined her 1700 dose of Xanax the past two days, while also reporting higher anxiety. She refused groups yesterday as she was feeling more anxious and was worried that peers were talking about her. She was able to go to group today, although she continues to feel very anxious and worries what others think about her. Sleep is improved, feels rested in the morning. Appetite is good, and she has been doing her laundry today. She denies SI and HI. She is hoping to be discharged soon and thinks her "release date has been pushed back and back." She has talked to her about discharge, and asked him to help with her meds (fill her pillbox), "until I get things straightened out." She asked multiple questions about medications and specifically Xanax, as she thinks it helps with anxiety. Reviewed plan to continue taper off it due to risks and that it was being used for short term treatment. Sleep Information Total Hours of Sleep: 7.25 Meal Information Percent of Breakfast Consumed: 100 Percent of Lunch Consumed: 80 Percent of Dinner Consumed: 95 Mental Status Exam During interview pt is: alert and oriented, cooperative Appearance: appropriately dressed, appropriately groomed Eye contact is: good (staring) Motor behavior is: steady gait & station, no abnormal motor movements Speech: normal in rate, rhythm & volume Affect: anxious (but reactive and appropriate) Mood is: anxious Thought process: goal directed, concrete Thought content: reality based without delusions Suicidal thought are: denied Homicidal thoughts are: denied Hallucinations: denies auditory, denies visual Cognition: other (all spheres impaired) Intelligence estimated to be: average Insight: impaired Judgement: impaired Impression Patient continues to progress. Agitated catatonia appears to be resolving and is tolerating reduced BZD. Remains anxious, unchanged from admission, and is focused on discharge. Sleep and appetite improving. Will DC MNPR today, but will keep meds the same today in view of anxiety. Would like to see that she can have at least several days in which she can tolerate a roommate and participate in programming before considering discharge. Continued Inpatient Care The patient requires inpatient care due to the severity of her condition and ongoing thought disorganization. Plan (1) Bipolar 1 disorder -Every 15 minute checks for safety -Encourage participation in unit groups and programming -Work on healthy coping skills and her discharge safety plan, to include securing of medications in the home, and ensuring that guns are locked and she will not have access. -Family meeting with . -Coordinate care with outpatient providers, Dr. Malik and Patria Espinal at [facility]. -Continue home doses of lamotrigine, temazepam, Saphris, and Cytomel. -Continue taper off of Pristiq, and continued titration up on lithium, which was increased to 300 mg in the morning and 900 mg at bedtime last night. She will need a trough level after 5 days (11/16/2016). -Offer hydroxyzine as needed for sleep and anxiety, and have also ordered clonazepam 0.5 mg as needed for anxiety, as she reports alprazolam was helpful in the ER, and says she is allergic to lorazepam. -Check fasting labs for monitoring on an atypical, as last labs in her records were done in December 2015. At that time, glucose was elevated at 109, and lipids were normal. 11/13 - FLP and FBS WNL today - Reality orientation - Continue current meds - Family meeting with . 11/14 - Continue with reality orientation and groups, as periodic derealization/ dissociation - Continue lithium, Saphris, lamotrigine, temazepam and Cytomel 11/15 - Did not receive lithium last night so will DC level. Continue current lithium dosing - Will add Haldol 5 mg. BID with dose now. patient may refuse, but in looking at past med trials, she has never been tried on a typical. - Reality orientation 11/16 --mild lengthening of QTc after 3 doses of Haldol 5 mg yesterday. Initially refused am medications but ultimately accepted with plan to taper Saphris in favor of a retrial of Zyprexa. Reviewed that Haldol will be used as a bridge and hopefully coadmin with lamictal and lithium will allow lower dosing of Zyprexa than previously. Patient and well aware of metabolic risks. 11/17 - will d/c haldol as no improvement and h/o poor tx effect on this agent per family - will increase Zyprexa to 2.5mg qam w/ now dose and 10mg qhs - liberalize klonopin prn utilization - she is now off the saphris 11/18 - Continues to decline and appearing more psychotic and disorganized again today. She refused her scheduled 2.5 mg Zyprexa but ultimately was agreeable to take a 10 mg now dose. She will receive another 10 mg at bedtime tonight and will schedule for 10 mg twice a day starting tomorrow. Appears she has required very high dose antipsychotic treatment in the past. - As her psychosis worsens, her insight and judgment are increasingly impaired. At the present time she appears to lack the insight and inability to rationally manipulate information such that an involuntary commitment should be considered. Additionally, with her declining insight, she is becoming more resistant to medication compliance. In my clinical opinion, should she refuse oral medications, she should be treated over her objection for worsening psychosis. - She is appearing more tachycardic. Fluid intake ok. Vital signs otherwise okay. QTc was borderline on recent EKG. Considered ordering another EKG today but I did not feel that she would tolerate it today. - if psychosis does not improve with antipsychotic titration, consider EEG given h/o seizure disorder. this might also help r/o possibility of something like lithium induced encephalopathy. 11/19 - Adjust Zyprexa to 20 mg. all HS and add 2.5 mg. BID prn psychosis - Reduce lithium to 900 mg. HS only with level in 5 days. - DC temazepam 11/20 - Continue current meds 11/21 - Meeting held with patient and family. Will taper off lithium at family's request, and due to poor response after almost 2 weeks on it. - Continue olanzapine 20mg qhs and 2/5mg prn. Continue Artane 5mg bid. - Reviewed case with Systematic Theology Professor Dr. Solis, who was also involved last evening re: staff's concerns about patient's symptoms and behavior. Reviewed med adjustments as above, and will add stelazine 1mg prn for psychosis, as olanzapine prns not always effective. 11/22 -1:1 for safety given disorganization and inappropriate behaviors - Will DC artane and bentyl in the event its worsening a delirium. - Will start scheduled stelazine 1 mg. BID and continue 1 mg. BID prn - Will prioritize the use of prn BZD's tonight in view of elevated CK - If patient able to be still, will order EEG to assist us in rule out delirium - [place] DC'd - Case has been reviewed with both Dr. Benson and Dr. Solis 11/23 --continue 1-1, confirming necessary am labs with [facility] hospitalist before blood draw. Extensive discussion with and daughter Fe about her current condition and medical necessity for blood draw, will convert to 302 if necessary to restrain for labs, family support this if needed. Will advocate for IV sedation at this point, will consult with critical care team to determine if candidate for Ketamine. Schizoaffective more likely diagnosis at this point. Clearly periods of catatonia with agitated catatonia +/- delirium. CPK may indicate risk for early NMS, family is aware of risk given her escalating need for antipsychotics. Daughter did confirm that prior reaction to Ativan was anaphylaxis and ICU stay so Ativan IM or drip is not an option. Will discuss needs with Dr. Ramirez. 11/24 -Continue on 1:1. Agitation continues. Slight improvement in CPK level and Potassium level. Clonidine appears to have helped decreased tachycardia. 11/25 -Agitation briefly improves following dosing of Xanax. Will add PRN dose of Xanax to allow for more frequent dosing for breakthrough agitation. -staff will continue to encourage fluid and electrolyte intake 11/26 -Continue 1:1, focus on hydration and use of Xanax for presumed agitated catatonia, and continue scheduled doses of olanzapine, lamotrigine, and Cytomel. 11/27 -Continue current plan. Encourage po intake. UA has been ordered, again requested staff collect sample, to rule out UTI. 11/28 -UA collected, appears to be a contaminated sample (>30 epis, but no bacteria ). -303 granted. 11/29 - Will give Becky some space to see if she can manage herself without direct 1 :1 supervision. - Agitated Catatonia persists with some mile improvement. Continue high dose BZD's 11/30 --will start slow benzo taper 12/01 --benzo decreased by 1 mg yesterday, still c/o mild sedation, gait significantly improved. Directed staff to weigh patient today. As less restless also less tachycardia. Will discontinue clonidine patch and monitor. Hopefully these measures will decrease sedation. 12/02--improved today, will assess for further Xanax taper in am. She lost 10 lbs while hospitalized so do not plan to start metformin at this time. 12/03--D/C MNPR 12/04--Continue alprazolam taper, decrease to 0.5mg qam and 1mg qhs. (2) Obesity Offer dietary consultation. Encouraged continued work on decreasing soda intake , and educated on healthy food choices and the importance of exercise. Discharge / Aftercare Planning Primary Care Physician: Name: [facility] Psychiatrist: Name: Dr. Malik at [facility] Date of Appointment: Dec 13, 2016 Time of Appointment: 3:20 Therapist: Name: Patria weiss [facility] Date of Appointment: Dec 10, 2016 Time of Appointment: 1:30pm Specialist: Name: Dr. Balbuena, FARAZ, Cardiology Date of Appointment: Dec 18, 2016 Time of Appointment: 3:00pm Appointment Notes: . Other: Name of Appointment #1: FARAZ, OB-CEREAL SUPERVISOR Visit Code E&M Code: 15619 Inventory Assets Strengths: "I'm a good mom, grandma, and ," "love to give to people. Per patient on admission. Risk Factors Assessment : Yes /single/: No Higher / Fall in social status: No Health problems: Yes Mental Health Diagnoses: Yes Substance use disorders: No Previous attempt: Yes Previous attempt;highly lethal: Yes Family history of suicide: No Previous psychiatric stay: Yes Hopelessness: No Smoker: No Protective Factors Assessment Voodoo beliefs: Yes : Yes Responsible for young children: No Employed: No Stable relationships: Yes Supportive family: Yes Good rapport with provider: Yes Data Vital Signs Last 24 Hrs: Date Time Temp Pulse Resp B/P Pulse Ox O2 Delivery O2 Flow Rate FiO2 12/04/16 08:18 96 Room Air 12/04/16 06:57 97 Room Air 12/04/16 06:56 36.9 71 16 104/69 82 112/78
[2016-12-04] MEDS: OLANZAPINE ZYDIS 10 MG ORALLY DIS. TAB PO SCH (21:13)
[2016-12-04] MEDS: POTASSIUM CHLORIDE 20 MEQ TABCR PO SCH ×2 (21:13→21:18)
[2016-12-05 06:55] VITALS: BP_SYST 108; BP_DIAS 67; BP_DIAS 78; PULSE 68; PULSE 94; TEMP 36.6; O2SAT 97
[2016-12-05] MEDS: LIOTHYRONINE SODIUM 25 MCG TAB PO SCH (08:49)
[2016-12-05] MEDS: PROBIOTIC GUMMIES PO SCH (08:51)
[2016-12-05] MEDS ORDERED: POTASSIUM CHLORIDE 20 MEQ/15 ML UDC PO SCH (09:00)
[2016-12-05] MEDS ORDERED: ALPRAZOLAM 0.5 MG TAB PO SCH (09:00)
[2016-12-05 09:14] VITALS: O2SAT 95
[2016-12-05] MEDS ORDERED: POTA10CA28 PO (09:23)
[2016-12-05] MEDS ORDERED: XNX5 PO (09:23)
[2016-12-05] MEDS ORDERED: OLAN1TAB15 PO (09:23)
--- NOTE | 2016-12-05 09:39 | Discharge Instructions ---
Discharge Information Report Includes Report will include the: Discharge Instructions & Summary Admission Admission Date / Time: Nov 11, 2016 at 18:19 Reason for Admission: Bipolar 1 Disorder Discharge Discharge Diagnosis / Problem: bipolar disorder Condition at Discharge: Fair Discharge Goals Goal(s): Decrease discomfort, Improve disease control, Prevent Disease Progression Activity Recommendations Activity Limitations: resume your previous activity . Instructions / Follow-Up Instructions / Follow-Up . SPECIAL CARE INSTRUCTIONS: 1. Follow through with your scheduled aftercare appointments. If unable to keep an appointment, please call to reschedule. 2. Take your medication only as prescribed. Medication should not be changed or stopped without the approval of your doctor. In the event of worsening symptoms or concerns about side effects, contact your doctor immediately. 3. Utilize new healthy coping skills, anger management skills, and stress management skills learned during your hospitalization. Journal feelings and process them with a support person. Identify stressors or situations that may result in relapse, deterioration or inappropriate behaviors and develop a plan to deal with those issues. 4. If your coping skills are ineffective and you are in crisis, contact your outpatient providers for direction. If unable to reach your providers, please call the CAN HELP LINE AT or go to the closest Emergency Room. 5. Avoid alcohol and un-prescribed drugs. 6. You have been provided with the Mental Health Advance Directives Pamphlet for your review. AFTERCARE APPOINTMENTS: * Please call your insurance company prior to your scheduled appointment to confirm your aftercare providers are covered. Take your insurance information to your appointments. . Discharge / Aftercare Planning Primary Care Physician: Name: [facility] Appointment Notes: as needed Psychiatrist: Name: Dr. Malik at [facility] Date of Appointment: Dec 13, 2016 Time of Appointment: 3:20 Therapist: Name Of Therapist: Patria weiss [facility] Date of Appointment: Dec 10, 2016 Time of Appointment: 1:30pm Specialist: Name: FARAZ Justin, Cardiology Date of Appointment: Dec 18, 2016 Time of Appointment: 3:00pm Appointment Notes: . Other: Name of Appointment #1: FARAZ, OB-PATIENT CONSUMER MARKETER . Follow-Up Care Plan for Follow-Up Care: The patient has appts with her outpatient providers within 1 week of discharge. Current Hospital Diet Patient's current hospital diet: Regular Diet Discharge Diet Recommended Diet: Regular Diet Procedures Procedures Performed: No Pending Studies Pending Studies at Discharge: No Medical Emergencies . Who to Call and When: Medical Emergencies: For questions or emergencies related to your hospital stay, please contact the Inpatient Behavioral Health Unit at [phone]. A repair miller is on-call 01/04 for the Behavioral Health Unit for emergencies At any time you feel your situation is an emergency, you may also call 911 immediately. . Non-Emergent Contact Non-Emergency issues call your: Psychiatrist, Therapist Advance Directives Existing Advance Directive: No Do You Have an Existing Mental: No Existing Living Will: No Existing Power of Property Management Accountant: No Advance Directives Info Given: To Pt/S.O. Advance Directives Reason: Declines as Mental Health Visit. Discharge Summary Admission HPI Per the Admitting provider: This is the patient's first hospitalization on our behavioral health unit. She has a long history of mental illness, states she was first diagnosed with mood disorder 20 years ago after the of her second child when she was hospitalized for several months with depression. At some point her diagnosis was changed to bipolar disorder, but she's had frequent episodes of psychosis, and per outpatient records there is a also a concern for schizoaffective disorder bipolar type. She has been seeing Dr. Malik at [facility] [place], but has canceled multiple appointments with both her psychiatrist and therapist. She called the clinic on 11/04/2016, stating she was not sleeping and was manic and paranoid, and her Saphris was increased to 10 mg every morning and 15 mg daily at bedtime, and temazepam to 30 mg daily at bedtime. She was then seen in the emergency room 2 days later for manic symptoms, but was discharged home. She then called the clinic again and was seen 11/07/2016 for an urgent appointment, and reported the week prior she'd returned from a visit with her daughter, slept excessively all week, and then over the weekend was unable to sleep and felt paranoid that others were talking about her. She endorsed racing thoughts, high anxiety, thinking other people are talking about her, and hyper religiosity. She was given instructions to taper off of Pristiq, and to start lithium. She called the clinic the following day, stating that she continued to be paranoid, and was given instructions on tapering up on the lithium. She then presented to the emergency room 3 days later with her , reporting worsening auditory hallucinations for the past 2 weeks, paranoia, and hyper religiosity. She endorsed feeling overwhelmed and wanted to be admitted. Today, the patient is seen with Tom Edmond, MS3. She is a somewhat limited historian due to psychosis, anxiety, and disorganization. She states that she's had worsening symptoms for the past 2 months, describing unstable mood, with frequent switches between freida and depression. Over the past week, she's developed auditory hallucinations which she describes as a male voice "degrading me." She also endorses paranoia, thinking that others are talking badly about her and don't like her, or are out to get her. Due to this she has been unable to leave the house or even go to the store. At one point she would did go out with her , but hid in the car she was fearful. Her sleep has decreased since the voices started, she's been isolating more, and has been more irritable. Her daughter told her she needed to go to the hospital after she told her about an incident that occurred 2 days ago where the patient was in the basement and saw her 's beer, which he keeps their, and had urges to "throw it against the wall." She states that her is an alcoholic, and this has caused frequent fights between them. She also describes stress due to difficulties finding a restoration she wants to attend, but has difficulty describing this, saying "it's not for me, I think I scared myself being so close to the Lord, but that's not which are supposed to do." She describes her mood as "fluctuating." During her manic periods, she describes high mood, decreased need for sleep about 3 hours a night, excessive cleaning, saying she "tries to make everything perfect." She has racing thoughts and becomes "obsessed" with gnosticist and which restoration she wants to attend. During a low periods, mood is sad, she cries frequently, feels guilty for being ill, does not do the food shopping or take care of herself. Energy levels are erratic, interest is decreased, and irritability is increased. She worries a lot about "I don't know, I have nothing to worry about, I don't have any problems." Despite this, she endorses worry about everything in her life, including which restoration she should attend, her children, and her grandchildren. She denies symptoms consistent with panic, OCD, PTSD, and eating disorder. She admits "I don't take care of myself," makes poor food choices and drinks excessive amounts of soda, and does not follow up with outpatient appointments or recommendations, stating that her psychiatrist had referred her to cardiology due to an abnormal EKG, but she has canceled and rescheduled the stress test, and has not attended her scheduled psychiatric or therapy appointments. She reports problems with short-term memory, which are long-standing per records. She states that when she is ill "I just live in the past," saying she becomes obsessed with her ex- and "blames him." She endorses steady weight gain. She has had suicidal thoughts in the past, last was a couple of months ago. She denies homicidal thoughts or thoughts of harming others. Hospital Course (1) Bipolar 1 disorder -Every 15 minute checks for safety -Encourage participation in unit groups and programming -Work on healthy coping skills and her discharge safety plan, to include securing of medications in the home, and ensuring that guns are locked and she will not have access. -Family meeting with . -Coordinate care with outpatient providers, Dr. Malik and Patria Espinal at [facility]. -Continue home doses of lamotrigine, temazepam, Saphris, and Cytomel. -Continue taper off of Pristiq, and continued titration up on lithium, which was increased to 300 mg in the morning and 900 mg at bedtime last night. She will need a trough level after 5 days (11/16/2016). -Offer hydroxyzine as needed for sleep and anxiety, and have also ordered clonazepam 0.5 mg as needed for anxiety, as she reports alprazolam was helpful in the ER, and says she is allergic to lorazepam. -Check fasting labs for monitoring on an atypical, as last labs in her records were done in December 2015. At that time, glucose was elevated at 109, and lipids were normal. 3/7 - FLP and FBS WNL today - Reality orientation - Continue current meds - Family meeting with . 11/14 - Continue with reality orientation and groups, as periodic derealization/ dissociation - Continue lithium, Saphris, lamotrigine, temazepam and Cytomel 11/15 - Did not receive lithium last night so will DC level. Continue current lithium dosing - Will add Haldol 5 mg. BID with dose now. patient may refuse, but in looking at past med trials, she has never been tried on a typical. - Reality orientation 11/16 --mild lengthening of QTc after 3 doses of Haldol 5 mg yesterday. Initially refused am medications but ultimately accepted with plan to taper Saphris in favor of a retrial of Zyprexa. Reviewed that Haldol will be used as a bridge and hopefully coadmin with lamictal and lithium will allow lower dosing of Zyprexa than previously. Patient and well aware of metabolic risks. 11/17 - will d/c haldol as no improvement and h/o poor tx effect on this agent per family - will increase Zyprexa to 2.5mg qam w/ now dose and 10mg qhs - liberalize klonopin prn utilization - she is now off the saphris 11/18 - Continues to decline and appearing more psychotic and disorganized again today. She refused her scheduled 2.5 mg Zyprexa but ultimately was agreeable to take a 10 mg now dose. She will receive another 10 mg at bedtime tonight and will schedule for 10 mg twice a day starting tomorrow. Appears she has required very high dose antipsychotic treatment in the past. - As her psychosis worsens, her insight and judgment are increasingly impaired. At the present time she appears to lack the insight and inability to rationally manipulate information such that an involuntary commitment should be considered. Additionally, with her declining insight, she is becoming more resistant to medication compliance. In my clinical opinion, should she refuse oral medications, she should be treated over her objection for worsening psychosis. - She is appearing more tachycardic. Fluid intake ok. Vital signs otherwise okay. QTc was borderline on recent EKG. Considered ordering another EKG today but I did not feel that she would tolerate it today. - if psychosis does not improve with antipsychotic titration, consider EEG given h/o seizure disorder. this might also help r/o possibility of something like lithium induced encephalopathy. 11/19 - Adjust Zyprexa to 20 mg. all HS and add 2.5 mg. BID prn psychosis - Reduce lithium to 900 mg. HS only with level in 5 days. - DC temazepam 11/20 - Continue current meds 11/21 - Meeting held with patient and family. Will taper off lithium at family's request, and due to poor response after almost 2 weeks on it. - Continue olanzapine 20mg qhs and 2/5mg prn. Continue Artane 5mg bid. - Reviewed case with Doctor Of Pharmacy Dr. Solis, who was also involved last evening re: staff's concerns about patient's symptoms and behavior. Reviewed med adjustments as above, and will add stelazine 1mg prn for psychosis, as olanzapine prns not always effective. 11/22 -1:1 for safety given disorganization and inappropriate behaviors - Will DC artane and bentyl in the event its worsening a delirium. - Will start scheduled stelazine 1 mg. BID and continue 1 mg. BID prn - Will prioritize the use of prn BZD's tonight in view of elevated CK - If patient able to be still, will order EEG to assist us in rule out delirium - [place] DC'd - Case has been reviewed with both Dr. Benson and Dr. Solis 11/23 --continue 1-1, confirming necessary am labs with [facility] hospitalist before blood draw. Extensive discussion with and daughter Fe about her current condition and medical necessity for blood draw, will convert to 302 if necessary to restrain for labs, family support this if needed. Will advocate for IV sedation at this point, will consult with critical care team to determine if candidate for Ketamine. Schizoaffective more likely diagnosis at this point. Clearly periods of catatonia with agitated catatonia +/- delirium. CPK may indicate risk for early NMS, family is aware of risk given her escalating need for antipsychotics. Daughter did confirm that prior reaction to Ativan was anaphylaxis and ICU stay so Ativan IM or drip is not an option. Will discuss needs with Dr. Ramirez. 11/24 -Continue on 1:1. Agitation continues. Slight improvement in CPK level and Potassium level. Clonidine appears to have helped decreased tachycardia. 11/25 -Agitation briefly improves following dosing of Xanax. Will add PRN dose of Xanax to allow for more frequent dosing for breakthrough agitation. -staff will continue to encourage fluid and electrolyte intake 11/26 -Continue 1:1, focus on hydration and use of Xanax for presumed agitated catatonia, and continue scheduled doses of olanzapine, lamotrigine, and Cytomel. 11/27 -Continue current plan. Encourage po intake. UA has been ordered, again requested staff collect sample, to rule out UTI. 11/28 -UA collected, appears to be a contaminated sample (>30 epis, but no bacteria ). -303 granted. 11/29 - Will give Becky some space to see if she can manage herself without direct 1 :1 supervision. - Agitated Catatonia persists with some mile improvement. Continue high dose BZD's 11/30 --will start slow benzo taper 12/01 --benzo decreased by 1 mg yesterday, still c/o mild sedation, gait significantly improved. Directed staff to weigh patient today. As less restless also less tachycardia. Will discontinue clonidine patch and monitor. Hopefully these measures will decrease sedation. 12/02--improved today, will assess for further Xanax taper in am. She lost 10 lbs while hospitalized so do not plan to start metformin at this time. 12/03--D/C MNPR 12/04--Continue alprazolam taper, decrease to 0.5mg qam and 1mg qhs. (2) Obesity Offer dietary consultation. Encouraged continued work on decreasing soda intake , and educated on healthy food choices and the importance of exercise. Risk Factors Assessment : Yes /single/: No Higher / Fall in social status: No Health problems: Yes Mental Health Diagnoses: Yes Substance use disorders: No Previous attempt: Yes Previous attempt;highly lethal: Yes Family history of suicide: No Previous psychiatric stay: Yes Hopelessness: No Smoker: No Protective Factors Assessment Taoism beliefs: Yes : Yes Responsible for young children: No Employed: No Stable relationships: Yes Supportive family: Yes Good rapport with provider: Yes Day of Discharge Assessment COURSE OF HOSPITALIZATION: The patient was on our mental health unit for 24 days. She was admitted with an exacerbation of her bipolar disorder. There was some suspicion that this may have been triggered by antidepressant therapy, specifically Pristiq, which was discontinued at the time of admission. She had also recently been started on a trial of lithium. This was titrated up to a therapeutic dose however the patient entered into a phase of agitated catatonia and the lithium was discontinued as it did not appear to be helping. She also had a brief trial of Stelazine before being diagnosed with agitated catatonia. During the early part of Becky's hospitalization, she also had an upper respiratory infection. Medicine was consulted, specifically the [facility] physician group hospitalist, who were very helpful in managing her medical conditions. Her condition deteriorated to the point of requiring a 302 involuntary commitment as the patient, in her agitated delirium, kept insisting on leaving. This was further converted to a 303 commitment. The patient spent several weeks being on one-to-one supervision because of her agitation and need for assistance. During this time she was not able to be appropriate on the unit , at times disrobing in the community, was echolalic, and in large part was not able to communicate effectively verbally. She was eventually started on high- dose benzodiazepines as high as 4-7 mg of Xanax daily. Her condition gradually began to improve, benzodiazepines were tapered to the point that she was only on 1.5 mg of Xanax daily. She was maintained on Zyprexa 30 mg at bedtime. Her was very involved in treatment, and has taken a leave of absence from work in order to be attendant to her both during her hospitalization and for several weeks post discharge. The patient had a great deal of difficulty making it to her appointments prior to admission which was a barrier to effective care. The is focused on making sure that she gets to her appointments both while he is off and after he returns to work. DAY OF DISCHARGE ASSESSMENT: I met with the patient and her who is here to meet with the social media campaign manager. We reviewed her progress in both agree that she is ready for discharge. Becky has some anxiety but otherwise feels that her thinking is clear and voices a commitment to going to her outpatient appointments. says again that he will be able to take a week or 2 off of work in order to be with her in this transition and make sure that she gets to her appointments. He will also be able to be sure that she gets to them after he returns to work. We review a safety plan in the event she deteriorates him again. The was informed that he could call on the [facility] can help line and have a mobile brush worker come to their home is Becky refuses to go to the hospital if he deems that that's necessary. Today the patient is casually and appropriately dressed and groomed. Gait and station are within normal limits. Eye contact is good, although at times staring. Affect is anxious. Speech is of normal rate volume and tone. Thoughts are organized and goal directed. There is no overt evidence of psychosis. She does not evidence any high energy or racing thoughts at this time. Recent memory is impaired for the events occurring during the time when she was in an agitated catatonia. Intelligence is estimated to be average. Insight and judgment are improved over admission. Laboratory Test 11/11/16 15:30 11/11/16 16:53 11/13/16 07:20 11/19/16 09:15 Thyroid Stimulating Hormone (TSH) 0.981 Human Chorionic Gonadotropin, Qual NEG Ethyl Alcohol mg/dL < 3.0 Urine Color YELLOW Urine Appearance CLEAR Urine pH 6.0 Urine Specific [place] 1.017 Urine Protein NEG Urine Glucose (UA) NEG Urine Ketones NEG Urine Occult Blood 1+ Urine Nitrite NEG Urine Bilirubin NEG Urine Urobilinogen NEG Urine Leukocyte Esterase NEG Urine WBC (Auto) 1-5 Urine RBC (Auto) 10-30 Urine Hyaline Casts (Auto) 1-5 Urine Epithelial Cells (Auto) >30 Urine Bacteria (Auto) NEG Urine Opiates Screen NEG Urine Methadone, Qualitative NEG Urine Barbiturates NEG Urine Phencyclidine (PCP) Level NEG Ur Amphetamine/Methamphetamine NEG MDMA (Ecstasy) Screen NEG Urine Benzodiazepines Screen NEG Urine Cocaine Metabolite NEG Urine Marijuana (THC) NEG Fasting Glucose 91 Triglycerides Level 97 Cholesterol Level 123 HDL Cholesterol 39 LDL Cholesterol, Calculated 65 VLDL Cholesterol, Calculated 19 Cholesterol/HDL Ratio 3.2 [place] Level 1.1 Test 11/20/16 09:54 11/21/16 15:50 11/22/16 15:30 11/23/16 09:35 [place] Level 1.0 Immature Granulocyte % (Auto) 0.2 White Blood Count 13.48 Red Blood Count 4.00 Hemoglobin 12.1 Hematocrit 35.4 Mean Corpuscular Volume 88.5 Mean Corpuscular Hemoglobin 30.3 Mean Corpuscular Hemoglobin Concent 34.2 Platelet Count 272 Mean Platelet Volume 10.6 Neutrophils (%) (Auto) 72.5 Lymphocytes (%) (Auto) 17.1 Monocytes (%) (Auto) 7.4 Eosinophils (%) (Auto) 2.2 Basophils (%) (Auto) 0.6 Neutrophils # (Auto) 9.76 Lymphocytes # (Auto) 2.31 Monocytes # (Auto) 1.00 Eosinophils # (Auto) 0.30 Basophils # (Auto) 0.08 Immature Granulocyte # (Auto) 0.03 Prothrombin Time 11.4 Prothrombin Time INR 1.1 PTT 26.8 Partial Thromboplastin Ratio 1.0 D-Dimer 440 Troponin I < 0.015 < 0.015 Pro-B-Type Natriuretic Peptide 40 Creatine Kinase MB 14.9 Creatine Kinase MB Ratio 1.7 Globulin 3.9 Albumin/Globulin Ratio 1.1 Total Bilirubin 0.8 Direct Bilirubin Aspartate Amino Transferase (AST) 46 Alanine Aminotransferase (ALT) 40 Alkaline Phosphatase 91 Total Protein 7.8 Albumin 3.8 Amylase Level 33 Lipase 101 Chemistry Specimen Hemolysis Test 11/24/16 07:45 11/25/16 09:50 11/27/16 07:20 11/27/16 12:30 Total Creatine Kinase 617 139 Pro-B-Type Natriuretic Peptide 37 White Blood Count 9.89 8.03 Red Blood Count 4.13 4.06 Hemoglobin 12.5 12.2 Hematocrit 37.4 37.7 Mean Corpuscular Volume 90.6 92.9 Mean Corpuscular Hemoglobin 30.3 30.0 Mean Corpuscular Hemoglobin Concent 33.4 32.4 RDW Standard Deviation 46.2 48.9 RDW Coefficient of Variation 14.0 14.5 Platelet Count 302 277 Mean Platelet Volume 10.7 11.1 Magnesium Level 2.6 2.3 Sodium Level 142 Potassium Level 3.7 Chloride Level 107 Carbon Dioxide Level 28 Anion Gap 7.0 Blood Urea Nitrogen 3 Creatinine 0.58 Est Creatinine Clear Calc Drug Dose 151.5 Estimated GFR () 127.2 Estimated GFR (Non- 109.8 BUN/Creatinine Ratio 5.2 Random Glucose 107 Calcium Level 9.0 Urine Color YELLOW Urine Appearance CLEAR Urine pH 6.0 Urine Specific [place] 1.011 Urine Protein NEG Urine Glucose (UA) NEG Urine Ketones NEG Urine Occult Blood 3+ Urine Nitrite NEG Urine Bilirubin NEG Urine Urobilinogen NEG Urine Leukocyte Esterase SMALL Urine WBC (Auto) 5-10 Urine RBC (Auto) >30 Urine Hyaline Casts (Auto) 1-5 Urine Epithelial Cells (Auto) >30 Urine Bacteria (Auto) NEG Test 11/30/16 07:29 Sodium Level 142 Potassium Level 3.9 Chloride Level 105 Carbon Dioxide Level 29 Anion Gap 8.0 Blood Urea Nitrogen 6 Creatinine 0.66 Est Creatinine Clear Calc Drug Dose 133.1 Estimated GFR () 121.9 Estimated GFR (Non- 105.2 BUN/Creatinine Ratio 8.8 Random Glucose 87 Calcium Level 8.8 Total Bilirubin 0.5 Aspartate Amino Transferase (AST) 16 Alanine Aminotransferase (ALT) 31 Alkaline Phosphatase 84 Total Protein 7.2 Albumin 3.3 Globulin 3.9 Albumin/Globulin Ratio 0.8 Lamotrigine (Lamictal) Level 8.5 Total Time Total Time Spent (min): Greater than 30 minutes Total Time Included: examination of the patient, discharge planning, medication reconciliation, communication with other providers Tobacco Cessation at Discharge Smoking Status: Never Smoker FDA approved Prescription: non-smoker
[2016-12-05] MEDS ORDERED: DESTROY THIS MEDICATION ONE ×2 (10:30→10:34)
== END 2016-12-05 10:34 | disposition home or self-care (01) | DRG 885 ==
LOC: C.EDB 14:23 → C.MHU 18:19
PROVIDERS: ADMIT Psychiatry & Neurology Psychiatry; ATTEND Psychiatry & Neurology Psychiatry
DX: F31.2 Bipolar disorder, current episode manic severe with psychotic features (principal); N39.0 Urinary tract infection, site not specified; E66.9 Obesity, unspecified; Z91.19 Patient's noncompliance with other medical treatment and regimen; R00.0 Tachycardia, unspecified; G40.909 Epilepsy, unspecified, not intractable, without status epilepticus; T43.215A Adverse effect of selective serotonin and norepinephrine reuptake inhibitors, initial encounter; Y92.019 Unspecified place in single-family (private) house as the place of occurrence of the external cause; J06.9 Acute upper respiratory infection, unspecified; B96.1 Klebsiella pneumoniae [K. pneumoniae] as the cause of diseases classified elsewhere; G47.00 Insomnia, unspecified; Z88.2 Allergy status to sulfonamides; Z83.3 Family history of diabetes mellitus; Z68.34 Body mass index [BMI] 34.0-34.9, adult

== ENCOUNTER → 2016-12-11 | Outpatient (CLI) | payer BC ==
[~2016-12-11] MED LIST changes: -ALPR-385 PO; -DESV50TA PO; -DICY20TA10 PO; -DIPH-437 PO; -DIPH25CA65 PO; +OLAN1TAB15 PO; +POTA10CA28 PO; -SPHSL5 PO; -TEMA15CA4 PO; +XNX5 PO
== END | disposition home or self-care (01) ==
LOC: C.PAPS 16:28
PROVIDERS: ATTEND Physician Assistant
DX: Z01.419 Encounter for gynecological examination (general) (routine) without abnormal findings (principal)

== ENCOUNTER → 2017-03-13 | Outpatient (CLI) | payer BC ==
[~2017-03-13] MED LIST changes: -OLAN1TAB15 PO; -POTA10CA28 PO
[2017-03-13 12:29] LABS: BASO % 0.5 %; BASO ABS # 0.04 K/uL (0-0.2); COMPLETE YES; EOS % 0.1 %; IG% 0.4 %; LYMPH % 28.7 %; LYMPH ABS # 2.28 K/uL (1.2-3.4); MEAN CELL VOLUME 90.9 fL (80-100); MEAN CORPUSCULAR HEMOGLOBIN 30.1 pg (25-34); MEAN CORPUSCULAR HGB CONC 33.1 g/dl (32-36); MEAN PLATELET VOLUME 10.9 fL (7.4-10.4); MONO % 9.8 %; NEUT % 60.5 %; PLATELET COUNT 262 K/uL (130-400); RED BLOOD COUNT 4.29 M/uL (4.2-5.4); WHITE BLOOD COUNT 7.94 K/uL (4.8-10.8)
[2017-03-13 12:57] LABS: ALT/SGPT 24 U/L (12-78); AST/SGOT 14 U/L (15-37); BLOOD UREA NITROGEN 8 mg/dl (7-18); BUN/CREATININE RATIO 12.7 (10-20); CALCIUM 8.9 mg/dl (8.5-10.1); CARBON DIOXIDE 25 mmol/L (21-32); CHLORIDE 106 mmol/L (98-107); CREATININE 0.67 mg/dl (0.60-1.20); GLUCOSE 107 mg/dl (70-99); MAGNESIUM 2.3 mg/dl (1.8-2.4); POTASSIUM 4.2 mmol/L (3.5-5.1); SODIUM 139 mmol/L (136-145)
[2017-03-13 13:04] LABS: ALB/GLOB RATIO 1.1 (0.9-2); ALKALINE PHOSPHATASE 110 U/L (45-117); CHOLESTEROL 163 mg/dl (0-200); CHOLESTEROL/HDL RATIO 3.2; HDL CHOLESTEROL 51 mg/dl; LDL CHOLESTEROL CALCULATED 97 mg/dl; TRIGLYCERIDES 77 mg/dl (0-150); VERY LOW DENSITY LIPOPROT CALC 15 mg/dl
== END | disposition home or self-care (01) ==
LOC: C.LABBFT 08:22
PROVIDERS: ATTEND Internal Medicine
DX: Z00.00 Encounter for general adult medical examination without abnormal findings (principal); R19.7 Diarrhea, unspecified; K58.9 Irritable bowel syndrome, unspecified; R25.2 Cramp and spasm

== ENCOUNTER → 2017-04-25 | Outpatient (CLI) | payer BC ==
--- NOTE | 2017-04-25 18:59 | DIAGNOSTIC IMAGING REPORT ---
TWO VIEW CHEST CLINICAL HISTORY: Acute bronchitis. FINDINGS: PA and lateral chest radiographs are compared to study dated 11/21/2016. The cardiomediastinal silhouette is unremarkable. The lungs and pleural spaces are clear. There is no pneumothorax. The skeletal structures are osteopenic. There is mild S-shaped thoracolumbar scoliosis. Cholecystectomy clips are noted in the right upper quadrant. IMPRESSION: No active disease in the chest. Electronically signed by: Sourav Ram M.D. 04/25/2017 6:58 PM Dictated Date/Time: 04/25/2017 6:58 PM
== END | disposition home or self-care (01) ==
LOC: C.RAD 18:29
PROVIDERS: ATTEND Nurse Practitioner
DX: J20.9 Acute bronchitis, unspecified (principal)

== ENCOUNTER → 2017-09-28 | Outpatient (CLI) | payer BC ==
[~2017-09-28] MED LIST changes: +LAMO200T35 PO; -LAMO200T38 PO
== END | disposition home or self-care (01) ==
LOC: C.LAB 10:09
PROVIDERS: ATTEND Psychiatry & Neurology Psychiatry
DX: Z79.899 Other long term (current) drug therapy (principal)